=== PATIENT | female | born 2000 | race Two or more races ===

== ENCOUNTER 2023-08-14 22:58 | Emergency (ER) | payer SELFPAY ==
[2023-08-14 23:04] VITALS: BP 111/75; PULSE 93; RESP 16; O2SAT 98; BMI 27.5
--- NOTE | 2023-08-14 23:24 | ED_ITS ---
HPI - Female Genitourinary General Chief complaint: Urogenital-Female Stated complaint: UTI, 14-wks Time Seen by Provider: 08/14/23 23:08 Source: patient Mode of arrival: walk-in Limitations: no limitations History of Present Illness HPI Narrative: This 24-year-old female whose last menstrual period was in April and has had positive tests at home and is waiting to see Dr. Gomez presents f or evaluation of 3 days of urinary symptoms including frequency, urgency and dysuria. She has not noticed any leg in her urine. She has not had a fever. She denies any vaginal bleeding or discharge or passage of any tissue. She does have some low back pain. She states she has been having intermittent episodes of vomiting which she expected to have when she got . She has not had any fever or signs of pyelonephritis. Related Data Home Medications Medication Instructions Recorded Confirmed [id number] acid PO 08/14/23 Allergies Allergy/AdvReac Type Severity Reaction Status Date / Time No Known Drug Allergies Allergy Verified 08/14/23 23:13 Review of Systems ROS Status of ROS 10 or more systems reviewed and unremarkable except as noted in history and below [facility] Social History Smoking status: Former smoker Exam Narrative Exam Narrative: Nurses note and vital signs reviewed and patient is not hypoxic. General: The patient appears well and in no apparent distress. Patient is resting comfortably on cart. Skin: Warm, dry, no pallor noted. There is no rash noted. Head: Normocephalic, atraumatic Eye: Normal conjunctiva, no drainage, EOMI. PERRL Ears, Nose, Mouth, and Throat: oral mucosa is moist. Cardiovascular: Regular Rate and Rhythm S1S2, no murmurs, rubs or gallops Respiratory: Patient is in no distress, no accessory muscle use, lungs are clear to auscultation, no wheezing, rales or rhonchi Back: non-tender, no CVA tenderness bilaterally to percussion. GI: Normal bowel sounds, no tenderness to palpation, no masses appreciated. No rebound, guarding, or rigidity noted. There is no tenderness over the urinary bladder. The patient's uterus does not feel enlarged Musculoskeletal: The patient has no evidence of calf tenderness, no pitting edema, symmetrical pulses noted bilaterally Neurological: A&O x4, normal speech Psychiatric: Cooperative Constitutional Vital Signs, click to edit/add: Last Vital Signs Pulse 93 H 08/14/23 23:04 Resp 16 08/14/23 23:04 BP 111/75 08/14/23 23:04 Pulse Ox 98 08/14/23 23:04 O2 Del Method Room Air 08/14/23 23:04 Course Vital Signs Vital signs: Vital Signs Pulse Rate 93 H 08/14/23 23:04 Respiratory Rate 16 08/14/23 23:04 Blood Pressure 111/75 08/14/23 23:04 Pulse Oximetry 98 08/14/23 23:04 Oxygen Delivery Method Room Air 08/14/23 23:04 Pulse Rate 93 H 08/14/23 23:04 Respiratory Rate 16 08/14/23 23:04 Blood Pressure 111/75 08/14/23 23:04 Pulse Oximetry 98 08/14/23 23:04 Oxygen Delivery Method Room Air 08/14/23 23:04 MDM - Female Genitourinary MDM Narrative Medical decision making narrative: This 33-year-old female who states that her last menstrual period was in July presents for evaluation of urinary frequency urgency and dysuria. She has not noticed any hematuria. She denies any flank pain shaking chills or other signs of pyelonephritis. She has had a home positive test and been seen in follow-up but has not been seen by [facility] yet. She is waiting for her Medicaid to come through. She is well-appearing. Her abdomen is soft. She denies any vaginal discharge or bleeding. Her urine test was positive and urinalysis was negative. In light of her and urinary symptoms she will be medicated with Keflex empirically. She was medicated in emergency department with a 1st dose of Keflex, Tylenol and Zofran. I encouraged her to drink plenty of fluids to stay hydrated and return to emergency department as needed for worsening symptoms, fever, abdominal pain vaginal bleeding or any concerns. Lab Data Labs: Lab Results 08/14/23 Range/Units 23:14 Urine Color Lt. yellow (YELLOW) Urine Clarity Clear (CLEAR) Urine pH 6.5 (5.0-9.0) Ur Specific [place] <=1.005 A (1.005-1.025) Urine Protein Negative (NEG/TRACE) mg/dL Urine Glucose (UA) Negative (NEGATIVE) mg/dL Urine Ketones Negative (NEGATIVE) mg/dL Urine Occult Blood Negative (NEGATIVE) Urine Nitrite Negative (NEGATIVE) Urine Bilirubin Negative (NEGATIVE) Urine Urobilinogen 0.2 (0.2-1.0) EU/dL Ur Leukocyte Esterase Negative (NEGATIVE) Urine RBC 0-2 (0-2) #/HPF Urine WBC 0-2 A (NONE SEEN) #/HPF Ur Squamous Epith Cells Few A (NONE/RARE) #/LPF Urine Crystals None seen (None Seen) #/HPF Urine Bacteria None seen (NONE SEEN) #/HPF Urine Casts None seen (NONE SEEN) #/LPF Urine Mucus None seen (NONE SEEN) Urine HCG, Qual Positive A (NEGATIVE) Discharge Plan Discharge Chief Complaint: Urogenital-Female Clinical Impression: Urinary tract infection, Positive test Patient Disposition: Home, Self-Care Time of Disposition Decision: 00:31 Condition: Good Prescriptions / Home Meds: No Action [id number] [ Multi] PO Instructions: Urinary Tract Infection in (ED) Stand Alone Forms: Portal Instructions Referrals: Physician,Non-Staff, MD [Primary Care Provider] - 1 week
[2023-08-14 23:37] LABS: Bilirubin Urine NEGATIVE (NEGATIVE); Blood Urine NEGATIVE (NEGATIVE); Clarity Urine CLEAR (CLEAR); Color Urine LT. YELLOW (YELLOW); Glucose Urine UA NEGATIVE (NEGATIVE); Ketones Urine NEGATIVE (NEGATIVE); Leukocyte Esterase Urine NEGATIVE (NEGATIVE); Nitrite Urine NEGATIVE (NEGATIVE); Protein Urine NEGATIVE (NEG/TRACE); Specific Gravity Urine <=1.005 (1.005-1.025); Urobilinogen Urine 0.2 EU/dL (0.2-1.0); pH Urine 6.5 (5.0-9.0)
[2023-08-14 23:48] LABS: Bacteria Urine NONE SEEN #/HPF (NONE SEEN); Mucus Urine NONE SEEN (NONE SEEN); RBC Urine 0-2 #/HPF (0-2); WBC Urine 0-2 #/HPF (NONE SEEN)
[2023-08-14 23:49] LABS: Crystals Seen? None Seen #/HPF (None Seen); Squamous Epithelial Cell Urine FEW #/LPF (NONE/RARE)
[2023-08-14 23:52] LABS: Cast Seen? NONE SEEN #/LPF (NONE SEEN)
[2023-08-15 00:25] LABS: HCG Qualitative Urine* POSITIVE (NEGATIVE)
[2023-08-15] MEDS: ACETAMINOPHEN 325 MG TABLET 650 MG PO (00:42)
[2023-08-15] MEDS: CEPHALEXIN 500 MG CAPSULE PO (00:42)
== END 2023-08-15 00:49 | disposition home or self-care (01) ==
PROVIDERS: Emergency Provider Emergency Medicine
DX: O23.42 Unspecified infection of urinary tract in pregnancy, second trimester (principal); N39.0 Urinary tract infection, site not specified; Z3A.14 14 weeks gestation of pregnancy; Z87.891 Personal history of nicotine dependence
CPT/HCPCS: 81001; 84703; 99283

== ENCOUNTER 2023-08-28 22:57 | Emergency (ER) | payer OTHER, SELFPAY ==
[2023-08-28 23:02] VITALS: BP 130/74; PULSE 77; RESP 16; TEMP 37.1; O2SAT 100; BMI 29.3
--- NOTE | 2023-08-29 00:57 | ED.GENADUL1 ---
HPI - General Adult General Chief complaint: Headache Stated complaint: MIGRAINE, 16 WEEKS Time Seen by Provider: 08/29/23 00:54 Source: patient Mode of arrival: walk-in History of Present Illness HPI narrative: presents complaining of migraine headache. Started around 7pm tonight. Similar headaches in the past. Headache associated with nausea and vomiting. No neck pain, stiffness or fever. No weakness of her extremities Onset (ago): hour(s) Related Data Home Medications Medication Instructions Recorded Confirmed [id number] acid PO 08/14/23 Allergies Allergy/AdvReac Type Severity Reaction Status Date / Time No Known Drug Allergies Allergy Verified 08/14/23 23:13 Review of Systems ROS Status of ROS 10 or more systems reviewed and unremarkable except as noted in history and below [facility] Social History Smoking status: Former smoker Exam Constitutional Vital Signs, click to edit/add: Last Vital Signs Temp 98.8 F 08/28/23 23:02 Pulse 77 08/28/23 23:02 Resp 16 08/28/23 23:02 BP 130/74 08/28/23 23:02 Pulse Ox 100 08/28/23 23:02 O2 Del Method Room Air 08/28/23 23:02 Common normals: no apparent distress, average body habitus, oriented x3, no limitations, healthy appearing, alert and well nourished [facility] Common normals: normocephalic and head/scalp atraumatic Eye Common normals: EOMs intact bilaterally and conjunctivae normal Respiratory Common normals: normal respiratory effort, no retractions, no use of accessory muscles and clear to auscultation bilaterally Cardio Common normals: regular rate, regular rhythm, S1 normal heart sound and S2 normal heart sound GI Common normals: Normal to inspection, nondistended, normoactive bowel sounds present, soft to palpation and non-tender Extremity Common normals: normal to inspection and full ROM Neuro Common normals: oriented x3, CN's II-XII intact bilaterally, moves all extremities, no focal motor deficits and no sensory deficits noted Psych Appearance: grossly normal Course Vital Signs Vital signs: Vital Signs Temperature 98.8 F 08/28/23 23:02 Pulse Rate 77 08/28/23 23:02 Respiratory Rate 16 08/28/23 23:02 Blood Pressure 130/74 08/28/23 23:02 Pulse Oximetry 100 08/28/23 23:02 Oxygen Delivery Method Room Air 08/28/23 23:02 Temperature 98.8 F 08/28/23 23:02 Pulse Rate 77 08/28/23 23:02 Respiratory Rate 16 08/28/23 23:02 Blood Pressure 130/74 08/28/23 23:02 Pulse Oximetry 100 08/28/23 23:02 Oxygen Delivery Method Room Air 08/28/23 23:02 Medical Decision Making MDM Narrative Medical decision making narrative: patient presents with migraine headache. treated successfully in the department and patient discharged home in improved condition Lab Data Labs: Lab Results 08/29/23 Range/Units 01:15 WBC 11.4 H (4.0-11.0) 10^3/uL RBC 3.93 L (4.20-5.40) 10^6/uL Hgb 11.7 L (12.0-16.0) g/dL Hct 34.3 L (36.0-48.0) % MCV 87.3 (81.0-99.0) fL MCH 29.8 (26.7-34.0) pg MCHC 34.1 (29.9-35.2) g/dL RDW 13.5 (11.0-15.0) % Plt Count 281 (150-450) 10^3/uL MPV 10.9 (9.5-13.5) fL Neut % (Auto) 77.4 H (43.0-75.0) % Lymph % (Auto) 15.4 L (20.5-60.0) % [place] % (Auto) 5.7 (1.7-12.0) % Eos % (Auto) 0.6 L (0.9-7.0) % Baso % (Auto) 0.6 (0.2-2.0) % Neut # (Auto) 8.8 H (1.4-6.5) 10^3/uL Lymph # (Auto) 1.8 (1.2-3.8) 10^3/uL [place] # (Auto) 0.7 (0.3-0.8) 10^3/uL Eos # (Auto) 0.1 (0.0-0.7) 10^3/uL Baso # (Auto) 0.1 (0.0-0.1) 10^3/uL Abs Immat Gran (auto) 0.04 H (0.00-0.03) 10^3/uL Imm/Tot Granulo (auto) 0.3 (0.0-0.5) % Sodium 135 L (136-145) mmol/L Potassium 3.3 L (3.5-5.1) mmol/L Chloride 98 (98-107) mmol/L Carbon Dioxide 27.0 (21.0-32.0) mmol/L Anion Gap 13.3 BUN 8.0 (7.0-18.0) mg/dL Creatinine 0.56 (0.55-1.02) mg/dL Est GFR ( Amer) >60 (>=60) Est GFR (Non-Af Amer) >60 (>=60) BUN/Creatinine Ratio 14.3 Glucose 85 (74-106) mg/dL Calcium 9.4 (8.5-10.1) mg/dL Discharge Plan Discharge Chief Complaint: Headache Clinical Impression: Migraine Patient Disposition: Home, Self-Care Prescriptions / Home Meds: No Action [id number] acid [ Multi] PO Instructions: Migraine Headache (ED) Stand Alone Forms: Portal Instructions Referrals: Physician,Non-Staff, MD [Primary Care Provider] - 1 week
[2023-08-29] MEDS: 0.9 % SODIUM CHLORIDE 1,000 ML 999 ML IV (01:21)
[2023-08-29] MEDS: DIPHENHYDRAMINE HCL 50 MG/ML (1ML) VIAL IV (01:22)
[2023-08-29] MEDS: METHYLPREDNISOLONE SOD SUCC PF 125 MG/2 ML VIAL IVP (01:22)
[2023-08-29] MEDS: METOCLOPRAMIDE HCL 10 MG/2 ML VIAL IVP (01:22)
[2023-08-29 01:45] LABS: Basophils Absolute Auto 0.1 10^3/uL (0.0-0.1); Basophils Percent Auto 0.6 % (0.2-2.0); Eosinophils Absolute Auto 0.1 10^3/uL (0.0-0.7); Eosinophils Percent Auto 0.6 % (0.9-7.0); Hematocrit 34.3 % (36.0-48.0); Hemoglobin 11.7 g/dL (12.0-16.0); Immature Granulocytes Abs Auto 0.04 10^3/uL (0.00-0.03); Immature Granulocytes Pct Auto 0.3 % (0.0-0.5); Lymphocytes Absolute Auto 1.8 10^3/uL (1.2-3.8); Lymphocytes Percent Auto 15.4 % (20.5-60.0); Mean Corpuscular HGB Conc 34.1 g/dL (29.9-35.2); Mean Corpuscular Hemoglobin 29.8 pg (26.7-34.0); Mean Corpuscular Volume 87.3 fL (81.0-99.0); Mean Platelet Volume 10.9 fL (9.5-13.5); Monocytes Absolute Auto 0.7 10^3/uL (0.3-0.8); Monocytes Percent Auto 5.7 % (1.7-12.0); Neutrophils Absolute Auto 8.8 10^3/uL (1.4-6.5); Neutrophils Percent Auto 77.4 % (43.0-75.0); Platelet Count 281 10^3/uL (150-450); Red Blood Count 3.93 10^6/uL (4.20-5.40); Red Cell Distribution Width 13.5 % (11.0-15.0); White Blood Count 11.4 10^3/uL (4.0-11.0)
[2023-08-29 01:51] LABS: Anion Gap 13.3; BUN Creatinine Ratio 14.3; Calcium 9.4 mg/dL (8.5-10.1); Chloride 98 mmol/L (98-107); Estimated GFR (African America >60 (>=60); Estimated GFR (Non-African Ame >60 (>=60); Glucose 85 mg/dL (74-106); Potassium 3.3 mmol/L (3.5-5.1); Sodium 135 mmol/L (136-145)
== END 2023-08-29 02:47 | disposition home or self-care (01) ==
PROVIDERS: Emergency Provider Internal Medicine
DX: O26.892 Other specified pregnancy related conditions, second trimester (principal); G43.909 Migraine, unspecified, not intractable, without status migrainosus; Z3A.16 16 weeks gestation of pregnancy; Z87.891 Personal history of nicotine dependence
CPT/HCPCS: 36415; 80048; 85025; 96361; 96374; 96375; 99284; J2930

== ENCOUNTER 2023-09-07 14:09 | Outpatient (OUT) | payer OTHER, SELFPAY ==
--- NOTE | 2023-09-07 | US_ITS ---
The [address] [address] Patient Name: CHRISTI HASTINGS MRN: [id number] date: 2000 Sex: F Assigned Patient Location: US Current Patient Location: Accession/Order Number: [id number] Exam Date: 09/07/2023 14:11 Report Date: 09/07/2023 17:15 At the request of: MATTHEW DAUGHERTY Procedure: US OB >= 14 weeks Fetus EXAMINATION: US OB >= 14 weeks Fetus HISTORY: MISSED MENSES COMPARISON: No relevant comparison available. FINDINGS: GESTATIONAL SAC: Present. YOLK SAC: Not seen. POLE: Present. CARDIAC: Present. UTERUS: Normal size and appearance. OVARIES: Right: Not seen. Left: Not seen. CERVIX: Not measured. CUL-DE-SAC: Normal. OTHER: None. AGE BY LMP: 17 weeks 1 day JAMIE BY LMP: 02/14/2024 AGE BY US CRL: 15 weeks 3 days JAMIE BY US CRL: 02/26/2024 US/US OB >= 14 weeks Fetus IMPRESSION: 1. Single live intrauterine 15 weeks 3 days by today's ultrasound. Electronically authenticated by: GERRI MAIER Date: 09/07/2023 17:15
== END 2023-09-07 14:10 | disposition home or self-care (01) ==
LOC: US 14:09
PROVIDERS: Visit Provider Obstetrics & Gynecology
DX: Z34.92 Encounter for supervision of normal pregnancy, unspecified, second trimester (principal); Z3A.15 15 weeks gestation of pregnancy
CPT/HCPCS: 76815

== ENCOUNTER 2023-09-09 11:10 | Outpatient (OUT) | payer OTHER, SELFPAY ==
[2023-09-09 12:21] LABS: Basophils Absolute Auto 0.1 10^3/uL (0.0-0.1); Basophils Percent Auto 0.8 % (0.2-2.0); Eosinophils Absolute Auto 0.2 10^3/uL (0.0-0.7); Eosinophils Percent Auto 2.2 % (0.9-7.0); Hematocrit 33.7 % (36.0-48.0); Hemoglobin 11.3 g/dL (12.0-16.0); Immature Granulocytes Abs Auto 0.02 10^3/uL (0.00-0.03); Immature Granulocytes Pct Auto 0.2 % (0.0-0.5); Lymphocytes Absolute Auto 1.6 10^3/uL (1.2-3.8); Lymphocytes Percent Auto 19.2 % (20.5-60.0); Mean Corpuscular HGB Conc 33.5 g/dL (29.9-35.2); Mean Corpuscular Hemoglobin 29.2 pg (26.7-34.0); Mean Corpuscular Volume 87.1 fL (81.0-99.0); Mean Platelet Volume 10.8 fL (9.5-13.5); Monocytes Absolute Auto 0.6 10^3/uL (0.3-0.8); Monocytes Percent Auto 7.3 % (1.7-12.0); Neutrophils Absolute Auto 5.8 10^3/uL (1.4-6.5); Neutrophils Percent Auto 70.3 % (43.0-75.0); Platelet Count 238 10^3/uL (150-450); Red Blood Count 3.87 10^6/uL (4.20-5.40); Red Cell Distribution Width 13.7 % (11.0-15.0); White Blood Count 8.3 10^3/uL (4.0-11.0)
[2023-09-09 13:34] LABS: Estimated Average Glucose 111 mg/dL; Glycohemoglobin A1C 5.5 % (4.5-6.2)
[2023-09-09 13:41] LABS: Thyroid Stimulating Hormone 1.644 uIU/mL (0.358-3.740)
[2023-09-10 08:08] LABS: HCV Ab Non Reactive (Non Reactive); HIV Ab/p24 Ag Screen Non Reactive (Non Reactive)
[2023-09-10 09:08] LABS: Rubella Antibodies, IgG <0.90 index (Immune >0.99)
[2023-09-10 10:07] LABS: Rapid Plasma Reagin, Quant Non Reactive titer (NonRea<1:1)
[2023-09-10 11:07] LABS: HBsAg Screen Negative (Negative)
[2023-09-11 19:08] LABS: AFP Value 22.2 ng/mL (.); Gest. Age on Collection Date 15.7 weeks (.); Gestat. Age Based On As provided (.); Insulin Dep Diabetes No (.); Maternal Age At EDD 22.7 yr (.); OSBR Risk 1 IN 10000 (.); Results Report (.)
== END 2023-09-09 11:11 | disposition home or self-care (01) ==
LOC: LAB 11:10
PROVIDERS: Visit Provider Obstetrics & Gynecology
DX: Z34.92 Encounter for supervision of normal pregnancy, unspecified, second trimester (principal); N91.2 Amenorrhea, unspecified
CPT/HCPCS: 36415; 82105; 83036; 84443; 85025; 86592; 86762; 86803; 86850; 86900; 86901; 87086; 87340; 87389

== ENCOUNTER 2023-10-05 20:27 | Outpatient (REF) | payer OTHER, SELFPAY ==
[2023-10-11 12:09] LABS: Age Gdln ACOG Testing Note (.); IGP, rfx Aptima HPV ASCU Note (.)
== END 2023-10-05 20:28 | disposition home or self-care (01) ==
LOC: LAB 20:27
PROVIDERS: Visit Provider Physician Assistant
DX: Z01.419 Encounter for gynecological examination (general) (routine) without abnormal findings (principal)
CPT/HCPCS: G0145

== ENCOUNTER 2023-10-09 10:00 | Outpatient (OUT) | payer OTHER, SELFPAY ==
--- NOTE | 2023-10-09 10:14 | US_ITS ---
[address] [address] Patient Name: CHRISTI HASTINGS MRN: [id number] date: 2000 Sex: F Assigned Patient Location: US Current Patient Location: Accession/Order Number: [id number] Exam Date: 10/09/2023 10:25 Report Date: 10/09/2023 15:26 At the request of: MATTHEW DAUGHERTY Procedure: US OB anatomy EXAMINATION: US OB anatomy, US OB transvaginal HISTORY: Second Trimester Z34.92 COMPARISON: No relevant comparison available. TECHNIQUE: Transabdominal sonographic examination was performed for obstetrical and evaluation. FINDINGS: Number: 1 Heart Rate: 152.5 bpm H.B. /min Amniotic Fluid Volume: Subjectively normal Placental Location: Anterior with lower margin 3.8 cm from os. Cervix Length: 5.3 cm, closed. ANATOMY: Normal Structures -cerebellum, choroid plexus, cisterna magna, lateral cerebral ventricles, orbits, midline falx, hard palate, four-chamber heart, stomach, kidneys, bladder, umbilical cord insertion into abdomen, three-vessel cord, cervical spine, thoracic spine, lumbar spine, sacral spine, right upper extremity, left upper extremity, right lower extremity, left lower extremity. SUBOPTIMALLY SEEN: Cardiac outflow tracts ABNORMALITIES: None BIOMETRY: BPD: 4.4 cm 19 weeks 2 days ; 19% HC: 16.6 cm 19 weeks 2 days; 13% AC: 14.2 cm 19 weeks 4 days; 31% FL: 3.1 cm 19 weeks 4 days ; 28% EFW:298.7 grams; 22% FL/AC: 21.7 FL/BPD: 70.8 HC/AC: 1.2 GESTATIONAL AGE: Age by EDC: 20 weeks 0 days JAMIE by EDC: 02/26/2024 Age by current US: 19 weeks 3 days JAMIE by current US: 03/01/2024 US/US OB anatomy IMPRESSION: 1. Single live intrauterine with growth detailed above. 2. Suboptimal visualization of the cardiac outflow tracts due to position. Electronically authenticated by: GERRI MAIER Date: 10/09/2023 15:26
--- NOTE | 2023-10-09 10:14 | US_ITS ---
[address] [address] Patient Name: CHRISTI HASTINGS MRN: [id number] date: 2000 Sex: F Assigned Patient Location: US Current Patient Location: US Accession/Order Number: [id number] Exam Date: 10/09/2023 10:25 Report Date: 10/09/2023 15:26 At the request of: MATTHEW DAUGHERTY Procedure: US OB transvaginal EXAMINATION: US OB anatomy, US OB transvaginal HISTORY: Second Trimester Z34.92 COMPARISON: No relevant comparison available. TECHNIQUE: Transabdominal sonographic examination was performed for obstetrical and evaluation. FINDINGS: Number: 1 Heart Rate: 152.5 bpm H.B. /min Amniotic Fluid Volume: Subjectively normal Placental Location: Anterior with lower margin 3.8 cm from os. Cervix Length: 5.3 cm, closed. ANATOMY: Normal Structures -cerebellum, choroid plexus, cisterna magna, lateral cerebral ventricles, orbits, midline falx, hard palate, four-chamber heart, stomach, kidneys, bladder, umbilical cord insertion into abdomen, three-vessel cord, cervical spine, thoracic spine, lumbar spine, sacral spine, right upper extremity, left upper extremity, right lower extremity, left lower extremity. SUBOPTIMALLY SEEN: Cardiac outflow tracts ABNORMALITIES: None BIOMETRY: BPD: 4.4 cm 19 weeks 2 days ; 19% HC: 16.6 cm 19 weeks 2 days; 13% AC: 14.2 cm 19 weeks 4 days; 31% FL: 3.1 cm 19 weeks 4 days ; 28% EFW:298.7 grams; 22% FL/AC: 21.7 FL/BPD: 70.8 HC/AC: 1.2 GESTATIONAL AGE: Age by EDC: 20 weeks 0 days JAMIE by EDC: 02/26/2024 Age by current US: 19 weeks 3 days JAMIE by current US: 03/01/2024 US/US OB transvaginal IMPRESSION: 1. Single live intrauterine with growth detailed above. 2. Suboptimal visualization of the cardiac outflow tracts due to position. Electronically authenticated by: GERRI MAIER Date: 10/09/2023 15:26
== END 2023-10-09 10:01 | disposition home or self-care (01) ==
LOC: US 10:01
PROVIDERS: Visit Provider Obstetrics & Gynecology
DX: Z34.92 Encounter for supervision of normal pregnancy, unspecified, second trimester (principal); Z3A.19 19 weeks gestation of pregnancy
CPT/HCPCS: 76805; 76817

== ENCOUNTER 2023-11-15 08:05 | Outpatient (OUT) | payer OTHER, SELFPAY ==
--- NOTE | 2023-11-15 08:07 | US_ITS ---
[place] [address] Patient Name: CHRISTI HASTINGS MRN: [id number] date: 2000 Sex: F Assigned Patient Location: US Current Patient Location: Accession/Order Number: [id number] Exam Date: 11/15/2023 08:07 Report Date: 11/15/2023 09:02 At the request of: MATTHEW DAUGHERTY Procedure: US OB follow up EXAMINATION: US OB follow up HISTORY: SV OUTFLOW TRACTS COMPARISON: 10/09/2023 FINDINGS: lie: Transverse Heart rate: 142 beats minute Normal observed anatomy, RVOT, LVOT US/US OB follow up IMPRESSION: Normal appearance of the ventricular outflow tracts Electronically authenticated by: ENEDELIA GTZ Date: 11/15/2023 09:02
--- OUTSIDE RECORDS SUMMARY | 2023-11-15 08:08 | XMS_ITS | CCD ---
Author Name Unknown Address [address] [place] [address] Organization [facility] Care Team Providers Care State Pilot Name Role Phone Alexis Jacobs Primary Care Physician Unavail able Heydi STORY Primary Care Physician [phone] Jacinta Núñez Primary Care Physician NONE, XXXX Primary Care Physician Unavailab Yvon Obrien Attending Unavailable Tha Tiwari Attending Unavailable Nagi Kirby Attending Unavailable Allergies Allergy Classification Reported Allergen(s) Allergy Type Date of Onset Reaction(s) Facility (1 source) No Known Medication Allergies; Translations: [No Known Medication Allergies] Propensity to adverse reactions (disorder) [facility] Repository Medications Current Medications Medication Drug Class(es) Dates Sig (Normalized) Sig (Original) dicyclomine hydrochloride 10 mg oral capsule (1 source) Anticholinergic Start: 10-31-2022 End: 11-07-2022 take 1 capsule by mouth four times daily Bentyl 10 mg Cap 10 mg = 1 cap(s), Oral, QID, X 7 day(s), # 28 cap(s), Refills(s) 0, Pharmacy: [facility]/pharmacy #[id number], 157.5, cm, 10/30/22 23:48:00 EST, Height/Length Dosing, 69.2, kg, 10/30/22 23:48:00 EST, Weight Dosing Start Date: 10/31/22 Stop Date: 11/07/22 Status: Ordered metoclopramide 10 mg disintegrating oral tablet (2 sources) Dopamine-2 Receptor Antagonist Start: 10-31-2022 take 1 tablet by mouth three times daily as needed for nausea metoclopramide 10 mg oral tablet, disintegrating 10 mg = 1 tab(s), Oral, TID, PRN Nausea/Vomiting, # 28 tab(s), Refills(s) 0, Pharmacy: [facility]/pharmacy #[id number], 157.5, cm, 10/30/22 23:48:00 EST, Height/Length Dosing, 69.2, kg, 10/30/22 23:48:00 EST, Weight Dosing Start Date: 10/31/22 Status: Ordered Multivitamins (1 source) Start: 09-13-2023 take 1 tablet by mouth once daily Multivitamins 1 tab(s), Oral, Daily, Refill(s) 0 Start Date: 09/13/23 Status: Ordered Completed/Discontinued Medications Medication Drug Class(es) Dates Sig (Normalized) Sig (Original) naproxen 500 mg oral tablet (4 sources) Nonsteroidal Anti-inflammatory Drug Start: 07-25-2022 take 1 tablet by mouth twice daily naproxen 500 mg Tab 500 mg = 1 tab(s), Oral, BID, Take one tab by mouth two times a day, # 14 tab(s), Refills(s) 0, [id number] 157, cm, 07/25/22 6:40:00 EDT, Height/Length Dosing, 75, kg, 07/25/22 6:40:00 EDT, Weight Dosing Start Date: 07/25/22 Status: Ordered Problems Problem Classification Problem Date Documented Da te Episodic/Chronic Abdominal pain (1 source) Abdominal pain; Translations: [Unspecified abdominal pain] Onset: 10-31-2022 Episodic Nausea and vomiting (1 source) Nausea and vomiting; Translations: [Nausea with vomiting, unspecified] Onset: 10-31-2022 Episodic Nonspecific chest pain (2 sources) Chest pain; Translations: [Chest pain, unspecified] Onset: 07-25-2022 Episodic Open wounds of head; neck; and trunk (1 source) Laceration of head; Translations: [Laceration without foreign body of other part of head, initial encounter] Onset: 05-18-2022 Episodic Other aftercare (2 sources) Surgical follow-up; Translations: [Encounter for removal of sutures] Onset: 05-25-2022 Episodic Other injuries and conditions due to external causes (1 source) Injury of head; Translations: [Unspecified injury of head, initial encounter] Onset: 05-18-2022 Episodic Skull and face fractures (1 source) Closed fracture of nasal bones; Translations: [Fracture of nasal bones, initial encounter for closed fracture] Onset: 05-18-2022 Episodic Substance-related disorders (7 sources) Smoker; Translations: [Nicotine dependence] 05-18-2022 Chronic Comment on above: Added secondary to d ocumentation in Social History. Viral infection (1 source) Viral disease; Translations: [Viral infection, unspecified] Onset: 10-26-2022 Episodic Results Test Name Value Interpretation Reference Range Facil ity Auto Diffon 09-13-2023 Basophils/100 WBC (Bld) 0.4 % Normal 0.0-2.0 [facility] Comment on above: Order Comment: Order Added by Discern Expert. Performed By: #### 1 [id number], 85552430, 7493765, 7812128, 71329929, 0426852, 5984220, 7191866 ####[facility] [address] [place] [address] Basophils/Leukocytes Auto (B ld) [Pure # fraction] 0.1 E9/L Normal 0.0-0.2 [facility] Comment on above: Order Comment: Order Added by Discern Expert. Performed By: #### 1 [id number], 21159398, 4595716, 1305716, 05566854, 6122688, 3815587, 0825871 ####[facility] [address] [place] [address] Eosinophils/100 WBC (Bld) 1.5 % Normal 0.0-8.0 [facility] Comment on above: Order Comment: Order Added by Discern Expert. Performed By: #### 1 0165569, 39745429, 0549824, 1827694, 75633699, 5532732, 4896923, 2379456 ####[facility] [address] [place] [address] Eosinophils/Leukocytes Auto (Bld) [Pure # fraction] 0.2 E9/L Normal 0.0-0.5 [facility] Comment on above: Order Comment: Order Added by Discern Expert. Performed By: #### 1 [id number], 62033336, 9416381, 9326820, 81025637, 8785089, 6288302, 5299920 ####[facility] [address] [place] [address] Lymphocytes/100 WBC (Bld) 10.6 % Low 14.0-50.0 [facility] Comment on above: Order Comment: Order Added by Discern Expert. Performed By: #### 1 3241593, 17447854, 4574747, 3930844, 94311370, 3556642, 3307237, 2122222 ####[place] [place] [address] Lymphocytes/Leukocytes Auto (Bld) [Pure # fraction] 1.3 E9/L Normal 1.0-4.0 [facility] Comment on above: Order Comment: Order Added by Discern Expert. Performed By: #### 1 4896923, 88817319, 5947443, 0345841, 64250717, 4569076, 6872220, 0987023 ####[address] [place] [address] Monocytes/100 WBC (Bld) 7.8 % Normal 4.0-14.0 [facility] Comment on above: Order Comment: Order Added by Discern Expert. Performed By: #### 1 9202003, 45940424, 0505481, 3430931, 57930702, 1485113, 7772437, 7270948 ####[address] [place] [address] Monocytes/Leukocytes Auto (B ld) [Pure # fraction] 1.0 E9/L Normal 0.2-1.0 [facility] Comment on above: Order Comment: Order Added by Discern Expert. Performed By: #### 1 7402893, 71731306, 7076133, 8383022, 48906652, 1875992, 5189025, 4017158 ####[facility] [address] [place] [address] Neutrophils/100 WBC (Bld) 79.7 % High 36.0-75.0 [facility] Comment on above: Order Comment: Order Added by Discern Expert. Performed By: #### 1 4901945, 29405584, 9886763, 0239270, 12792698, 4602578, 8456825, 9463553 ####[facility] [address] [place] [address] Neutrophils/Leukocytes Auto (Bld) [Pure # fraction] 9.9 E9/L High 2.0-7.5 [facility] Comment on above: Order Comment: Order Added by Discern Expert. Performed By: #### 1 9723660, 17062690, 9277744, 0615660, 96622414, 9423830, 9433702, 4972543 ####[facility] [address] [place] [address] BMPon 09-13-2023 Creatinine [Mass/Vol] 0.5 mg/dL Normal 0.5-1.3 [facility] Comment on above: Performed By: #### 1 1765204, 08352162, 6448166, 9414122, 23596646, 5315755, 5250237, 5565058 ####[facility] [address] [place] [address] Urea nitrogen [Mass/Vol] 7 mg/dL Normal 5-21 [facility] Comment on above: Performed By: #### 1 7626793, 71143433, 6512099, 0465796, 09044939, 8221599, 7150762, 7416839 ####[facility] [address] [place] [address] Urea nitrogen/Creatinine [Ma ss ratio] 14 No Units Normal 10-20 [facility] Comment on above: Performed By: #### 1 8375286, 38328753, 2352007, 1830931, 22173442, 6011211, 9988454, 0283928 ####[facility] [address] [place] [address] Anion gap [Moles/Vol] 11 mmol/L Normal 6-16 [facility] Comment on above: Performed By: #### 1 4546251, 97829197, 1568430, 6653236, 50593224, 1401061, 4883827, 6186483 ####[facility] [address] [place] [address] Calcium [Mass/Vol] 8.7 mg/dL Low 8.9-11.1 [facility] Comment on above: Performed By: #### 1 9911531, 62448455, 7010762, 4375675, 71783777, 2445228, 9390278, 4291227 ####[facility] [address] [place] [address] Chloride [Moles/Vol] 105 mmol/L Normal 101-111 [facility] Comment on above: Performed By: #### 1 7395081, 39587300, 1617271, 8262446, 00545879, 2249368, 6692459, 1573203 ####[facility] [address] [place] [address] CO2 [Moles/Vol] 23 mmol/L Normal 21-31 [facility] Comment on above: Performed By: #### 1 5296307, 02300170, 5483500, 9160816, 82252299, 5375448, 1498533, 0641814 ####[facility] [address] [place] [address] Glucose [Mass/Vol] 100 mg/dL Normal 55-199 [facility] Comment on above: Result Comment: If t his glucose result represents a fasting glucose, interpretation should refer to the following reference range: 55-99 mg/dL Performed By: #### 1 7567904, 58264422, 1857822, 2793326, 78488306, 2691266, 0993164, 8602366 ####[facility] [address] [place] [address] Potassium [Moles/Vol] 3.3 mmol/L Low 3.5-5.3 [facility] Comment on above: Performed By: #### 1 7686521, 31091127, 1994560, 3949599, 68465712, 9746992, 2764719, 8276499 ####[facility] [address] [place] [address] Sodium [Moles/Vol] 136 mmol/L Normal 135-145 [facility] Comment on above: Performed By: #### 1 6955332, 56536644, 1962690, 9702145, 48325624, 5312500, 3412392, 8305170 ####[facility] [address] [place] [address] CBC w/ Auto Diffon 3 Erythrocyte distribution wid th (RBC) [Ratio] 14.7 % High 10.9-14.2 [facility] Comment on above: Performed By: #### 1 5340814, 18849098, 5369860, 1560465, 46329180, 7573536, 3671883, 7171447 ####[facility] [address] [place] [address] Hematocrit (Bld) [Volume fraction] 33.9 % Low 3 4.0-46.0 [facility] Comment on above: Performed By: #### 1 3555740, 03747411, 2645448, 9486460, 62073517, 4589919, 6767501, 2117065 ####[facility] [address] [place] [address] Hemoglobin (Bld) [Mass/Vol] 11.2 g/dL Low 12.0-16. 0 [facility] Comment on above: Performed By: #### 1 0753094, 54966665, 8975172, 9290340, 99069571, 9082774, 6803805, 5988028 ####[facility] [address] [place] [address] MCH (RBC) [Entitic mass] 28.9 pg Normal 27.0-34.0 [facility] Comment on above: Performed By: #### 1 7454893, 00232759, 7782990, 6155438, 86438187, 1377704, 7894091, 3768877 ####[facility] [address] [place] [address] MCHC (RBC) [Mass/Vol] 33.2 g/dL Normal 31.4-36.0 [facility] Comment on above: Performed By: #### 1 6191874, 51866873, 7290846, 7521759, 79707480, 3524645, 0688547, 2952249 ####[address] [place] [id number] MCV (RBC) [Entitic vol] 86.9 fL Normal 80.0-100.0 [facility] Comment on above: Performed By: #### 1 6716189, 74133580, 5684128, 6445300, 16361211, 8316598, 1704209, 8777035 ####[place] [id number] Platelet mean volume (Bld) [Entitic vol] 8.6 fL Normal 6.4-10.8 [facility] Comment on above: Performed By: #### 1 6824844, 77532254, 2846877, 3440302, 86493366, 5650623, 2086615, 4669963 ####[address] [address] Platelets (Bld) [#/Vol] 206.0 E9/L Normal 150.0-500.0 [facility] Comment on above: Performed By: #### 1 2674489, 52572398, 6886085, 1428712, 41781466, 8994335, 2758899, 1022354 ####[facility] [address] [place] [address] RBC (Bld) [#/Vol] 3.9 E12/L Low 4.3-5.9 [facility] Comment on above: Performed By: #### 1 0850656, 71112425, 1666869, 8764708, 40028944, 8796351, 7308766, 6219671 ####[place] [address] WBC corrected for nucl RBC A uto (Bld) [#/Vol] 12.5 E9/L High 4.0-11.0 [facility] Comment on above: Performed By: #### 1 9984664, 21394241, 7280006, 0186090, 34841261, 2875042, 5014974, 2393804 ####[facility] [address] [place] [address] CHEMISTRYOrdered By: SYSTEM SYSTEM on 09-13-2023 Troponin I.cardiac [Mass/Vol] 3.20 pg/mL Low 10.10 - 27.10 pg/mL [facility] Comment on above: Interpretive Data: T he 95% CI (Confidence Interval) PPV (Positive Predictive Value) for myocardial infarction in females is 38 pg/mL, in males 51 pg/mL. The results should be used in conjunction with clinical conditions of myocardial infarction. (Access High Sensitivity Troponin I Instructions For Use, Gallito Valentine, June 2018) Albumin [Mass/Vol] 3.4 g/dL Normal 3.3 - 5.0 gm/dL [facility] Albumin/Globulin [Mass ratio] 1.1 {ratio} Normal 1.1 - 2.2 [facility] ALP [Catalytic activity/Vol] 50 [iU]/d Normal 21 - 98 Int._Unit/L [facility] ALT No additional P-5'-P [Catalytic activity/Vol] 12 [iU]/d Normal 6 - 46 Int._Unit/L [facility] Anion gap [Moles/Vol] 11 mmol/L Normal 6 - 16 mEq/L [facility] AST [Catalytic activity/Vol] 16 [iU]/d Normal 5 - 43 Int._Unit/L [facility] Bilirubin [Mass/Vol] 0.3 mg/dL Normal 0.0 - 1.1 mg/dL [facility] Bilirubin.direct [Mass/Vol] mg/dL Normal 0.1 - 0.4 mg/dL [facility] Bilirubin.indirect [Mass or moles/Vol] Unable to Calculate mg/dL Invalid Interpretation Code 0.1 - 0.9 mg/dL [facility] Calcium [Mass/Vol] 8.7 mg/dL Low 8.9 - 11. 1 mg/dL [facility] Chloride [Moles/Vol] 105 mmol/L Normal 101 - 111 mmol/L [facility] CO2 [Moles/Vol] 23 mmol/L Normal 21 - 31 mmol/L [facility] Creatinine [Mass/Vol] 0.5 mg/dL Normal 0.5 - 1.3 mg/dL [facility] GFR/1.73 sq M.predicted among non-blacks MDRD (S/P/Bld) [Vol rate/Area] 136 mL/min/1.73 m2 Normal >=59mL/min/1. 73 m2 [facility] Chem S Comment on above: Interpretive Data: C hronic kidney disease could be indicated at eGFR's of less than 60 mL/min/1.73m2. Kidney failure is indicated at less than 15 mL/min/1.73m2. Globulin (S) [Mass/Vol] 3.0 g/dL Normal 1.4 - 4.0 gm /dL [facility] Glucose [Mass/Vol] 100 mg/dL Normal 55 - 199 mg/dL [facility] Comment on above: Interpretive Data: I f this glucose result represents a fasting glucose, interpretation should refer to the following reference range: 55-99 mg/dL Potassium [Moles/Vol] 3.3 mmol/L Low 3.5 - 5.3 mmol /L [facility] Protein [Mass/Vol] 6.4 g/dL Normal 6.0 - 7.8 gm/dL [facility] Remisol Sodium [Moles/Vol] 136 mmol/L Normal 135 - 145 mmol/L [facility] Troponin I.cardiac [Mass/Vol] 3.00 pg/mL Low 10.10 - 27.10 pg/mL [facility] Comment on above: Interpretive Data: T he 95% CI (Confidence Interval) PPV (Positive Predictive Value) for myocardial infarction in females is 38 pg/mL, in males 51 pg/mL. The results should be used in conjunction with clinical conditions of myocardial infarction. (Access High Sensitivity Troponin I Instructions For Use, Gallito Warrenton, June 2018) Urea nitrogen [Mass/Vol] 7 mg/dL Normal 5 - 21 mg/d L [facility] Urea nitrogen/Creatinine [Mass ratio] 14 mg/mg Normal 10 - 20 [facility] COAGULATIONOrdered By: Najma Vasquez on 09-13-2023 aPTT Coag (PPP) [Time] 29.9 s Normal 25.1 - 36.5 s econd(s) [facility] Auto Coag Comment on above: Interpretive Data: Jill talavera 15 days - 4 weeks 1 - 5 months 6 - 11 months 1 - 5 years 6 - 10 years 11 - 17 years PTT Mean: 35.4 (27.6-45.6) Mean: 33.5 (24.8-40.7) Mean: 32.4 (25.1-40.7) Mean: 31.6 (24.0-39.2) Mean: 31.6 (26.9-38.7) Mean: 31.0 (24.6-38.4) Pediatric Reference ranges were obtained from a study by Teto Paige et al. prepared from 1437 samples obtained at 7 different centers using the same coagulation reagent and instrumentation as [facility]. Currently there are no coagulation studies available worldwide for children to 14 days, and no normal ranges. Heparin therapeutic range (represented by Anti-Factor Xa activity of 0.2 - 0.4 U/mL) corresponds to PTT of 56.6 - 109.0 sec. Fibrin D-dimer FEU (PPP) [Mass/Vol] 754 ng/mL FEU Invalid Interpretation Code 215 - 500 ng/mL FEU [facility] Comment on above: Result Comment: Resu lts Called To Richard Lagos RN/ER By SHEILA And Read Back For Confirmation On 09/13/2023 06:40:47 EDT. Interpretive Data: T his assay is intended for use as an aid in the diagnosis of DVT or PE. These conditions cannot be excluded with certainty solely on the basis of a D-dimer concentration being within the reference range This D-Dimer assay may be used in conjunction with a non-high clinical pretest probability assessment to exclude deep-vein thrombosis(DVT). For exclusion of venous thrombosis or pulmonary embolism the analyte D-Dimer should not be used as an aid in patients with: Therapeutic dose anticoagulant therapy for >24 hours Fibrinolytic therapy within previous 7 days Trauma or surgery within previous 4 weeks Disseminated malignacies Aortic aneurysm Sepsis, severe infections, pneumonia, severe skin infections Liver cirrhosis INR Coag (PPP) [Relative time] 0.9 {INR} Invalid Interpre tation Code [facility] Auto Coag Comment on above: Interpretive Data: I NR results are specifically intended to assess patients stabilized on long-term Anticoagulation therapy suggested INR s Less Intensive Anticoagulation 2.0 3.0 Conventional Range 3.0 4.5 PT Coag (PPP) [Time] 10.1 s Normal 9.4 - 12.5 seco nd(s) [facility] Comment on above: Interpretive Data: 1 5 days - 4 weeks 1 - 5 months 6 -11 months 1-5 years 6-10 years 11 -17 years Mean: 11.2 (9.5-12.6) Mean: 11.0 (9.7-12.8) Mean: 11.0 (9.8-13.0) Mean: 11.3 (9.9-13.4) Mean: 11.7 (10.0-14.6) Mean: 11.8 (10.0 - 14.1) Pediatric Reference ranges were obtained from a study by vidya Lee al. prepared from 1437 samples obtained at 7 different centers using the same coagulation reagent and instrumentation as [facility]. Currently there are no coagulation studies available worldwide for children to 14 days, and no normal ranges. CTA Cheston 09-13-2023 CTA Chest Exam Date/Time: 09/13/2023 08:21 EDT Reason for Exam: Pulmonary embolism (PE) suspected, low to intermediate prob, positive D-dimer;Other (please specify) Report IMPRESSION: NO CT EVIDENCE OF PULMONARY EMBOLISM. NO CHEST ABNORMALITY IS EVIDENT. CLINICAL HISTORY: Pulmonary embolism (PE) suspected, low to intermediate prob, positive D-dimer. Chest pain. 15 weeks . COMMENT: Axial images were obtained after the rapid injection of IV contrast with narrow collimation and reconstructed at a narrow interval. Coronal and sagittal reconstructions were performed. On the PACS, images were reviewed in cine display and using MIP postprocessing. As the patient is , the lower abdomen/pelvis was shielded. The pulmonary arteries are contrast opacified and no intraluminal filling defects are noted. The thoracic aorta is normal in diameter, without evidence of aneurysm or dissection. The heart is normal size. No coronary artery calcification is noted. No pericardial effusion is noted. There is no mediastinal nor hilar lymphadenopathy. Both lungs are aerated and clear. No infiltration, no lung mass, nor pleural effusion is evident. All CT scans at this facility use dose modulation, iterative reconstruction, and/or weight based dosing when appropriate to reduce radiation dose to as low as reasonably achievable. Ordering Provider: Yvon Morales FINAL REPORT Dictated: 09/13/2023 8:50 am Bertin Christopher M.D. Signed (Electronic Signature): 09/13/2023 8:50 am Signed by: Bertin Christopher M.D. Transcribed by: GERSON Technologist: LETI Technical Comments GFR (mL/min/1/73m2) . Contrast: Isovue 370 Contrast amount in ml's: 68 Normal [facility] Consent for Procedure/Surger yon 09-13-2023 Consent for Procedure/Surgery [id number] Normal [facility] Consent for Treatmenton 08-27 Consent for Treatment [id number] Normal [facility] D-Dimeron 09-13-2023 Fibrin D-dimer FEU (PPP) [Mass/Vol] [id number] Abnormal 215-500 [facility] Comment on above: Result Comment: Resu lts Called To Richard Lagos RN/ER By SHEILA And Read Back For Confirmation On 09/13/2023 06:40:47 EDT. This assay is intended for use as an aid in the diagnosis of DVT or PE. These conditions cannot be excluded with certainty solely on the basis of a D-dimer concentration being within the reference range This D-Dimer assay may be used in conjunction with a non-high clinical pretest probability assessment to exclude deep-vein thrombosis(DVT). For exclusion of venous thrombosis or pulmonary embolism the analyte D-Dimer should not be used as an aid in patients with: Therapeutic dose anticoagulant therapy for >24 hours Fibrinolytic therapy within previous 7 days Trauma or surgery within previous 4 weeks Disseminated malignacies Aortic aneurysm Sepsis, severe infections, pneumonia, severe skin infections Liver cirrhosis Performed By: #### 1 [id number], 50027759, 4286685, 9155859, 80805158, 6000758, 0510054, 2541370 ####[facility] [address] [place] [address] Discharge Instructionson Discharge Instructions [id number] Normal [facility] ED Clinical Summaryon 2022 ED Clinical Summary (Inserted Image. Nadiya ble to display) [address] [address] ED Clinical Summary Person Information Name: [facility] Age: 23 Years : 2000 Sex: Female Language: Cypriot PCP: NONE, XXXX Marital Status: Single MRN: Visit Id: Visit Reason: Epigastric Pain; Shoulder pain-swelling; Shortness of breath; Chest pain; CHEST PAIN Speciality: Acuity: 3 Enc Type: Emergency Med Service: Emergency Arrival: 09/13/2023 04:37:01 Discharge: 09/13/2023 10:17:43 LOS: 000 05:40 Checkin: 09/13/2023 04:37:01 Checkout: 09/13/2023 10:17:43 Dispo Type: Home (Routine DC) EVENTS: Event Name Event Status Request Date/Time Start Date/Time Complete Date/Time Arrive Complete 09/13/2023 04:37:01 09/13/2023 04:37:01 09/13/2023 04:37:01 Document Home Meds Request 09/13/2023 04:37:01 Triage Complete 09/13/2023 04:37:01 09/13/2023 04:51:25 09/13/2023 04:51:25 Bed Assign Complete 09/13/2023 04:38:49 09/13/2023 04:38:49 09/13/2023 04:38:49 Dr Exam Complete 09/13/2023 04:38:49 09/13/2023 05:10:06 09/13/2023 05:10:06 RN Exam Complete 09/13/2023 04:38:49 09/13/2023 05:37:24 09/13/2023 05:37:24 EKG Complete 09/13/2023 04:39:03 09/13/2023 04:42:56 Registration Complete 09/13/2023 04:43:45 09/13/2023 04:43:45 09/13/2023 04:43:45 Reg Complete Request 09/13/2023 04:43:45 Reg Bed Request Complete 09/13/2023 04:43:45 09/13/2023 04:43:45 09/13/2023 04:43:45 Registration Request 09/13/2023 05:10:06 Pending Labs Complete 09/13/2023 05:20:51 09/13/2023 10:04:39 Lab Complete 09/13/2023 05:20:51 09/13/2023 06:40:54 Patient Care Request 09/13/2023 05:20:51 X-Ray Complete 09/13/2023 05:20:51 09/13/2023 05:36:55 09/13/2023 05:48:39 Meds Admin Complete 09/13/2023 05:20:51 09/13/2023 05:33:48 Pending Labs Complete 09/13/2023 05:47:40 09/13/2023 05:47:40 09/13/2023 06:12:12 Lab Complete 09/13/2023 05:47:40 09/13/2023 05:47:40 09/13/2023 06:12:12 Pending Labs Complete 09/13/2023 05:48:08 09/13/2023 05:48:08 09/13/2023 05:48:08 Wet Read Request 09/13/2023 05:48:39 Pending Labs Complete 09/13/2023 06:00:37 09/13/2023 06:00:37 09/13/2023 06:00:46 Lab Complete 09/13/2023 06:00:37 09/13/2023 06:00:37 09/13/2023 06:00:46 Meds Admin Complete 09/13/2023 06:04:52 09/13/2023 06:19:37 CT Complete 09/13/2023 07:04:25 09/13/2023 07:52:41 09/13/2023 08:21:52 Dr Exam Complete 09/13/2023 07:10:09 09/13/2023 07:10:09 09/13/2023 07:10:09 Discharge Complete 09/13/2023 09:30:35 09/13/2023 10:17:50 09/13/2023 10:17:50 Transfer Complete 09/13/2023 10:17:50 09/13/2023 10:17:50 09/13/2023 10:17:50 ADDRESS: [address] [place] [address] [id number] [phone] PHYS DOC NOTES: MEDICAL INFORMATION: Prescriptions Given: Medications to Continue with No Changes Other Medications metoclopramide (metoclopramide 10 mg oral tablet, disintegrating) 1 Tablets By Mouth 3 times a day as needed Nausea/Vomiting. Refills: 0. multivitamin, ( Multivitamins) 1 Tablets By Mouth every day. naproxen (naproxen 500 mg Tab) 1 Tablets By Mouth 2 times a day. Take one tab by mouth two times a day. Refills: 0. PATIENT EDUCATION INFORMATION: Instructions: Nonspecific Chest Pain, Adult Follow up: With: Address: When: Hang Jacobsen [address] [place], [place] [id number] [facility] (6) In 3 days 09/16/2023 Comments: Call the office of your primary care doctor to arrange for follow-up within the above-stated timeframe. Follow-up with your primary care doctor about this ED visit. You should review your labs, imaging, and diagnoses from this ED visit with your primary care physician. There are occasionally non-emergent findings that require additional follow-up after your ED visit. If you were prescribed medications you should discuss possible side-effects and drug interactions with your pharmacist. Call 911 or go to the nearest Emergency Department if you develop any new or worsening symptoms. Seek immediate medical attention if you develop: worsening chest pain, new chest pain, nausea, vomiting, weakness, numbness, tingling, excessive sweating, shortness of breath, difficulty breathing, loss of motion in your arms or legs, or any new or worsening symptoms. DIAGNOSIS: 1:Substernal chest pain Normal [facility] ED Note-Physicianon 09-13-20 ED Note-Physician Basic Information Time Seen: Yvon Morales MD 09/13/2023 05:10 Chief Complaint Pt arrives with c/o chest pain and back left shoulder blade pain that started around midnight. States it started after laying down for bed after eating. Pt is 15 weeks . Denies a cough, states some SOB with chest pain. History of Present Illness 23-year-old female presents with a complaint of substernal chest discomfort. Patient states the pain is substernal radiates to the left shoulder blade. Patient states it started about 5 hours prior to admission when she laid down. She states laying down does seem to aggravate the pain. Sitting up eases it to some degree. She states she was able to go to sleep briefly but then the pain awakened her again at 3. There is no associated nausea. Patient states she has not had a cough. She is not sure whether not she feels short of breath with the pain. She has never had this pain previously. Patient is currently 15 weeks with her first . There is no family history of heart disease. The patient is not a smoker. She has no chronic medical conditions. Review of Systems A 10 point review of systems is negative except as noted above. Medical and Surgical History: Reviewed and noted Social history: Lives at home Tobacco: Denies Physical Exam Vitals & Measurements T: 36.8 ?C(Oral) HR: 86(Monitored) RR: 19 BP: 119/71 SpO2: 98% HT: 157 cm WT: 79.7 kg BMI: 32.33 This is a 23-year-old female alert and oriented skin warm and dry color pink on room air. Chest wall is minimally tender. The heart is regular without murmur gallop or rub. Lungs are clear to auscultation good air entry no adventitious sounds. The abdomen is obese soft relatively nontender to deep palpation no guarding rebound or masses. Medical Decision Making was reviewed in the medical literature. There are warnings against using the medications and patient. If the patient becomes while using it should be discontinued. No further doses will be prescribed. was ordered and the GI cocktail. Attempt was made to cancel the order. Medication had already been administered. I discussed the findings with the patient and the father of the child. We explained that our approach is to rule out the worst possible diagnosis. The initial attempt at using the was a hope to rapidly remove dangerous conditions from the differential. As the had no effect and we then had to move to a narcotic. She states the narcotic has helped the pain is probably a for now. Still states that the pain goes from the sternal region to the scapular area and to the base of the neck. We discussed the possibility of pulmonary embolus as there is a slightly pleuritic component to this. We explained that the D-dimer when adjusted for is still probably normal at 750. We then discussed the possibility of aortic dissection. Again the cardiac silhouette does not show dissection at least from the standpoint of widened mediastinum. We did explain the risks involved in terms of radiation exposure during . Considering the benefits versus the risks and the fact that we should be able to rule out both dissection and PE with the same test we will proceed to the CTA. Assessment/Plan 1. Substernal chest pain (R07.2: Precordial pain) Orders: Al hydroxide/Mg hydroxide/simethicone, 30 mL, Susp-Oral, Oral, Once, Stop date 09/13/23 5:20:00 EDT, STAT, Start date 09/13/23 5:20:00 EDT atropine/hyoscyamine/PB/scopolamine, 10 mL, Elixir, Oral, Once, Stop date 09/13/23 5:20:00 EDT, STAT, Start date 09/13/23 5:20:00 EDT lidocaine topical, 200 mg, 10 mL, Soln-Oral, Oral, Once, Stop date 09/13/23 5:20:00 EDT, STAT, Start date 09/13/23 5:20:00 EDT morphine, 2 mg = 1 mL, Injection, IV Push, Once, Stop date 09/13/23 6:04:00 EDT, STAT, Start date 09/13/23 6:04:00 EDT, 09/13/23 6:04:00 EDT promethazine, 12.5 mg = 0.5 mL, Injection, IV Push, Once, Stop date 09/13/23 6:04:00 EDT, STAT, Start date 09/13/23 6:04:00 EDT, 09/13/23 6:04:00 EDT Automated Diff Basic Metabolic Panel CBC w/ Auto Diff CTA Chest D-Dimer ECG 12 Lead Adult ED Cardiac Monitoring eGFR Extra SST Tube Hepatic Function Panel Oxygen Saturation PT & PTT Saline Lock Insert Troponin 0 Hr. Troponin 3 Hr. Troponin 6 Hr. Troponin 9 Hr. XR Chest Single View Medications Administered Given Al hydroxide/Mg hydroxide/simethicone 200 mg-200 mg-20 mg/5 mL oral suspension, 30 mL, Oral Elixir, 10 mL, Oral morphine 2 mg/mL Inj, 2 mg, IV Push Phenergan 25 mg/mL Injection, 12.5 mg, IV Push Disposition Plan Patient Discharge Condition Stable Discharge Disposition Home Discharge Prescription List Prescriptions No active prescription medications Follow-up With When Contact Information Hang Jacobsen In 3 days 09/16/[address] [place], [place] [address] [address] [employer] (1) Additional Instructions: Call (more content not included)... Normal [facility] Comment on above: Result Comment: Elec tronically Signed By: Yvon Morales MD\.br\Date and Time Signed: 09/24/23 08:49 EDT\.br\Electronically Co-Signed By: Tha Tiwari DO\.br\Date and Time Co-Signed: 09/13/23 09:31 EDT ED Patient Education Noteon 09-13-2023 ED Patient Education Note Pulmonary Medicine Nonspecific Chest Pain, Adult Chest pain is an uncomfortable, tight, or painful feeling in the chest. The pain can feel like a crushing, aching, or squeezing pressure. A person can feel a burning or tingling sensation. Chest pain can also be felt in your back, neck, jaw, shoulder, or arm. This pain can be worse when you move, sneeze, or take a deep breath. Chest pain can be caused by a condition that is life-threatening. This must be treated right away. It can also be caused by something that is not life-threatening. If you have chest pain, it can be hard to know the difference, so it is important to get help right away to make sure that you do not have a serious condition. Some life-threatening causes of chest pain include: ? Heart attack. ? A tear in the body's main blood vessel (aortic dissection). ? Inflammation around your heart (pericarditis). ? A problem in the lungs, such as a blood clot (pulmonary embolism) or a collapsed lung (pneumothorax). Some non life-threatening causes of chest pain include: ? Heartburn. ? Anxiety or stress. ? Damage to the bones, muscles, and cartilage that make up your chest wall. ? Pneumonia or bronchitis. ? Shingles infection (varicella-zoster virus). Your chest pain may come and go. It may also be constant. Your health care provider will do tests and other studies to find the cause of your pain. Treatment will depend on the cause of your chest pain. Follow these instructions at home: Medicines ? Take teur-ybv-aygzujh and prescription medicines only as told by your health care provider. ? If you were prescribed an antibiotic medicine, take it as told by your health care provider. Do not stop taking the antibiotic even if you start to feel better. Activity ? Avoid any activities that cause chest pain. ? Do not lift anything that is heavier than 10 lb (4.5 kg), or the limit that you are told, until your health care provider says that it is safe. ? Rest as directed by your health care provider. ? Return to your normal activities only as told by your health care provider. Ask your health care provider what activities are safe for you. Lifestyle ? Do not use any products that contain nicotine or tobacco, such as cigarettes, e-cigarettes, and chewing tobacco. If you need help quitting, ask your health care provider. ? Do not drink alcohol. ? Make healthy lifestyle changes as recommended. These may include: ? Getting regular exercise. Ask your health care provider to suggest some exercises that are safe for you. ? Eating a heart-healthy diet. This includes plenty of fresh fruits and vegetables, whole grains, low-fat (lean) protein, and low-fat dairy products. A dietitian can help you find healthy eating options. ? Maintaining a healthy weight. ? Managing any other health conditions you may have, such as high blood pressure (hypertension) or diabetes. ? Reducing stress, such as with yoga or relaxation techniques. General instructions ? Pay attention to any changes in your symptoms. ? It is up to you to get the results of any tests that were done. Ask your health care provider, or the department that is doing the tests, when your results will be ready. ? Keep all follow-up visits as told by your health care provider. This is important. ? You may be asked to go for further testing if your chest pain does not go away. Contact a health care provider if: ? Your chest pain does not go away. ? You feel depressed. ? You have a fever. ? You notice changes in your symptoms or develop new symptoms. Get help right away if: ? Your chest pain gets worse. ? You have a cough that gets worse, or you cough up blood. ? You have severe pain in your abdomen. ? You faint. ? You have sudden, unexplained chest discomfort. ? You have sudden, unexplained discomfort in your arms, back, neck, or jaw. ? You have shortness of breath at any time. ? You suddenly start to sweat, or your skin gets clammy. ? You feel nausea or you vomit. ? You suddenly feel lightheaded or dizzy. ? You have severe weakness, or unexplained weakness or fatigue. ? Your heart begins to beat quickly, or it feels like it is skipping beats. These symptoms may represent a serious problem that is an emergency. Do not wait to see if the symptoms will go away. Get medical help right away. Call your local emergency services (911 in the [place] Do not drive yourself to the hospital. Summary ? Chest pain can be caused by a condition that is serious and requires urgent treatment. It may also be caused by something that is not life-threatening. ? Your health care provider may do lab tests and other studies to find the cause of your pain. ? Follow your health care provider's instructions on taking medicines, making lifestyle changes, and getting emergency treatment if symptoms become worse. ? Keep all follow-up visits as told by your (more content not included)... Normal [facility] ED Patient Summaryon 023 ED Patient Summary (Inserted Image. Nadiya ble to display) [address] [address] Patient Discharge Instructions Person Information Name: CHRISTI HASTINGS Age: 23 Years Arrival Date: 09/13/2023 04:37:01 Discharge Diagnosis: 1:Substernal chest pain Primary Care Physician: NONE, XXXX Provider Information Primary Provider: Yvon Morales MD Advanced Customer Service Operator:None The exam and treatment you received in the Emergency Department were for an urgent problem and are not intended as complete care. It is important that you follow up with a doctor, nurse practitioner, or physician?s butcher's assistant for ongoing care. If your symptoms become worse or you do not improve as expected and you are unable to reach your usual health care provider, you should return to the Emergency Department. We are available 24 hours a day. CHRISTI HASTINGS has been given the following list of patient education materials, prescriptions and follow-up instructions: Follow-up Instructions: With: Address: When: Hang Jacobsen [address] [place] [address], [place] [id number] [facility] () In 3 days 09/16/2023 Comments: Call the office of your primary care doctor to arrange for follow-up within the above-stated timeframe. Follow-up with your primary care doctor about this ED visit. You should review your labs, imaging, and diagnoses from this ED visit with your primary care physician. There are occasionally non-emergent findings that require additional follow-up after your ED visit. If you were prescribed medications you should discuss possible side-effects and drug interactions with your pharmacist. Call 911 or go to the nearest Emergency Department if you develop any new or worsening symptoms. Seek immediate medical attention if you develop: worsening chest pain, new chest pain, nausea, vomiting, weakness, numbness, tingling, excessive sweating, shortness of breath, difficulty breathing, loss of motion in your arms or legs, or any new or worsening symptoms. In the event that this physician does not participate in your insurance network, please consult with your insurance company to find a nearby participating provider. Patient Education Materials: Nonspecific Chest Pain, Adult A MESSAGE TO ALL PATIENTS REGARDING OPIOIDS PRESCRIPTION OPIOIDS: WHAT YOU NEED TO KNOW Prescription opioids can be used to help relieve sbajmtnt-ic-momiwm pain and are often prescribed following a surgery or injury, or for certain health conditions. These medications can be an important part of the treatment but also come with serious risks. It is important to work with your healthcare provider to make sure you are getting the safest, most effective care. WHAT ARE THE RISKS AND SIDE EFFECTS OF OPIOID USE? Prescription opioids carry serious risks of addiction and overdose, especially with prolonged use. An opioid overdose, often marked by slowed breathing, can cause sudden . The use of prescription opioids can have a number of side effects as well, even when taken as directed: ? Tolerance?meaning you might need to take more of the medication for the same pain relief ? Physical dependence?meaning you have symptoms of withdrawal when a medication is stopped ? Increased sensitivity to pain ? Constipation ? Nausea, vomiting, and dry mouth ? Sleepiness and dizziness ? Confusion ? Depression ? Low levels of testosterone that can result in lower sex drive, energy, and strength ? Itching and sweating RISKS ARE GREATER WITH: ? History of drug misuse, substance use disorder, or overdose ? Mental health conditions (such as depression or anxiety) ? Sleep apnea ? Older age (65 years and older) ? Avoid alcohol while taking prescription opioids. Also, unless specifically advised by your health care provider, medications to avoid include: ? Benzodiazepines (such as Xanax or Valium) ? Muscle relaxants (such as Soma or Flexeril) ? Hypnotics (such as Ambien or Lunesta) ? Other prescription opioids KNOW YOUR OPTIONS Talk to your health care provider about ways to manage your pain that don?t involve prescription opioids. Some of these options may actually work better and have fewer risks and side effects. Options may include: ? Pain relievers such as acetaminophen, ibuprofen, and naproxen ? Some medication that are also used for depression or seizures ? Physical therapy and exercise ? Cognitive behavioral therapy, a psychological, goal-directed approach, in which patients learn how to modify physical, behavioral, and emotional triggers of pain and stress. IF YOU ARE PRESCRIBED OPIOIDS FOR PAIN: ? Never take opioids in greater amounts or more often than prescribed. ? Follow up with your primary health care provider. o Work together to create a plan on how to manage your pain. o Talk about ways to help manage your pain that don?t involve prescription op (more content not included)... Normal [facility] HEMATOLOGYOrdered By: SYSTEM SYSTEM on 09-13-2023 Basophils/100 WBC (Bld) 0.4 % Normal 0.0 - 2.0 % [facility] Basophils/Leukocytes Auto (B ld) [Pure # fraction] 0.1 E9/L Normal 0.0 - 0.2 E9/L [facility] Eosinophils/100 WBC (Bld) 1.5 % Normal 0.0 - 8.0 % [facility] Eosinophils/Leukocytes Auto (Bld) [Pure # fraction] 0.2 E9/L Normal 0.0 - 0.5 E9/L [facility] S Lymphocytes/100 WBC (Bld) 10.6 % Low 14.0 - 50. 0 % [facility] Lymphocytes/Leukocytes Auto (Bld) [Pure # fraction] 1.3 E9/L Normal 1.0 - 4.0 E9/L [facility] S Monocytes/100 WBC (Bld) 7.8 % Normal 4.0 - 14.0 % [facility] Monocytes/Leukocytes Auto (B ld) [Pure # fraction] 1.0 E9/L Normal 0.2 - 1.0 E9/L [facility] Neutrophils/100 WBC (Bld) 79.7 % High 36.0 - 75. 0 % [facility] Neutrophils/Leukocytes Auto (Bld) [Pure # fraction] 9.9 E9/L High 2.0 - 7.5 E9/L [facility] S HEMATOLOGYOrdered By: Shira Tapia on 09-13-2023 Erythrocyte distribution wid th (RBC) [Ratio] 14.7 % High 10.9 - 14.2 % [facility] Hematocrit (Bld) [Volume fraction] 33.9 % Low 34.0 - 46.0 % [facility] Hemoglobin (Bld) [Mass/Vol] 11.2 g/dL Low 12.0 - 1 6.0 gm/dL [facility] MCH (RBC) [Entitic mass] 28.9 pg Normal 27.0 - 34.0 pg [facility] MCHC (RBC) [Mass/Vol] 33.2 g/dL Normal 31.4 - 36.0 gm /dL [facility] MCV (RBC) [Entitic vol] 86.9 fL Normal 80.0 - 100.0 fL [facility] Platelet mean volume (Bld) [Entitic vol] 8.6 fL Normal 6.4 - 10.8 fL [facility] Platelets (Bld) [#/Vol] 206.0 E9/L Normal 150.0 - 500. 0 E9/L [facility] RBC (Bld) [#/Vol] 3.9 E12/L Low 4.3 - 5.9 E12/L [facility] WBC corrected for nucl RBC A uto (Bld) [#/Vol] 12.5 E9/L High 4.0 - 11.0 E9/L [facility] Hep Func Panelon 09-13-2023 Bilirubin.indirect [Mass or moles/Vol] [facility] Abnormal 0.1-0.9 [facility] Comment on above: Result Comment: Resu lt verified by Discern Rule. Performed result UT (Unable to Calculate) was sent as an Alpha code due the inability to calculate a valid numeric value. Performed By: #### 1 [id number], [id number], [id number], [id number], [id number], 3835916, [id number] ####[facility] [address] [place] [address] Albumin [Mass/Vol] 3.4 g/dL Normal 3.3-5.0 [facility] Comment on above: Performed By: #### 1 [id number], [id number], 3544617, 9190667, [id number], 2203363, 4182367, 1603588 ####[facility] [address] [place] [address] Albumin/Globulin (S) [Mass conc ratio] 1.1 Normal 1.1-2.2 [facility] Comment on above: Performed By: #### 1 [id number], [id number], 0953705, 8934917, 85682475, 3568068, 4705102, 8134140 ####[facility] [address] [place] [address] ALP [Catalytic activity/Vol] 50 Int._Unit/L Normal 21- 98 [facility] Comment on above: Performed By: #### 1 [id number], [id number], 9932076, 3996858, 70078547, 3587629, 9456280, 6401165 ####[facility] [address] [place] [address] ALT No additional P-5'-P [Catalytic activity/Vol] 12 Int._Unit/L Normal 6-46 [facility] Comment on above: Performed By: #### 1 [id number], [id number], 6083683, 0896621, 43225752, 5346643, 4721905, 0616500 ####[facility] [address] [place] [address] AST [Catalytic activity/Vol] 16 Int._Unit/L Normal 5-4 3 [facility] Comment on above: Performed By: #### 1 [id number], 41702946, 8326197, 7571141, 64258136, 6605814, 1513062, 3605228 ####[facility] [address] [place] [address] Bilirubin [Mass/Vol] 0.3 mg/dL Normal 0.0-1.1 [facility] Comment on above: Performed By: #### 1 [id number], 23759952, 0289533, 5812551, 69454709, 5740130, 8206650, 9182593 ####[address] [address] Globulin (S) [Mass/Vol] 3.0 g/dL Normal 1.4-4.0 [facility] Comment on above: Performed By: #### 1 [id number], [id number], 4154529, 9957374, 94868066, 7445449, 8707262, 9026219 ####[place] [address] [place] [address] Protein [Mass/Vol] 6.4 g/dL Normal 6.0-7.8 [facility] Comment on above: Performed By: #### 1 [id number], 48247127, 2162487, 7887496, 76959606, 3694913, 5934454, 1721351 ####[place] [address] [address] [place] [address] Bilirubin.direct [Mass/Vol] mg/dL Normal 0.1-0.4 [facility] Comment on above: Performed By: #### 1 [id number], 91028857, 1519195, 0681124, 22995297, 1220586, 7165720, 9470264 ####[facility] [address] [place] [address] Monitor Recordon 09-13-2023 Monitor Record [id number] Normal [facility] PT & PTTon 09-13-2023 aPTT Coag (PPP) [Time] 29.9 second(s) Normal 25.1-36.5 [facility] Comment on above: Result Comment: Para meter 15 days - 4 weeks 1 - 5 months 6 - 11 months 1 - 5 years 6 - 10 years 11 - 17 years PTT Mean: 35.4 (27.6-45.6) Mean: 33.5 (24.8-40.7) Mean: 32.4 (25.1-40.7) Mean: 31.6 (24.0-39.2) Mean: 31.6 (26.9-38.7) Mean: 31.0 (24.6-38.4) Pediatric Reference ranges were obtained from a study by Teto Paige et al. prepared from 1437 samples obtained at 7 different centers using the same coagulation reagent and instrumentation as [facility]. Currently there are no coagulation studies available worldwide for children to 14 days, and no normal ranges. Heparin therapeutic range (represented by Anti-Factor Xa activity of 0.2 - 0.4 U/mL) corresponds to PTT of 56.6 - 109.0 sec. Performed By: #### 1 [id number], 40295607, 5174824, 1447071, [id number], [id number], 9322777, [id number] ####[facility] [address] [place] [address] INR Coag (PPP) [Relative time] 0.9 {INR} Invalid Interpretation Code Fish [facility] Comment on above: Result Comment: INR results are specifically intended to assess patients stabilized on long-term Anticoagulation therapy suggested INR?s ?Less Intensive Anticoagulation? 2.0 ? 3.0 Conventional Range 3.0 ? 4.5 Performed By: #### 1 [id number], [id number], 9419361, 7513828, 90729044, 4388149, 9874996, 4720059 ####[facility] [address] [place] [address] PT Coag (PPP) [Time] 10.1 second(s) Normal 9.4-12.5 [facility] Comment on above: Result Comment: 15 d ays - 4 weeks 1 - 5 months 6 -11 months 1- 5 years 6-10 years 11 -17 years Mean: 11.2 (9.5-12.6) Mean: 11.0 (9.7-12.8) Mean: 11.0 (9.8-13.0) Mean: 11.3 (9.9-13.4) Mean: 11.7 (10.0-14.6) Mean: 11.8 (10.0 - 14.1) Pediatric Reference ranges were obtained from a study by Teto Paige et al. prepared from 1437 samples obtained at 7 different centers using the same coagulation reagent and instrumentation as [facility]. Currently there are no coagulation studies available worldwide for children to 14 days, and no normal ranges. Performed By: #### 1 [id number], 57433599, 0205966, 2293899, 77705964, 0434801, 8503819, 8360936 ####[facility] [address] [place] [address] Troponin 0 Hr.on 09-13-2023 Troponin I.cardiac [Mass/Vol] 3.00 pg/mL Low 10.10- 27.10 [facility] Comment on above: Result Comment: The 95% CI (Confidence Interval) PPV (Positive Predictive Value) for myocardial infarction in females is 38 pg/mL, in males 51 pg/mL. The results should be used in conjunction with clinical conditions of myocardial infarction. (Access High Sensitivity Troponin I Instructions For Use, [employer], June 2018) Performed By: #### 1 [id number], 23907973, 4810849, 1932746, 20816004, 7631448, 3541268, 9129510 ####[facility] [address] [place] [address] Troponin 3 Hr.on 09-13-2023 Troponin I.cardiac [Mass/Vol] 3.20 pg/mL Low 10.10- 27.10 [facility] Comment on above: Order Comment: Pt wr istband would not scan. Confirmed Pt identification verbally and looking at the wristband, [id number] 09/13/2023 08:06:30 EDT Result Comment: The 95% CI (Confidence Interval) PPV (Positive Predictive Value) for myocardial infarction in females is 38 pg/mL, in males 51 pg/mL. The results should be used in conjunction with clinical conditions of myocardial infarction. (Access High Sensitivity Troponin I Instructions For Use, [employer], June 2018) Performed By: #### 1 [id number] ####[facility] [address] [place] [address] XR Chest Single Viewon 09-13 XR Chest Single View Exam Date/Time: 09/13/2023 05:48 EDT Reason for Exam: Chest pain Report IMPRESSION: There are no acute cardiopulmonary changes. CLINICAL HISTORY: Chest pain EXAMINATION: XR Chest Single View COMPARISON: Chest x-ray from 07/25/2022 FINDINGS: The cardiomediastinal silhouette is unremarkable. The lungs are free of infiltrates effusions or consolidations. There are no acute osseous changes. Ordering Provider: Yvon Morales FINAL REPORT Dictated: 09/13/2023 7:30 am Be Reese MD, V. Signed (Electronic Signature): 09/13/2023 7:30 am Signed by: Be Reese MD, V. Transcribed by: GERSON Technologist: SARAHY Technical Comments Radiation Dose: Ka,r in mGy = n/a DAP = n/a Normal [facility] eGFRon 09-13-2023 GFR/1.73 sq M.predicted penny g non-blacks MDRD (S/P/Bld) [Vol rate/Area] 136 mL/min/1.73 m2 Normal >=59 [facility] Comment on above: Order Comment: Order added by Discern Expert. Result Comment: Manager Emergency mohan kidney disease could be indicated at eGFR's of less than 60 mL/min/1.73m2. Kidney failure is indicated at less than 15 mL/min/1.73m2. Performed By: #### 1 [id number], 27654769, 4743961, 6463924, 80315682, 9749977, 9639325, 9531271 ####[facility] [address] [address] Coding Summary.on 11-02-2022 Coding Summary. [id number] [file] IGNv (more content not included)... Normal [facility] Auto Diffon 10-31-2022 Basophils/100 WBC (Bld) 0.9 % Normal 0.0-2.0 [facility] Comment on above: Order Comment: Order Added by Discern Expert. Performed By: #### 2 822339, 4947689, 2270200, 7940195, 46533290, 3498337 ####[address] [place] [address] Basophils/Leukocytes Auto (B ld) [Pure # fraction] 0.1 E9/L Normal 0.0-0.2 [facility] Comment on above: Order Comment: Order Added by Discern Expert. Performed By: #### 2 197616, 6985553, 3533442, 7553440, 65763126, 7963755 ####[address] [place] [address] Eosinophils/100 WBC (Bld) 0.2 % Normal 0.0-8.0 [facility] Comment on above: Order Comment: Order Added by Discern Expert. Performed By: #### 2 893512, 6065139, 3753129, 9470618, 88974009, 6038270 ####[address] [place] [address] Eosinophils/Leukocytes Auto (Bld) [Pure # fraction] 0.0 E9/L Normal 0.0-0.5 [facility] Comment on above: Order Comment: Order Added by Discern Expert. Performed By: #### 2 787473, 6496156, 2860196, 4196355, 36542642, 8287618 ####[facility] [address] [place] [address] Lymphocytes/100 WBC (Bld) 16.8 % Normal 14.0-50.0 [facility] Comment on above: Order Comment: Order Added by Discern Expert. Performed By: #### 2 609638, 5053509, 2832731, 0139817, 00918218, 4608659 ####[address] [place] [address] Lymphocytes/Leukocytes Auto (Bld) [Pure # fraction] 1.4 E9/L Normal 1.0-4.0 [facility] Comment on above: Order Comment: Order Added by Discern Expert. Performed By: #### 2 329866, 4563030, 3577061, 8854120, 07491863, 4874090 ####[address] [address] Monocytes/100 WBC (Bld) 5.0 % Normal 4.0-14.0 [facility] Comment on above: Order Comment: Order Added by Discern Expert. Performed By: #### 2 176700, 9440570, 4797047, 3818703, 16914818, 8375395 ####[address] [place] [address] Monocytes/Leukocytes Auto (B ld) [Pure # fraction] 0.4 E9/L Normal 0.2-1.0 [facility] Comment on above: Order Comment: Order Added by Discern Expert. Performed By: #### 2 915906, 5163891, 0173970, 2401308, 02920750, 9053213 ####[facility] [address] [place] [address] Neutrophils/100 WBC (Bld) 77.1 % High 36.0-75.0 [facility] Comment on above: Order Comment: Order Added by Discern Expert. Performed By: #### 2 354428, 3180424, 5115937, 8606291, 08172272, 7940863 ####[facility] [address] [place] [address] Neutrophils/Leukocytes Auto (Bld) [Pure # fraction] 6.4 E9/L Normal 2.0-7.5 [facility] Comment on above: Order Comment: Order Added by Discern Expert. Performed By: #### 2 364022, 2486956, 3878066, 0706054, 30266941, 2713293 ####[facility] [address] [place] [address] BMPon 10-31-2022 Creatinine [Mass/Vol] 0.6 mg/dL Normal 0.5-1.3 [facility] Comment on above: Performed By: #### 2 362500, 8465905, 7449552, 4622568, 57886086, 0343466 ####[facility] [address] [place] [address] Urea nitrogen [Mass/Vol] 6 mg/dL Normal 5-21 [facility] Comment on above: Performed By: #### 2 350774, 4749980, 2961322, 6204071, 31049772, 3900097 ####[facility] [address] [place] [address] Urea nitrogen/Creatinine [Ma ss ratio] 10 No Units Normal 10-20 [facility] Comment on above: Performed By: #### 2 747417, 0153042, 9215502, 6911216, 75783476, 7187591 ####[facility] [address] [place] [address] Anion gap [Moles/Vol] 17 mmol/L High 6-16 [facility] Comment on above: Performed By: #### 2 494811, 6163650, 1625740, 1876729, 80875292, 7972298 ####[facility] [address] [place] [address] Calcium [Mass/Vol] 9.5 mg/dL Normal 8.9-11.1 [facility] Comment on above: Performed By: #### 2 218242, 1824273, 0859333, 1453909, 04553160, 0389400 ####[facility] [address] [place] [address] Chloride [Moles/Vol] 99 mmol/L Low 101-111 [facility] Comment on above: Performed By: #### 2 564215, 1438938, 3957132, 9962469, 91570903, 4205901 ####[facility] [address] [place] [address] CO2 [Moles/Vol] 27 mmol/L Normal 21-31 [facility] Comment on above: Performed By: #### 2 268381, 4149469, 4106219, 1275607, 12591125, 7530818 ####[facility] [address] [place] [address] Glucose [Mass/Vol] 130 mg/dL Normal 55-199 [facility] Comment on above: Result Comment: If t his glucose result represents a fasting glucose, interpretation should refer to the following reference range: 55-99 mg/dL Performed By: #### 2 971985, 3230727, 6973892, 7136917, 85182156, 3470587 ####[facility] [address] [place] [address] Potassium [Moles/Vol] 3.7 mmol/L Normal 3.5-5.3 [facility] Comment on above: Performed By: #### 2 260356, 2725023, 0476290, 7199374, 35641211, 2046644 ####[facility] [address] [place] [address] Sodium [Moles/Vol] 139 mmol/L Normal 135-145 [facility] Comment on above: Performed By: #### 2 412397, 3002377, 0405850, 9410899, 39073819, 3620511 ####[facility] [address] [place] [address] CBC w/ Auto Diffon 2 Erythrocyte distribution wid th (RBC) [Ratio] 14.7 % High 10.9-14.2 [facility] Comment on above: Performed By: #### 2 193182, 3172124, 4485915, 8833859, 06440955, 7553747 ####[facility] [address] [place] [address] Hematocrit (Bld) [Volume fraction] 36.8 % Normal 34.0-46.0 [facility] Comment on above: Performed By: #### 2 392917, 2652121, 2254443, 7434892, 30419783, 8293515 ####[address] [place] [address] Hemoglobin (Bld) [Mass/Vol] 12.2 g/dL Normal 12.0-16. 0 [facility] Comment on above: Performed By: #### 2 193673, 1743568, 9433205, 7565794, 15133084, 9240742 ####[address] [address] MCH (RBC) [Entitic mass] 28.5 pg Normal 27.0-34.0 [facility] Comment on above: Performed By: #### 2 802980, 6387041, 6794636, 9736062, 47471414, 6400024 ####[address] [address] MCHC (RBC) [Mass/Vol] 33.3 g/dL Normal 31.4-36.0 [facility] Comment on above: Performed By: #### 2 680325, 3104867, 2943407, 5975848, 28321312, 5098367 ####[address] [place] [address] MCV (RBC) [Entitic vol] 85.6 fL Normal 80.0-100.0 [facility] Comment on above: Performed By: #### 2 850622, 0187519, 2480945, 7667398, 53164035, 0100671 ####[facility] [address] [place] [address] Platelet mean volume (Bld) [Entitic vol] 9.0 fL Normal 6.4-10.8 [facility] Comment on above: Performed By: #### 2 159440, 5659060, 3630095, 3105932, 82975522, 5812018 ####[address] [place] [address] Platelets (Bld) [#/Vol] 267.0 E9/L Normal 150.0-500.0 [facility] Comment on above: Performed By: #### 2 191691, 4202113, 1160767, 3564404, 36962124, 3115691 ####[facility] [address] [place] [address] RBC (Bld) [#/Vol] 4.3 E12/L Normal 4.3-5.9 [facility] Comment on above: Performed By: #### 2 238644, 1381770, 2133361, 0990684, 06347841, 9209872 ####[facility] [address] [place] [address] WBC corrected for nucl RBC A uto (Bld) [#/Vol] 8.3 E9/L Normal 4.0-11.0 [facility] Comment on above: Performed By: #### 2 702078, 6925132, 4575004, 0462864, 57690057, 2381654 ####[facility] [address] [place] [address] CHEMISTRYOrdered By: SYSTEM SYSTEM on 10-31-2022 Albumin [Mass/Vol] 4.7 g/dL Normal 3.3 - 5.0 gm/dL [facility] Albumin/Globulin [Mass ratio] 1.7 {ratio} Normal 1.1 - 2.2 [facility] ALP [Catalytic activity/Vol] 59 [iU]/d Normal 21 - 98 Int._Unit/L [facility] ALT No additional P-5'-P [Catalytic activity/Vol] 11 [iU]/d Normal 6 - 46 Int._Unit/L [facility] Anion gap [Moles/Vol] 17 mmol/L High 6 - 16 mEq/L [facility] AST [Catalytic activity/Vol] 14 [iU]/d Normal 5 - 43 Int._Unit/L [facility] Bilirubin [Mass/Vol] 0.5 mg/dL Normal 0.0 - 1.1 mg/dL [facility] Bilirubin.direct [Mass/Vol] 0.1 mg/dL Normal 0.1 - 0. 4 mg/dL [facility] Bilirubin.indirect [Mass or moles/Vol] 0.4 mg/dL Normal 0.1 - 0.9 mg/dL [facility] Calcium [Mass/Vol] 9.5 mg/dL Normal 8.9 - 11.1 mg/dL [facility] Chloride [Moles/Vol] 99 mmol/L Low 101 - 111 mmol/ L [facility] CO2 [Moles/Vol] 27 mmol/L Normal 21 - 31 mmol/L [facility] Creatinine [Mass/Vol] 0.6 mg/dL Normal 0.5 - 1.3 mg/d L [facility] GFR/1.73 sq M.predicted penny g blacks MDRD (S/P/Bld) [Vol rate/Area] mL/min/1.73 m2 Normal >=59mL/min/1.73 m2 [facility] Chem S GFR/1.73 sq M.predicted penny g non-blacks MDRD (S/P/Bld) [Vol rate/Area] mL/min/1.73 m2 Normal >=59mL/min/1.73 m2 [facility] Chem S Globulin (S) [Mass/Vol] 2.7 g/dL Normal 1.4 - 4.0 gm /dL [facility] Glucose [Mass/Vol] 130 mg/dL Normal 55 - 199 mg/dL [facility] Lipase [Catalytic activity/Vol] 34 U/L Normal 13 - 58 unit/L [facility] Potassium [Moles/Vol] 3.7 mmol/L Normal 3.5 - 5.3 mmol /L [facility] Protein [Mass/Vol] 7.4 g/dL Normal 6.0 - 7.8 gm/dL [facility] Sodium [Moles/Vol] 139 mmol/L Normal 135 - 145 mmol/L [facility] Urea nitrogen [Mass/Vol] 6 mg/dL Normal 5 - 21 mg/d L [facility] Urea nitrogen/Creatinine [Ma ss ratio] 10 mg/mg Normal 10 - 20 [facility] Coding Summary.on 10-31-2022 Coding Summary. [id number] [file] IGNv (more content not included)... Normal [facility] Consent for Treatmenton Consent for Treatment [id number]:127 Normal [facility] Discharge Instructionson Discharge Instructions [id number]:127 Normal [facility] ED Clinical Summaryon 2021 ED Clinical Summary (Inserted Image. Nadiya ble to display) [place] [address] ED Clinical Summary Person Information Name: CHRISTI HASTINGS/[facility] Age: 22 Years : 2000 Sex: Female Language: Cypriot PCP: NONE, XXXX Marital Status: Single MRN: Visit Id: Visit Reason: Abdominal pain; Nausea; ABDOMINAL PAIN Speciality: Acuity: 3 Enc Type: Emergency Med Service: Emergency Arrival: 10/30/2022 23:37:29 Discharge: 10/31/2022 02:29:35 LOS: 000 02:52 Checkin: 10/30/2022 23:37:29 Checkout: 10/31/2022 02:29:35 Dispo Type: Home (Routine DC) EVENTS: Event Name Event Status Request Date/Time Start Date/Time Complete Date/Time Arrive Complete 10/30/2022 23:37:29 10/30/2022 23:37:29 10/30/2022 23:37:29 Document Home Meds Request 10/30/2022 23:37:29 Triage Complete 10/30/2022 23:37:29 10/30/2022 23:48:14 10/30/2022 23:48:14 Dr Exam Complete 10/30/2022 23:42:27 10/30/2022 23:42:27 10/30/2022 23:42:27 Registration Complete 10/30/2022 23:42:27 10/30/2022 23:44:07 10/31/2022 00:02:33 Bed Assign Complete 10/30/2022 23:44:07 10/30/2022 23:44:07 10/30/2022 23:44:07 RN Exam Complete 10/30/2022 23:44:07 10/31/2022 00:02:18 10/31/2022 00:02:18 Meds Admin Complete 10/31/2022 00:01:38 10/31/2022 00:08:59 Pending Labs Complete 10/31/2022 00:01:38 10/31/2022 01:13:18 Lab Complete 10/31/2022 00:01:38 10/31/2022 01:13:18 Urine Collect Complete 10/31/2022 00:01:38 10/31/2022 01:13:18 Reg Complete Request 10/31/2022 00:02:33 Reg Bed Request Complete 10/31/2022 00:02:33 10/31/2022 00:02:33 10/31/2022 00:02:33 Pending Labs Complete 10/31/2022 00:15:38 10/31/2022 00:15:38 10/31/2022 00:36:38 Lab Complete 10/31/2022 00:15:38 10/31/2022 00:15:38 10/31/2022 00:36:38 Pending Labs Complete 10/31/2022 00:20:49 10/31/2022 00:20:49 10/31/2022 00:20:56 Lab Complete 10/31/2022 00:20:49 10/31/2022 00:20:49 10/31/2022 00:20:56 Pending Labs Complete 10/31/2022 00:51:28 10/31/2022 00:51:28 10/31/2022 00:51:28 Pending Labs Complete 10/31/2022 00:51:39 10/31/2022 00:51:39 10/31/2022 00:51:39 Meds Admin Complete 10/31/2022 01:08:01 10/31/2022 01:16:00 Discharge Complete 10/31/2022 02:09:31 10/31/2022 02:29:41 10/31/2022 02:29:41 Transfer Complete 10/31/2022 02:29:41 10/31/2022 02:29:41 10/31/2022 02:29:41 ADDRESS: [address] [place] [phone] PHYS DOC NOTES: MEDICAL INFORMATION: Prescriptions Given: New Medications [id number], [address] [place], [place] [id number], [phone] dicyclomine (Bentyl 10 mg Cap) 1 Capsules By Mouth 4 times a day for 7 Days. Refills: 0. metoclopramide (metoclopramide 10 mg oral tablet, disintegrating) 1 Tablets By Mouth 3 times a day as needed Nausea/Vomiting. Refills: 0. Medications to Continue with No Changes Other Medications naproxen (naproxen 500 mg Tab) 1 Tablets By Mouth 2 times a day. Take one tab by mouth two times a day. Refills: 0. PATIENT EDUCATION INFORMATION: Instructions: Abdominal Pain, Adult Follow up: With: Address: When: Jose WHITE [address] [phone] Business (1) In 3 days 11/03/2022 DIAGNOSIS: AP (abdominal pain); N&V (nausea and vomiting) Normal [facility] ED Note-Nursingon 10-31-2022 ED Note-Nursing Pt hooked into cardi ac monitor, monito in sync but room number not showing from clinical access Monitor shows sinus rhythm, heartbeat is fluctuating like 78 then up to 80bpm Pt denies chest pain Normal [facility] ED Note-Physicianon 10-31-20 ED Note-Physician Basic Information Time Seen: Nagi Kirby DO 10/30/2022 23:42 Chief Complaint Pt. presents to the ed with c/o Nausea and upper Abdominal pain that started on monday, pt. was seen at that time. Pt. still complaining of nausea. pt. denies any drug use. History of Present Illness HPI: Patient is a previously healthy 22-year-old female who presents the ED for nausea, vomiting, and abdominal discomfort. Patient states that this for started 4 days ago and has been persistent. She states that when it first started she had nausea and vomiting as well as diarrhea however her stools have now become more normal. She denies any fever or chills. She states that she has discomfort in her epigastric region as well as some intermittent cramping in her lower abdomen. She denies any dysuria, hematuria, or frequency. She was seen on the day that her symptoms started and discharged with Zofran for presumed viral illness. She states that initially the Zofran did help and she has been able to tolerate some foods and liquids but states that now she is continue to try to take it but she is having persistent nausea and vomiting. ROS: A 10 point review of systems is negative except as noted above. Physical exam: General: nontoxic appearing and in no distress HEENT: Mucous membranes moist Neuro: awake and alert Neck: supple, trachea midline Card: Heart regular rate and rhythm no murmur Resp: Lungs clear to auscultation no wheeze or rhonchi Abd: Soft and nondistended. Epigastric tenderness without rebound or guarding. Ext: No gross deformity or edema Physical Exam Vitals & Measurements T: 36.9 ?C(Oral) HR: 93(Peripheral) RR: 18 BP: 124/76 SpO2: 98% HT: 157.48 cm WT: 69.2 kg BMI: 27.9 Medical Decision Making Patient is nontoxic-appearing in no distress. She has some mild epigastric tenderness but is non- peritoneal. I Do not suspect acute surgical issue at this time. Will obtain some blood work and give the patient oral antiemetics and Bentyl. Work-up is overall very reassuring. She still had some nausea after receiving the Phenergan so we will try a dose of Reglan and Benadryl. Following the Reglan she was able to tolerate p.o. liquids here in the ED and had no further nausea or vomiting. We discussed that I still think this is likely a viral gastroenteritis. At this time I feel she is appropriate for discharge with oral Reglan as needed for nausea and continued oral hydration and follow-up with her primary care physician. Patient states understanding agreement with plan was discharged stable condition. Assessment/Plan AP (abdominal pain) (R10.9: Unspecified abdominal pain) N&V (nausea and vomiting) (R11.2: Nausea with vomiting, unspecified) Orders: dicyclomine, 10 mg = 1 cap(s), Oral, QID, X 7 day(s), # 28 cap(s), Refills(s) 0, Pharmacy: [id number], 157.5, cm, 10/30/22 23:48:00 EST, Height/Length Dosing, 69.2, kg, 10/30/22 23:48:00 EST, Weight Dosing dicyclomine, 10 mg = 1 cap(s), Cap, Oral, Once, Stop date 10/31/22 0:01:00 EST, STAT, Start date 10/31/22 0:01:00 EST, 10/31/22 0:01:00 EST diphenhydrAMINE, 25 mg = 1 cap(s), Cap, Oral, Once, Stop date 10/31/22 1:07:00 EST, STAT, Start date 10/31/22 1:07:00 EST, 10/31/22 1:07:00 EST metoclopramide, 10 mg = 2 tab(s), Tab, Oral, Once, Stop date 10/31/22 1:07:00 EST, STAT, Start date 10/31/22 1:07:00 EST, 10/31/22 1:07:00 EST metoclopramide, 10 mg = 1 tab(s), Oral, TID, PRN Nausea/Vomiting, # 28 tab(s), Refills(s) 0, Pharmacy: [facility]/pharmacy #[id number], 157.5, cm, 10/30/22 23:48:00 EST, Height/Length Dosing, 69.2, kg, 10/30/22 23:48:00 EST, Weight Dosing promethazine, 12.5 mg = 0.5 tab(s), Tab, Oral, Once, Stop date 10/31/22 0:00:00 EST, STAT, Start date 10/31/22 0:00:00 EST, 10/31/22 0:00:00 EST Automated Diff Basic Metabolic Panel CBC w/ Auto Diff eGFR Extra Blue Tube Extra SST Tube Hepatic Function Panel Lipase Level U Beta Hcg Qual UA With Cult Reflex Medications Administered Given Bentyl 10 mg Cap, 10 mg, Oral diphenhydrAMINE 25 mg Cap, 25 mg, Oral metoclopramide 5 mg Tab, 10 mg, Oral promethazine 25 mg Tab, 12.5 mg, Oral Disposition Plan Discharge Prescription List Prescriptions Bentyl 10 mg Cap, 10 mg= 1 cap(s), Oral, QID metoclopramide 10 mg oral tablet, disintegrating, 10 mg= 1 tab(s), Oral, TID, PRN Follow-up With When Contact Information Jose CHRISTOPHER In 3 days 11/03/2022 [facility] 4 [facility] [address] [place] [phone] Business (1) Additional Instructions: Patient Education Abdominal Pain, Adult Problem List/Past Medical History Ongoing Smoker Historical No qualifying data Medications Inpatient Bentyl 10 mg Cap, 10 mg= 1 cap(s), Oral, Once promethazine 25 mg Tab, 12.5 mg= 0.5 tab(s), Oral, Once Home naproxen 500 mg Tab, 500 mg= 1 tab(s), Oral, BID Allergies No Known Medication Allergies Social History Alcohol Substance Abuse Marijuana, 10/26/2022 Marijuana, 05/25/2022 Current, Marijuana, 05/18/2022 (more content not included)... Normal [facility] [employer] [facility] [facility] Comment on above: Result Comment: Elec tronically Signed By: Nagi Kirby DO\.br\Date and Time Signed: 10/31/22 02:11 EST ED Patient Education Noteon 10-31-2022 ED Patient Education Note Gastroenterology Abdominal Pain, Adult Pain in the abdomen (abdominal pain) can be caused by many things. Often, abdominal pain is not serious and it gets better with no treatment or by being treated at home. However, sometimes abdominal pain is serious. Your health care provider will ask questions about your medical history and do a physical exam to try to determine the cause of your abdominal pain. Follow these instructions at home: Medicines ? Take aqvg-cjg-cvsdjjz and prescription medicines only as told by your health care provider. ? Do not take a laxative unless told by your health care provider. General instructions ? Watch your condition for any changes. ? Drink enough fluid to keep your urine pale yellow. ? Keep all follow-up visits as told by your health care provider. This is important. Contact a health care provider if: ? Your abdominal pain changes or gets worse. ? You are not hungry or you lose weight without trying. ? You are constipated or have diarrhea for more than 2?3 days. ? You have pain when you urinate or have a bowel movement. ? Your abdominal pain wakes you up at night. ? Your pain gets worse with meals, after eating, or with certain foods. ? You are vomiting and cannot keep anything down. ? You have a fever. ? You have blood in your urine. Get help right away if: ? Your pain does not go away as soon as your health care provider told you to expect. ? You cannot stop vomiting. ? Your pain is only in areas of the abdomen, such as the right side or the left lower portion of the abdomen. Pain on the right side could be caused by appendicitis. ? You have bloody or black stools, or stools that look like tar. ? You have severe pain, cramping, or bloating in your abdomen. ? You have signs of dehydration, such as: ? Dark urine, very little urine, or no urine. ? Cracked lips. ? Dry mouth. ? Sunken eyes. ? Sleepiness. ? Weakness. ? You have trouble breathing or chest pain. Summary ? Often, abdominal pain is not serious and it gets better with no treatment or by being treated at home. However, sometimes abdominal pain is serious. ? Watch your condition for any changes. ? Take tkdj-ado-lwgjukt and prescription medicines only as told by your health care provider. ? Contact a health care provider if your abdominal pain changes or gets worse. ? Get help right away if you have severe pain, cramping, or bloating in your abdomen. This information is not intended to replace advice given to you by your health care provider. Make sure you discuss any questions you have with your health care provider. Document Released: 08/23/2006 Document Revised: 03/23/2020 Document Reviewed: 03/23/2020 Elsevier Patient Education ? 2019 [employer] Normal [facility] ED Patient Summaryon 022 ED Patient Summary [address] [address] Patient Discharge Instructions Person Information Name: CHRISTI HASTINGS Age: 22 Years Arrival Date: 10/30/2022 23:37:29 Discharge Diagnosis: AP (abdominal pain); N&V (nausea and vomiting) Primary Care Physician: NONE, XXXX Provider Information Primary Provider: Nagi Kirby DO Advanced Customer Service Operator:Emy The exam and treatment you received in the Emergency Department were for an urgent problem and are not intended as complete care. It is important that you follow up with a doctor, nurse practitioner, or physician?s butcher's assistant for ongoing care. If your symptoms become worse or you do not improve as expected and you are unable to reach your usual health care provider, you should return to the Emergency Department. We are available 24 hours a day. CHRISTI HASTINGS has been given the following list of patient education materials, prescriptions and follow-up instructions: Follow-up Instructions: With: Address: When: Jose WHITE [address] [place] [address] [place], [place] [address] Business (1) In 3 days 11/03/2022 In the event that this physician does not participate in your insurance network, please consult with your insurance company to find a nearby participating provider. Patient Education Materials: Abdominal Pain, Adult A MESSAGE TO ALL PATIENTS REGARDING OPIOIDS PRESCRIPTION OPIOIDS: WHAT YOU NEED TO KNOW Prescription opioids can be used to help relieve yydcrlwy-mm-hxinhs pain and are often prescribed following a surgery or injury, or for certain health conditions. These medications can be an important part of the treatment but also come with serious risks. It is important to work with your healthcare provider to make sure you are getting the safest, most effective care. WHAT ARE THE RISKS AND SIDE EFFECTS OF OPIOID USE? Prescription opioids carry serious risks of addiction and overdose, especially with prolonged use. An opioid overdose, often marked by slowed breathing, can cause sudden . The use of prescription opioids can have a number of side effects as well, even when taken as directed: ? Tolerance?meaning you might need to take more of the medication for the same pain relief ? Physical dependence?meaning you have symptoms of withdrawal when a medication is stopped ? Increased sensitivity to pain ? Constipation ? Nausea, vomiting, and dry mouth ? Sleepiness and dizziness ? Confusion ? Depression ? Low levels of testosterone that can result in lower sex drive, energy, and strength ? Itching and sweating RISKS ARE GREATER WITH: ? History of drug misuse, substance use disorder, or overdose ? Mental health conditions (such as depression or anxiety) ? Sleep apnea ? Older age (65 years and older) ? Avoid alcohol while taking prescription opioids. Also, unless specifically advised by your health care provider, medications to avoid include: ? Benzodiazepines (such as Xanax or Valium) ? Muscle relaxants (such as Soma or Flexeril) ? Hypnotics (such as Ambien or Lunesta) ? Other prescription opioids KNOW YOUR OPTIONS Talk to your health care provider about ways to manage your pain that don?t involve prescription opioids. Some of these options may actually work better and have fewer risks and side effects. Options may include: ? Pain relievers such as acetaminophen, ibuprofen, and naproxen ? Some medication that are also used for depression or seizures ? Physical therapy and exercise ? Cognitive behavioral therapy, a psychological, goal-directed approach, in which patients learn how to modify physical, behavioral, and emotional triggers of pain and stress. IF YOU ARE PRESCRIBED OPIOIDS FOR PAIN: ? Never take opioids in greater amounts or more often than prescribed. ? Follow up with your primary health care provider. o Work together to create a plan on how to manage your pain. o Talk about ways to help manage your pain that don?t involve prescription opioids. o Talk about any and all concerns and side effects. ? Help prevent misuse and abuse o Never sell or share prescription opioids. o Never use another person?s prescription opioids. ? Store prescription opioids in a secure place and out of reach of others (this may include visitors, children, friends, and family). ? Safely dispose of unused prescription opioids: Find your community drug take-back program or your pharmacy mail-back program, or flush them down the toilet, following guidance from the Food and Drug Administration (www.fda.gov/Drugs/ResourcesForYou). ? Visit www.cdc.gov/drugoverdose to learn about the risks of opioids abuse and overdose. ? If you believe you may be struggling with addiction, tell your health life care planner and ask for guidance or call [facility]?S National Helpline at 0-865-260-TOXV. r Source: [place] Depa (more content not included)... Normal [facility] HEMATOLOGYOrdered By: SYSTEM SYSTEM on 10-31-2022 Basophils/100 WBC (Bld) 0.9 % Normal 0.0 - 2.0 % [facility] HemeAutoSS Basophils/Leukocytes Auto (B ld) [Pure # fraction] 0.1 E9/L Normal 0.0 - 0.2 E9/L [facility] HemeAutoSS Eosinophils/100 WBC (Bld) 0.2 % Normal 0.0 - 8.0 % [facility] HemeAutoSS Eosinophils/Leukocytes Auto (Bld) [Pure # fraction] 0.0 E9/L Normal 0.0 - 0.5 E9/L [facility] HemeAutoS S Lymphocytes/100 WBC (Bld) 16.8 % Normal 14.0 - 50. 0 % [facility] HemeAutoSS Lymphocytes/Leukocytes Auto (Bld) [Pure # fraction] 1.4 E9/L Normal 1.0 - 4.0 E9/L [facility] HemeAutoS S Monocytes/100 WBC (Bld) 5.0 % Normal 4.0 - 14.0 % [facility] HemeAutoSS Monocytes/Leukocytes Auto (B ld) [Pure # fraction] 0.4 E9/L Normal 0.2 - 1.0 E9/L [facility] HemeAutoSS Neutrophils/100 WBC (Bld) 77.1 % High 36.0 - 75. 0 % [facility] HemeAutoSS Neutrophils/Leukocytes Auto (Bld) [Pure # fraction] 6.4 E9/L Normal 2.0 - 7.5 E9/L [facility] HemeAutoS S HEMATOLOGYOrdered By: Tracy Jacobs on 10-31-2022 Erythrocyte distribution wid th (RBC) [Ratio] 14.7 % High 10.9 - 14.2 % [facility] HemeAutoSS Hematocrit (Bld) [Volume fraction] 36.8 % Normal 34.0 - 46.0 % [facility] HemeAutoSS Hemoglobin (Bld) [Mass/Vol] 12.2 g/dL Normal 12.0 - 1 6.0 gm/dL [facility]eAutoSS MCH (RBC) [Entitic mass] 28.5 pg Normal 27.0 - 34.0 pg [facility] HemeAutoSS MCHC (RBC) [Mass/Vol] 33.3 g/dL Normal 31.4 - 36.0 gm /dL [facility] HemeAutoSS MCV (RBC) [Entitic vol] 85.6 fL Normal 80.0 - 100.0 fL [facility] HemeAutoSS Platelet mean volume (Bld) [Entitic vol] 9.0 fL Normal 6.4 - 10.8 fL [facility] HemeAutoSS Platelets (Bld) [#/Vol] 267.0 E9/L Normal 150.0 - 500. 0 E9/L [facility] HemeAutoSS RBC (Bld) [#/Vol] 4.3 E12/L Normal 4.3 - 5.9 E12/L [facility] HemeAutoSS WBC corrected for nucl RBC A uto (Bld) [#/Vol] 8.3 E9/L Normal 4.0 - 11.0 E9/L [facility] HemeAutoSS Hep Func Panelon 10-31-2022 Albumin [Mass/Vol] 4.7 g/dL Normal 3.3-5.0 [facility] Comment on above: Performed By: #### 2 287203, 9369222, 9937589, 1842781, 17602307, 2156364 ####[facility] [address] [place] [address] Albumin/Globulin (S) [Mass conc ratio] 1.7 Normal 1.1-2.2 [facility] Comment on above: Performed By: #### 2 475087, 0717021, 8514810, 8188943, 37361018, 0676846 ####[facility] [address] [place] [address] ALP [Catalytic activity/Vol] 59 Int._Unit/L Normal 21- 98 [facility] Comment on above: Performed By: #### 2 964596, 0631201, 7825678, 1278874, 22558438, 7318666 ####[facility] [address] [place] [address] ALT No additional P-5'-P [Catalytic activity/Vol] 11 Int._Unit/L Normal 6-46 [facility] Comment on above: Performed By: #### 2 781333, 3393453, 4741204, 5024620, 17726342, 6256663 ####[facility] [address] [place] [address] AST [Catalytic activity/Vol] 14 Int._Unit/L Normal 5-4 3 [facility] Comment on above: Performed By: #### 2 353263, 0193245, 9104515, 5572079, 52779897, 0829964 ####[facility] [address] [place] [address] Bilirubin [Mass/Vol] 0.5 mg/dL Normal 0.0-1.1 [facility] Comment on above: Performed By: #### 2 402864, 2132343, 0132293, 6675389, 34269926, 9733485 ####[address] [address] Bilirubin.direct [Mass/Vol] 0.1 mg/dL Normal 0.1-0.4 [facility] Comment on above: Performed By: #### 2 825098, 8049343, 2233991, 6521815, 68828691, 2675306 ####[facility] [address] [place] [address] Bilirubin.indirect [Mass or moles/Vol] 0.4 mg/dL Normal 0.1-0.9 [facility] Comment on above: Performed By: #### 2 635900, 7542090, 5744315, 8509023, 76125787, 5375821 ####[facility] [address] [place] [address] Globulin (S) [Mass/Vol] 2.7 g/dL Normal 1.4-4.0 [facility] Comment on above: Performed By: #### 2 339765, 3049526, 6128272, 0142606, 44772890, 2475200 ####[facility] [address] [place] [address] Protein [Mass/Vol] 7.4 g/dL Normal 6.0-7.8 [facility] Comment on above: Performed By: #### 2 731812, 4830315, 0253130, 8290992, 94065729, 3165651 ####[facility] [address] [place] [address] Lipase Levelon 10-31-2022 Lipase [Catalytic activity/Vol] 34 U/L Normal 13-5 8 [facility] Comment on above: Performed By: #### 2 146597, 1235474, 4614179, 2616336, 76798243, 9810374 ####[facility] [address] [place] [address] Prescriptions/Work Noteson 1 01-01-2022 Prescriptions/Work Notes [id number]:127 Normal [facility] SEROLOGYOrdered By: Aracelis Jacobs on 10-31-2022 HCG.beta subunit (U) [Moles/Vol] Negative Normal [facility] Man Sero U BetaHcg Qualon 10-31-2022 HCG.beta subunit (U) [Moles/Vol] Negative Normal [facility] Comment on above: Performed By: #### 1 7110507, 16455907 ####[facility] [address] [place] [address] UA With Cult Reflexon 2021 Bacteria LM Ql (Urine sed) TRACE Normal Trace [facility] Comment on above: Performed By: #### 1 2925496, 48466612 ####[facility] [address] [place] [address] Bilirubin Ql (U) Negative Normal Negative [facility] Comment on above: Performed By: #### 1 6834516, 98488895 ####[facility] [address] [place] [address] Clarity (U) CLEAR Normal Clear [facility] Comment on above: Performed By: #### 1 4630969, 55884579 ####[address] [address] Color (U) STRAW Abnormal Yellow [facility] Comment on above: Performed By: #### 1 1260986, 68912213 ####[address] [address] Epithelial cells.squamous LM .HPF (Urine sed) [#/Area] 0-2 Normal 0-2 [facility] Comment on above: Performed By: #### 1 3032535, 16795509 ####[place] [address] Glucose Test strip (U) [Mass/Vol] Negative Normal Negative [facility] Comment on above: Performed By: #### 1 2417833, 58727016 ####[place] [address] Hemoglobin Ql (U) Negative Normal Negative [facility] Comment on above: Performed By: #### 1 5599354, 11533412 ####[place] [address] Ketones (U) [Mass/Vol] TRACE Abnormal Negative [facility] Comment on above: Performed By: #### 1 8999225, 43991479 ####[place] [address] Literberry.plasma/Literberry.RBC (Bld) [Mass ratio] 0-3 N ormal 0-3 [facility] Comment on above: Performed By: #### 1 1091562, 32537391 ####[address] [address] Nitrite Ql (U) Negative Normal Negative [facility] Comment on above: Performed By: #### 1 6492314, 35865855 ####[address] [address] pH (U) 6.5 [pH] Invalid Interpretation Code 5.0-9.0 [facility] Comment on above: Performed By: #### 1 4992952, 15966791 ####[address] [address] Protein (U) [Mass/Vol] Negative Normal Negative [facility] Comment on above: Performed By: #### 1 6633262, 95398916 ####[place] [address] Specific gravity (U) [Rel density] <=1.005 Invalid Interpretation Code 1.005-1.030 [facility] Comment on above: Performed By: #### 1 9235877, 78471235 ####[place] [address] Type of Urine collection method Clean Catch Normal [facility] Comment on above: Performed By: #### 1 1058843, 14779850 ####[place] [address] Urobilinogen Qn (U) 0.2 {Christel'U}/dL Normal 0.0-1.0 [facility] Comment on above: Performed By: #### 1 1574407, 27250240 ####[place] [address] WBC Auto Ql (U) Negative Normal Negative [facility] Comment on above: Performed By: #### 1 0036185, 03181205 ####[facility] [address] [place], [place] [address] WBC LM.HPF (Urine sed) [#/Area] 0-5 Normal 0-5 [facility] Comment on above: Performed By: #### 1 5098332, 00069922 ####[facility] [address] [place], [place] [address] URINALYSISOrdered By: Tracy Jacobs on 10-31-2022 Bacteria LM Ql (Urine sed) Trace /HPF Normal Trace/HPF [facility] UA Auto SS Bilirubin Ql (U) Negative (10/31/22 12:31 AM) Normal Negative [facility] UA Auto SS Clarity (U) Clear (10/31/22 12:31 AM) Normal Clear [facility] UA Auto SS Color (U) Straw *ABN* (10/31/22 12:31 AM) Invalid Interpretation Code Yellow [facility] UA Auto SS Epithelial cells.squamous LM.HPF (Urine sed) [#/Area] 0-2 /HPF Normal 0-2/HPF [facility] UA Auto SS Glucose Test strip (U) [Mass/Vol] Negative (10/31/22 12:31 AM) Normal Negative [facility] UA Auto SS Hemoglobin Ql (U) Negative (10/31/22 12:31 AM) Normal Negative [facility] UA Auto SS Ketones (U) [Mass/Vol] Trace *ABN* (10/31/22 12:31 AM) Invalid Interpretation Code Negative [facility] UA Auto SS Literberry.plasma/Lithi um.RBC (Bld) [Mass ratio] 0-3 /HPF Normal 0-3/HPF [facility] UA Auto SS Nitrite Ql (U) Negative (10/31/22 12:31 AM) Normal Negative [facility] UA Auto SS pH (U) 6.5 *NA* (10/31/22 12:31 AM) Invalid Interpretation Code 5.0 - 9.0 [facility] UA Auto SS Protein (U) [Mass/Vol] Negative (10/31/22 12:31 AM) Normal Negative [facility] UA Auto SS Specific gravity (U) [Rel density] <=1.005 *NA* (10/31/22 12:31 AM) Invalid Interpretation Code 1.005 - 1.030 [facility] UA Auto SS UA Spec Desc Clean Catch (10/31/22 12:31 AM) Normal [facility] UA Auto SS Urobilinogen Qn (U) 0.4527135 {Christel'U}/dL Normal 0.0 - 1.0 EU/dL [facility] UA Auto SS WBC Auto Ql (U) Negative (10/31/22 12:31 AM) Normal Negative [facility] UA Auto SS WBC LM.HPF (Urine sed) [#/Area] 0-5 /HPF Normal 0-5/HPF [facility] UA Auto SS eGFRon 10-31-2022 GFR/1.73 sq M.predicted penny g blacks MDRD (S/P/Bld) [Vol rate/Area] mL/min/{1.73_m2} Normal >=59 [facility] Comment on above: Order Comment: Order added by Discern Expert. Result Comment: eGFR is race adjusted. AA=. Performed By: #### 2 656954, 0287804, 4360143, 0402121, 89384204, 9775396 ####[facility] [address] [place] [address] GFR/1.73 sq M.predicted penny g non-blacks MDRD (S/P/Bld) [Vol rate/Area] mL/min/{1.73_m2} Normal >=59 [facility] Comment on above: Order Comment: Order added by Discern Expert. Result Comment: Manager Emergency mohan kidney disease could be indicated at eGFR's of less than 60 mL/min/1.73m2. Kidney failure is indicated at less than 15 mL/min/1.73m2. Performed By: #### 2 837522, 7704270, 9722287, 7730374, 74307803, 5570666 ####[facility] [address] [place] [address] Consent for Treatmenton 09-29 Consent for Treatment [id number]:127 Normal [facility] Discharge Instructionson Discharge Instructions [id number]:127 Normal [facility] ED Clinical Summaryon 2021 ED Clinical Summary (Inserted Image. Nadiya ble to display) [address] [address] ED Clinical Summary Person Information Name: CHRISTI HASTINGS/[facility] Age: 22 Years : 2000 Sex: Female Language: Cypriot PCP: NONE, XXXX Marital Status: Single MRN: Visit Id: Visit Reason: Headache; Diarrhea; Nausea; Abdominal pain; STOMACH PAIN Speciality: Acuity: 4 Enc Type: Emergency Med Service: Emergency Arrival: 10/26/2022 13:29:51 Discharge: 10/26/2022 16:18:51 LOS: 000 02:49 Checkin: 10/26/2022 13:29:51 Checkout: 10/26/2022 16:18:51 Dispo Type: Home (Routine DC) EVENTS: Event Name Event Status Request Date/Time Start Date/Time Complete Date/Time Arrive Complete 10/26/2022 13:29:51 10/26/2022 13:29:51 10/26/2022 13:29:51 Document Home Meds Request 10/26/2022 13:29:51 Triage Complete 10/26/2022 13:29:51 10/26/2022 13:51:24 10/26/2022 13:51:24 Bed Assign Complete 10/26/2022 14:43:35 10/26/2022 14:43:35 10/26/2022 14:43:35 Dr Exam Complete 10/26/2022 14:43:35 10/26/2022 14:47:49 10/26/2022 14:47:49 RN Exam Complete 10/26/2022 14:43:35 10/26/2022 14:53:20 10/26/2022 14:53:20 Registration Complete 10/26/2022 14:47:49 10/26/2022 14:56:43 10/26/2022 14:56:43 Dr Exam Complete 10/26/2022 14:52:47 10/26/2022 14:52:47 10/26/2022 14:52:47 Reg Complete Request 10/26/2022 14:56:43 Reg Bed Request Complete 10/26/2022 14:56:43 10/26/2022 14:56:43 10/26/2022 14:56:43 Pending Labs Complete 10/26/2022 14:57:16 10/26/2022 15:38:13 10/26/2022 15:52:28 Lab Complete 10/26/2022 14:57:16 10/26/2022 15:38:13 10/26/2022 15:52:28 Swab Complete 10/26/2022 14:57:16 10/26/2022 15:43:01 Urine Collect Complete 10/26/2022 14:57:16 10/26/2022 15:52:28 Meds Admin Complete 10/26/2022 14:57:16 10/26/2022 15:10:07 Discharge Complete 10/26/2022 16:03:04 10/26/2022 16:18:56 10/26/2022 16:18:56 Transfer Complete 10/26/2022 16:18:56 10/26/2022 16:18:56 10/26/2022 16:18:56 ADDRESS: [address] [place] [address] [address] [facility] [id number] PHYS DOC NOTES: MEDICAL INFORMATION: Prescriptions Given: Medications to Continue with No Changes Other Medications naproxen (naproxen 500 mg Tab) 1 Tablets By Mouth 2 times a day. Take one tab by mouth two times a day. Refills: 0. PATIENT EDUCATION INFORMATION: Instructions: Viral Gastroenteritis, Adult, Fmyk-lq-Uyxo; Viral Illness, Adult Follow up: With: Address: When: Hang Jacobsen [address] [place] [address], [place] [address] [facility] () In 3 days 10/29/2022 Comments: Follow-up with your primary care provider. He did not have any follow-up with Dr. Jacobsen. Follow-up with your primary care provider in 3 to 5 days. If symptoms worsen, do not improve, or new symptoms arise please report back to emergency department for further evaluation. With: Address: When: XXXX NONE , [place] In 3 days 10/29/2022 DIAGNOSIS: Viral illness Normal [facility] ED Note-Physicianon 10-26-20 ED Note-Physician Basic Information Time Seen: Johnny Ghotra PA-C 10/26/2022 14:47 Chief Complaint Pt presents to ED with complaints of HARTLEY, abd pain, nausea and diarrhea onset last. tolerating PO intake. History of Present Illness 22-year-old female reports emerged department chief complaint of a headache, nausea, diarrhea, and some abdominal cramping. Reports that this all started last night. Reports that she has not had any episodes of vomiting, but does feel nauseous. She states that she feels like she may have a virus, as people she works with have had similar type things, which have been a virus that she has been told. She reports that he is she is able to tolerate oral fluids. Denies taking any medications. She states that she has not had any fevers, shortness of breath, cough, or chest pain. She reports that she also wants to see if her urine is possibly have an infection that has little bit of a discomfort when she urinates. Denies any back pain. States that her abdomen just feels cramping, no 1 specific spot of abdominal pain. Review of Systems A 10 point review of systems is negative except as noted above. Medical and Surgical History: Reviewed and noted Social history: Lives at home Family History: Reviewed. Tobacco: User Physical Exam Vitals & Measurements T: 36.9 ?C(Oral) HR: 106(Peripheral) RR: 18 BP: 132/77 SpO2: 99% HT: 157 cm WT: 71.3 kg BMI: 28.93 General: The patient appears well and in no apparent distress. Patient is resting comfortably in chair. Afebrile Skin: Warm, dry, no pallor noted. Head: Normocephalic, atraumatic Neck: No JVD Eye: PERRLA, EOMI ENT: Moist mucus membranes. Pharynx pink moist no erythema or exudates. Bilateral TMs intact with no erythema or bulging. Cardiovascular: Regular rate normal peripheral perfusion. Radial pulse +2 bilaterally Respiratory: No respiratory distress no accessory muscle use no obvious audible wheezing. Lung sounds clear to auscultation Chest Wall: no deformity Musculoskeletal: normal ROM, no deformity, no swelling GI: No obvious distention soft nontender nondistended no guarding rebounding or rigidity. No CVA tenderness Neurological: A&O moves all extremities equal strength and symmetry Psychiatric: Cooperative and appropriate Medical Decision Making Whoqczb84-lgyc-gcd female reports to the emergency department with chief complaint of headache, body aches, nausea, diarrhea, and some abdominal cramping. Also has. States that she believes that she is some type of virus or UTI due to the dysuria and recent coworkers having similar type symptoms. On physical examination, patient is afebrile nontoxic-appearing. Physical exam is benign with no acute findings. I did perform a urinalysis as well as rapid COVID and influenza swabs. All of these were negative. No findings for any UTI. I did discuss this with the patient. Discussed that is likely a virus will run its course. Patient was happy with this. She reports that she is following up with her primary care doctor as well. Discussed she can take jrij-zkg-ijjtbgh medications for symptoms. Follow-up with your primary care provider in 3 to 5 days. If symptoms worsen, do not improve, or new symptoms arise please report back to emergency department for further evaluation. The patient was understanding and agreeable to plan moving forward. Assessment/Plan Viral illness (B34.9: Viral infection, unspecified) Orders: ondansetron, 4 mg = 1 tab(s), Tab-Dis, Oral, Once, Stop date 10/26/22 14:56:00 EST, STAT, Start date 10/26/22 14:56:00 EST, 10/26/22 14:56:00 EST Influenza A&B Ag Rapid COVID Antigen ([facility]) U Beta Hcg Qual UA With Cult Reflex Medications Administered Given Zofran ODT 4 mg Tab-Dis, 4 mg, Oral Disposition Plan Patient Discharge Condition Stable improved Discharge Disposition To home Discharge Prescription List Prescriptions No active prescription medications Follow-up With When Contact Information Hang Jacobsen In 3 days 10/29/[address] [address] [facility] (1) Additional Instructions: Follow-up with your primary care provider. He did not have any follow-up with Dr. Jacobsen. Follow-up with your primary care provider in 3 to 5 days. If symptoms worsen, do not improve, or new symptoms arise please report back to emergency department for further evaluation. XXXX NONE In 3 days 10/29/2022 [facility] Additional Instructions: Patient Education Viral Gastroenteritis, Adult, Uogj-cu-Ghed Viral Illness, Adult Attestation Patient seen and evaluated by the physician butcher's assistant. Attending physician was present in the emergency department and supervised care. This visit was performed by both the physician and an APC. I performed all aspects of the MDM as documented. This report was transcribed using voice recognition software. Every effort was made to ensure accuracy, however, inadvertently computerized cook helper preserves mistakes may be present. Appropriate (more content not included)... Normal [facility] Comment on above: Result Comment: Elec tronically Signed By: Johnny Ghotra PA-C\.br\Date and Time Signed: 10/26/22 18:27 EST\.br\Electronically Co-Signed By: Tha Tiwari DO.br\Date and Time Co-Signed: 10/26/22 19:26 EST ED Patient Education Noteon 10-26-2022 ED Patient Education Note Gastroenterology Viral Gastroenteritis, Adult Viral gastroenteritis is also known as the stomach flu. This condition may affect your stomach, your small intestine, and your large intestine. It can cause sudden watery poop (diarrhea), fever, and throwing up (vomiting). This condition is caused by certain germs (viruses). These germs can be passed from person to person very easily (are contagious). Having watery poop and throwing up can make you feel weak and cause you to not have enough water in your body (get dehydrated). This can make you tired and thirsty, make you have a dry mouth, and make it so you pee (urinate) less often. It is important to replace the fluids that you lose from having watery poop and throwing up. What are the causes? ? You can get sick by catching viruses from other people. ? You can also get sick by: ? Eating food, drinking water, or touching a surface that has the viruses on it (is contaminated). ? Sharing utensils or other personal items with a person who is sick. What increases the risk? ? Having a weak body defense system (immune system). ? Living with one or more children who are younger than 2 years old. ? Living in a shelter. ? Going on cruise ships. What are the signs or symptoms? Symptoms of this condition start suddenly. Symptoms may last for a few days or for as long as a week. ? Common symptoms include: ? Watery poop. ? Throwing up. ? Other symptoms include: ? Fever. ? Headache. ? Feeling tired (fatigue). ? Pain in the belly (abdomen). ? Chills. ? Feeling weak. ? Feeling sick to your stomach (nauseous). ? Muscle aches. ? Not feeling hungry. How is this treated? ? This condition typically goes away on its own. ? The focus of treatment is to replace the fluids that you lose. This condition may be treated with: ? An ORS (oral rehydration solution). This is a drink that is sold at pharmacies and stores. ? Medicines to help with your symptoms. ? Probiotic supplements to reduce symptoms of diarrhea. ? Fluids given through an IV tube, if needed. ? Older adults and people with other diseases or a weak body defense system are at higher risk for not having enough water in the body. Follow these instructions at home: Eating and drinking ? Take an ORS as told by your doctor. ? Drink clear fluids in small amounts as you are able. Clear fluids include: ? Water. ? Ice chips. ? Fruit juice with water added to it (diluted). ? Low-calorie sports drinks. ? Drink enough fluid to keep your pee (urine) pale yellow. ? Eat small amounts of healthy foods every 3?4 hours as you are able. This may include whole grains, fruits, vegetables, lean meats, and yogurt. ? Avoid fluids that have a lot of sugar or caffeine in them, such as energy drinks, sports drinks, and soda. ? Avoid spicy or fatty foods. ? Avoid alcohol. General instructions ? Wash your hands often. This is very important after you have watery poop or you throw up. If you cannot use soap and water, use hand client associate. ? Make sure that all people in your home wash their hands well and often. ? Take rvwj-opz-ztcyehx and prescription medicines only as told by your doctor. ? Rest at home while you get better. ? Watch your condition for any changes. ? Take a warm bath to help with any burning or pain from having watery poop. ? Keep all follow-up visits as told by your doctor. This is important. Contact a doctor if: ? You cannot keep fluids down. ? Your symptoms get worse. ? You have new symptoms. ? You feel light-headed. ? You feel dizzy. ? You have muscle cramps. Get help right away if: ? You have chest pain. ? You feel very weak. ? You pass out (faint). ? You see blood in your throw-up. ? Your throw-up looks like coffee grounds. ? You have bloody or black poop (stools) or poop that looks like tar. ? You have a very bad headache, or a stiff neck, or both. ? You have a rash. ? You have very bad pain, cramping, or bloating in your belly. ? You have trouble breathing. ? You are breathing very quickly. ? You have a fast heartbeat. ? Your skin feels cold and clammy. ? You feel mixed up (confused). ? You have pain when you pee. ? You have signs of not having enough water in the body, such as: ? Dark pee, hardly any pee, or no pee. ? Cracked lips. ? Dry mouth. ? Sunken eyes. ? Feeling very sleepy. ? Feeling weak. Summary ? Viral gastroenteritis is also known as the stomach flu. ? This condition can cause sudden watery poop (diarrhea), fever, and throwing up (vomiting). ? These germs can be passed from person to person very easily. ? Take an ORS as told by your doctor. This is a drink that is sold at pharmacies and stores. ? Drink fluids in small amounts many times each day as you are able. This information is not intended to replace advice given (more content not included)... Normal [facility] ED Patient Summaryon 022 ED Patient Summary (Inserted Image. Nadiya ble to display) [address] [address] Patient Discharge Instructions Person Information Name: CHRISTI HASTINGS Age: 22 Years Arrival Date: 10/26/2022 13:29:51 Discharge Diagnosis: Viral illness Primary Care Physician: NONE, XXXX Provider Information Primary Provider: Tha Tiwari DO Advanced Customer Service Operator:None The exam and treatment you received in the Emergency Department were for an urgent problem and are not intended as complete care. It is important that you follow up with a doctor, nurse practitioner, or physician?s butcher's assistant for ongoing care. If your symptoms become worse or you do not improve as expected and you are unable to reach your usual health care provider, you should return to the Emergency Department. We are available 24 hours a day. CHRISTI HASTINGS has been given the following list of patient education materials, prescriptions and follow-up instructions: Follow-up Instructions: With: Address: When: Hang Jacobsen [address] [place] [address], [place] [address] Business (1) In 3 days 10/29/2022 Comments: Follow-up with your primary care provider. He did not have any follow-up with Dr. Jacobsen. Follow-up with your primary care provider in 3 to 5 days. If symptoms worsen, do not improve, or new symptoms arise please report back to emergency department for further evaluation. With: Address: When: XXXX NONE , [place] In 3 days 10/29/2022 In the event that this physician does not participate in your insurance network, please consult with your insurance company to find a nearby participating provider. Patient Education Materials: Viral Gastroenteritis, Adult, Ubub-oh-Xpuk; Viral Illness, Adult A MESSAGE TO ALL PATIENTS REGARDING OPIOIDS PRESCRIPTION OPIOIDS: WHAT YOU NEED TO KNOW Prescription opioids can be used to help relieve qjgnrerz-as-lxnbwy pain and are often prescribed following a surgery or injury, or for certain health conditions. These medications can be an important part of the treatment but also come with serious risks. It is important to work with your healthcare provider to make sure you are getting the safest, most effective care. WHAT ARE THE RISKS AND SIDE EFFECTS OF OPIOID USE? Prescription opioids carry serious risks of addiction and overdose, especially with prolonged use. An opioid overdose, often marked by slowed breathing, can cause sudden . The use of prescription opioids can have a number of side effects as well, even when taken as directed: ? Tolerance?meaning you might need to take more of the medication for the same pain relief ? Physical dependence?meaning you have symptoms of withdrawal when a medication is stopped ? Increased sensitivity to pain ? Constipation ? Nausea, vomiting, and dry mouth ? Sleepiness and dizziness ? Confusion ? Depression ? Low levels of testosterone that can result in lower sex drive, energy, and strength ? Itching and sweating RISKS ARE GREATER WITH: ? History of drug misuse, substance use disorder, or overdose ? Mental health conditions (such as depression or anxiety) ? Sleep apnea ? Older age (65 years and older) ? Avoid alcohol while taking prescription opioids. Also, unless specifically advised by your health care provider, medications to avoid include: ? Benzodiazepines (such as Xanax or Valium) ? Muscle relaxants (such as Soma or Flexeril) ? Hypnotics (such as Ambien or Lunesta) ? Other prescription opioids KNOW YOUR OPTIONS Talk to your health care provider about ways to manage your pain that don?t involve prescription opioids. Some of these options may actually work better and have fewer risks and side effects. Options may include: ? Pain relievers such as acetaminophen, ibuprofen, and naproxen ? Some medication that are also used for depression or seizures ? Physical therapy and exercise ? Cognitive behavioral therapy, a psychological, goal-directed approach, in which patients learn how to modify physical, behavioral, and emotional triggers of pain and stress. IF YOU ARE PRESCRIBED OPIOIDS FOR PAIN: ? Never take opioids in greater amounts or more often than prescribed. ? Follow up with your primary health care provider. o Work together to create a plan on how to manage your pain. o Talk about ways to help manage your pain that don?t involve prescription opioids. o Talk about any and all concerns and side effects. ? Help prevent misuse and abuse o Never sell or share prescription opioids. o Never use another person?s prescription opioids. ? Store prescription opioids in a secure place and out of reach of others (this may include visitors, children, friends, and family). ? Safely dispose of unused prescription opioids: Find your community drug take-back program or your pharmacy mail-back program, or flush them down the toilet, followin (more content not included)... Normal [facility] Influenza A&B Agon Influenzae A Ag Negative Normal Negative [facility] Comment on above: Performed By: #### 2 [id number], [id number] ####[facility] [address] [place] [address] Influenzae B Ag Negative Normal Negative [facility] Comment on above: Result Comment: Test sensitivity and specificity vary for age group, specimen type, antigen types, and prevalence of disease. Test results must be evaluated in conjunction with other clinical data available to the physician. Individuals who received nasally administered Influenza A vaccine may have positive test results up to 3 days after vaccination. Performed By: #### 2 [id number], [id number] ####[facility] [address] [place] [address] MICRO OTHER TESTSOrdered By: Tata Vasquez on 10-26-2022 Influenzae A Ag Negative (10/26/22 3:10 PM) Normal Negative [facility] Man Sero Influenzae B Ag Negative (10/26/22 3:10 PM) Normal Negative [facility] Man Sero Rapid COV Int NEG Ctl Pass (10/26/22 3:10 PM) Normal [facility] Man Sero Rapid COV Int POS Ctl Pass (10/26/22 3:10 PM) Normal [facility] Man Sero SARS-CoV+SARS-CoV-2 (COVID-1 9) Ag IA.rapid Ql (Resp) Not Detected (10/26/22 3:10 PM) Normal Not Detected [facility] Man Sero Rapid COVID Antigen ([facility])on 10-26-2022 Rapid COV Int NEG Ctl Pass Normal [facility] Comment on above: Performed By: #### 2 [id number], [id number] ####[facility] [address] [place] [address] Rapid COV Int POS Ctl Pass Normal [facility] Comment on above: Performed By: #### 2 [id number], [id number] ####[facility] [address] [place] [address] SARS-CoV+SARS-CoV-2 (COVID-1 9) Ag IA.rapid Ql (Resp) Not detected Normal Not Detected [facility] Comment on above: Result Comment: The MobileOCT System for Rapid Detection of SARS-CoV-2 is a chromatographic digital immunoassay intended for the direct and qualitative detection of SARS-CoV-2 nucleocapsid antigens in nasal swabs from individuals who are suspected of COVID-19 by their healthcare provider within the first five days of the onset of symptoms. Negative results should be treated as presumptive, do not rule out SARS-CoV-2 infection and should not be used as the sole basis for treatment or patient management decisions, including infection control decisions. Negative results should be considered in the context of a patient?s recent exposures, history and the presence of clinical signs and symptoms consistent with COVID-19, and confirmed with a molecular assay, if necessary, for patient management. For in vitro diagnostic use. In the [place], only for use under an Emergency Use Authorization. In the [place], this test has not been FDA cleared or approved; this test has been authorized by FDA under an EUA for use by authorized laboratories; use by laboratories certified under the CLIA, 42 U.S.C. ?263a, that meet requirements to perform moderate, high, or waived complexity tests and at the Point of Care (POC), i.e., in patient care settings operating under a CLIA Certificate of Waiver, Certificate of Compliance, or Certificate of Accreditation. This test has been authorized only for the detection of proteins from SARS-CoV-2, not for any other viruses or pathogens; and, in the [place], this test is only authorized for the duration of the declaration that circumstances exist justifying the authorization of emergency use of in vitro diagnostics for detection and/or diagnosis of the virus that causes COVID-19 under Section 564(b)(1) of the Act, 21 U.S.C. ? 360bbb-3(b)(1), unless the authorization is terminated or revoked sooner. Performed By: #### 2 [id number], [id number] ####[address] [place] [address] ADMITTED TO INTENSIVE CARE U NIT FOR CONDITION OF INTEREST:FIND:PT: NO Normal [facility] Comment on above: Performed By: #### 2 [id number], [id number] ####[place] [address] EMPLOYED IN A HEALTHCARE SETTING:FIND:PT: NO Candie l [facility] Comment on above: Performed By: #### 2 [id number], [id number] ####[place] [address] FIRST TEST FOR CONDITION OF INTEREST:FIND:PT: Unknown Normal [facility] Comment on above: Performed By: #### 2 [id number], [id number] ####[place] [address] HAS SYMPTOMS RELATED TO COND ITION OF INTEREST:FIND:PT: YES Normal [facility] Comment on above: Performed By: #### 2 [id number], [id number] ####[address] [address] HOSPITALIZED FOR CONDITION O F INTEREST:FIND:PT: NO Normal [facility] Comment on above: Performed By: #### 2 [id number], [id number] ####[address] [address] STATUS:FIND:PT: Unknown Normal [facility] Comment on above: Performed By: #### 2 [id number], [id number] ####[facility] [address] [place] [address] RESIDES IN A CONGREGATE CARE SETTING:FIND:PT: NO N ormal [facility] Comment on above: Performed By: #### 2 [id number], [id number] ####[facility] [address] [place] [address] SEROLOGYOrdered By: Tata Vasquez on 10-26-2022 HCG.beta subunit (U) [Moles/Vol] Negative Normal [facility] Man Sero U BetaHcg Qualon 10-26-2022 HCG.beta subunit (U) [Moles/Vol] Negative Normal [facility] Comment on above: Performed By: #### 2 [id number], [id number] ####[facility] [address] [place] [address] UA With Cult Reflexon 2021 Bacteria LM Ql (Urine sed) TRACE Normal Trace [facility] Comment on above: Performed By: #### 2 [id number], [id number] ####[facility] [address] [place] [address] Bilirubin Ql (U) Negative Normal Negative [facility] Comment on above: Performed By: #### 2 [id number], [id number] ####[facility] [address] [place] [address] Clarity (U) CLEAR Normal Clear [facility] Comment on above: Performed By: #### 2 [id number], [id number] ####[facility] [address] [place] [address] Color (U) YELLOW Normal Yellow [facility] Comment on above: Performed By: #### 2 [id number], [id number] ####[facility] [address] [place] [address] Epithelial cells.squamous LM .HPF (Urine sed) [#/Area] 3-4 Normal 0-2 [facility] Comment on above: Performed By: #### 2 [id number], [id number] ####[facility] [address] [place] [address] Glucose Test strip (U) [Mass/Vol] Negative Normal Negative [facility] Comment on above: Performed By: #### 2 [id number], [id number] ####[facility] [address] [place] [address] Hemoglobin Ql (U) 3+ Abnormal Negative [facility] Comment on above: Performed By: #### 2 [id number], [id number] ####[facility] [address] [place] [address] Ketones (U) [Mass/Vol] Negative Normal Negative [facility] Comment on above: Performed By: #### 2 [id number], [id number] ####[facility] [address] [place] [address] Literberry.plasma/Literberry.RBC ( Bld) [Mass ratio] 4-20 Normal 0-3 [facility] Comment on above: Performed By: #### 2 [id number], [id number] ####[facility] [address] [place] [address] Nitrite Ql (U) Negative Normal Negative [facility] Comment on above: Performed By: #### 2 [id number], [id number] ####[facility] [address] [place] [address] pH (U) 6.5 [pH] Invalid Interpretation Code 5.0-9.0 [facility] Comment on above: Performed By: #### 2 [id number], [id number] ####[facility] [address] [place] [address] Protein (U) [Mass/Vol] Negative Normal Negative [facility] Comment on above: Performed By: #### 2 [id number], [id number] ####[facility] [address] [place] [address] Specific gravity (U) [Rel density] 1.010 Invalid Interpretation Code 1.005-1.030 Fish [facility] Comment on above: Performed By: #### 2 [id number], [id number] ####[facility] [address] [place] [address] Type of Urine collection method Clean Catch Normal [facility] Comment on above: Performed By: #### 2 [id number], [id number] ####[facility] [address] [place] [address] Urobilinogen Qn (U) 0.2 {Christel'U}/dL Normal 0.0-1.0 [facility] Comment on above: Performed By: #### 2 [id number], [id number] ####[facility] [address] [place] [address] WBC Auto Ql (U) Negative Normal Negative [facility] Comment on above: Performed By: #### 2 [id number] ####[place] [address] WBC LM.HPF (Urine sed) [#/Area] 0-5 Normal 0-5 [facility] [place] Comment on above: Performed By: #### [id number] ####[facility] [place] [id number] [place] [address] URINALYSISOrdered By: Shital Vasquez on 10-26-2022 Bacteria LM Ql (Urine sed) Trace /HPF Normal Trace/HPF [facility] UA Auto SS Bilirubin Ql (U) Negative (10/26/22 3:30 PM) Normal Negative [facility] UA Auto SS Clarity (U) Clear (10/26/22 3:30 PM) Normal Clear [facility] UA Auto SS Color (U) Yellow (10/26/22 3:30 PM) Normal Yellow FT UA Auto SS Epithelial cells.squamous LM.HPF (Urine sed) [#/Area] 3-4 /HPF Normal 0-2/HPF [facility] UA Auto SS Glucose Test strip (U) [Mass/Vol] Negative (10/26/22 3:30 PM) Normal Negative [facility] UA Auto SS Hemoglobin Ql (U) 3+ *ABN* (10/26/22 3:30 PM) Invalid Interpretation Code Negative [facility] UA Auto SS Ketones (U) [Mass/Vol] Negative (10/26/22 3:30 PM) Normal Negative FT UA Auto SS Literberry.plasma/Lithi um.RBC (Bld) [Mass ratio] 4-20 /HPF Normal 0-3/HPF [facility] UA Auto SS Nitrite Ql (U) Negative (10/26/22 3:30 PM) Normal Negative [facility] UA Auto SS pH (U) 6.5 *NA* (10/26/22 3:30 PM) Invalid Interpretation Code 5.0 - 9.0 [facility] UA Auto SS Protein (U) [Mass/Vol] Negative (10/26/22 3:30 PM) Normal Negative [facility] UA Auto SS Specific gravity (U) [Rel density] 1.010 *NA* (10/26/22 3:30 PM) Invalid Interpretation Code 1.005 - 1.030 [facility] UA Auto SS UA Spec Desc Clean Catch (10/26/22 3:30 PM) Normal FT UA Auto SS Urobilinogen Qn (U) [id number] {Christel'U}/dL Normal 0.0 - 1.0 EU/dL [facility] UA Auto SS WBC Auto Ql (U) Negative (10/26/22 3:30 PM) Normal Negative [facility] UA Auto SS WBC LM.HPF (Urine sed) [#/Area] 0-5 /HPF Normal 0-5/HPF [facility] UA Auto SS CHEMISTRYOrdered By: SYSTEM SYSTEM on 07-25-2022 Anion gap [Moles/Vol] 12 mmol/L Normal 6 - 16 mEq/L F C Remisol Calcium [Mass/Vol] 9.5 mg/dL Normal 8.9 - 11.1 mg/dL [facility] Remisol Chloride [Moles/Vol] 105 mmol/L Normal 101 - 111 mmol/ L [facility] Remisol CO2 [Moles/Vol] 27 mmol/L Normal 21 - 31 mmol/L [facility] Remisol Creatinine [Mass/Vol] 0.6 mg/dL Normal 0.5 - 1.3 mg/d L [facility] Remisol GFR/1.73 sq M.predicted penny g blacks MDRD (S/P/Bld) [Vol rate/Area] mL/min/1.73 m2 Normal >=59mL/min/1.73 m2 FT Chem S GFR/1.73 sq M.predicted penny g non-blacks MDRD (S/P/Bld) [Vol rate/Area] mL/min/1.73 m2 Normal >=59mL/min/1.73 m2 [facility] Chem S Glucose [Mass/Vol] 114 mg/dL Normal 55 - 199 mg/dL FT Remisol Potassium [Moles/Vol] 4.0 mmol/L Normal 3.5 - 5.3 mmol /L FT Remisol Sodium [Moles/Vol] 140 mmol/L Normal 135 - 145 mmol/L FT Remisol Troponin I.cardiac [Mass/Vol] pg/mL Low 10.10 - 27.10 pg/mL FT Remisol Urea nitrogen [Mass/Vol] 8 mg/dL Normal 5 - 21 mg/d L FT Remisol Urea nitrogen/Creatinine [Ma ss ratio] 13 mg/mg Normal 10 - 20 FT Remisol COAGULATIONOrdered By: Najma Vasquez on 07-25-2022 aPTT Coag (PPP) [Time] 34.7 s Normal 25.1 - 36.5 second(s) [facility] Auto Coag INR Coag (PPP) [Relative time] 1.1 {INR} Invalid Interpretation Code [facility] Auto Coag PT Coag (PPP) [Time] 12.0 s Normal 9.4 - 12.5 second(s) FT Auto Coag HEMATOLOGYOrdered By: SYSTEM SYSTEM on 07-25-2022 Basophils/100 WBC (Bld) 1.8 % Normal 0.0 - 2.0 % FT HemeAutoSS Basophils/Leukocytes Auto (B ld) [Pure # fraction] 0.1 E9/L Normal 0.0 - 0.2 E9/L [facility] HemeAutoSS Eosinophils/100 WBC (Bld) 1.2 % Normal 0.0 - 8.0 % [facility] HemeAutoSS Eosinophils/Leukocytes Auto (Bld) [Pure # fraction] 0.1 E9/L Normal 0.0 - 0.5 E9/L [facility] HemeAutoS S Lymphocytes/100 WBC (Bld) 24.7 % Normal 14.0 - 50. 0 % [facility] HemeAutoSS Lymphocytes/Leukocytes Auto (Bld) [Pure # fraction] 1.4 E9/L Normal 1.0 - 4.0 E9/L FT HemeAutoS S Monocytes/100 WBC (Bld) 9.0 % Normal 4.0 - 14.0 % [facility] HemeAutoSS Monocytes/Leukocytes Auto (B ld) [Pure # fraction] 0.5 E9/L Normal 0.2 - 1.0 E9/L [facility] HemeAutoSS Neutrophils/100 WBC (Bld) 63.3 % Normal 36.0 - 75. 0 % [facility] HemeAutoSS Neutrophils/Leukocytes Auto (Bld) [Pure # fraction] 3.5 E9/L Normal 2.0 - 7.5 E9/L [facility] HemeAutoS S HEMATOLOGYOrdered By: Mireya Handy on 07-25-2022 Erythrocyte distribution wid th (RBC) [Ratio] 14.9 % High 10.9 - 14.2 % [facility] HemeAutoSS Hematocrit (Bld) [Volume fraction] 35.8 % Normal 34.0 - 46.0 % [facility] HemeAutoSS Hemoglobin (Bld) [Mass/Vol] 12.3 g/dL Normal 12.0 - 1 6.0 gm/dL [facility] HemeAutoSS MCH (RBC) [Entitic mass] 29.4 pg Normal 27.0 - 34.0 pg [facility] HemeAutoSS MCHC (RBC) [Mass/Vol] 34.2 g/dL Normal 31.4 - 36.0 gm /dL [facility] HemeAutoSS MCV (RBC) [Entitic vol] 85.9 fL Normal 80.0 - 100.0 fL [facility] HemeAutoSS Platelet mean volume (Bld) [Entitic vol] 9.3 fL Normal 6.4 - 10.8 fL [facility] HemeAutoSS Platelets (Bld) [#/Vol] 247.0 E9/L Normal 150.0 - 500. 0 E9/L [facility] HemeAutoSS RBC (Bld) [#/Vol] 4.2 E12/L Low 4.3 - 5.9 E12/L [facility] HemeAutoSS WBC corrected for nucl RBC A uto (Bld) [#/Vol] 5.5 E9/L Normal 4.0 - 11.0 E9/L [facility] HemeAutoSS Vital Signs Date Time Vital Sign Value Performing Clinician Roosevelt guy 09-13-2023 10:13-0400 Diastolic blood pressure 73 mm[Hg] Yvon Morales [facility] 09-13-2023 10:13-0400 Heart rate 66 /min Yvon Andrew [facility] 09-13-2023 10:13-0400 Mean blood pressure 87 mm[Hg] Yvon Andrew [facility] 09-13-2023 10:13-0400 Respiratory rate 18 /min Yvon Andrew [facility] 09-13-2023 10:13-0400 SaO2% (BldA) [Mass fraction] 99 % Yvon Andrew [facility] 09-13-2023 10:13-0400 Systolic blood pressure 114 mm[Hg] Yvon Andrew [facility] 09-13-2023 09:30-0400 Diastolic blood pressure 67 mm[Hg] Yvon Andrew [facility] 09-13-2023 09:30-0400 Heart rate 98 /min Yvon Andrew [facility] 09-13-2023 09:30-0400 Mean blood pressure 82 mm[Hg] Yvon Andrew [facility] 09-13-2023 09:30-0400 Respiratory rate 17 /min Yvon Andrew [facility] 09-13-2023 09:30-0400 SaO2% (BldA) [Mass fraction] 98 % Yvon Andrew [facility] 09-13-2023 09:30-0400 Systolic blood pressure 111 mm[Hg] Yvon Andrew [facility] 09-13-2023 08:20-0400 Diastolic blood pressure 61 mm[Hg] Yvon Andrew [facility] 09-13-2023 08:20-0400 Heart rate 105 /min Yvon Andrew [facility] 09-13-2023 08:20-0400 Mean blood pressure 78 mm[Hg] Yvon Morales [facility] 09-13-2023 08:20-0400 Respiratory rate 16 /min Yvon Morales [facility] 09-13-2023 08:20-0400 SaO2% (BldA) [Mass fraction] 97 % Yvon Morales [facility] 09-13-2023 08:20-0400 Systolic blood pressure 111 mm[Hg] Yvon Morales [facility] 09-13-2023 04:47-0400 Body temperature 98.24 [degF] Yvon Morales [facility] 09-13-2023 04:47-0400 Heart rate 95 /min Yvon Morales [facility] 09-13-2023 04:47-0400 Respiratory rate 18 /min Yvon Morales [facility] 10-31-2022 02:26-0500 Diastolic blood pressure 85 mm[Hg] Nagi Mirta [facility] 10-31-2022 02:26-0500 Mean blood pressure 96 mm[Hg] Nagi Mirta [facility] 10-31-2022 02:26-0500 Respiratory rate 20 /min Nagi Mirta [facility] 10-31-2022 02:26-0500 SaO2% (BldA) [Mass fraction] 99 % Nagi Mirta [facility] 10-31-2022 02:26-0500 Systolic blood pressure 117 mm[Hg] Nagi Mirta [facility] 10-31-2022 01:35-0500 Diastolic blood pressure 75 mm[Hg] Nagi Mirta [facility] 10-31-2022 01:35-0500 Mean blood pressure 88 mm[Hg] Nagi Mirta [facility] 10-31-2022 01:35-0500 Respiratory rate 23 /min Nagi Mirta [facility] 10-31-2022 01:35-0500 SaO2% (BldA) [Mass fraction] 97 % Nagi Mirta [facility] 10-31-2022 01:35-0500 Systolic blood pressure 115 mm[Hg] Nagi Mirta [facility] 10-31-2022 00:36-0500 Diastolic blood pressure 74 mm[Hg] Nagi Mirta [facility] 10-31-2022 00:36-0500 Heart rate 85 /min Nagi Mirta [facility] 10-31-2022 00:36-0500 Mean blood pressure 89 mm[Hg] Nagi Mirta [facility] 10-31-2022 00:36-0500 Respiratory rate 16 /min Nagi Mirta [facility] 10-31-2022 00:36-0500 SaO2% (BldA) [Mass fraction] 98 % Nagi Mirta [facility] 10-31-2022 00:36-0500 Systolic blood pressure 119 mm[Hg] Nagi Mirta [facility] 10-30-2022 23:38-0500 Body temperature 98.42 [degF] Nagi Mirta [facility] 10-30-2022 23:38-0500 Heart rate 93 /min Nagi Mirta [facility] 10-30-2022 23:38-0500 Respiratory rate 18 /min Nagi Kirby [facility] 10-26-2022 13:48-0500 Body temperature 98.42 [degF] Tha Tiwari [facility] 10-26-2022 13:48-0500 Diastolic blood pressure 77 mm[Hg] Tha Tiwari [facility] 10-26-2022 13:48-0500 Heart rate 106 /min Tha Tiwari [facility] 10-26-2022 13:48-0500 Respiratory rate 18 /min Tha Tiwari [facility] 10-26-2022 13:48-0500 SaO2% (BldA) [Mass fraction] 99 % Tha Tiwari [facility] 10-26-2022 13:48-0500 Systolic blood pressure 132 mm[Hg] Tha Tiwari [facility] 07-25-2022 07:44-0400 Diastolic blood pressure 70 mm[Hg] Dmitriy Vargas [facility] 07-25-2022 07:44-0400 Heart rate 66 /min Dmitriy Hubbarde [facility] 07-25-2022 07:44-0400 Respiratory rate 15 /min Dmitriy Vargas [facility] 07-25-2022 07:44-0400 SaO2% (BldA) [Mass fraction] 99 % Dmitriy Hubbarde [facility] 07-25-2022 07:44-0400 Systolic blood pressure 115 mm[Hg] Dmitriy Alicia [facility] 07-25-2022 06:33-0400 Body temperature 98.6 [degF] Dmitriy Vargas [facility] 07-25-2022 06:33-0400 Diastolic blood pressure 72 mm[Hg] Dmitriy Vargas [facility] 07-25-2022 06:33-0400 Heart rate 64 /min Dmitriy Vargas [facility] 07-25-2022 06:33-0400 Respiratory rate 12 /min Dmitriy Vargas [facility] 07-25-2022 06:33-0400 SaO2% (BldA) [Mass fraction] 100 % Dmitriy Vargas [facility] 07-25-2022 06:33-0400 Systolic blood pressure 118 mm[Hg] Dmitriy Vargas [facility] 05-25-2022 18:50-0400 Body temperature 98.24 [degF] Tha Tiwari [facility] 05-25-2022 18:50-0400 Diastolic blood pressure 82 mm[Hg] Tha Tiwari [facility] 05-25-2022 18:50-0400 Heart rate 58 /min Tha Te [facility] 05-25-2022 18:50-0400 Respiratory rate 16 /min Tha Te [facility] 05-25-2022 18:50-0400 SaO2% (BldA) [Mass fraction] 100 % Tha Te [facility] 05-25-2022 18:50-0400 Systolic blood pressure 133 mm[Hg] Tha Te [facility] 05-18-2022 19:30-0400 Body temperature 98.24 [degF] Dmitriy Vargas [facility] 05-18-2022 19:30-0400 Diastolic blood pressure 67 mm[Hg] Dmitryi Hubbarde [facility] 05-18-2022 19:30-0400 Heart rate 58 /min Dmitriy Hubbarde [facility] 05-18-2022 19:30-0400 Mean blood pressure 88 mm[Hg] Dmitriy Hubbarde [facility] 05-18-2022 19:30-0400 Respiratory rate 17 /min Dmitriy Hubbarde [facility] 05-18-2022 19:30-0400 SaO2% (BldA) [Mass fraction] 99 % Dmitriy Hubbarde [facility] 05-18-2022 19:30-0400 Systolic blood pressure 129 mm[Hg] Dmitriy Hubbarde [facility] 05-18-2022 19:00-0400 Body temperature 98.6 [degF] Dmitriy Alicia [facility] 05-18-2022 19:00-0400 Diastolic blood pressure 76 mm[Hg] Dmitriy Hubbarde [facility] 05-18-2022 19:00-0400 Mean blood pressure 93 mm[Hg] Dmitriy Hubbarde [facility] 05-18-2022 19:00-0400 Systolic blood pressure 128 mm[Hg] Dmitriy Alicia [facility] 05-18-2022 16:33-0400 Body temperature 97.7 [degF] Dmitriy Alicia [facility] 05-18-2022 16:33-0400 Diastolic blood pressure 85 mm[Hg] Dmitriy Alicia [facility] 05-18-2022 16:33-0400 Heart rate 69 /min Dmitriy Vargas [facility] 05-18-2022 16:33-0400 Respiratory rate 16 /min Dmitriy Vargas [facility] 05-18-2022 16:33-0400 SaO2% (BldA) [Mass fraction] 99 % Dmitriy Vargas [facility] 05-18-2022 16:33-0400 Systolic blood pressure 130 mm[Hg] Dmitriy Vargas [facility] Encounters Encounter Date Encounter Type Care Provider Facility Start: 09-13-2023 End: 09-13-2023 Emergency department patient visit Yvon Morales Facility:[facility] Start: 09-13-2023 End: 09-13-2023 Emergency department patient visit Yvon Morales [facility] Start: 10-31-2022 End: 10-31-2022 Emergency department patient visit Nagipatricia Zelaya Mirta Facility:[facility] Start: 10-30-2022 End: 10-31-2022 Emergency department patient visit Nagi Zaratener [facility] Start: 10-26-2022 End: 10-26-2022 Emergency department patient visit Tha Tiwari Facility:[facility] Start: 10-26-2022 End: 10-26-2022 Emergency department patient visit Tha Tiwari [facility] Start: 07-25-2022 End: 07-25-2022 Emergency department patient visit Dmitriy Alicia [facility] Start: 05-25-2022 End: 05-25-2022 Emergency department patient visit Tha Tiwari [facility] Start: 05-18-2022 End: 05-18-2022 Emergency department patient visit Dmitriy Vargas [facility] Immunizations Immunization Date Immunization Notes Care Provider Hang desir 05-18-2022 tetanus toxoid, redu wenceslao diphtheria toxoid, and acellular pertussis vaccine, adsorbed Dmitriy Vargas [facility] Payers Date Payer Category Payer Medicaid [id number] 2022 Self-pay 2001 Unknown [id number] 2001 Unknown [id number] 2001 Unknown [id number] Social History Date Type Detail Facility Start: 05-18-2022 End: 10-26-2022 Tobacco smoking status Light tobacco smoker (finding) [facility] Sex Assigned At Female [facility] Functional Status Date Assessment Result Facility 09-13-2023 Functional Status N/A [facility] 10-30-2022 Functional Status N/A [facility] 10-26-2022 Functional Status N/A [facility] 07-25-2022 Functional Status N/A [facility] 05-25-2022 Functional Status N/A [facility] 05-18-2022 Functional Status N/A [facility] Clinical Notes 05-18-2022 to 09-13-2023 Note Date & Type Note Facility 09-13-2023 Evaluation + Plan note Extrac andreina from: Title:ED Note Author:Yvon Morales MD Date:09/13 1. Substernal chest pain (R0 7.2: Precordial pain) Orders: Al hydroxide/Mg hydroxide/simethicone, 30 mL, Susp-Oral, Oral, Once, Stop date 09/13/23 5:20:00 EDT, STAT, Start date 09/13/23 5:20:00 EDT atropine/hyoscyamine/PB/scopolamine, 10 mL, Elixir, Oral, Once, Stop date 09/13/23 5:20:00 EDT, STAT, Start date 09/13/23 5:20:00 EDT lidocaine topical, 200 mg, 10 mL, Soln-Oral, Oral, Once, Stop date 09/13/23 5:20:00 EDT, STAT, Start date 09/13/23 5:20:00 EDT morphine, 2 mg = 1 mL, Injection, IV Push, Once, Stop date 09/13/23 6:04:00 EDT, STAT, Start date 09/13/23 6:04:00 EDT, 09/13/23 6:04:00 EDT promethazine, 12.5 mg = 0.5 mL, Injection, IV Push, Once, Stop date 09/13/23 6:04:00 EDT, STAT, Start date 09/13/23 6:04:00 EDT, 09/13/23 6:04:00 EDT Automated Diff Basic Metabolic Panel CBC w/ Auto Diff CTA Chest D-Dimer ECG 12 Lead Adult ED Cardiac Monitoring eGFR Extra SST Tube Hepatic Function Panel Oxygen Saturation PT & PTT Saline Lock Insert Troponin 0 Hr. Troponin 3 Hr. Troponin 6 Hr. Troponin 9 Hr. XR Chest Single View [facility]10-18-2023 Hospital Discharge instructions Patient Education 09/13/2023 09:30:42 Nonspecific Chest Pain, Adult Nonspecific Chest Pain, Adult Chest pain is an uncomfortable, tight, or painful feeling in the chest. The pain can feel like a crushing, aching, or squeezing pressure. A person can feel a burning or tingling sensation. Chest paincan also be felt in your back, neck, jaw, shoulder, or arm. This pain can be worse when you move, sneeze, or take a deep breath. Chest pain can be caused by a condition that is life-threatening. This must be treated right away. It can also be caused by something that is not life- threatening. If you have chest pain, it can be hard to know the difference, so it is important to get help right away to make sure that you do not have a serious condition. Some life-threatening causes of chest pain include: Heart attack. A tear in the body's main blood vessel (aortic dissection). Inflammation around your heart (pericarditis). A problem in the lungs, such as a blood clot (pulmonary embolism) or a collapsed lung (pneumothorax). Some non life-threatening causes of chest pain include: Heartburn. Anxiety or stress. Damage to the bones, muscles, and cartilage that make up your chest wall. Pneumonia or bronchitis. Shingles infection (varicella-zoster virus). Your chest pain may come and go. It may also be constant. Your health care provider will do tests and other studies to find the cause of your pain. Treatment will depend on the cause of your chest pain. Follow these instructions at home: Medicines Take qpsz-maq-fvnfdzt and prescription medicines only as told by your health care provider. If you were prescribed an antibiotic medicine, take it as told by your health care provider. Do notstop taking the antibiotic even if you start to feel better. Activity Avoid any activities that cause chest pain. Do not lift anything that is heavier than 10 lb (4.5 kg), or the limit that you are told, until your health care provider says that it is safe. Rest as directed by your health care provider. Return to your normal activities only as told by your health care provider. Ask your health care provider what activities are safe for you. Lifestyle Do not use any products that contain nicotine or tobacco, such as cigarettes, e- cigarettes, and chewing tobacco. If you need help quitting, ask your health care provider. Do not drink alcohol. Make healthy lifestyle changes as recommended. These may include: ?Getting regular exercise. Ask your health care provider to suggest some exercises that are safe for you. ?Eating a heart-healthy diet. This includes plenty of fresh fruits and vegetables, whole grains, low-fat (lean) protein, and low-fat dairy products. A dietitian can help you find healthy eating options. ?Maintaining a healthy weight. ?Managing any other health conditions you may have, such as high blood pressure (hypertension) or diabetes. ?Reducing stress, such as with yoga or relaxation techniques. General instructions Pay attention to any changes in your symptoms. It is up to you to get the results of any tests that were done. Ask your health care provider, or the department that is doing the tests, when your results will be ready. Keep all follow-up visits as told by your health care provider. This is important. You may be asked to go for further testing if your chest pain does not go away. Contact a health care provider if: Your chest pain does not go away. You feel depressed. You have a fever. You notice changes in your symptoms or develop new symptoms. Get help right away if: Your chest pain gets worse. You have a cough that gets worse, or you cough up blood. You have severe pain in your abdomen. You faint. You have sudden, unexplained chest discomfort. You have sudden, unexplained discomfort in your arms, back, neck, or jaw. You have shortness of breath at any time. You suddenly start to sweat, or your skin gets clammy. You feel nausea or you vomit. You suddenly feel lightheaded or dizzy. You have severe weakness, or unexplained weakness or fatigue. Your heart begins to beat quickly, or it feels like it is skipping beats. These symptoms may represent a serious problem that is an emergency. Do not wait to see if the symptoms will go away. Get medical help right away. Call your local emergency services (911 in the [place] Do not drive yourself to the hospital. Summary Chest pain can be caused by a condition that is serious and requires urgent treatment. It may also be caused by something that is not life-threatening. Your health care provider may do lab tests and other studies to find the cause of your pain. Follow your health care provider's instructions on taking medicines, making lifestyle changes, and getting emergency treatment if symptoms become worse. Keep all follow-up visits as told by your health care provider. This includes visits for any further testing if your chest pain does not go away. This information is not intended to replace advice given to you by your health care provider. Make sure you discuss any questions you have with your health care provider. Document Revised: 01/27/2022 Document Reviewed: 01/27/2022 [employer] Patient Education 2022 [employer] Follow Up Care 09/13/2023 04:38:19 With:Hang Jacobsen Address: [address] [place] [address] [place] [phone]- Business (1) When:09/16/2023 09:30:26 Comments:Call the office of your primary care doctor to arrange for follow-up within the above-stated timeframe. Follow-up with your primary care doctor about this ED visit. You should review your labs, imaging, and diagnoses from this ED visit with your primary care physician. There are occasionally non-emergent findings that require additional follow-up after your ED visit. If you were prescribed medications you should discuss possible side-effects and drug interactions with your pharmacist. Call 911 or go to the nearest Emergency Department if you develop any new or worsening symptoms. Seek immediate medical attention if you develop: worsening chest pain, new chest pain, nausea, vomiting, weakness, numbness, tingling, excessive sweating, shortness of breath, difficulty breathing, loss of motionin your arms or legs, or any new or worsening symptoms. [facility]12-05-2022 Evaluation + Plan noteExtracted from: Title:ED Note Author:Nagi Kirby DO Date :10/31/22 AP (abdominal pain) (R10.9: Unspecified abdominal pain) N&V (nausea and vomiting) (R11.2: Nausea with vomiting, unspecified) Orders: dicyclomine, 10 mg = 1 cap(s), Oral, QID, X 7 day(s), # 28 cap(s), Refills(s) 0, Pharmacy: [facility]/pharmacy #[id number], 157.5, cm, 10/30/22 23:48:00 EST, Height/Length Dosing, 69.2, kg, 10/30/22 23:48:00 EST, Weight Dosing dicyclomine, 10 mg = 1 cap(s), Cap, Oral, Once, Stop date 10/31/22 0:01:00 EST, STAT, Start date 10/31/22 0:01:00 EST, 10/31/22 0:01:00 EST diphenhydrAMINE, 25 mg = 1 cap(s), Cap, Oral, Once, Stop date 10/31/22 1:07:00 EST, STAT, Start date 10/31/22 1:07:00 EST, 10/31/22 1:07:00 EST metoclopramide, 10 mg = 2 tab(s), Tab, Oral, Once, Stop date 10/31/22 1:07:00 EST, STAT, Start date 10/31/22 1:07:00 EST, 10/31/22 1:07:00 EST metoclopramide, 10 mg = 1 tab(s), Oral, TID, PRN Nausea/Vomiting, # 28 tab(s), Refills(s) 0, Pharmacy: [facility]/pharmacy #[id number], 157.5, cm, 10/30/22 23:48:00 EST, Height/Length Dosing, 69.2, kg, 10/30/22 23:48:00 EST, Weight Dosing promethazine, 12.5 mg = 0.5 tab(s), Tab, Oral, Once, Stop date 10/31/22 0:00:00 EST, STAT, Start date 10/31/22 0:00:00 EST, 10/31/22 0:00:00 EST Automated Diff Basic Metabolic Panel CBC w/ Auto Diff eGFR Extra Blue Tube Extra SST Tube Hepatic Function Panel Lipase Level U Beta Hcg Qual UA With Cult Reflex [facility]12-05-2022 Hospital Discharge instructions Patient Education 10/31/2022 02:29:41 Abdominal Pain, Adult Abdominal Pain, Adult Pain in the abdomen (abdominal pain) can be caused by many things. Often, abdominal pain is not serious and it gets better with no treatment or by being treated at home. However, sometimes abdominal pain is serious. Your health care provider will ask questions about your medical history and do a physical exam to try to determine the cause of your abdominal pain. Follow these instructions at home: Medicines Take plxh-qon-phcenvw and prescription medicines only as told by your health care provider. Do not take a laxative unless told by your health care provider. General instructions Watch your condition for any changes. Drink enough fluid to keep your urine pale yellow. Keep all follow-up visits as told by your health care provider. This is important. Contact a health care provider if: Your abdominal pain changes or gets worse. You are not hungry or you lose weight without trying. You are constipated or have diarrhea for more than 2 3 days. You have pain when you urinate or have a bowel movement. Your abdominal pain wakes you up at night. Your pain gets worse with meals, after eating, or with certain foods. You are vomiting and cannot keep anything down. You have a fever. You have blood in your urine. Get help right away if: Your pain does not go away as soon as your health care provider told you to expect. You cannot stop vomiting. Your pain is only in areas of the abdomen, such as the right side or the left lower portion of the abdomen. Pain on the right side could be caused by appendicitis. You have bloody or black stools, or stools that look like tar. You have severe pain, cramping, or bloating in your abdomen. You have signs of dehydration, such as: ?Dark urine, very little urine, or no urine. ?Cracked lips. ?Dry mouth. ?Sunken eyes. ?Sleepiness. ?Weakness. You have trouble breathing or chest pain. Summary Often, abdominal pain is not serious and it gets better with no treatment or by being treated at home. However, sometimes abdominal pain is serious. Watch your condition for any changes. Take klsi-uku-fucjvpg and prescription medicines only as told by your health care provider. Contact a health care provider if your abdominal pain changes or gets worse. Get help right away if you have severe pain, cramping, or bloating in your abdomen. This information is not intended to replace advice given to you by your health care provider. Make sure you discuss any questions you have with your health care provider. Document Released: 08/23/2006 Document Revised: 03/23/2020 Document Reviewed: 03/23/2020 EpiEP Patient Education 2019 [employer]. Follow Up Care 10/30/2022 23:38:50 With:Jose WHITE Address: [address] [place], [place] [id number] Business (1) When:11/03/2022 [facility]2022 Hospital Discharge instructions Patient Education 10/26/2022 16:18:56 Viral Gastroenteritis, Adult, Wsii-oq-Hczz Viral Gastroenteritis, Adult Viral gastroenteritis is also known as the stomach flu. This condition may affect your stomach, your small intestine, and your large intestine. It can cause sudden watery poop (diarrhea), fever, and throwing up (vomiting). This condition is caused by certain germs (viruses). These germs can be passed from person to person very easily (are contagious). Having watery poop and throwing up can make you feel weak and cause you to not have enough water inyour body (get dehydrated). This can make you tired and thirsty, make you have a dry mouth, and make it so you pee (urinate) less often. It is important to replace the fluids that you lose from having watery poop and throwing up. What are the causes? You can get sick by catching viruses from other people. You can also get sick by: ?Eating food, drinking water, or touching a surface that has the viruses on it (is contaminated). ?Sharing utensils or other personal items with a person who is sick. What increases the risk? Having a weak body defense system (immune system). Living with one or more children who are younger than 2 years old. Living in a shelter. Going on cruise ships. What are the signs or symptoms? Symptoms of this condition start suddenly. Symptoms may last for a few days or for as long as a week. Common symptoms include: ?Watery poop. ?Throwing up. Other symptoms include: ?Fever. ?Headache. ?Feeling tired (fatigue). ?Pain in the belly (abdomen). ?Chills. ?Feeling weak. ?Feeling sick to your stomach (nauseous). ?Muscle aches. ?Not feeling hungry. How is this treated? This condition typically goes away on its own. The focus of treatment is to replace the fluids that you lose. This condition may be treated with: ?An ORS (oral rehydration solution). This is a drink that is sold at pharmacies and stores. ?Medicines to help with your symptoms. ?Probiotic supplements to reduce symptoms of diarrhea. ?Fluids given through an IV tube, if needed. Older adults and people with other diseases or a weak body defense system are at higher risk for not having enough water in the body. Follow these instructions at home: Eating and drinking Take an ORS as told by your doctor. Drink clear fluids in small amounts as you are able. Clear fluids include: ?Water. ?Ice chips. ?Fruit juice with water added to it (diluted). ?Low-calorie sports drinks. Drink enough fluid to keep your pee (urine) pale yellow. Eat small amounts of healthy foods every 3 4 hours as you are able. This may include whole grains, fruits, vegetables, lean meats, and yogurt. Avoid fluids that have a lot of sugar or caffeine in them, such as energy drinks, sports drinks, and soda. Avoid spicy or fatty foods. Avoid alcohol. General instructions Wash your hands often. This is very important after you have watery poop or you throw up. If you cannot use soap and water, use hand client associate. Make sure that all people in your home wash their hands well and often. Take cyxc-fmh-hvtetzz and prescription medicines only as told by your doctor. Rest at home while you get better. Watch your condition for any changes. Take a warm bath to help with any burning or pain from having watery poop. Keep all follow-up visits as told by your doctor. This is important. Contact a doctor if: You cannot keep fluids down. Your symptoms get worse. You have new symptoms. You feel light-headed. You feel dizzy. You have muscle cramps. Get help right away if: You have chest pain. You feel very weak. You pass out (faint). You see blood in your throw-up. Your throw-up looks like coffee grounds. You have bloody or black poop (stools) or poop that looks like tar. You have a very bad headache, or a stiff neck, or both. You have a rash. You have very bad pain, cramping, or bloating in your belly. You have trouble breathing. You are breathing very quickly. You have a fast heartbeat. Your skin feels cold and clammy. You feel mixed up (confused). You have pain when you pee. You have signs of not having enough water in the body, such as: ?Dark pee, hardly any pee, or no pee. ?Cracked lips. ?Dry mouth. ?Sunken eyes. ?Feeling very sleepy. ?Feeling weak. Summary Viral gastroenteritis is also known as the stomach flu. This condition can cause sudden watery poop (diarrhea), fever, and throwing up (vomiting). These germs can be passed from person to person very easily. Take an ORS as told by your doctor. This is a drink that is sold at pharmacies and stores. Drink fluids in small amounts many times each day as you are able. This information is not intended to replace advice given to you by your health care provider. Make sure you discuss any questions you have with your health care provider. Document Released: 05/01/2009 Document Revised: 09/18/2019 Document Reviewed: 09/18/2019 EpiEP Patient Education 2019 [employer]. 10/26/2022 16:18:56 Viral Illness, Adult Viral Illness, Adult Viruses are tiny germs that can get into a person's body and cause illness. There are many different types of viruses, and they cause many types of illness. Viral illnesses can range from mild to severe. They can affect various parts of the body. Common illnesses that are caused by a virus include colds and the flu. Viral illnesses also includeserious conditions such as HIV/AIDS (human immunodeficiency virus/acquired immunodeficiency syndrome). A few viruses have been linked to certain cancers. What are the causes? Many types of viruses can cause illness. Viruses invade cells in your body, multiply, and cause theinfected cells to malfunction or . When the cell dies, it releases more of the virus. When this happens, you develop symptoms of the illness, and the virus continues to spread to other cells. If the virus takes over the function of the cell, it can cause the cell to divide and grow out of control, as is the case when a virus causes cancer. Different viruses get into the body in different ways. You can get a virus by: Swallowing food or water that is contaminated with the virus. Breathing in droplets that have been coughed or sneezed into the air by an infected person. Touching a surface that has been contaminated with the virus and then touching your eyes, nose, or mouth. Being bitten by an insect or animal that carries the virus. Having sexual contact with a person who is infected with the virus. Being exposed to blood or fluids that contain the virus, either through an open cut or during a transfusion. If a virus enters your body, your body's defense system (immune system) will try to fight the virus. You may be at higher risk for a viral illness if your immune system is weak. What are the signs or symptoms? Symptoms vary depending on the type of virus and the location of the cells that it invades. Common symptoms of the main types of viral illnesses include: Cold and flu viruses Fever. Headache. Sore throat. Muscle aches. Nasal congestion. Cough. Digestive system (gastrointestinal) viruses Fever. Abdominal pain. Nausea. Diarrhea. Liver viruses (hepatitis) Loss of appetite. Tiredness. Yellowing of the skin (jaundice). Brain and spinal cord viruses Fever. Headache. Stiff neck. Nausea and vomiting. Confusion or sleepiness. Skin viruses Warts. Itching. Rash. Sexually transmitted viruses Discharge. Swelling. Redness. Rash. How is this treated? Viruses can be difficult to treat because they live within cells. Antibiotic medicines do not treatviruses because these drugs do not get inside cells. Treatment for a viral illness may include: Resting and drinking plenty of fluids. Medicines to relieve symptoms. These can include bcng-yez-kpkdkrd medicine for pain and fever, medicines for cough or congestion, and medicines to relieve diarrhea. Antiviral medicines. These drugs are available only for certain types of viruses. They may help reduce flu symptoms if taken early. There are also many antiviral medicines for hepatitis and HIV/AIDS. Some viral illnesses can be prevented with vaccinations. A common example is the flu shot. Follow these instructions at home: Medicines Take uxne-fjn-qzpmwvx and prescription medicines only as told by your health care provider. If you were prescribed an antiviral medicine, take it as told by your health care provider. Do not stop taking the medicine even if you start to feel better. Be aware of when antibiotics are needed and when they are not needed. Antibiotics do not treat viruses. If your health care provider thinks that you may have a bacterial infection as well as a viral infection, you may get an antibiotic. ?Do not ask for an antibiotic prescription if you have been diagnosed with a viral illness. That will not make your illness go away faster. ?Frequently taking antibiotics when they are not needed can lead to antibiotic resistance. When this develops, the medicine no longer works against the bacteria that it normally fights. General instructions Drink enough fluids to keep your urine clear or pale yellow. Rest as much as possible. Return to your normal activities as told by your health care provider. Ask your health care provider what activities are safe for you. Keep all follow-up visits as told by your health care provider. This is important. How is this prevented? Take these actions to reduce your risk of viral infection: Eat a healthy diet and get enough rest. Wash your hands often with soap and water. This is especially important when you are in public places. If soap and water are not available, use hand client associate. Avoid close contact with friends and family who have a viral illness. If you travel to areas where viral gastrointestinal infection is common, avoid drinking water or eating raw food. Keep your immunizations up to date. Get a flu shot every year as told by your health care provider. Do not share toothbrushes, nail clippers, razors, or needles with other people. Always practice safe sex. Contact a health care provider if: You have symptoms of a viral illness that do not go away. Your symptoms come back after going away. Your symptoms get worse. Get help right away if: You have trouble breathing. You have a severe headache or a stiff neck. You have severe vomiting or abdominal pain. This information is not intended to replace advice given to you by your health care provider. Make sure you discuss any questions you have with your health care provider. Document Released: 03/24/2017 Document Revised: 10/26/2018 Document Reviewed: 03/24/2017 EpiEP Patient Education [employer]. Follow Up Care 10/26/2022 13:31:03 With:Hang Jacobsen Address: [address] [place], [place] [address] [place] [address] [facility] [place] [facility] () When:10/29/2022 16:02:45 Comments:Follow-up with your primary care provider. He did not have any follow- up with Dr. Jacobsen. Follow-upwith your primary care provider in 3 to 5 days. If symptoms worsen, do not improve, or new symptomsarise please report back to emergency department for further evaluation. With:XXXX NONE Address: [place] When:10/29/2022 16:02:35 [facility]11-30-2022 Evaluation + Plan noteExtracted from: Title:ED Note Author:Johnny Ghotra PA-C te:10/26/22 Viral illness (B34.9: Viral infection, unspecified) Orders: ondansetron, 4 mg = 1 tab(s), Tab-Dis, Oral, Once, Stop date 10/26/22 14:56:00 EST, STAT, Start date 10/26/22 14:56:00 EST, 10/26/22 14:56:00 EST Influenza A&B Ag Rapid COVID Antigen ([facility] [place]) U Beta Hcg Qual UA With Cult Reflex [facility]08-29-2022 Evaluation + Plan noteExtracted from: Title:ED Note Author:Nagi Kirby DO Date :07/25/22 Chest pain (R07.9: Chest yas n, unspecified) Orders: Basic Metabolic Panel CBC w/ Auto Diff ECG 12 Lead Adult ED Cardiac Monitoring Oxygen Saturation PT & PTT Troponin 0 Hr. U Beta Hcg Qual XR Chest Single View Addendum by Dmitriy Vargas DO on July 25, 2022 07:39:32 EDT Patient was signed out to me by the prior physician I have reviewed full work-up. Emergency department. Patient has very low heart score and PERC is 0. She is not on any control. Etiology of the chest discomfort not clear at this time. We had a lengthy discussion regarding possible different etiologies and that she should follow-up in the outpatient setting she is provided with a note for work will be started on Naprosyn to see if this helps and return to ER symptoms change or worsen or become more concerning. [facility]08-29-2022 Hospital Discharge instructions Patient Education 07/25/2022 07:45:47 Pain Without a Known Cause Pain Without a Known Cause Pain can occur in any part of the body and can range from mild to severe. Sometimes no cause can befound for why you are having pain. Some types of pain that can occur without a known cause include: Headache. Back pain. Abdominal pain. Neck pain. Your health care provider will do tests to try to find the cause of your pain. If no cause is found, your health care provider may diagnose you with pain without a known cause. In some cases, your health care provider may repeat tests and look further for a possible cause. Follow these instructions at home: Managing pain, stiffness, and swelling Take dnzy-arj-vfnyjmc and prescription medicines only as told by your health care provider. Do not drive or use heavy machinery while taking prescription pain medicine. Stop any activities that cause pain. Rest during periods of severe pain. If directed, put ice on the painful area: ?Put ice in a plastic bag. ?Place a towel between your skin and the bag. ? Leave the ice on for 20 minutes, 2 3 times a day. If directed, apply heat to the affected area. Use the heat source that your health care provider recommends, such as a moist heat pack or a heating pad. ?Place a towel between your skin and the heat source. ?Leave the heat on for 20 30 minutes. ?Remove the heat if your skin turns bright red. This is especially important if you are unable to feel pain, heat, or cold. You may have a greater risk of getting burned. General instructions Reduce your stress with activities such as yoga or meditation. Talk with your health care provider about other ways to reduce stress. Exercise regularly. Ask your health care provider what activities are safe for you. Eat a balanced diet that includes fruits and vegetables, whole grains, lean meat, and low-fat dairy. Talk with your health care provider if you have any questions about your diet. If you are taking prescription pain medicine, take actions to prevent or treat constipation. Your health care provider may recommend that you: ? Drink enough fluid to keep your urine pale yellow. ?Eat foods that are high in fiber, such as fresh fruits and vegetables, whole grains, and beans. ?Limit foods that are high in fat and processed sugars, such as fried and sweet foods. ?Take an vxye-sdm-xqjngdx or prescription medicine for constipation. Contact a health care provider if you: Have pain, and no reason can be found for it. Do not get better, even after treatment. Get help right away if: Your pain is making you want to harm yourself. If you ever feel like you may hurt yourself or others, or have thoughts about taking your own life,get help right away. You can go to your nearest emergency department or call: Your local emergency services (911 in the [place] A suicide crisis helpline, such as the National Suicide Prevention Lifeline at . Thisis open 24 hours a day. Summary Pain can occur in any part of the body and can range from mild to severe. Your health care provider will do tests to try to find the cause of your pain. If no cause is found, your health care provider may diagnose you with pain without a known cause. To help your pain, take medicines as told by your health care provider, apply ice or heat, exercise, reduce stress, and eat a healthy diet. This information is not intended to replace advice given to you by your health care provider. Make sure you discuss any questions you have with your health care provider. Document Released: 08/08/2002 Document Revised: 01/09/2020 Document Reviewed: 12/03/2018 EpiEP Patient Education 2020 [employer] 07/25/2022 07:45:47 Nonspecific Chest Pain, Adult Nonspecific Chest Pain, Adult Chest pain can be caused by many different conditions. It can be caused by a condition that is life-threatening and requires treatment right away. It can also be caused by something that is not life-threatening. If you have chest pain, it can be hard to know the difference, so it is important to get help right away to make sure that you do not have a serious condition. Some life-threatening causes of chest pain include: Heart attack. A tear in the body's main blood vessel (aortic dissection). Inflammation around your heart (pericarditis). A problem in the lungs, such as a blood clot (pulmonary embolism) or a collapsed lung (pneumothorax). Some non life-threatening causes of chest pain include: Heartburn. Anxiety or stress. Damage to the bones, muscles, and cartilage that make up your chest wall. Pneumonia or bronchitis. Shingles infection (varicella-zoster virus). Chest pain can feel like: Pain or discomfort on the surface of your chest or deep in your chest. Crushing, pressure, aching, or squeezing pain. Burning or tingling. Dull or sharp pain that is worse when you move, cough, or take a deep breath. Pain or discomfort that is also felt in your back, neck, jaw, shoulder, or arm, or pain that spreads to any of these areas. Your chest pain may come and go. It may also be constant. Your health care provider will do lab tests and other studies to find the cause of your pain. Treatment will depend on the cause of your chest pain. Follow these instructions at home: Medicines Take eplo-xlz-kcfojdv and prescription medicines only as told by your health care provider. If you were prescribed an antibiotic, take it as told by your health care provider. Do not stop taking the antibiotic even if you start to feel better. Lifestyle Rest as directed by your health care provider. Do not use any products that contain nicotine or tobacco, such as cigarettes and e-cigarettes. If you need help quitting, ask your health care provider. Do not drink alcohol. Make healthy lifestyle choices as recommended. These may include: ?Getting regular exercise. Ask your health care provider to suggest some activities that are safe for you. ?Eating a heart-healthy diet. This includes plenty of fresh fruits and vegetables, whole grains, low-fat (lean) protein, and low-fat dairy products. A dietitian can help you find healthy eating options. ?Maintaining a healthy weight. ?Managing any other health conditions you have, such as high blood pressure (hypertension) or diabetes. ?Reducing stress, such as with yoga or relaxation techniques. General instructions Pay attention to any changes in your symptoms. Tell your health care provider about them or any newsymptoms. Avoid any activities that cause chest pain. Keep all follow-up visits as told by your health care provider. This is important. This includes visits for any further testing if your chest pain does not go away. Contact a health care provider if: Your chest pain does not go away. You feel depressed. You have a fever. Get help right away if: Your chest pain gets worse. You have a cough that gets worse, or you cough up blood. You have severe pain in your abdomen. You faint. You have sudden, unexplained chest discomfort. You have sudden, unexplained discomfort in your arms, back, neck, or jaw. You have shortness of breath at any time. You suddenly start to sweat, or your skin gets clammy. You feel nausea or you vomit. You suddenly feel lightheaded or dizzy. You have severe weakness, or unexplained weakness or fatigue. Your heart begins to beat quickly, or it feels like it is skipping beats. These symptoms may represent a serious problem that is an emergency. Do not wait to see if the symptoms will go away. Get medical help right away. Call your local emergency services (911 in the [place] Do not drive yourself to the hospital. Summary Chest pain can be caused by a condition that is serious and requires urgent treatment. It may also be caused by something that is not life-threatening. If you have chest pain, it is very important to see your health care provider. Your health care provider may do lab tests and other studies to find the cause of your pain. Follow your health care provider's instructions on taking medicines, making lifestyle changes, and getting emergency treatment if symptoms become worse. Keep all follow-up visits as told by your health care provider. This includes visits for any further testing if your chest pain does not go away. This information is not intended to replace advice given to you by your health care provider. Make sure you discuss any questions you have with your health care provider. Document Released: 08/23/2006 Document Revised: 05/16/2019 Document Reviewed: 05/16/2019 Maria Eugenia Patient Education 2020 [employer]. Follow Up Care 07/25/2022 06:22:17 With:Jacinta Núñez Address: [address] [place] [address]- Business (1) When:Within 3 Day(s) [facility]29[facility]2022 Hospital Discharge instructions Patient Education 05/25/2022 19:22:16 Wound Closure Removal, Care After Wound Closure Removal, Care After This sheet gives you information about how to care for yourself after your stitches (sutures), ellen, or skin adhesives have been removed. Your health care provider may also give you more specific instructions. If you have problems or questions, contact your health care provider. What can I expect after the procedure? After your sutures or ellen have been removed or your skin adhesives have fallen off, it is common to have: Some discomfort and swelling in the area. Slight redness in the area. Follow these instructions at home: If you have a bandage: Wash your hands with soap and water before you change your bandage (dressing). If soap and water are not available, use hand client associate. Change your dressing as told by your health care provider. If your dressing becomes wet or dirty, or develops a bad smell, change it as soon as possible. If your dressing sticks to your skin, pour warm, clean water over it until it loosens and can be removed without pulling apart the wound edges. Pat the area dry with a soft, clean towel. Do not rub the wound because that may cause bleeding. Wound care Keep the wound area dry and clean. Check your wound every day for signs of infection. Check for: ?Redness, swelling, or pain. ?Fluid or blood. ?Warmth. ?Pus or a bad smell. Wash your hands with soap and water before and after touching your wound. Apply cream or ointment only as told by your health care provider. If you are using cream or ointment, wash the area with soap and water 2 times a day to remove all the cream or ointment. Rinse off the soap and pat the area dry with a clean towel. If skin glue or adhesive strips were applied after sutures or ellen were removed, leave these closures in place until they peel off on their own. If adhesive strip edges start to loosen and curl up, you may trim the loose edges. Do not remove adhesive strips completely unless your health care provider tells you to do that. Continue to protect the wound from injury. Do not pick at your wound. Picking can cause an infection. Bathing Do not take baths, swim, or use a hot tub until your health care provider approves. Ask your health care provider when it is okay to shower. Follow these steps for showering: ?If you have a dressing, remove it before getting into the shower. ?In the shower, allow soapy water to get on the wound. Avoid scrubbing the wound. ?When you get out of the shower, dry the wound by patting it with a clean towel. ?Reapply a dressing over the wound if needed. Scar care When your wound has completely healed, take actions to help decrease the size of your scar: ?Wear sunscreen over the scar or cover it with clothing when you are outside. New scars get sunburned easily, which can make scarring worse. ?Gently massage the scarred area. This can decrease scar thickness. General instructions Take rbuc-wlf-atnsezb and prescription medicines only as told by your health care provider. Keep all follow-up visits as told by your health care provider. This is important. Contact a health care provider if: You have redness, swelling, or pain around your wound. You have fluid or blood coming from your wound. Your wound feels warm to the touch. You have pus or a bad smell coming from your wound. Your wound opens up. You have chills. Get help right away if: You have a fever. You have redness that is spreading from your wound. Summary Change your dressing as told by your health care provider. If your dressing becomes wet or dirty, or develops a bad smell, change it as soon as possible. Check your wound every day for signs of infection. Wash your hands with soap and water before and after touching your wound. This information is not intended to replace advice given to you by your health care provider. Make sure you discuss any questions you have with your health care provider. Document Released: 10/26/2009 Document Revised: 10/26/2018 Document Reviewed: 09/03/2018 [employer] Patient Education 2020 [employer] 05/25/2022 19:22:16 Suture Removal, Care After Suture Removal, Care After This sheet gives you information about how to care for yourself after your procedure. Your health care provider may also give you more specific instructions. If you have problems or questions, contact your health care provider. What can I expect after the procedure? After your stitches (sutures) are removed, it is common to have: Some discomfort and swelling in the area. Slight redness in the area. Follow these instructions at home: If you have a bandage: Wash your hands with soap and water before you change your bandage (dressing). If soap and water are not available, use hand client associate. Change your dressing as told by your health care provider. If your dressing becomes wet or dirty, or develops a bad smell, change it as soon as possible. If your dressing sticks to your skin, soak it in warm water to loosen it. Wound care Check your wound every day for signs of infection. Check for: ?More redness, swelling, or pain. ?Fluid or blood. ?Warmth. ? Pus or a bad smell. Wash your hands with soap and water before and after touching your wound. Apply cream or ointment only as directed by your health care provider. If you are using cream or ointment, wash the area with soap and water 2 times a day to remove all the cream or ointment. Rinse off the soap and pat the area dry with a clean towel. If you have skin glue or adhesive strips on your wound, leave these closures in place. They may need to stay in place for 2 weeks or longer. If adhesive strip edges start to loosen and curl up, you may trim the loose edges. Do not remove adhesive strips completely unless your health care provider tells you to do that. Keep the wound area dry and clean. Do not take baths, swim, or use a hot tub until your health careprovider approves. Continue to protect the wound from injury. Do not pick at your wound. Picking can cause an infection. When your wound has completely healed, wear sunscreen over it or cover it with clothing when you are outside. New scars get sunburned easily, which can make scarring worse. General instructions Take egih-sqa-fdaohtw and prescription medicines only as told by your health care provider. Keep all follow-up visits as told by your health care provider. This is important. Contact a health care provider if: You have redness, swelling, or pain around your wound. You have fluid or blood coming from your wound. Your wound feels warm to the touch. You have pus or a bad smell coming from your wound. Your wound opens up. Get help right away if: You have a fever. You have redness that is spreading from your wound. Summary After your sutures are removed, it is common to have some discomfort and swelling in the area. Wash your hands with soap and water before you change your bandage (dressing). Keep the wound area dry and clean. Do not take baths, swim, or use a hot tub until your health careprovider approves. This information is not intended to replace advice given to you by your health care provider. Make sure you discuss any questions you have with your health care provider. Document Released: 08/08/2002 Document Revised: 10/26/2018 Document Reviewed: 12/19/2017 [employer] Patient Education 2020 [employer]. 05/25/2022 19:22:16 Incision Care, Adult, Hhvu-qy-Abum Incision Care, Adult An incision is a cut that a doctor makes in your skin for surgery (for a procedure). Most times, these cuts are closed after surgery. Your cut from surgery may be closed with stitches (sutures), ellen, skin glue, or skin tape (adhesive strips). You may need to return to your doctor to have stitches or ellen taken out. This may happen many days or many weeks after your surgery. The cut needs to be well cared for so it does not get infected. How to care for your cut Cut care Follow instructions from your doctor about how to take care of your cut. Make sure you: ?Wash your hands with soap and water before you change your bandage (dressing). If you cannot use soap and water, use hand client associate. ?Change your bandage as told by your doctor. ?Leave stitches, skin glue, or skin tape in place. They may need to stay in place for 2 weeks or longer. If tape strips get loose and curl up, you may trim the loose edges. Do not remove tape strips completely unless your doctor says it is okay. Check your cut area every day for signs of infection. Check for: ?More redness, swelling, or pain. ?More fluid or blood. ?Warmth. ?Pus or a bad smell. Ask your doctor how to clean the cut. This may include: ?Using mild soap and water. ?Using a clean towel to pat the cut dry after you clean it. ?Putting a cream or ointment on the cut. Do this only as told by your doctor. ?Covering the cut with a clean bandage. Ask your doctor when you can leave the cut uncovered. Do not take baths, swim, or use a hot tub until your doctor says it is okay. Ask your doctor if youcan take showers. You may only be allowed to take sponge baths for bathing. Medicines If you were prescribed an antibiotic medicine, cream, or ointment, take the antibiotic or put it onthe cut as told by your doctor. Do not stop taking or putting on the antibiotic even if your condition gets better. Take roel-wek-cclbzqg and prescription medicines only as told by your doctor. General instructions Limit movement around your cut. This helps healing. ?Avoid straining, lifting, or exercise for the first month, or for as long as told by your doctor. ?Follow instructions from your doctor about going back to your normal activities. ?Ask your doctor what activities are safe. Protect your cut from the sun when you are outside for the first 6 months, or for as long as told by your doctor. Put on sunscreen around the scar or cover up the scar. Keep all follow-up visits as told by your doctor. This is important. Contact a doctor if: Your have more redness, swelling, or pain around the cut. You have more fluid or blood coming from the cut. Your cut feels warm to the touch. You have pus or a bad smell coming from the cut. You have a fever or shaking chills. You feel sick to your stomach (nauseous) or you throw up (vomit). You are dizzy. Your stitches or ellen come undone. Get help right away if: You have a red streak coming from your cut. Your cut bleeds through the bandage and the bleeding does not stop with gentle pressure. The edges of your cut open up and separate. You have very bad (severe) pain. You have a rash. You are confused. You pass out (faint). You have trouble breathing and you have a fast heartbeat. This information is not intended to replace advice given to you by your health care provider. Make sure you discuss any questions you have with your health care provider. Document Released: 02/04/2013 Document Revised: 04/02/2018 Document Reviewed: 07/21/2017 [employer]piEP Patient Education 2020 [employer] Follow Up Care 05/25/2022 18:46:48 With:Heydi STORY Address: [address] [place] [address] [address] [place] [address]- Business (1) When:05/28/2022 19:20:04 Comments:Follow-up with your primary care provider in 3 to 5 days. If symptoms worsen, do not improve, or new symptoms arise please report back to emergency department for further evaluation. [facility]06-22-2022 Hospital Discharge instructions Patient Education 05/18/2022 19:48:17 Facial Laceration Facial Laceration A facial laceration is a cut (laceration) on the face. You can get a facial laceration from any accident or injury that cuts or tears the skin or tissues on your face. Facial lacerations can bleed and be painful. You may need medical attention to stop the bleeding, help the wound heal, lower your risk for infection, and prevent scarring. Lacerations usually heal quickly after treatment. What are the causes? Facial lacerations are often caused by: A motor vehicle accident. A sports injury. A violent attack. A fall. What are the signs or symptoms? Common symptoms of this condition include: An obvious cut on the face. Bleeding. Pain. Swelling. Bruising. A change in the appearance of the face (deformity). How is this diagnosed? Your health care provider can diagnose a facial laceration by doing a physical exam and asking how the injury happened. Your provider will also check for areas of bleeding, tissue damage, nerve injury, and a foreign body in your wound. How is this treated? Treatment for a facial laceration depends on how severe and deep the wound is. It also depends on the risk for infection. First, your health care provider will clean the wound to prevent infection. Then, your health care provider will decide whether to close the wound. This depends on how deep the laceration is and how long ago your injury happened. If there is an increased risk of infection, thewound will not be closed. If your wound needs to be closed: ?Your health care provider will use stitches (sutures), skin glue (skin adhesive), or skin adhesivestrips to repair the laceration. ?Your health care provider may first numb the area around your wound by injecting a numbing medicine (local anesthetic) in and around your laceration before doing the sutures. ?Torn skin edges or skin may be removed. ?If sutures are used, the laceration may be closed in layers. Absorbable sutures will be used for deep tissues and muscle. Removable sutures will be used to close the skin. You may be given: ?Pain medicine. ?A tetanus shot. ?Oral antibiotic medicines. ?Antibiotic ointment. Follow these instructions at home: Wound care Follow your health care provider s instructions for wound care. These instructions will vary depending on how the wound was closed. For sutures: Keep the wound clean and dry. If you were given a bandage (dressing), change it at least once a day, or as told by your health care provider. Also change the dressing if it gets wet or dirty. Wash the wound with soap and water two times a day, or as told by your health care provider. Rinse off the soap with water. Pat the wound dry with a clean towel. After cleaning, apply a thin layer of antibiotic ointment as told by your health care provider. This helps prevent infection and keeps the dressing from sticking to the wound. You may shower as usual after the first 24 hours. Do not soak the wound until the sutures are removed. Return to have you sutures removed as told by your health care provider. Do not wear makeup until your health care provider has approved. For skin adhesive: You may briefly wet your wound in the shower or bath. Do not soak or scrub the wound. Do not swim. Do not sweat heavily until the skin adhesive has fallen off on its own. After showering or bathing, gently pat the wound dry with a clean towel. Do not apply liquid medicine, cream medicine, ointment, or makeup to your wound while the skin adhesive is in place. This may loosen the film before your wound is healed. If you have a dressing over your wound, be careful not to apply tape directly over the skin adhesive. This may pull off the adhesive before the wound is healed. Do not spend a long time in the sun or use a tanning lamp while the skin adhesive is in place. The skin adhesive will usually remain in place for 5 10 days and then naturally fall off the skin. Do not pick at the adhesive film. For skin adhesive strips: Keep the wound clean and dry. Do not let the skin adhesive strips get wet. Bathe carefully to keep the wound and adhesive strips dry. If the wound gets wet, pat it dry with aclean towel right away. Skin adhesive strips fall off on their own over time. You may trim the strips as the wound heals. Do not remove skin adhesive strips that are still stuck to the wound. General instructions Check your wound area every day for signs of infection. Check for: ?Redness, swelling, or pain. ?Fluid or blood. ?Warmth. ?Pus or a bad smell. Take knjn-ejf-nxidfvx and prescription medicines only as told by your health care provider. If you were prescribed an antibiotic, take or apply it as told by your health care provider. Do notstop using the antibiotic even if your condition improves. After the laceration has healed: ?Know that it can take a year or two for redness or scarring to fade. ?Apply sunscreen to the skin of your healed wound to minimize scarring. Ultraviolet (UV) rays can darken scar tissue. Contact a health care provider if: You have a fever. You have redness, swelling, or pain around your wound. You have fluid or blood coming from your wound. Your wound feels warm to the touch. You have pus or a bad smell coming from your wound. Get help right away if: You have a red streak going away from your wound. Summary You may need treatment for a facial laceration to prevent infection, stop bleeding, help healing, and prevent scarring. A deep laceration may be closed with stitches (sutures). Follow your health care provider's wound care instructions carefully. This information is not intended to replace advice given to you by your health care provider. Make sure you discuss any questions you have with your health care provider. Document Released: 12/21/2005 Document Revised: 03/05/2020 Document Reviewed: 12/14/2017 EpiEP Patient Education 2020 [employer] 05/18/2022 19:48:17 Head Injury, Adult Head Injury, Adult There are many types of head injuries. Head injuries can be as minor as a bump, or they can be a serious medical issue. More severe head injuries include: A jarring injury to the brain (concussion). A bruise (contusion) of the brain. This means there is bleeding in the brain that can cause swelling. A cracked skull (skull fracture). Bleeding in the brain that collects, clots, and forms a bump (hematoma). After a head injury, most problems occur within the first 24 hours, but side effects may occur up to 7 10 days after the injury. It is important to watch your condition for any changes. You may need to be observed in the emergency department or urgent care, or you may be admitted to the hospital. What are the causes? There are many possible causes of a head injury. A serious head injury may be caused by a car accident, bicycle or motorcycle accidents, sports injuries, and falls. What are the symptoms? Symptoms of a head injury include a contusion, bump, or bleeding at the site of the injury. Other physical symptoms may include: Headache. Nausea or vomiting. Dizziness. Feeling tired. Being uncomfortable around bright lights or loud noises. Seizures. Trouble being awakened. Fainting. Mental or emotional symptoms may include: Irritability. Confusion and memory problems. Poor attention and concentration. Changes in eating or sleeping habits. Anxiety or depression. How is this diagnosed? This condition can usually be diagnosed based on your symptoms, a description of the injury, and a physical exam. You may also have imaging tests done, such as a CT scan or MRI. How is this treated? Treatment for this condition depends on the severity and type of injury you have. The main goal of treatment is to prevent complications and to allow the brain time to heal. Mild head injury If you have a mild head injury, you may be sent home and treatment may include: Observation. A responsible adult should stay with you for 24 hours after your injury and check on you often. Physical rest. Brain rest. Pain medicines. Severe head injury If you have a severe head injury, treatment may include: Close observation. This includes hospitalization with frequent physical exams. Medicines to relieve pain, prevent seizures, and decrease brain swelling. Breathing support. This may include using a ventilator. Treatments to manage the swelling inside the brain. Brain surgery. This may be needed to: ?Remove a blood clot. ?Stop the bleeding. ?Remove a part of the skull to allow room for the brain to swell. Follow these instructions at home: Activity Rest and avoid activities that are physically hard or tiring. Make sure you get enough sleep. Limit activities that require a lot of thought or attention, such as: ?Watching TV. ?Playing memory games and puzzles. ?Job-related work or homework. ?Working on the computer, using social media, and texting. Avoid activities that could cause another head injury, such as playing sports, until your health care provider approves. Having another head injury, especially before the first one has healed, can bedangerous. Ask your health care provider when it is safe for you to return to your regular activities, including work or school. Ask your health care provider for a rzti-xo-glsi plan for gradually returning to activities. Ask your health care provider when you can drive, ride a bicycle, or use heavy machinery. Your ability to react may be slower after a brain injury. Do not do these activities if you are dizzy. Lifestyle Do not drink alcohol until your health care provider approves. Do not use drugs. Alcohol and certain drugs may slow your recovery and can put you at risk of further injury. If it is harder than usual to remember things, write them down. If you are easily distracted, try to do one thing at a time. Talk with family members or close friends when making important decisions. Tell your friends, family, a trusted colleague, and rehabilitation worker about your injury, symptoms, and restrictions. Have them watch for any new or worsening problems. General instructions Take pqrp-umi-ekmjxqd and prescription medicines only as told by your health care provider. Have someone stay with you for 24 hours after your head injury. This person should watch you for any changes in your symptoms and be ready to seek medical help. Keep all follow-up visits as told by your health care provider. This is important. How is this prevented? Work on improving your balance and strength to avoid falls. Wear a seatbelt when you are in a moving vehicle. Wear a helmet when riding a bicycle, skiing, or doing any other sport or activity that has a risk of injury. If you drink alcohol: ?Limit how much you use to: ?0 1 drink a day for women. ?0 2 drinks a day for men. ?Be aware of how much alcohol is in your drink. In the [place] one drink equals one 12 oz bottle of beer (355 mL), one 5 oz glass of wine (148 mL), or one 1 oz glass of hard liquor (44 mL). Take safety measures in your home, such as: ?Removing clutter and tripping hazards from floors and stairways. ?Using grab bars in bathrooms and handrails by stairs. ?Placing non-slip mats on floors and in bathtubs. ?Improving lighting in dim areas. Get help right away if: You have: ?A severe headache that is not helped by medicine. ?Trouble walking or weakness in your arms and legs. ?Clear or bloody fluid coming from your nose or ears. ?Changes in your vision. ?A seizure. You lose your balance. You vomit. Your pupils change size. Your speech is slurred. Your dizziness gets worse. You faint. You are sleepier than normal and have trouble staying awake. Your symptoms get worse. These symptoms may represent a serious problem that is an emergency. Do not wait to see if the symptoms will go away. Get medical help right away. Call your local emergency services (911 in the [place] Do not drive yourself to the hospital. Summary Head injuries can be minor or they can be a serious medical issue requiring immediate attention. Treatment for this condition depends on the severity and type of injury you have. Ask your health care provider when it is safe for you to return to your regular activities, including work or school. Head injury prevention includes wearing a seat belt in a motor vehicle, using a helmet on a bicycle, limiting alcohol use, and taking safety measures in your home. This information is not intended to replace advice given to you by your health care provider. Make sure you discuss any questions you have with your health care provider. Document Released: 11/13/2006 Document Revised: 12/11/2019 Document Reviewed: 12/06/2019 [employer] Patient Education 2020 [employer] Follow Up Care 05/18/2022 16:31:36 With:Alexis Jacobs Address: [address] [place] [address]- When:Within 3 Day(s) [facility]06-22-2022 Evaluation + Plan noteExtracted from: Title:ED Note Author:Johnny Ghotra PA-C te:05/18/22 CHI (closed head injury) (S0 9.90XA: Unspecified injury of head, initial encounter) Closed nondisplaced fracture of nasal bone (S02.2XXA: Fracture of nasal bones, initial encounter for closed fracture) Facial laceration (S01.81XA: Laceration without foreign body of other part of head, initial encounter) [facility] No data available for this section [facility] No data available for this section [facility] Summary Purpose Family History No Family History Records Found Advance Directives No Advanced Directives Records Found Additional Source Comments Care Team (unrecognized sect ion and content) Personnel Name: Alexis Jacobs DO Address: [address] [place] [address] Personnel Name: Heydi STORY MD Address: [address] [place] [address] [address] Personnel Name: Jacinta Núñez MD Address: [address] [place] [address] Personnel Name: NONE, XXXX Address: Address: [facility] Personnel Name: NONE, XXXX Address: Address: [facility] Personnel Name: NONE, XXXX Address: Address: [facility] INFORMATION SOURCE (unrecogn ized section and content) DATE CREATED AUTHOR 09/25/2023 [facility] FOR RECORDS PERTAINING TO PATIENTS WHO ARE OR HAVE BEEN ENROLLED IN A CHEMICAL DEPENDENCY/SUBSTANCEABUSE PROGRAM, SOME INFORMATION MAY BE OMITTED. This clinical summary was aggregated from multiple sources. Caution should be exercised in using it in the provision of clinical care. This summary normalizes information from multiple sources, and as a consequence, information in this document may materially change the coding, format and clinical context of patient data. In addition, data may be omitted in some cases. CLINICAL DECISIONS SHOULD BE BASED ON THE PRIMARY CLINICAL RECORDS. [employer] [facility]. provides no warranty or guarantee of the accuracy or completeness of information in this document.
== END 2023-11-15 08:06 | disposition home or self-care (01) ==
LOC: US 08:05
PROVIDERS: Visit Provider Obstetrics & Gynecology
DX: Z36.2 Encounter for other antenatal screening follow-up (principal)
CPT/HCPCS: 76816

== ENCOUNTER 2023-12-04 08:56 | Outpatient (OUT) | payer OTHER, SELFPAY ==
--- OUTSIDE RECORDS SUMMARY | 2023-12-04 09:01 | XMS_ITS | CCD ---
Author Name Unknown Address [address] [place] [address] Organization [facility] Care Team Providers Care Burner Shaft Name Role Phone Alexis Jacobs Primary Care Physician Unavail able Heydi STORY Primary Care Physician [phone] Jacinta Núñez Primary Care Physician [phone] NONE, XXXX Primary Care Physician Unavailab Yvon Obrien Attending Unavailable Tha Tiwari Attending Unavailable Nagi Kirby Attending Unavailable Allergies Allergy Classification Reported Allergen(s) Allergy Type Date of Onset Reaction(s) Facility (1 source) No Known Medication Allergies; Translations: [No Known Medication Allergies] Propensity to adverse reactions (disorder) [facility] Repository Medications Current Medications Medication Drug Class(es) Dates Sig (Normalized) Sig (Original) dicyclomine hydrochloride 10 mg oral capsule (1 source) Anticholinergic Start: 10-31-2022 End: 11-07-2022 take 1 capsule by mouth four times daily Bentyl 10 mg Cap 10 mg = 1 cap(s), Oral, QID, X 7 day(s), # 28 cap(s), Refills(s) 0, Pharmacy: [facility]/pharmacy #[id number], 157.5, cm, 10/30/22 23:48:00 EST, Height/Length [...] Nausea/Vomiting, # 28 tab(s), Refills(s) 0, Pharmacy: [facility]/pharmacy #[id number], 157.5, cm, 10/30/22 23:48:00 EST, Height/Length [...] day, # 14 tab(s), Refills(s) 0, [id number], cm, 07/25/22 6:40:00 EDT, Height/Length Dosing, 75, kg, 07/25/22 6:40:00 EDT, Weight Dosing Start Date: 07/25/22 Status: Ordered Problems Problem Classification Problem Date Documented Date Episodic/Chronic Abdominal pain (1 source) Abdominal pain; [...] Results Test Name Value Interpretation Reference Range Facility Auto Diffon 09-13-2023 Basophils/100 WBC (Bld) 0.4 % Normal 0.0-2.[address] [facility] Comment on above: Order Comment: Order Added by Discern Expert. Performed By: #### 1 [id number], 35072464, 4543812, 3391900, 42221742, 1108883, 0194868, 3237254 ####[facility] [address] [place] [address] Basophils/Leukocytes Auto (Bld) [Pure # fraction] 0.1 E9/L Normal 0.0-0.[address] [facility] Comment on above: Order Comment: Order Added by Discern Expert. Performed By: #### 1 2661097, 08157015, 8628270, 1562510, 93507605, 1607449, 4968233, 5102487 ####[facility] [address] [place] [address] Eosinophils/100 WBC (Bld) 1.5 % Normal 0.0-8.[address] [facility] Comment on above: Order Comment: Order Added by Discern Expert. Performed By: #### 1 4155379, 92183293, 9516205, 5127331, 76735070, 7525440, 0005196, 5772579 ####[facility] [address] [place] [address] Eosinophils/Leukocytes Auto (Bld) [Pure # fraction] 0.2 E9/L Normal 0.0-0.[address] [facility] Comment on above: Order Comment: Order Added by Discern Expert. Performed By: #### 1 1941735, 63167209, 9484131, 7442291, 73997297, 5241928, 2370206, 7714438 ####[address] [place] [address] Lymphocytes/100 WBC (Bld) 10.6 % Low 14.0-50.[address] [facility] Comment on above: Order Comment: Order Added by Discern Expert. Performed By: #### 1 1599797, 06187236, 5352517, 3528631, 19394831, 5200520, 2735857, 4789471 ####[address] [place] [address] Lymphocytes/Leukocytes Auto (Bld) [Pure # fraction] 1.3 E9/L Normal 1.0-4.[address] [facility] Comment on above: Order Comment: Order Added by Discern Expert. Performed By: #### 1 8042271, 43666399, 0959576, 9989940, 66154241, 2269004, 9478480, 9691094 ####[address] [address] Monocytes/100 WBC (Bld) 7.8 % Normal 4.0-14.[address] [facility] Comment on above: Order Comment: Order Added by Vimal Expert. Performed By: #### 1 2032446, 38982011, 8132607, 2889175, 72116715, 4000979, 5150132, 4578179 ####[address] [address] Monocytes/Leukocytes Auto (Bld) [Pure # fraction] 1.0 E9/L Normal 0.2-1.[address] [facility] Comment on above: Order Comment: Order Added by Discern Expert. Performed By: #### 1 0893576, 60399882, 2774510, 4769288, 48660307, 2010772, 6326418, 5107026 ####[address] [address] Neutrophils/100 WBC (Bld) 79.7 % High 36.0-75.[address] [facility] Comment on above: Order Comment: Order Added by Discern Expert. Performed By: #### 1 5534469, 27577199, 9229694, 2303555, 60822683, 6540106, 8297723, 8241048 ####[facility] [address] [place] [address] Neutrophils/Leukocytes Auto (Bld) [Pure # fraction] 9.9 E9/L High 2.0-7.[address] [facility] Comment on above: Order Comment: Order Added by Discern Expert. Performed By: #### 1 0092402, 31809851, 2119994, 0565473, 29931393, 4258241, 9442615, 6087169 ####[facility] [address] [place] [address] BMPon 09-13-2023 Creatinine [Mass/Vol] 0.5 mg/dL Normal 0.5-1.3 [facility] Comment on above: Performed By: #### 1 5387749, 01838037, 1884056, 5619701, 23920024, 9721217, 1478059, 1886072 ####[facility] [address] [place] [address] Urea nitrogen [Mass/Vol] 7 mg/dL Normal 5-[address] [facility] Comment on above: Performed By: #### 1 5105426, 16322340, 1980152, 6471658, 76201783, 3324422, 5954570, 1158115 ####[facility] [address] [place] [address] Urea nitrogen/Creatinine [Mass ratio] 14 No Units Normal 10-[address] [facility] Comment on above: Performed By: #### 1 4224923, 05832323, 6535310, 4581267, 23247895, 6898536, 4523638, 0429425 ####[facility] [address] [place] [address] Anion gap [Moles/Vol] 11 mmol/L Normal 6-16 [facility] Comment on above: Performed By: #### 1 1887224, 18542050, 3321704, 7154164, 18726538, 9837331, 1636784, 7807695 ####[facility] [address] [place] [address] Calcium [Mass/Vol] 8.7 mg/dL Low 8.9-11.[address] [facility] Comment on above: Performed By: #### 1 4004455, 42517653, 4696082, 1749193, 14379112, 4463089, 4931566, 5138744 ####[facility] [address] [place] [address] Chloride [Moles/Vol] 105 mmol/L Normal 101-111 [facility] Comment on above: Performed By: #### 1 1120733, 45156700, 1330939, 1645029, 84850529, 7038068, 4439246, 9108797 ####[facility] [address] [place] [address] CO2 [Moles/Vol] 23 mmol/L Normal 21-31 [facility] Comment on above: Performed By: #### 1 5258778, 77450656, 3760129, 7697721, 26169701, 5753044, 6839551, 7135280 ####[facility] [address] [place] [address] Glucose [Mass/Vol] 100 mg/dL Normal 55-[address] [facility] Comment on above: Result Comment: If t his glucose result represents a fasting glucose, interpretation should refer to the following reference range: 55-99 mg/dL Performed By: #### 1 3034363, 85738515, 6334172, 6473548, 89227496, 6443111, 5698827, 4224464 ####[facility] [address] [place] [address] Potassium [Moles/Vol] 3.3 mmol/L Low 3.5-5.3 [facility] Comment on above: Performed By: #### 1 9812283, 32448295, 8674161, 5434087, 27824888, 4385803, 3547474, 1823519 ####[facility] [address] [place] [address] Sodium [Moles/Vol] 136 mmol/L Normal 135-[address] [facility] Comment on above: Performed By: #### 1 9058955, 93712714, 5370308, 8164179, 53176350, 3679248, 7271497, 1744585 ####[facility] [address] [place] [address] CBC w/ Auto Diffon Erythrocyte distribution width (RBC) [Ratio] 14.7 % High 10.9-14.[address] [facility] Comment on above: Performed By: #### 1 8696170, 88405536, 5042243, 1682765, 20206139, 7240039, 9739241, 2348570 ####[facility] [address] [place] [address] Hematocrit (Bld) [Volume fraction] 33.9 % Low 34.0-46.[address] [facility] Comment on above: Performed By: #### 1 4612689, 32810921, 3530544, 2526648, 96528641, 1004619, 2269292, 8921971 ####[facility] [address] [place] [address] Hemoglobin (Bld) [Mass/Vol] 11.2 g/dL Low 12.0-16.[address] [facility] Comment on above: Performed By: #### 1 8367174, 64765599, 7680425, 6423058, 13913787, 2756060, 9734107, 3456793 ####[facility] [address] [place] [address] MCH (RBC) [Entitic mass] 28.9 pg Normal 27.0-34.[address] [facility] Comment on above: Performed By: #### 1 4605434, 60218443, 2199802, 5848677, 88744854, 5147599, 0727369, 7933680 ####[facility] [address] [place] [address] MCHC (RBC) [Mass/Vol] 33.2 g/dL Normal 31.4-36.0 [facility] Comment on above: Performed By: #### 1 1853077, 63125857, 7798556, 3767746, 25679427, 4548738, 2772146, 3496725 ####[facility] [address] [place] [address] MCV (RBC) [Entitic vol] 86.9 fL Normal 80.0-100.[address] [facility] Comment on above: Performed By: #### 1 4662642, 12482596, 7555282, 2963141, 23929408, 5852259, 9492887, 7917015 ####[facility] [address] [place] [address] Platelet mean volume (Bld) [Entitic vol] 8.6 fL Normal 6.4-10.[address] [facility] Comment on above: Performed By: #### 1 0600680, 58616576, 5538795, 4777002, 23105294, 3289343, 7071745, 0095053 ####[facility] [address] [place] [address] Platelets (Bld) [#/Vol] 206.0 E9/L Normal 150.0-500.[address] [facility] Comment on above: Performed By: #### 1 6072903, 46924016, 6542320, 1666272, 54295742, 4051514, 1620661, 9037462 ####[facility] [address] [place] [address] RBC (Bld) [#/Vol] 3.9 E12/L Low 4.3-5.[address] [facility] Comment on above: Performed By: #### 1 3413019, 37828717, 7189804, 6650570, 78684020, 3671004, 7916095, 0136228 ####[facility] [address] [place] [address] WBC corrected for nucl RBC Auto (Bld) [#/Vol] 12.5 E9/L High 4.0-11.0 [facility] Comment on above: Performed By: #### 1 5358990, 90021199, 9264950, 4301240, 52288788, 0394505, 4231151, 5915536 ####[facility] [address] [place] [address] CHEMISTRYOrdered By: SYSTEM SYSTEM on 09-13-2023 Troponin [...] Sensitivity Troponin I Instructions For Use, Gallito [employer], June 2018) Albumin [Mass/Vol] 3.4 g/dL Normal 3.3 - 5.0 gm/dL [facility] Albumin/Globulin [Mass ratio] 1.1 {ratio} Normal 1.1 - 2.2 [facility] ALP [Catalytic activity/Vol] 50 [iU]/d Normal 21 - 98 Int._Unit/L [facility] ALT No additional P-5'-P [Catalytic activity/Vol] 12 [iU]/d Normal 6 - 46 Int._Unit/L [facility] Anion gap [Moles/Vol] 11 mmol/L Normal 6 - 16 mEq/L F [facility] AST [Catalytic activity/Vol] 16 [iU]/d Normal 5 - 43 Int._Unit/L [facility] Bilirubin [Mass/Vol] 0.3 mg/dL Normal 0.0 - 1 .1 mg/dL [facility] Bilirubin.direct [Mass/Vol] mg/dL Normal 0.1 - 0.4 mg/dL [facility] Bilirubin.indirect [Mass or moles/Vol] Unable to Calculate mg/dL Invalid Interpretation Code 0.1 - 0.9 mg/dL [facility] Calcium [Mass/Vol] 8.7 mg/dL Low 8.9 - 11. 1 mg/dL [facility] Chloride [Moles/Vol] 105 mmol/L Normal 101 - 1 11 mmol/L [facility] CO2 [Moles/Vol] 23 mmol/L Normal 21 - 31 mmol/L [facility] Creatinine [Mass/Vol] 0.5 mg/dL Normal 0.5 - 1.3 mg/dL [facility] GFR/1.73 sq M.predicted among non-blacks MDRD (S/P/Bld) [Vol rate/Area] 136 mL/min/1.73 m2 Normal >=59mL/min/1 .73 m2 [facility] [place] [facility] Comment on above: Interpretive Data: C hronic kidney disease could be indicated at eGFR's of less than 60 mL/min/1.73m2. Kidney failure is indicated at less than 15 mL/min/1.73m2. Globulin (S) [Mass/Vol] 3.0 g/dL Normal 1.4 - 4.0 gm/dL [facility] Glucose [Mass/Vol] 100 mg/dL Normal 55 - 199 mg/dL [facility] Comment on above: Interpretive Data: I f this glucose result represents a fasting glucose, interpretation should refer to the following reference range: 55-99 mg/dL Potassium [Moles/Vol] 3.3 mmol/L Low 3.5 - 5.3 mmol/L [facility] Protein [Mass/Vol] 6.4 g/dL Normal 6.0 - 7.8 gm/dL [facility] Sodium [Moles/Vol] 136 mmol/L Normal 135 - 145 mmol/L [facility] Troponin I.cardiac [Mass/Vol] 3.00 pg/mL Low 10.10 - 27.10 pg/mL [facility] Comment on above: Interpretive Data: T he 95% CI (Confidence Interval) PPV (Positive Predictive Value) for myocardial infarction in females is 38 pg/mL, in males 51 pg/mL. The results should be used in conjunction with clinical conditions of myocardial infarction. (Access High Sensitivity Troponin I Instructions For Use, Gallito Amberson, June 2018) Urea nitrogen [Mass/Vol] 7 mg/dL Normal 5 - 21 mg/dL [facility] Urea nitrogen/Creatinine [Mass ratio] 14 mg/mg Normal 10 - 20 [facility] COAGULATIONOrdered By: Najma Vasquez on 09-13-2023 aPTT Coag (PPP) [Time] 29.9 s Normal 25.1 - 36.5 second(s) [facility] [place] [facility] Comment on above: Interpretive Data: P ilan 15 days - 4 weeks 1 - [...] the same coagulation reagent and instrumentation as [facility]. Currently there are no coagulation studies available worldwide for children to 14 days, and no normal ranges. Heparin therapeutic range (represented by Anti-Factor Xa activity of 0.2 - 0.4 U/mL) corresponds to PTT of 56.6 - 109.0 sec. Fibrin D-dimer FEU (PPP) [Mass/Vol] 754 ng/mL FEU Invalid Interpretation Code 215 - 500 ng/mL FEU [facility] [place] [facility] Comment on above: Result Comment: Resu s Called To Richard Lagos RN/ER By SHEILA [...] [Relative time] 0.9 {INR} Invalid Interpretation Code [facility] [place] [facility] Comment on above: Interpretive Data: I NR results are specifically intended to assess patients stabilized on long-term Anticoagulation therapy suggested INR s Less Intensive Anticoagulation 2.0 3.0 Conventional Range 3.0 4.5 PT Coag (PPP) [Time] 10.1 s Normal 9.4 - 1 2.5 second(s) [facility] [place] [place] [facility] Comment on above: Interpretive Data: [...] the same coagulation reagent and instrumentation as [facility] [place] [place]. Currently there are no coagulation studies available [...] Morales FINAL REPORT Dictated: 09/13/2023 8:50 am Bertni Christopher M.D. Signed (Electronic Signature): 09/13/2023 8:50 am Signed by: Bertin Christopher M.D. Transcribed by: GERSON Technologist: LETI Technical Comments GFR (mL/min/1/73m2) . Contrast: Isovue 370 Contrast amount in ml's: [address] [facility] Consent for Procedure/Surger yon 09-13-2023 Consent for Procedure/Surgery [id number]#1 .00TIFF Normal [facility] Consent for Treatmenton 08-27 Consent for Treatment [id number]#1 .00TIFF Normal [facility] D-Dimeron 09-13-2023 Fibrin D-dimer FEU (PPP) [Mass/Vol] 754 [id number] Abnormal 215-[address] [facility] Comment on above: Result Comment: Resu [...] infections Liver cirrhosis Performed By: #### 1 8490236, 35420029, 6178021, 3188170, 87882636, 6729013, 0949202, 1147657 ####[facility] [address] [place] [address] Discharge Instructionson Discharge Instructions [id number]# 1.00TIFF Normal [facility] ED Clinical Summaryon 2022 ED Clinical Summary [address] [address] ED Clinical Summary Person Information Name: CHRISTI HASTINGS[place] Age: 23 Years : 2000 Sex: Female Language: Yemeni PCP: NONE, XXXX Marital Status: Single MRN: [id number] Visit Id: Visit Reason: Epigastric Pain; Shoulder [...] 09/13/2023 10:17:50 09/13/2023 10:17:50 09/13/2023 10:17:50 ADDRESS: [address] [place] [address] [phone] PHYS DOC NOTES: MEDICAL INFORMATION: Prescriptions Given: [...] Follow up: With: Address: When: Hang Jacobsen [address] [place], [place] [address] [facility] () In 3 days 09/16/2023 Comments: Call [...] worsening symptoms. DIAGNOSIS: 1:Substernal chest pain Normal [facility] ED Note-Physicianon 09-13-20 23 ED Note-Physician Basic Information Time Seen: Yvon [...] pain (R07.2: Precordial pain) Orders: Al hydroxide/Mg hydroxide/simethicone , 30 mL, Susp-Oral, Oral, Once, Stop date 09/13/23 5:20:00 EDT, STAT, Start date 09/13/23 5:20:00 EDT atropine/hyoscyamine/ PB/scopolamine, 10 mL, Elixir, Oral, Once, Stop date [...] Hang Jacobsen In 3 days 09/16/2023 EDT 257 [facility] [place] [address] Business (1) Additional Instructions: Call (more content not included)... Normal [facility] Comment on above: Result Comment: Elec tronically [...] these instructions at home: Medicines ? Take kgzm-whc-woshjjn and prescription medicines only as told by [...] by your (more content not included)... Normal [facility] ED Patient Summaryon 023 ED Patient Summary [place] [id number] Patient Discharge Instructions Person Information Name: CHRISTI HASTINGS Age: 23 Years Arrival Date: 09/13/2023 04:37:01 Discharge Diagnosis: 1:Substernal chest pain Primary Care Physician: NONE, XXXX Provider Information Primary Provider: Yvon Morales MD Advanced Icing Machine Operator:None The exam and treatment you received in the Emergency Department were for an urgent problem and are not intended as complete care. It is important that you follow up with a doctor, nurse practitioner, or physician?s regulatory assistant for ongoing care. If your symptoms [...] Follow-up Instructions: With: Address: When: Hang Jacobsen [address] [place] [address], [place], [place] [id number] Business (1) In 3 days 09/16/2023 Comments: Call the [...] opioids can be used to help relieve vmkholzx-ux-dwsrrx pain and are often prescribed following a [...] prescription op (more content not included)... Normal [facility] HEMATOLOGYOrdered By: SYSTEM SYSTEM on 09-13-2023 Basophils/100 WBC (Bld) 0.4 % Normal 0.0 - 2.0 % [facility] Basophils/Leukocytes Auto (Bld) [Pure # fraction] 0.1 E9/L Normal 0.0 - 0.2 E9/L [facility] Eosinophils/100 WBC (Bld) 1.5 % Normal 0.0 - 8.0 % [facility] Eosinophils/Leukocytes Auto (Bld) [Pure # fraction] 0.2 E9/L Normal 0.0 - 0.5 E9/L [facility] Lymphocytes/100 WBC (Bld) 10.6 % Low 14.0 - 50.0 % [facility] Lymphocytes/Leukocytes Auto (Bld) [Pure # fraction] 1.3 E9/L Normal 1.0 - 4.0 E9/L [facility] Monocytes/100 WBC (Bld) 7.8 % Normal 4.0 - 14.0 % [facility] Monocytes/Leukocytes Auto (Bld) [Pure # fraction] 1.0 E9/L Normal 0.2 - 1.0 E9/L [facility] Neutrophils/100 WBC (Bld) 79.7 % High 36.0 - 75.0 % [facility] Neutrophils/Leukocytes Auto (Bld) [Pure # fraction] 9.9 E9/L High 2.0 - 7.5 E9/L [facility] HEMATOLOGYOrdered By: Shira Tapia on 09-13-2023 Erythrocyte distribution width (RBC) [Ratio] 14.7 % High 10.9 - 14.2 % [facility] Hematocrit (Bld) [Volume fraction] 33.9 % Low 34.0 - 46.0 % [facility] Hemoglobin (Bld) [Mass/Vol] 11.2 g/dL Low 12.0 - 16.0 gm/dL [facility] MCH (RBC) [Entitic mass] 28.9 pg Normal 27.0 - 34.0 pg [facility] MCHC (RBC) [Mass/Vol] 33.2 g/dL Normal 31.4 - 36.0 gm/dL [facility] MCV (RBC) [Entitic vol] 86.9 fL Normal 80.0 - 100.0 fL [facility] Platelet mean volume (Bld) [Entitic vol] 8.6 fL Normal 6.4 - 10.8 fL [facility] Platelets (Bld) [#/Vol] 206.0 E9/L Normal 150.0 - 500.0 E9/L [facility] RBC (Bld) [#/Vol] 3.9 E12/L Low 4.3 - 5.9 E12/L [facility] WBC corrected for nucl RBC Auto (Bld) [#/Vol] 12.5 E9/L High 4.0 - 11.0 E9/L [facility] Hep Func Panelon 10-18-2023 Bilirubin.indirect [Mass or moles/Vol] UT Abnormal 0.1-0.[address] [facility] Comment on above: Result Comment: Resu lt verified by Discern Rule. Performed result [facility] (Unable to Calculate) was sent as an Alpha code due the inability to calculate a valid numeric value. Performed By: #### 1 0857473, 14497349, 0473178, 1791540, 24656852, 4996331, 6783207, 4744103 ####[facility] [address] [place] [address] Albumin [Mass/Vol] 3.4 g/dL Normal 3.3-5.[address] [facility] Comment on above: Performed By: #### 1 9582463, 33558951, 2074462, 3130083, 15369944, 3912251, 2637533, 3746191 ####[facility] [address] [place] [address] Albumin/Globulin (S) [Mass conc ratio] 1.1 Normal 1.1-2.[address] [facility] Comment on above: Performed By: #### 1 9558515, 04971960, 4015631, 2861569, 66949134, 0124257, 7483174, 3834808 ####[facility] [address] [place] [address] ALP [Catalytic activity/Vol] 50 Int._Unit/L Normal 21-[address] [facility] Comment on above: Performed By: #### 1 3633494, 59044644, 4729708, 8115144, 32361665, 2955209, 1937918, 4054001 ####[facility] [address] [place] [address] ALT No additional P-5'-P [Catalytic activity/Vol] 12 Int._Unit/L Normal 6-[address] [facility] Comment on above: Performed By: #### 1 2569636, 47643272, 0484192, 8589525, 47881722, 6964408, 4509797, 3835361 ####[facility] [address] [place] [address] AST [Catalytic activity/Vol] 16 Int._Unit/L Normal 5-[address] [facility] Comment on above: Performed By: #### 1 7921496, 74152829, 4722858, 2493526, 77947969, 9332652, 1268240, 9358236 ####[facility] [address] [place] [address] Bilirubin [Mass/Vol] 0.3 mg/dL Normal 0.0-1.1 [facility] Comment on above: Performed By: #### 1 6850699, 28807464, 1808527, 7197164, 66470759, 2633715, 7779749, 7349502 ####[facility] [address] [place] [address] Globulin (S) [Mass/Vol] 3.0 g/dL Normal 1.4-4.[address] [facility] Comment on above: Performed By: #### 1 2373066, 00973314, 5421445, 2313707, 93896564, 0930644, 0161452, 3918013 ####[facility] [address] [place] [address] Protein [Mass/Vol] 6.4 g/dL Normal 6.0-7.[address] [facility] Comment on above: Performed By: #### 1 8399878, 64229072, 4599492, 3848025, 18188057, 1641100, 4513559, 5316973 ####[facility] [address] [place] [address] Bilirubin.direct [Mass/Vol] mg/dL Normal 0.1-0.[address] [facility] Comment on above: Performed By: #### 1 1858948, 15353106, 5407642, 1948922, 31930873, 6021610, 0143374, 9267846 ####[address] [address] Monitor Recordon 09-13-2023 Monitor Record [id number]# 1.00TIFF Normal [facility] PT & PTTon 09-13-2023 aPTT Coag (PPP) [Time] 29.9 second(s) Normal 25.1-36.[address] [facility] Comment on above: Result Comment: Para meter [...] the same coagulation reagent and instrumentation [place] [facility] [place] Currently there are no coagulation studies available worldwide for children to 14 days, and no normal ranges. Heparin therapeutic range (represented by Anti-Factor Xa activity of 0.2 - 0.4 U/mL) corresponds to PTT of 56.6 - 109.0 sec. Performed By: #### 1 [id number], [id number], 5955790, 7503874, 95449461, 6768910, 0680714, 6194616 ####[facility] [address] [place] [address] INR Coag (PPP) [Relative time] 0.9 {INR} Invalid Interpretation Code [facility] Comment on above: Result Comment: INR results are specifically intended to assess patients stabilized on long-term Anticoagulation therapy suggested INR?s ?Less Intensive Anticoagulation? 2.0 ? 3.0 Conventional Range 3.0 ? 4.5 Performed By: #### 1 [id number], [id number], 7908237, 4937890, 19221941, 5107678, 0660481, 9768310 ####[facility] [address] [place] [address] PT Coag (PPP) [Time] 10.1 second(s) Normal 9.4-12.[address] [facility] Comment on above: Result Comment: 15 d [...] the same coagulation reagent and instrumentation as [facility] [place] Currently there are no coagulation studies available worldwide for children to 14 days, and no normal ranges. Performed By: #### 1 [id number], 90381032, 5920479, 4443112, 05100331, 9281701, 2432161, 0357007 ####[facility] [address] [place] [address] Troponin 0 Hr.on 09-13-2023 Troponin I.cardiac [Mass/Vol] 3.00 pg/mL Low 10.10-27.[address] [facility] Comment on above: Result Comment: The 95% CI (Confidence Interval) PPV (Positive Predictive Value) for myocardial infarction in females is 38 pg/mL, in males 51 pg/mL. The results should be used in conjunction with clinical conditions of myocardial infarction. (Access High Sensitivity Troponin I Instructions For Use, Gallito Amberson, June 2018) Performed By: #### 1 7612717, 55897539, 0708903, 3756072, 21037585, 6743721, 7540958, 2325997 ####[facility] [address] [place] [address] Troponin 3 Hr.on 09-13-2023 Troponin I.cardiac [Mass/Vol] 3.20 pg/mL Low 10.10-27.[address] [facility] Comment on above: Order Comment: Pt wr istband would not scan. Confirmed Pt identification verbally and looking at the wristband, [id number] 09/13/2023 08:06:30 EDT Result Comment: The 95% CI (Confidence Interval) PPV (Positive Predictive Value) for myocardial infarction in females is 38 pg/mL, in males 51 pg/mL. The results should be used in conjunction with clinical conditions of myocardial infarction. (Access High Sensitivity Troponin I Instructions For Use, Gallito Amberson, June 2018) Performed By: #### 1 [id number] ####[facility] [address] [place] [address] XR Chest Single Viewon 09-13 XR Chest [...] mGy = n/a DAP = n/a Normal [facility] eGFRon 09-13-2023 GFR/1.73 sq M.predicted among non-blacks MDRD (S/P/Bld) [Vol rate/Area] 136 mL/min/1.73 m2 Normal >=[address] [facility] Comment on above: Order Comment: Order added by Discern Expert. Result Comment: Running Rigger mohan kidney disease could be indicated at eGFR's of less than 60 mL/min/1.73m2. Kidney failure is indicated at less than 15 mL/min/1.73m2. Performed By: #### 1 5655037, 91975265, 2708068, 5551215, 62197177, 7044027, 9881360, 7213911 ####[facility] [address] [place] [address] Coding Summary.on 11-02-2022 Coding Summary. CD:[id number] G h0bWw+PGhlYWQ+LM0QPMV fM22htJGdhQ3YR0tSXC5R RJDFNRAECI0AYX8wcYA0I WziR6AqrcTy LqalqYKtUR90KMb2KLE4r AfuEAzymK7lpNHmC9n0Yo CmSK83tO39KNfhQEIoWsO 3LjZpbjsgbWFy X4gtRwLsfGDdBma+PHRhY mxlIHdpZHRoPScxMDAlJy FlfRzmFT6vPj3cXWVnOEM vbGxhcHNlOiBj b5ioITAvDAquTP0bqHblW 3UjuMZ3OHMth4y6Fb28mR I+JWGsEXX7uLxoUMpov77 7ZiDqs0lrPWR1 jIHiALjhWMP6A26mj2R0S KJpKHOjKIF0qHD1zS2icS yvfjehN1MepLFnUxC4NAJ 7sABqyX6ksLcm jlmmyW5yAaj+H83AOT6BO WYMAP8AYkc2X5VmRwscdR I+JJ01RBNzGN33gTBbwXT pp5hhtVf0IuHl WURsDTB3yKcmFQdtm5MoO CSoH63yqVRtd2N6SFKfpP fggJYdSwJjbWS3sN6oCJv kzuytj9qtgwps Dxjqq8alsr16vT91P90aC SzbKPImPQL6MNCeHHVwaB xcqy4azZ9fLk7+YIodg6p pf8bzoIh5EnRw IKGrumEnyEodYBW6m1VmF y92R1DbwVeam5LeKay0mi 08jUQyt9K7nUH6DOjvGEN svZ0sLAcwEeX3 DCNkMyAwcA24gMBzMSblC u8ruKpjmTudMK0tBCRhxq mvFKQkrC0xHLUmmBWkvAm nGP1wFGXsjaha k378JqCmBIS1LTEwoGWnU 0WgoV4aUoFjSOZzKSPlE0 OjeRGfCXhmW389WJjvMdI 0BEBjaxHxC1Mw EJEghFmrWyD0h9R3Dr1Nt 9XzyixlNVO1RMuzLPXzLv R0OyQlQzO6M1GrCbx1TPD jfTtrHZ5hT5Sh WZOpfshauheudTU2MOZoD SJveX47xIYoRVbyIu3gq6 H8i799KXPmCXLqeL53Du6 udDogMTBwdCBU iC6qlcivg1ydvrqhXrVdS XWtFSr0KFe0LSXysOrlAi YqEUX3AxW7CDA8kNFhsE2 vmSaahesprI4a Oyc+Z29mxD0pJNS2AXA0q nwiGGCbjhLwYF59CI63H7 RyPjwvdGFibGU+PGRpdiB pfOsgTS4wLuRi q1qge1JhHBvxT8QvWNVzK LdoPvb8LKPzULL1cVA9aV 8gICFuGKhfy9K3aLI4B6W vrjLgnd5mh3yp JTBcENxxU22pzSGri6O3U YDpfKM8VLLpqVfzAdCopA 93Oyc+DFBbqKapr2AjWjw pm9nkg0qouMl9 HjOqAWJajlMzsXztNYL8h 8TcVn16U27eWLblMCWtVH SwCHDlXEUgkQcnsd6vqQ9 wIi8+PGNvbCB3 xOL3rA5rNHHwGvW5INmqX 232SvCubEMzHzujz5gnq1 emcBo1DlFqLAPhwdQyrQu gBTI0w6GpWj43 A39tLDooICRmRQZjJGQcY GEwbLjhgc8rrJ9mAu2+PC 5oi1rnqh23wT53kLB+PHR pRXV4jXjzNNtn UUPgfE8hWKfrQzX0LSSzC wTwdG87nRTqMUvmBl9jvN mxdUwbCA0eWYQpnzkdr84 9KvVpv4tjJTHl iMBfVHzbQNI9Y96yd4L2S FJaUCVdSYJ5aSE9zP5ojF lnbjogbGVmdDsgdmVydGl dSKxxMLreM063 IHRvcDsnPlBhdGllbnQgT sNxZNe6V0DbNfc0PVObqD ybFY1jvAWgKBzcDa6maMk dsFytEE8tLBKi tkpmx497ZmRyr4dxLDKze YEkKYmjLGT1W11ks4M1EU TqCAXzIYB4lTF9vB3bxTu nbjogbGVmdDsg ltGneJwpXXidSHviT599O HRvcDsnPkJpcnRoIERhdG S0XD22SE69wCFzq9Y5uGW 6K6ThFUGvpspr bfkhiZS7UFXvYEAkvA75R q0soCosAd9wZJZiXQT0XR JryJLcS3BrpM9fHgQpBJP bJHXoS9QpyKPi SPzzH541WGsnClX5XAVty vBsT2RtIGYpaRdoMcO0s7 O6Fy9MN9Q9RO84PC50gGK eg3C3uBI6S9Sh AMYlmcmlboognMW4RFWbP GKfjC74Ep5gjTcfLa0rPX ZvJGW7BEEyvHUkS3VlkN9 yOiAjMDAwMDAw L8GjeBIjIKnxL063APivF bK2SSMvatOnF2IeESPurH ypVvD4q5A2Hg3IKGc8DI6 7KZ02hSPjs4C7 cCE0J7PrNDNdbyzqscwas OB0ZNXeZCPhkU22Qy1ifO tpRs3nMVZzBXC9UATbvKE rI3OcpV8xCfNf EBGhJZYoP1OjjGVkLCisR 944YWijRfK0JBObrkPdU3 AtXBNfzGbnVlQ2r7B8Dk7 GTDAuLD30NYE2 aTZ4TU40DM64T3NbUszbc GFibGU+PHRhYmxlIHdpZH RoPScxMDAlJyBzdHlsZT0 gDz6fNDNqVRZw cVjrwYPaRiIaj3elAVFrJ KioCK4fgOepX4FprYW8KF Dgz9b9Pr37A19fZ9PewNG +HCPanLA2rJJ0 cL6yAjLqGuU3EZnaR487Q vMvlPPjYmjwm3eqc0nmvH j1MkA3VHHygnVizMjbRWP 3v9PhIp69Y29z IHdpZHRoPSIxNSUiIHZhb Kxhcj3icO4cOw4+PGNvbC N1rFE9zM9iBgLkFiE4JMq oO160RvYcuPWa Tolhx6bkc6ubrHr7VcYxU IZzjlJrnUtiURD2r4RkMa 57X0OmhLyhr2OwBsu6fy9 9hSAcb1U8dYT2 V5FxDOIpqsahhDTzvYnrC N3rVKLmclygRXWgyK9vOW KxX9x6TcDcJmH3LRpaG0F pnfW9JMEuuTHn NQtcTRB9W09sl5Y7NMJkP PGdNCZ0nWN4oT8kcFxzxy ogbGVmdDsgdmVydGljYWw pRZjhY654TFQt bBpfAJItlS8tCZXkuLDxz PtrRC2wGIWphdxoRrdTRw EsIEpVTElTQTwvdGQ+PHR yFUQ2gXbjYVxr TZQhaQ5sTHErL3a3AlKtF pR9LYcsP2AqPWSzboeqKz 04eK3pZrLtTjJ8QRjoF3X ljvH6FPRpkIXd PTrqRVY9W79yf7U7BCGkX NUxVTM5rXI3eH5kyRxmbx ogbGVmdDsgdmVydGljYWw eJAngB224UMMv tFimRvM9BiJ7YkYeNOF5C 4UnTxg3VVVzcJujMA4zbG VdZJmqFn1thLbjqUquCY3 wNTBpbjtwYWRk dV6kHOKqlKXjpXxnHU8bF RMghsufm881NoWmYKG2AO UsdIKfX6NinK5nCdLxMBJ wWQCeL1VeuJYz NVfiH060VHwyXmV1GRAro hPsM6FgYZAsrIzmCrP8g0 O4Zr0mEXVNROFtxzlsgKK +JIWlXGD6eIlt TCcjJCUodJ5eTUWuA1c0R jJsXdX7HBzxO0IkWRAsay phWg64cK6aBbBgZaO6SXm lW3FxjgH2OEPk sDRnSYjrRCG1X08td9I9A EFpNFOqGRI5yFP9nR1iyH lnbjogbGVmdDsgdmVydGl yUDswTNbaP140 IHRvcDsnPkZlbWFsZTwvd GQ+PLImVFB4rIedWMkxEY CqnS3rGETmJ2v6JgNuLbS 3FWulZ9WbVPPc xkkqHp09aN8pXwZkCnF6R FlkF6AddhI7MZWiuAWsFI jzIKS9B71ud8C4RTUwRWT tXYP0rFM3aY5d bGlnbjogbGVmdDsgdmVyd RspVCxyCTeeW375RTPrrC liQtFhQHHsSI7oqNwhtWR +UY28em34Y4Cg SrxhSni3JBVhTKD6gQO2z I0rQDXtFWvfd7Y9jDE1M8 FeiqAvxu6zy9wmXHNyLBw bQ51vrQHma8S0 SXDipLF5NXCfmApcOpFev G93Oyc+AUKenPwux7XoZm foz0uqy4ecjDd9QuApDKC gdmFsaWduPSJ0 t6ZaLr28N00aUDqmPPInL MVzKOKtLWWmaOwvts2oyE 9wIi8+WSWidIR0lGT0xS5 hDhHoEsY5XVnf F695GnIudBMlSemvt2rbf 7jqwAb5QvFwTWWjzbQrwU xcPKW2r9IaZz76I1EzuEv zf7EmGyo8ou05 mBVli4V5vSH2Z4OaPBKff lmnhIRyiYnyPF5pMATchj ifESRhpX2gETQeA5q2MwR fCtG9HNrrU3Sk yfF3AXWkaYBbVXHonQNJc M3xmchcu4sdzxvvZvOkRZ QsBUi2JVi8CQDjzIbaSpA eURC4XaA5OSW7 gCDsrX8nfAyxjgonwH2wI yc+TSr3e1rwcHJnFT2okF V3PL40NY13lSGvr9E1vAS 0F1HwUTQufdcp ojofqBR9UYWtBDLixR55T f4hkWekNv8qXUSbOJV1CL PkuLYuR4YnfT6sErWnWAW pWKFkF4VvzUDm NOfjV892OTkqVaQ6GXQdt hOkI1YdCAEklOcqCbQ0k5 A7Si9QHB03NL02MV60eQT vt2W5eDZ3X3Qt ZISlbrvsbvtarAO5NSDuT WZhgZ28Nw6hsIxeTa9dTS EiFRQ4VMObeRZfT2WarT6 yOiAjMDAwMDAw L5OugNMhLZdqI487JVlgB qM7XWMycdBdY7OfWOObrL qeNfQ4r5W1Xp4XFy61HS2 6XL36vMFbj3P2 jRD1R4PzGGWyqpddsbskl SI6GPTaYAEtnJ12Dm3shQ ktNo8xKEUwSGX4MGUcyKG yF0OzpR1qVhXk POWdCROvN2YpcMHpTQcxA 590PXnyJyS4UVLojdZrE5 AzMIGiuWiuGxA3j1O6Qw4 SXJanplg9R8Ej PjwvdHI+MH35PCAhGW29k XLlcUGll1zxoJm8FaKoNZ EkYKV8nBpqFVzga3QgMZZ xH37wwIQzu5P9 IGNv (more content not included)... Normal [facility] Auto Diffon 10-31-2022 Basophils/100 WBC (Bld) 0.9 % Normal 0.0-2.[address] [facility] Comment on above: Order Comment: Order Added by Discern Expert. Performed By: #### 2 291196, 4682835, 6310043, 8726719, 73221588, 4677126 ####[address] [place] [address] Basophils/Leukocytes Auto (Bld) [Pure # fraction] 0.1 E9/L Normal 0.0-0.[address] [facility] Comment on above: Order Comment: Order Added by Discern Expert. Performed By: #### 2 217693, 5886925, 5100907, 9666704, 35346526, 6051099 ####[address] [place] [address] Eosinophils/100 WBC (Bld) 0.2 % Normal 0.0-8.[address] [facility] Comment on above: Order Comment: Order Added by Discern Expert. Performed By: #### 2 741812, 7804490, 9195287, 6523861, 85153837, 8199478 ####[address] [place] [address] Eosinophils/Leukocytes Auto (Bld) [Pure # fraction] 0.0 E9/L Normal 0.0-0.[address] [facility] Comment on above: Order Comment: Order Added by Discern Expert. Performed By: #### 2 749576, 1516485, 5010699, 0382815, 10876133, 9876684 ####[address] [address] Lymphocytes/100 WBC (Bld) 16.8 % Normal 14.0-50.[address] [facility] Comment on above: Order Comment: Order Added by Discern Expert. Performed By: #### 2 712815, 2753281, 0899855, 6354087, 42705163, 8921749 ####[facility] [address] [place] [address] Lymphocytes/Leukocytes Auto (Bld) [Pure # fraction] 1.4 E9/L Normal 1.0-4.[address] [facility] Comment on above: Order Comment: Order Added by Discern Expert. Performed By: #### 2 303347, 6883229, 1088489, 5044568, 61766814, 2850781 ####[address] [place] [address] Monocytes/100 WBC (Bld) 5.0 % Normal 4.0-14.[address] [facility] Comment on above: Order Comment: Order Added by Vimal Expert. Performed By: #### 2 441686, 5513872, 3606752, 1383417, 54966999, 8937375 ####[facility] [address] [place] [address] Monocytes/Leukocytes Auto (Bld) [Pure # fraction] 0.4 E9/L Normal 0.2-1.[address] [facility] Comment on above: Order Comment: Order Added by Vimal Expert. Performed By: #### 2 292172, 8066523, 8212215, 1362991, 84580518, 5566296 ####[address] [place] [address] Neutrophils/100 WBC (Bld) 77.1 % High 36.0-75.[address] [facility] Comment on above: Order Comment: Order Added by Vimal Expert. Performed By: #### 2 218109, 4395288, 8417355, 4124076, 46666509, 9327307 ####[facility] [address] [place] [address] Neutrophils/Leukocytes Auto (Bld) [Pure # fraction] 6.4 E9/L Normal 2.0-7.[address] [facility] Comment on above: Order Comment: Order Added by Discern Expert. Performed By: #### 2 369408, 1625283, 6099076, 9235787, 30382399, 3140831 ####[facility] [address] [place] [address] BMPon 10-31-2022 Creatinine [Mass/Vol] 0.6 mg/dL Normal 0.5-1.3 [facility] Comment on above: Performed By: #### 2 761538, 6164462, 5079949, 4135227, 57713511, 9573358 ####[facility] [address] [place] [address] Urea nitrogen [Mass/Vol] 6 mg/dL Normal 5-[address] [facility] Comment on above: Performed By: #### 2 689949, 9177530, 5343496, 2073565, 28163165, 7897705 ####[facility] [address] [place] [address] Urea nitrogen/Creatinine [Mass ratio] 10 No Units Normal 10-[address] [facility] Comment on above: Performed By: #### 2 282784, 0744456, 9501815, 1304302, 76075363, 3058937 ####[facility] [address] [place] [address] Anion gap [Moles/Vol] 17 mmol/L High 6-16 [facility] Comment on above: Performed By: #### 2 154933, 0116233, 4344481, 6702898, 33811794, 3047153 ####[facility] [address] [place] [address] Calcium [Mass/Vol] 9.5 mg/dL Normal 8.9-11.[address] [facility] Comment on above: Performed By: #### 2 420605, 0065983, 9195070, 4423053, 91044581, 7985442 ####[facility] [address] [place] [address] Chloride [Moles/Vol] 99 mmol/L Low 101-[address] [facility] Comment on above: Performed By: #### 2 282150, 6091001, 6400105, 4312582, 62556299, 8390673 ####[facility] [address] [place] [address] CO2 [Moles/Vol] 27 mmol/L Normal 21-31 [facility] Comment on above: Performed By: #### 2 930798, 0502432, 0746898, 6316878, 67785157, 3363219 ####[facility] [address] [place] [address] Glucose [Mass/Vol] 130 mg/dL Normal 55-[address] [facility] Comment on above: Result Comment: If t his glucose result represents a fasting glucose, interpretation should refer to the following reference range: 55-99 mg/dL Performed By: #### 2 556432, 0918993, 4176962, 3395795, 80703501, 7039425 ####[facility] [address] [place] [address] Potassium [Moles/Vol] 3.7 mmol/L Normal 3.5-5.3 [facility] Comment on above: Performed By: #### 2 366256, 1987851, 8101452, 5717954, 39980329, 7434194 ####[facility] [address] [place] [address] Sodium [Moles/Vol] 139 mmol/L Normal 135-[address] [facility] Comment on above: Performed By: #### 2 970185, 4976767, 8109238, 4891598, 40367197, 4293848 ####[facility] [address] [place] [address] CBC w/ Auto Diffon 2 Erythrocyte distribution width (RBC) [Ratio] 14.7 % High 10.9-14.[address] [facility] Comment on above: Performed By: #### 2 573156, 0300136, 8509518, 0495712, 30749470, 3391945 ####[facility] [address] [place] [address] Hematocrit (Bld) [Volume fraction] 36.8 % Normal 34.0-46.[address] [facility] Comment on above: Performed By: #### 2 146219, 6832194, 5496797, 3839587, 32210396, 1643559 ####[facility] [address] [place] [address] Hemoglobin (Bld) [Mass/Vol] 12.2 g/dL Normal 12.0-16.[address] [facility] Comment on above: Performed By: #### 2 931673, 4193949, 4426135, 2435275, 17489494, 7916659 ####[facility] [address] [place] [address] MCH (RBC) [Entitic mass] 28.5 pg Normal 27.0-34.[address] [facility] Comment on above: Performed By: #### 2 888830, 9004313, 1564271, 0914185, 74101945, 3060720 ####[facility] [address] [place], [place] [address] MCHC (RBC) [Mass/Vol] 33.3 g/dL Normal 31.4-36.0 [facility] Comment on above: Performed By: #### 2 499326, 2801073, 8848404, 0912459, 65392807, 6181164 ####[address] [place] [address] MCV (RBC) [Entitic vol] 85.6 fL Normal 80.0-100.[address] [facility] Comment on above: Performed By: #### 2 592957, 4374804, 7506452, 4213112, 93080199, 7781296 ####[facility] [address] [place] [address] Platelet mean volume (Bld) [Entitic vol] 9.0 fL Normal 6.4-10.[address] [facility] Comment on above: Performed By: #### 2 390485, 8658315, 2945361, 9408758, 99917808, 4829638 ####[facility] [address] [place] [address] Platelets (Bld) [#/Vol] 267.0 E9/L Normal 150.0-500.[address] [facility] Comment on above: Performed By: #### 2 985985, 3547024, 6396355, 4761606, 73104958, 8373954 ####[facility] [address] [place] [address] RBC (Bld) [#/Vol] 4.3 E12/L Normal 4.3-5.[address] [facility] Comment on above: Performed By: #### 2 604767, 0435133, 4121343, 3334156, 20822868, 1036650 ####[facility] [address] [place] [address] WBC corrected for nucl RBC Auto (Bld) [#/Vol] 8.3 E9/L Normal 4.0-11.0 [facility] Comment on above: Performed By: #### 2 517882, 1318589, 9774598, 5355079, 93728462, 4366705 ####[facility] [address] [place] [address] CHEMISTRYOrdered By: SYSTEM SYSTEM on 10-31-2022 Albumin [Mass/Vol] 4.7 g/dL Normal 3.3 - 5.0 gm/dL [facility] Albumin/Globulin [Mass ratio] 1.7 {ratio} Normal [...] Bilirubin [Mass/Vol] 0.5 mg/dL Normal 0.0 - 1 .1 mg/dL [facility] Bilirubin.direct [Mass/Vol] 0.1 mg/dL Normal 0.1 - 0.4 mg/dL [facility] Bilirubin.indirect [Mass or moles/Vol] 0.4 mg/dL Normal 0.1 - 0.9 mg/dL [facility] Calcium [Mass/Vol] 9.5 mg/dL Normal 8.9 - 11. 1 mg/dL [facility] Chloride [Moles/Vol] 99 mmol/L Low 101 - 1 11 mmol/L [facility] CO2 [Moles/Vol] 27 mmol/L Normal 21 - 31 mmol/L [facility] Creatinine [Mass/Vol] 0.6 mg/dL Normal 0.5 - 1.3 mg/dL [facility] GFR/1.73 sq M.predicted among blacks MDRD (S/P/Bld) [Vol rate/Area] mL/min/1.73 m2 Normal >=59mL/min/1 .73 m2 [facility] [place] S GFR/1.73 sq M.predicted among non-blacks MDRD (S/P/Bld) [Vol rate/Area] mL/min/1.73 m2 Normal >=59mL/min/1 .73 m2 [facility] [place] S Globulin (S) [Mass/Vol] 2.7 g/dL Normal 1.4 - 4.0 gm/dL [facility] Glucose [Mass/Vol] 130 mg/dL Normal 55 - 199 mg/dL [facility] Lipase [Catalytic activity/Vol] 34 U/L Normal 13 - 58 unit/L [facility] Potassium [Moles/Vol] 3.7 mmol/L Normal 3.5 - 5.3 mmol/L [facility] Protein [Mass/Vol] 7.4 g/dL Normal 6.0 - 7.8 gm/dL [facility] Sodium [Moles/Vol] 139 mmol/L Normal 135 - 145 mmol/L [facility] Urea nitrogen [Mass/Vol] 6 mg/dL Normal 5 - 21 mg/dL [facility] Urea nitrogen/Creatinine [Mass ratio] 10 mg/mg Normal 10 - 20 [facility] Coding Summary.on 10-31-2022 Coding Summary. [id number] G h0bWw+PGhlYWQ+TL4IGXL mP49rdVAleK0VY1oZSP0U FXGBIHJYST6RHI6zmNW2Q NcqC9BlmfLw YcinyVEzMT22XGs0TRD7j BhvQBkudB3rbRAzH5g2Bh XlHL44cP37MLotRTSsEiD 3LjZpbjsgbWFy L7hhHaXbrTZtNkx+PHRhY mxlIHdpZHRoPScxMDAlJy IfcCfdMY0kCk8iSTBlFIF vbGxhcHNlOiBj j0stQKCsEUcoXJ7khUkhF 4YzyCM0BNEvh6t5Jm66hH I+OKQgSVH0bFaiKWxxq73 4CaOdq8quWTZ9 wBTaCDlfNVM7B96oy0T3Q SAgLLGiSEA8uID6qD9kbK cykcnbD6KcdPQuNbI2HIS 7uFBceA7niDww bavynP6gDeb+Q70OLF2OD ARKGK7LLxf1I6ObMfftjR I+HP79CNXgDU97aIWitFN vd0okuQf4FeZc ZXUrFUQ9jVscSRsvd7ApL DBdZ28zxGIsf9J6JVIsuU wxcLCqDfPadSX8xQ2mSFj atzjgn5iyegkb Mruxf7wlxl46qV69N62aZ SucUDWaPCZ0JMUcUAAyuE iqhp3iuX8xZg5+TWdeb2q iu3aofBl4QcZn YWYpmbVqpGexKCI1c9LnT n90J3XegHehc5JqHew3ku 63iIPwq3B1rAD0MFtpGFK ywL6hQZkwMaW7 SLFtMfFfcI95sLUaTCunM m7rkBlwpYhaPI6qISPnvj ywTHRgnR0tQYGrxWSlbCt jNX4eHKVaprmi d163GrBqRUQ3BAWdzGYcO 5MvnS8zHiZxOIKvIYFbK3 XvbUMnSWplD623DCugYoU 1LAZjdtOnV2Uu YILjgHqhJgP2q6J0Vy7Ip 5UdxtyvUHF0LUtcZBTcKt Q3ShHrPwT9B3CmCne1RBZ hbSebSE3cN2Uv KTUcwzifnqwgwSQ3IZJkX ZEwaH49oRKvMTchSe8cf7 V0d437YWUuTGVvyW14Vn2 udDogMTBwdCBU bE5jepqeb6nisalhYbJaB HKcNWo4LBa5TLUgyIyxWt WxCFK3HpM8OGP7uKAfjW3 hyHrwhtilvX8b Oyc+G38azY9fPVU3ONR0z zlxXHAekgDmMJ67PS95Y3 RyPjwvdGFibGU+PGRpdiB ywCowQF6mGvCz o5xbq9EmNAafI7ZyCNFbF UatRhs8NILqOVM0qXV9iR 8hMBHoAIauc4Z0xYT1K5N zhpEeyi4be6im DSKyIAkhY59mhUHej4U6U HTvjIX6TQClmMnvImUuqU 93Oyc+MNKocMycb3JkNjq nr3zfj3zxwLk2 RoFmKKOflbGfxCzdKQM8x 6GnWa21V57bCLkfWFHlOI RrXQOdRKKceJsyco7zkJ2 wIi8+PGNvbCB3 pGS8xB9yYJDyHaB8DYzqP 264DlJigXNxFadhu2jno2 ohbNs0DeGhXYZepsThhMp hVJG8x0PaEv75 G73yFAzhOQHqZMWrPPEsF OSguExrjf2seQ6cUc9+PC 1gm0qare55qN56gRC+PHR dGMS0dDdyIAte LKRlnY4aEOlfJgN3EDAiP yHevI20nQIdVXsoGx5kdD dmtRxhVB1jCHQhajzto25 9KoZkz5keHBRt eTZzRLjcLRQ0X71xl8G3J TEdOQSrXGG3aPI6aA5bxC lnbjogbGVmdDsgdmVydGl qZUacIQdwT522 IHRvcDsnPlBhdGllbnQgT fGvBIf2X4NzKaf3LWYsfI xoIH1nmGBzHJydFg8amQo uxWksLV2sYPAt rfaim062IsKnl1xlWQOvp QMvORkkWXW8K45wg2K1GK VaQPIoVOG0vDU0rU5khAi nbjogbGVmdDsg vwHpgKqhCDjbCKqtC551D HRvcDsnPkJpcnRoIERhdG Y1SE53HK34dWAyo2Z7rVI 6L4QqTENnjzvd owrxdFP2BEWjDSDjoP27C t5rlYvaUk6kGSReICF5OF YybYEbL4LszG4pNjAyEEF oSOUuK0CvrIHf KIscQ207IRfvEgK2GFVty oXnG4TyNHHwjRbnCqF4l6 B4Iq4JZ9Z8PW74NE13jHI ce9F8xDE7F4Cx QTVetfkatiikyZI5OYQeM BMnkD16Hk9xnSmnYi8uOG YvSSW7KDYqyJQbR6SbgZ3 yOiAjMDAwMDAw C9AclWUoCRdmQ836ECyxP bH0QXWgejSmB1LwPLHjtI wlEnL6s3S5Hm1DKWd2HO2 9XO10jUReb8H1 eEU4V9XlQOOktcdkodyio IJ2LCFvJVOssF93Fq4spL veSs8jZCUnARU8UWIqbNJ yG7KvbG5jJlRc VOTzWQMbP5DjpBPwONzzL 875DPpsQmZ4KWAsaoRwL5 PjHOGauHiqTmT3e3X1Ys9 GURHpXE62FMU4 tMN8TB11TE26O7BuWetds GFibGU+PHRhYmxlIHdpZH RoPScxMDAlJyBzdHlsZT0 wSq8gSLYyMLXt vIzdbNYqBnMhx2eaSEVdQ AjlNW5nbVlwW5CvaPD4UU Foz1n9Cm31Q30rU0FmhVO +QYWhmFD2jDF0 nN1dDhZtErK8JIhvS752E xMdjVGgLtvfs4drz5eflU c2OkQ5BQBwqqQgyTzvMGT 7w5HbTe24Y31r IHdpZHRoPSIxNSUiIHZhb Qomyu8qaC8dCp5+PGNvbC R4hVZ2uZ4lTwCfQqQ0PGc nU187WoGrpFAo Mnrvw8wok1ugpDe3LuFgK AYbyzRryFrlTHZ3y1WmLt 65L6WprDpri6IcUhc0ub8 2sOVik6Z4yEA5 G1MyEOWmdweiyUArqClrD K1nXASnrlmtNQRuwZ1iXJ RwP6i9RmZpAqY3WToyK0A ngsZ2ARMieXUd VKxkNCA6L63wu4D3WVKtD LOgIRL5gIL6xA8wmRzrla ogbGVmdDsgdmVydGljYWw kXSshY757WXOl jNagOMRwdR2cXLKyjVFst AjvSM2oHAEkvdsjKzpYZh EsIEpVTElTQTwvdGQ+PHR zRMH6nLraHQym ISZsfQ6mNOYtF9c7LlIjB tC3KYsxI8MjURWbxiltYw 63pM6vFyXwUzA6FFdcS8N sdmG3ACEciWUe CWctERI4A22gy6P8KNCqU ZGdBDV8yHQ3hJ3zoKaxfx ogbGVmdDsgdmVydGljYWw iDBhlC030LMOx hXcyYdY1UoB9KwWlGCR0P 3EtIlb1KKGqpMujDD8paG ZxHKseDs2vfVrnqDxaNH7 wNTBpbjtwYWRk sZ5qKVDaiMVyiQkmJX5kA BXqvsdvm410FcRsEYF0YM CwlDGxT0GwnK6lTzUbDRD fLETsJ3JzdZMe KHinT090TMrmPdS7AXYnl yQoU3CbUCBpvYkmJdG5z0 U4Of5jBIJBCOVlxbsvxNM +MQKyQXB2dGge MNpvAMGmtS4vCLFnK5r1Z iUrBjU8PZagH4FpKCGhgx jsIo80tL3hRyYkSaV1LVf oU5PszqW5TIMc qTJqFMacPJO1F50ux0Z1G PGgLHRaKBX4fLP3zQ8obJ lnbjogbGVmdDsgdmVydGl mYFuoGVkqQ435 IHRvcDsnPkZlbWFsZTwvd GQ+TOLxZMO5vIrbENwdZL XidR1oALQuW5p3LkNdQjZ 2KTepP2BfDRCa ocqkUr37wI7lFiYzHbA0M KhlB9OaqlR8HBOlpZTgJB avMSS6U34xn7I0PHWbCIQ kGRI6aCA1nX8m bGlnbjogbGVmdDsgdmVyd PwfFGniRCxmR057FDTahA beGxBsJNEgQH5cyGxziZD +IQ03zt80V7Ij QlvkSzm7DHDfTZI6qQL7t M5rSEQjFUajm1T0lCE0O4 WhedLxzh1fv0sdEFPkIWi dU48wrUUhz2J6 SUMtuPU6XKHmjVsyKoSdq G93Oyc+JVXecNcob1TyWy dwf0sfw3rteAz4ElDxZGK gdmFsaWduPSJ0 z8ZuBz28Y26cRKibXCApK UWzTGUiWTHhnIfcye9upM 9wIi8+DSGriXA0cNQ1pJ6 eNtMqPjW1KEma Y994CuNxdPYjPvfsd0naa 2oftHr8OxOfSOOfisZsbN csXJZ9f9KbFv47M6DrcIb yj1AvSqx2yt96 jLTup7Z4iBU1N4VzIOJqe rvpxYQmcBylEB6tZKGjvi qrHJBdkN2mLNIjE0r0GiI fQnZ8HJpqJ0Gy mbM1VUBmlYSrEHJnlBZOi N1tnpagf3algzmeHuQwCV XnWFq3PRl1REQdtGmsOkT iNYC5KxH9BVQ4 yUZofD9eaUipjmyesQ1wC yc+BIa3x6pteVIwIE6unK Q7JH49EV96jKIvg8Y3mNI 6A7HgJYDmjqwu hdkkhKH5WNGjAIXghX86H o6stKgrKl3jVRIyWXN7KI EycTEiA8OyjG3pMaQgVAI lOBCeN5HsbURc BPllT879UXugUjX2CCTkk eZzO6HoLNPkdEdjRqT3u4 U7Lw7SXU83NX46FP53tNG kx2J1aSM7T7Ei COIbzpapxojqqKX7RVVlH KUprU31Yo2ihBlgLi2jZR CcQGW7NRIzgCJkB2EvsD2 yOiAjMDAwMDAw D0FalKHmSZnyS339VJxgD oK0ZLMzvtWtK1QzWXKyhA ptUrG3f8P9To2YTt55ED6 8GS75sIWwi6W1 jJZ3F7RvHCDntoowryjuz BN8BQYgWGUjdV77Yn5grL wiOn3tKPPrSFJ3QBBusDI kC4YgfH7jGwVq PCRnYPUnU4StpWHqJFrnX 677IHgeKfQ0GHAzvpXyD6 UdFTYilAgbRzN8v4P7Ra1 MONfhcay9G1Ku PjwvdHI+HE13QDJzTP24u PNcvLDkh4gkaAt0MoDfXX PmCNI0vAjdVYqbf4GjDXG vM01fiYUko0Z7 IGNv (more content not included)... Normal [facility] [facility] Consent for Treatmenton Consent for Treatment [id number] .00CD:[address] [facility] Discharge Instructionson Discharge Instructions [id number] .[id number]:[address] [facility] ED Clinical Summaryon 2021 ED Clinical Summary [place] [id number] ED Clinical Summary Person Information Name: CHRISTI HASTINGS/[facility] Age: 22 Years : 2000 Sex: Female Language: Yemeni PCP: NONE, XXXX Marital Status: Single MRN: [...] 10/31/2022 02:29:41 10/31/2022 02:29:41 10/31/2022 02:29:41 ADDRESS: [address] [facility] [id number] PHYS DOC NOTES: MEDICAL INFORMATION: Prescriptions Given: New Medications [id number], [address] [place], [place] [id number], [phone] dicyclomine (Bentyl 10 mg Cap) 1 Capsules [...] up: With: Address: When: Jose WHITE [address] [phone] Business (1) In 3 days 11/03/2022 DIAGNOSIS: AP (abdominal pain); N&V (nausea and vomiting) Normal 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 ED Note-Physicianon 10-31-20 ED Note-Physician Basic Information [...] day(s), # 28 cap(s), Refills(s) 0, Pharmacy: [id number], 157.5, cm, 10/30/22 23:48:00 EST, Height/Length [...] Nausea/Vomiting, # 28 tab(s), Refills(s) 0, [id number] 157.5, cm, 10/30/22 23:48:00 EST, Height/Length [...] PRN Follow-up With When Contact Information Jose WHITE In 3 days 11/03/2022 [place] [address] [place] [address] Business (1) Additional Instructions: Patient Education Abdominal [...] Marijuana, 05/18/2022 (more content not included)... Normal [facility] Comment on above: Result Comment: Elec tronically [...] these instructions at home: Medicines ? Take izql-fjb-gozbyzo and prescription medicines only as told by [...] your condition for any changes. ? Take rzjo-dbm-bveecpj and prescription medicines only as told by [...] Reviewed: 03/23/2020 Elsevier Patient Education ? 2019 Elsevier Inc. Normal [facility] ED Patient Summaryon 022 ED Patient Summary [address] [address] Patient Discharge Instructions Person Information Name: CHRISTI HASTINGS Age: 22 Years Arrival Date: 10/30/2022 23:37:29 Discharge Diagnosis: AP (abdominal pain); N&V (nausea and vomiting) Primary Care Physician: NONE, XXXX Provider Information Primary Provider: Nagi Kirby DO Advanced Icing Machine Operator:None The exam and treatment you received in the Emergency Department were for an urgent problem and are not intended as complete care. It is important that you follow up with a doctor, nurse practitioner, or physician?s regulatory assistant for ongoing care. If your symptoms [...] Follow-up Instructions: With: Address: When: Jose WHITE [address] [place] [address] [address] [place] [phone] Business (1) In 3 days 11/03/2022 In the event that this physician does not participate in your insurance network, please consult with your insurance company to find a nearby participating provider. Patient Education Materials: Abdominal Pain, Adult A MESSAGE TO ALL PATIENTS REGARDING OPIOIDS PRESCRIPTION OPIOIDS: WHAT YOU NEED TO KNOW Prescription opioids can be used to help relieve qjsaijch-ty-hjosrz pain and are often prescribed following a [...] guidance from the Food and Drug Administration (www.fda.gov/Drugs/Re sourcesForYou). ? Visit www.cdc.gov/drugoverd ose to learn about the risks of opioids abuse and overdose. ? If you believe you may be struggling with addiction, tell your health wild animal caretaker and ask for guidance or call [facility] National Helpline at 9-438-574-TSPV. v Source: [place] Depa (more content not included)... Normal [facility] HEMATOLOGYOrdered By: SYSTEM SYSTEM on 10-31-2022 Basophils/100 WBC (Bld) 0.9 % Normal 0.0 - 2.0 % [facility] HemeAutoSS Basophils/Leukocytes Auto (Bld) [Pure # fraction] 0.1 E9/L Normal 0.0 - 0.2 E9/L [facility] HemeAutoSS Eosinophils/100 WBC (Bld) 0.2 % Normal 0.0 - 8.0 % [facility] HemeAutoSS Eosinophils/Leukocytes Auto (Bld) [Pure # fraction] 0.0 E9/L Normal 0.0 - 0.5 E9/L [facility] HemeAutoSS Lymphocytes/100 WBC (Bld) 16.8 % Normal 14.0 - 50.0 % [facility] HemeAutoSS Lymphocytes/Leukocytes Auto (Bld) [Pure # fraction] 1.4 E9/L Normal 1.0 - 4.0 E9/L [facility] HemeAutoSS Monocytes/100 WBC (Bld) 5.0 % Normal 4.0 - 14.0 % [facility] HemeAutoSS Monocytes/Leukocytes Auto (Bld) [Pure # fraction] 0.4 E9/L Normal 0.2 - 1.0 E9/L [facility] HemeAutoSS Neutrophils/100 WBC (Bld) 77.1 % High 36.0 - 75.0 % [facility] HemeAutoSS Neutrophils/Leukocytes Auto (Bld) [Pure # fraction] 6.4 E9/L Normal 2.0 - 7.5 E9/L [facility] HemeAutoSS HEMATOLOGYOrdered By: Tracy Jacobs on 10-31-2022 Erythrocyte distribution width (RBC) [Ratio] 14.7 % High 10.9 - 14.2 % [facility] HemeAutoSS Hematocrit (Bld) [Volume fraction] 36.8 % Normal 34.0 - 46.0 % [facility] HemeAutoSS Hemoglobin (Bld) [Mass/Vol] 12.2 g/dL Normal 12.0 - 16.0 gm/dL [facility] HemeAutoSS MCH (RBC) [Entitic mass] 28.5 pg Normal 27.0 - 34.0 pg [facility] HemeAutoSS MCHC (RBC) [Mass/Vol] 33.3 g/dL Normal 31.4 - 36.0 gm/dL [facility] HemeAutoSS MCV (RBC) [Entitic vol] 85.6 fL Normal 80.0 - 100.0 fL [facility] HemeAutoSS Platelet mean volume (Bld) [Entitic vol] 9.0 fL Normal 6.4 - 10.8 fL [facility] HemeAutoSS Platelets (Bld) [#/Vol] 267.0 E9/L Normal 150.0 - 500.0 E9/L [facility] HemeAutoSS RBC (Bld) [#/Vol] 4.3 E12/L Normal 4.3 - 5.9 E12/L [facility] HemeAutoSS WBC corrected for nucl RBC Auto (Bld) [#/Vol] 8.3 E9/L Normal 4.0 - 11.0 E9/L [facility] HemeAutoSS Hep Func Panelon 10-31-2022 Albumin [Mass/Vol] 4.7 g/dL Normal 3.3-5.[address] [facility] Comment on above: Performed By: #### 2 287097, 5687888, 6080941, 1286730, 32557812, 3558246 ####[facility] [address] [place] [address] Albumin/Globulin (S) [Mass conc ratio] 1.7 Normal 1.1-2.[address] [facility] Comment on above: Performed By: #### 2 677819, 6100237, 7442378, 0438907, 98978841, 2864069 ####[facility] [address] [place] [address] ALP [Catalytic activity/Vol] 59 Int._Unit/L Normal 21-[address] [facility] Comment on above: Performed By: #### 2 395621, 8092914, 2569462, 3791950, 38752873, 5164580 ####[facility] [address] [place] [address] ALT No additional P-5'-P [Catalytic activity/Vol] 11 Int._Unit/L Normal 6-[address] [facility] Comment on above: Performed By: #### 2 354372, 7281335, 5956291, 0993225, 86924985, 9361139 ####[facility] [address] [place] [address] AST [Catalytic activity/Vol] 14 Int._Unit/L Normal 5-[address] [facility] Comment on above: Performed By: #### 2 711563, 5917257, 5225818, 6946965, 84851088, 3144429 ####[facility] [address] [place] [address] Bilirubin [Mass/Vol] 0.5 mg/dL Normal 0.0-1.1 [facility] Comment on above: Performed By: #### 2 717175, 4361272, 2596662, 9296508, 86494230, 3756272 ####[place] [address] [place] [address] Bilirubin.direct [Mass/Vol] 0.1 mg/dL Normal 0.1-0.[address] [facility] Comment on above: Performed By: #### 2 562590, 7706905, 8790160, 5826394, 34296894, 8199782 ####[address] [address] Bilirubin.indirect [Mass or moles/Vol] 0.4 mg/dL Normal 0.1-0.[address] [facility] Comment on above: Performed By: #### 2 100780, 0538776, 0998949, 1742657, 89907711, 2150747 ####[facility] [address] [place] [address] Globulin (S) [Mass/Vol] 2.7 g/dL Normal 1.4-4.[address] [facility] Comment on above: Performed By: #### 2 082782, 3190347, 0999109, 2804321, 45766154, 9976159 ####[place] [address] [place] [address] Protein [Mass/Vol] 7.4 g/dL Normal 6.0-7.[address] [facility] Comment on above: Performed By: #### 2 489060, 3929147, 2488149, 6099711, 06501506, 9760147 ####[facility] [address] [place] [address] Lipase Levelon 10-31-2022 Lipase [Catalytic activity/Vol] 34 U/L Normal 13-[address] [facility] Comment on above: Performed By: #### 2 124388, 9936664, 7127886, 0933038, 92635113, 2916705 ####[address] [address] Prescriptions/Work Noteson 1 01-01-2022 Prescriptions/Work Notes [id number] .[id number]:[address] [facility] SEROLOGYOrdered By: Aracelis Jacobs on 10-31-2022 HCG.beta subunit (U) [Moles/Vol] Negative Normal [facility] Man Sero U BetaHcg Qualon 10-31-2022 HCG.beta subunit (U) [Moles/Vol] Negative Normal [facility] Comment on above: Performed By: #### 1 8773078, 95989784 ####[address] [address] UA With Cult Reflexon 2021 Bacteria LM Ql (Urine sed) TRACE Normal Trace [facility] Comment on above: Performed By: #### 1 7543192, 23778201 ####[address] [address] Bilirubin Ql (U) Negative Normal Negative [facility] Comment on above: Performed By: #### 1 1232058, 00707629 ####[address] [address] Clarity (U) CLEAR Normal Clear [facility] Comment on above: Performed By: #### 1 7014781, 63238534 ####[address] [address] Color (U) STRAW Abnormal Yellow [facility] Comment on above: Performed By: #### 1 2166498, 70329323 ####[address] [address] Epithelial cells.squamous LM.HPF (Urine sed) [#/Area] 0-2 Normal 0-2 [facility] Comment on above: Performed By: #### 1 8032714, 78146176 ####[place] [address] [address] Glucose Test strip (U) [Mass/Vol] Negative Normal Negative [facility] Comment on above: Performed By: #### 1 4229597, 69778864 ####[address] [address] Hemoglobin Ql (U) Negative Normal Negative [facility] Comment on above: Performed By: #### 1 8027072, 21799926 ####[address] [address] Ketones (U) [Mass/Vol] TRACE Abnormal Negative [facility] Comment on above: Performed By: #### 1 6797109, 26565025 ####[address] [address] [place].plasma/[place] .RBC (Bld) [Mass ratio] 0-3 Normal 0-[address] [facility] Comment on above: Performed By: #### 1 2895342, 15830365 ####[address] [address] Nitrite Ql (U) Negative Normal Negative [facility] Comment on above: Performed By: #### 1 1205410, 18778212 ####[address] [address] pH (U) 6.5 [pH] Invalid Interpretation Code 5.0-9.[address] [facility] Comment on above: Performed By: #### 1 6916467, 24433266 ####[address] [address] Protein (U) [Mass/Vol] Negative Normal Negative [facility] Comment on above: Performed By: #### 1 6985812, 41848813 ####[address] [address] Specific gravity (U) [Rel density] <=1.005 Invalid Interpretation Code 1.005-1.[address] [facility] Comment on above: Performed By: #### 1 8246691, 44433381 ####[facility] [address] [place] [address] Type of Urine collection method Clean Catch Normal [facility] Comment on above: Performed By: #### 1 5570263, 04510735 ####[facility] [address] [place] [address] Urobilinogen Qn (U) 0.2 {Christel'U}/dL Normal 0.0-1.[address] [facility] Comment on above: Performed By: #### 1 5345824, 31586744 ####[facility] [address] [place] [address] WBC Auto Ql (U) Negative Normal Negative [facility] Comment on above: Performed By: #### 1 4009052, 72734508 ####[address] [address] WBC LM.HPF (Urine sed) [#/Area] 0-5 Normal 0-[address] [facility] Comment on above: Performed By: #### 1 5766296, 79648232 ####[facility] [address] [place], [place] [address] URINALYSISOrdered By: Tracy Jacobs on 10-31-2022 Bacteria LM Ql (Urine sed) Trace /HPF Normal Trace/HPF [facility] UA Auto SS Bilirubin Ql (U) Negative (10/31/22 12:31 AM) Normal Negative [facility] UA Auto SS Clarity (U) Clear (10/31/22 12:31 AM) Normal Clear [facility] UA Auto SS Color (U) Straw *ABN* (10/31/22 12:31 AM) Invalid Interpretation Code Yellow [facility] UA Auto SS Epithelial cells.squamous LM.HPF (Urine sed) [#/Area] 0-2 /HPF Normal 0-2/HPF [facility] UA Aut o SS Glucose Test strip (U) [Mass/Vol] Negative (10/31/22 12:31 AM) Normal Negative [facility] UA Auto SS Hemoglobin Ql (U) Negative (10/31/22 12:31 AM) Normal Negative [facility] UA Auto SS Ketones (U) [Mass/Vol] Trace *ABN* (10/31/22 12:31 AM) Invalid Interpretation Code Negative [facility] UA Auto SS [place].plasma/[place] .RBC (Bld) [Mass ratio] 0-3 /HPF Normal 0-3/HPF [...] AM) Invalid Interpretation Code 1.005 - 1.030 [facility] UA Auto SS UA Spec Desc Clean Catch (10/31/22 12:31 AM) Normal [facility] UA Auto SS Urobilinogen Qn (U) 0.8299503 {Christel'U}/dL Normal 0.0 - 1.0 EU/dL [facility] UA Auto SS WBC Auto Ql (U) Negative (10/31/22 12:31 AM) Normal Negative [facility] UA Auto SS WBC LM.HPF (Urine sed) [#/Area] 0-5 /HPF Normal 0-5/HPF [facility] UA Auto SS eGFRon 10-31-2022 GFR/1.73 sq M.predicted among blacks MDRD (S/P/Bld) [Vol rate/Area] mL/min/{1.73_m2} Normal >=[address] [facility] Comment on above: Order Comment: Order added by Discern Expert. Result Comment: eGFR is race adjusted. AA=. Performed By: #### 2 136616, 4302594, 1808328, 9548888, 43932572, 8144575 ####[facility] [address] [place] [address] GFR/1.73 sq M.predicted among non-blacks MDRD (S/P/Bld) [Vol rate/Area] mL/min/{1.73_m2} Normal >=[address] [facility] Comment on above: Order Comment: Order added by Discern Expert. Result Comment: Running Rigger mohan kidney disease could be indicated at eGFR's of less than 60 mL/min/1.73m2. Kidney failure is indicated at less than 15 mL/min/1.73m2. Performed By: #### 2 734550, 5839526, 6005565, 9387744, 95120803, 6436927 ####[facility] [address] [place] [address] Consent for Treatmenton 09-29 Consent for Treatment [id number] .00CD:[address] [facility] Discharge Instructionson Discharge Instructions [id number]# 1.00CD:[address] [facility] ED Clinical Summaryon 2021 ED Clinical Summary [place] [id number] ED Clinical Summary Person Information Name: CHRISTI HASTINGS/[facility] Age: 22 Years : 2000 Sex: Female Language: Yemeni PCP: NONE, XXXX Marital Status: Single MRN: [...] 10/26/2022 16:18:56 10/26/2022 16:18:56 10/26/2022 16:18:56 ADDRESS: [address] [place] [address] [place] [id number] PHYS DOC NOTES: MEDICAL INFORMATION: Prescriptions Given: Medications to Continue with No Changes Other Medications naproxen (naproxen 500 mg Tab) 1 Tablets By Mouth 2 times a day. Take one tab by mouth two times a day. Refills: 0. PATIENT EDUCATION INFORMATION: Instructions: Viral Gastroenteritis, Adult, Ooig-fv-Xaye; Viral Illness, Adult Follow up: With: Address: When: Hang Jacobsen [address] [place] [address], [facility] [place], [employer] [address] [employer] (1) In 3 days 10/29/2022 Comments: Follow-up [...] 3 days 10/29/2022 DIAGNOSIS: Viral illness Normal [facility] ED Note-Physicianon 10-26-20 ED Note-Physician Basic Information [...] Psychiatric: Cooperative and appropriate Medical Decision Making Zegqpqq17-kbnu-yea female reports to the emergency department with [...] doctor as well. Discussed she can take xqpa-cpx-sznlpgf medications for symptoms. Follow-up with your primary [...] EST Influenza A&B Ag Rapid COVID Antigen ([facility] U Beta Hcg Qual UA With Cult Reflex Medications Administered Given Zofran ODT 4 mg Tab-Dis, 4 mg, Oral Disposition Plan Patient Discharge Condition Stable improved Discharge Disposition To home Discharge Prescription List Prescriptions No active prescription medications Follow-up With When Contact Information Hang Jacobsen In 3 days 10/29/[address] [place] [address] [address] [place] Sán[place] [address] [facility] (1) Additional Instructions: Follow-up with your primary care provider. He did not have any follow-up with Dr. Jacobsen. Follow-up with your primary care provider in 3 to 5 days. If symptoms worsen, do not improve, or new symptoms arise please report back to emergency department for further evaluation. XXXX NONE In 3 days 10/29/2022 EST MD Additional Instructions: Patient Education Viral Gastroenteritis, Adult, Jrph-mo-Apag Viral Illness, Adult Attestation Patient seen and evaluated by the physician regulatory assistant. Attending physician was present in the emergency department and supervised care. This visit was performed by both the physician and an APC. I performed all aspects of the MDM as documented. This report was transcribed using voice recognition software. Every effort was made to ensure accuracy, however, inadvertently computerized manager digital mistakes may be present. Appropriate (more content not included)... Normal [facility] Comment on above: Result Comment: Elec tronically Signed By: Johnny Ghotra PA-C\.br\Date and Time Signed: 10/26/22 18:27 EST\.br\Electronically Co-Signed By: Tha Tiwari DO\.br\Date and Time Co-Signed: 10/26/22 19:26 EST ED [...] 3 years old. ? Living in a half-way. ? Going on cruise ships. 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 ? Make sure that all people in your home wash their hands well and often. ? Take xjuj-fmz-hxkaswf and prescription medicines only as told by [...] advice given (more content not included)... Normal [facility] ED Patient Summaryon 022 ED Patient Summary [address] [address] Patient Discharge Instructions Person Information Name: CHRISTI HASTINGS Age: 22 Years Arrival Date: 10/26/2022 13:29:51 Discharge Diagnosis: Viral illness Primary Care Physician: NONE, XXXX Provider Information Primary Provider: Tha Tiwari DO Advanced Icing Machine Operator:Emy The exam and treatment you received in the Emergency Department were for an urgent problem and are not intended as complete care. It is important that you follow up with a doctor, nurse practitioner, or physician?s regulatory assistant for ongoing care. If your symptoms [...] Follow-up Instructions: With: Address: When: Hang Jacobsen [address] [place] [address] Business (1) In 3 days 10/29/2022 Comments: Follow-up with your primary care provider. He did not have any follow-up with Dr. Jacobsen. Follow-up with your primary care provider in 3 to 5 days. If symptoms worsen, do not improve, or new symptoms arise please report back to emergency department for further evaluation. With: Address: When: XXXX EMY , MD In 3 days 10/29/2022 In the event that this physician does not participate in your insurance network, please consult with your insurance company to find a nearby participating provider. Patient Education Materials: Viral Gastroenteritis, Adult, Duxw-bt-Oytw; Viral Illness, Adult A MESSAGE TO ALL PATIENTS REGARDING OPIOIDS PRESCRIPTION OPIOIDS: WHAT YOU NEED TO KNOW Prescription opioids can be used to help relieve zqjczzxe-kl-gqybmr pain and are often prescribed following a [...] toilet, followin (more content not included)... Normal [facility] Influenza A&B Agon Influenzae A Ag Negative Normal Negative [facility] Comment on above: Performed By: #### 2 [id number], [id number] ####[facility] [address] [place] [address] Influenzae B Ag Negative Normal Negative [facility] Comment on above: Result Comment: Test sensitivity and specificity vary for age group, specimen type, antigen types, and prevalence of disease. Test results must be evaluated in conjunction with other clinical data available to the physician. Individuals who received nasally administered Influenza A vaccine may have positive test results up to 3 days after vaccination. Performed By: #### 2 [id number], [id number] ####[facility] [address] [place] [address] MICRO OTHER TESTSOrdered By: Tata Vasquez on 10-26-2022 Influenzae A Ag Negative (10/26/22 3:10 PM) Normal Negative [facility] [place] Sero Influenzae B Ag Negative (10/26/22 3:10 PM) Normal Negative [facility] Man Sero Rapid COV Int NEG Ctl Pass (10/26/22 3:10 PM) Normal [facility] Man Sero Rapid COV Int POS Ctl Pass (10/26/22 3:10 PM) Normal [facility] Man Sero SARS-CoV+SARS-CoV-2 (COVID-19) Ag IA.rapid Ql (Resp) Not Detected (10/26/22 3:10 PM) Normal Not Detected [facility] [place] Sero Rapid COVID Antigen ([facility])on 10-26-2022 Rapid COV Int NEG Ctl Pass Normal [facility] Comment on above: Performed By: #### 2 [id number], [id number] ####[facility] [address] [place] [address] Rapid COV Int POS Ctl Pass Normal Fis her [facility] Comment on above: Performed By: #### 2 [id number], [id number] ####[place] [facility] [address] [place] [address] SARS-CoV+SARS-CoV-2 (COVID-19) Ag IA.rapid Ql (Resp) Not detected Normal Not Detected [facility] Comment on above: Result Comment: The [employer]? System for Rapid Detection of SARS-CoV-2 is [...] or revoked sooner. Performed By: #### 2 [id number], [id number] ####[facility] [address] [place] [address] ADMITTED TO INTENSIVE CARE UNIT FOR CONDITION OF INTEREST:FIND:PT: NO Normal [facility] Comment on above: Performed By: #### 2 [id number], [id number] ####[place] [address] EMPLOYED IN A HEALTHCARE SETTING:FIND:PT: NO Normal [facility] Comment on above: Performed By: #### 2 [id number], [id number] ####[place] [address] FIRST TEST FOR CONDITION OF INTEREST:FIND:PT: Unknown Normal [facility] Comment on above: Performed By: #### 2 [id number], [id number] ####[place] [address] HAS SYMPTOMS RELATED TO CONDITION OF INTEREST:FIND:PT: YES Normal [facility] Comment on above: Performed By: #### 2 [id number], [id number] ####[place] [address] HOSPITALIZED FOR CONDITION OF INTEREST:FIND:PT: NO Normal [facility] Comment on above: Performed By: #### 2 [id number], [id number] ####[place] [id number] STATUS:FIND:PT: Unknown Normal [facility] [facility] Comment on above: Performed By: #### 2 [id number], [id number] ####[place] [id number] RESIDES IN A CONGREGATE CARE SETTING:FIND:PT: NO Normal [facility] Comment on above: Performed By: #### 2 [id number], [id number] ####[address] [address] SEROLOGYOrdered By: Tata Vasquez on 10-26-2022 HCG.beta subunit (U) [Moles/Vol] Negative Normal [facility] [place] Sero U BetaHcg Qualon 10-26-2022 HCG.beta subunit (U) [Moles/Vol] Negative Normal [facility] Comment on above: Performed By: #### 2 [id number], [id number] ####[facility] [address] [place] [address] UA With Cult Reflexon 2021 Bacteria LM Ql (Urine sed) TRACE Normal Trace [facility] Comment on above: Performed By: #### 2 [id number], [id number] ####[address] [address] Bilirubin Ql (U) Negative Normal Negative [facility] Comment on above: Performed By: #### 2 [id number], [id number] ####[address] [address] Clarity (U) CLEAR Normal Clear [facility] Comment on above: Performed By: #### 2 [id number], [id number] ####[address] [address] Color (U) YELLOW Normal Yellow [facility] Comment on above: Performed By: #### 2 [id number], [id number] ####[address] [address] Epithelial cells.squamous LM.HPF (Urine sed) [#/Area] 3-4 Normal 0-2 [facility] Comment on above: Performed By: #### 2 [id number], [id number] ####[facility] [address] [place] [address] Glucose Test strip (U) [Mass/Vol] Negative Normal Negative [facility] Comment on above: Performed By: #### 2 [id number], [id number] ####[address] [address] Hemoglobin Ql (U) 3+ Abnormal Negative [facility] Comment on above: Performed By: #### 2 [id number], [id number] ####[address] [address] Ketones (U) [Mass/Vol] Negative Normal Negative [facility] Comment on above: Performed By: #### 2 [id number], [id number] ####[address] [address] [place].plasma/[place] .RBC (Bld) [Mass ratio] 4-20 Normal 0-[address] [facility] Comment on above: Performed By: #### 2 [id number], [id number] ####[place] [id number] Nitrite Ql (U) Negative Normal Negative [facility] Comment on above: Performed By: #### 2 [id number], [id number] ####[place] [id number] pH (U) 6.5 [pH] Invalid Interpretation Code 5.0-9.[address] [facility] Comment on above: Performed By: #### 2 [id number], [id number] ####[place] [id number] Protein (U) [Mass/Vol] Negative Normal Negative [facility] Comment on above: Performed By: #### 2 [id number], [id number] ####[place] [id number] Specific gravity (U) [Rel density] 1.010 Invalid Interpretation Code 1.005-1.[address] [facility] Comment on above: Performed By: #### 2 [id number], [id number] ####[address] [address] Type of Urine collection method Clean Catch Normal [facility] Comment on above: Performed By: #### 2 [id number], [id number] ####[address] [address] Urobilinogen Qn (U) 0.2 {Christel'U}/dL Normal 0.0-1.[address] [facility] Comment on above: Performed By: #### 2 [id number], [id number] ####[address] [place] [address] WBC Auto Ql (U) Negative Normal Negative [facility] Comment on above: Performed By: #### 2 [id number], [id number] ####[facility] [address] [place] [address] WBC LM.HPF (Urine sed) [#/Area] 0-5 Normal 0-[address] [facility] Comment on above: Performed By: #### 2 [id number], [id number] ####[facility] [address] [place] [address] URINALYSISOrdered By: Shital Vasquez on 10-26-2022 Bacteria LM Ql (Urine sed) Trace /HPF Normal Trace/HPF [facility] UA Auto SS Bilirubin Ql (U) Negative (10/26/22 3:30 PM) Normal Negative [facility] UA Auto SS Clarity (U) Clear (10/26/22 3:30 PM) Normal Clear [facility] UA Auto SS Color (U) Yellow (10/26/22 3:30 PM) Normal Yellow [facility] UA Auto SS Epithelial cells.squamous LM.HPF (Urine sed) [#/Area] 3-4 /HPF Normal 0-2/HPF [facility] UA Aut o SS Glucose Test strip (U) [Mass/Vol] Negative (10/26/22 3:30 PM) Normal Negative [facility] UA Auto SS Hemoglobin Ql (U) 3+ *ABN* (10/26/22 3:30 PM) Invalid Interpretation Code Negative [facility] UA Auto SS Ketones (U) [Mass/Vol] Negative (10/26/22 3:30 PM) Normal Negative [facility] UA Auto SS [place].plasma/[place] .RBC (Bld) [Mass ratio] 4-20 /HPF Normal 0-3/HPF [...] PM) Invalid Interpretation Code 1.005 - 1.030 [facility] [place] UA Auto SS UA Spec Desc Clean Catch (10/26/22 3:30 PM) Normal [facility] [place] UA Auto SS Urobilinogen Qn (U) 0.5137192 {Christel'U}/dL Normal 0.0 - 1.0 EU/dL [facility] [place] UA Auto SS WBC Auto Ql (U) Negative (10/26/22 3:30 PM) Normal Negative [facility] [place] UA Auto SS WBC LM.HPF (Urine sed) [#/Area] 0-5 /HPF Normal 0-5/HPF [facility] [place] UA Auto SS CHEMISTRYOrdered By: SYSTEM SYSTEM on 07-25-2022 Anion gap [Moles/Vol] 12 mmol/L Normal 6 - 16 mEq/L [facility] Remisol Calcium [Mass/Vol] 9.5 mg/dL Normal 8.9 - 11. 1 mg/dL [facility] Chloride [Moles/Vol] 105 mmol/L Normal 101 - 1 11 mmol/L [facility] CO2 [Moles/Vol] 27 mmol/L Normal 21 - 31 mmol/L [facility] Creatinine [Mass/Vol] 0.6 mg/dL Normal 0.5 - 1.3 mg/dL [facility] GFR/1.73 sq M.predicted among blacks MDRD (S/P/Bld) [Vol rate/Area] mL/min/1.73 m2 Normal >=59mL/min/1 .73 m2 [facility] [place] Chem S GFR/1.73 sq M.predicted among non-blacks MDRD (S/P/Bld) [Vol rate/Area] mL/min/1.73 m2 Normal >=59mL/min/1 .73 m2 [facility] [place] Chem S Glucose [Mass/Vol] 114 mg/dL Normal 55 - 199 mg/dL [facility] Potassium [Moles/Vol] 4.0 mmol/L Normal 3.5 - 5.3 mmol/L [facility] Sodium [Moles/Vol] 140 mmol/L Normal 135 - 145 mmol/L [facility] Troponin I.cardiac [Mass/Vol] pg/mL Low 10.10 - 27.10 pg/mL [facility] Urea nitrogen [Mass/Vol] 8 mg/dL Normal 5 - 21 mg/dL [facility] Remisol Urea nitrogen/Creatinine [Mass ratio] 13 mg/mg Normal 10 - 20 [facility] Remisol COAGULATIONOrdered By: Najma Vasquez on 07-25-2022 aPTT Coag (PPP) [Time] 34.7 s Normal 25.1 - 36.5 second(s) [facility] Auto Coag INR Coag (PPP) [Relative time] 1.1 {INR} Invalid Interpretation Code [facility] Auto Coag PT Coag (PPP) [Time] 12.0 s Normal 9.4 - 1 2.5 second(s) [facility] Auto Coag HEMATOLOGYOrdered By: SYSTEM SYSTEM on 07-25-2022 Basophils/100 WBC (Bld) 1.8 % Normal 0.0 - 2.0 % [facility] HemeAutoSS Basophils/Leukocytes Auto (Bld) [Pure # fraction] 0.1 E9/L Normal 0.0 - 0.2 E9/L [facility] HemeAutoSS Eosinophils/100 WBC (Bld) 1.2 % Normal 0.0 - 8.0 % [facility] HemeAutoSS Eosinophils/Leukocytes Auto (Bld) [Pure # fraction] 0.1 E9/L Normal 0.0 - 0.5 E9/L [facility] HemeAutoSS Lymphocytes/100 WBC (Bld) 24.7 % Normal 14.0 - 50.0 % [facility] HemeAutoSS Lymphocytes/Leukocytes Auto (Bld) [Pure # fraction] 1.4 E9/L Normal 1.0 - 4.0 E9/L [facility] HemeAutoSS Monocytes/100 WBC (Bld) 9.0 % Normal 4.0 - 14.0 % [facility] HemeAutoSS Monocytes/Leukocytes Auto (Bld) [Pure # fraction] 0.5 E9/L Normal 0.2 - 1.0 E9/L [facility] HemeAutoSS Neutrophils/100 WBC (Bld) 63.3 % Normal 36.0 - 75.0 % [facility] HemeAutoSS Neutrophils/Leukocytes Auto (Bld) [Pure # fraction] 3.5 E9/L Normal 2.0 - 7.5 E9/L [facility] HemeAutoSS HEMATOLOGYOrdered By: Mireya Handy on 07-25-2022 Erythrocyte distribution width (RBC) [Ratio] 14.9 % High 10.9 - 14.2 % [facility] HemeAutoSS Hematocrit (Bld) [Volume fraction] 35.8 % Normal 34.0 - 46.0 % [facility] HemeAutoSS Hemoglobin (Bld) [Mass/Vol] 12.3 g/dL Normal 12.0 - 16.0 gm/dL [facility] HemeAutoSS MCH (RBC) [Entitic mass] 29.4 pg Normal 27.0 - 34.0 pg [facility] HemeAutoSS MCHC (RBC) [Mass/Vol] 34.2 g/dL Normal 31.4 - 36.0 gm/dL [facility] HemeAutoSS MCV (RBC) [Entitic vol] 85.9 fL Normal 80.0 - 100.0 fL [facility] HemeAutoSS Platelet mean volume (Bld) [Entitic vol] 9.3 fL Normal 6.4 - 10.8 fL [facility] HemeAutoSS Platelets (Bld) [#/Vol] 247.0 E9/L Normal 150.0 - 500.0 E9/L [facility] HemeAutoSS RBC (Bld) [#/Vol] 4.2 E12/L Low 4.3 - 5.9 E12/L [facility] HemeAutoSS WBC corrected for nucl RBC Auto (Bld) [#/Vol] 5.5 E9/L Normal 4.0 - 11.0 E9/L [facility] HemeAutoSS Vital Signs Date Time Vital Sign Value Performing Clinician Roosevelt guy 09-13-2023 10:13-0400 Diastolic blood pressure 73 mm[Hg] Yvon Morales [facility] 09-13-2023 10:13-0400 Heart rate 66 /min Yvon Morales [facility] 09-13-2023 10:13-0400 Mean blood pressure 87 mm[Hg] Yvon Morales [facility] 09-13-2023 10:13-0400 Respiratory rate 18 /min Yvon Morales [facility] 09-13-2023 10:13-0400 SaO2% (BldA) [Mass fraction] 99 % Yvon Morales [facility] 09-13-2023 10:13-0400 Systolic blood pressure 114 mm[Hg] Yvon Andrew [facility] 09-13-2023 09:30-0400 Diastolic blood pressure 67 mm[Hg] Yvon Andrew [facility] 09-13-2023 09:30-0400 Heart rate 98 /min Yvon Andrew [facility] 09-13-2023 09:30-0400 Mean blood pressure 82 mm[Hg] Yvon Andrew [facility] 09-13-2023 09:30-0400 Respiratory rate 17 /min Yvon Andrew [facility] 09-13-2023 09:30-0400 SaO2% (BldA) [Mass fraction] 98 % Yvon Andrew [facility] 09-13-2023 09:30-0400 Systolic blood pressure 111 mm[Hg] Yvon Andrew [facility] 09-13-2023 08:20-0400 Diastolic blood pressure 61 mm[Hg] Yvon Andrew [facility] 09-13-2023 08:20-0400 Heart rate 105 /min Yvon Andrew [facility] 09-13-2023 08:20-0400 Mean blood pressure 78 mm[Hg] Yvon Andrew [facility] 09-13-2023 08:20-0400 Respiratory rate 16 /min Yvon Andrew [facility] 09-13-2023 08:20-0400 SaO2% (BldA) [Mass fraction] 97 % Yvon Andrew [facility] 09-13-2023 08:20-0400 Systolic blood pressure 111 mm[Hg] Yvon Andrew [facility] 09-13-2023 04:47-0400 Body temperature 98.24 [degF] Yvon Moraels [facility] 09-13-2023 04:47-0400 Heart rate 95 /min Yvon Morales [facility] 09-13-2023 04:47-0400 Respiratory rate 18 /min Yvon Morales [facility] 10-31-2022 02:26-0500 Diastolic blood pressure 85 mm[Hg] Nagi Mirta [facility] 10-31-2022 02:26-0500 Mean blood pressure 96 mm[Hg] Nagi Mirta [facility] 10-31-2022 02:26-0500 Respiratory rate 20 /min Nagi Mirta [facility] 10-31-2022 02:26-0500 SaO2% (BldA) [Mass fraction] 99 % Nagi Mirta [facility] 10-31-2022 02:26-0500 Systolic blood pressure 117 mm[Hg] Nagi Mirta [facility] 10-31-2022 01:35-0500 Diastolic blood pressure 75 mm[Hg] Nagi Mirta [facility] 10-31-2022 01:35-0500 Mean blood pressure 88 mm[Hg] Nagi Mirta [facility] 10-31-2022 01:35-0500 Respiratory rate 23 /min Nagi Mirta [facility] 10-31-2022 01:35-0500 SaO2% (BldA) [Mass fraction] 97 % Nagi Mirta [facility] 10-31-2022 01:35-0500 Systolic blood pressure 115 mm[Hg] Nagi Mirta [facility] 10-31-2022 00:36-0500 Diastolic blood pressure 74 mm[Hg] Nagi Mirta [facility] 10-31-2022 00:36-0500 Heart rate 85 /min Nagi Mirta [facility] 10-31-2022 00:36-0500 Mean blood pressure 89 mm[Hg] Nagi Mirta [facility] 10-31-2022 00:36-0500 Respiratory rate 16 /min Nagi Mirta [facility] 10-31-2022 00:36-0500 SaO2% (BldA) [Mass fraction] 98 % Nagi Mirta [facility] 10-31-2022 00:36-0500 Systolic blood pressure 119 mm[Hg] Nagi Mirta [facility] 10-30-2022 23:38-0500 Body temperature 98.42 [degF] Nagi Mirta [facility] 10-30-2022 23:38-0500 Heart rate 93 /min Nagi Mirta [facility] 10-30-2022 23:38-0500 Respiratory rate 18 /min Nagi Mirta [facility] 10-26-2022 13:48-0500 Body temperature 98.42 [degF] Tha Tiwari [facility] 10-26-2022 13:48-0500 Diastolic blood pressure 77 mm[Hg] Tha Te [facility] 10-26-2022 13:48-0500 Heart rate 106 /min Tha Tiwari [facility] 10-26-2022 13:48-0500 Respiratory rate 18 /min Tha Tiwari [facility] 10-26-2022 13:48-0500 SaO2% (BldA) [Mass fraction] 99 % Tha Tiwari [facility] 10-26-2022 13:48-0500 Systolic blood pressure 132 mm[Hg] Tha Tiwari [facility] 07-25-2022 07:44-0400 Diastolic blood pressure 70 mm[Hg] Dmitriy Vargas [facility] 07-25-2022 07:44-0400 Heart rate 66 /min Dmitriy Vargas [facility] 07-25-2022 07:44-0400 Respiratory rate 15 /min Dmitriy Vargas [facility] 07-25-2022 07:44-0400 SaO2% (BldA) [Mass fraction] 99 % Dmitriy Vargas [facility] 07-25-2022 07:44-0400 Systolic blood pressure 115 mm[Hg] Dmitriy Alicia [facility] 07-25-2022 06:33-0400 Body temperature 98.6 [degF] Dmitriy Alicia [facility] 07-25-2022 06:33-0400 Diastolic blood pressure 72 mm[Hg] Dmitriy Alicia [facility] 07-25-2022 06:33-0400 Heart rate 64 /min Dmitriy Hubbarde [facility] 07-25-2022 06:33-0400 Respiratory rate 12 /min Dmitriy Hubbarde [facility] 07-25-2022 06:33-0400 SaO2% (BldA) [Mass fraction] 100 % Dmitriy Vargas [facility] 07-25-2022 06:33-0400 Systolic blood pressure 118 mm[Hg] Dmitriy Vargas [facility] 05-25-2022 18:50-0400 Body temperature 98.24 [degF] Tha Tiwari [facility] 05-25-2022 18:50-0400 Diastolic blood pressure 82 mm[Hg] Tha Tiwari [facility] 05-25-2022 18:50-0400 Heart rate 58 /min Tha Tiwari [facility] 05-25-2022 18:50-0400 Respiratory rate 16 /min Tha Tiwari [facility] 05-25-2022 18:50-0400 SaO2% (BldA) [Mass fraction] 100 % Tha Tiwari [facility] 05-25-2022 18:50-0400 Systolic blood pressure 133 mm[Hg] Tha Tiwari [facility] 05-18-2022 19:30-0400 Body temperature 98.24 [degF] Dmitriy Vargas [facility] 05-18-2022 19:30-0400 Diastolic blood pressure 67 mm[Hg] Dmitriy Vargas [facility] 05-18-2022 19:30-0400 Heart rate 58 /min Dmitriy Vargas [facility] 05-18-2022 19:30-0400 Mean blood pressure 88 mm[Hg] Dmitriy Vargas [facility] 05-18-2022 19:30-0400 Respiratory rate 17 /min Dmitriy Vargas [facility] 05-18-2022 19:30-0400 SaO2% (BldA) [Mass fraction] 99 % Dmitriy Hubbarde [facility] 05-18-2022 19:30-0400 Systolic blood pressure 129 mm[Hg] Dmitriy Hubbarde [facility] 05-18-2022 19:00-0400 Body temperature 98.6 [degF] Dmitriy Hubbarde [facility] 05-18-2022 19:00-0400 Diastolic blood pressure 76 mm[Hg] Dmitriy Hubbarde [facility] 05-18-2022 19:00-0400 Mean blood pressure 93 mm[Hg] Dmitriy Hubbarde [facility] 05-18-2022 19:00-0400 Systolic blood pressure 128 mm[Hg] Dmitriy Hubbarde [facility] 05-18-2022 16:33-0400 Body temperature 97.7 [degF] Dmitriy Hubbarde [facility] 05-18-2022 16:33-0400 Diastolic blood pressure 85 mm[Hg] Dmitriy Hubbarde [facility] 05-18-2022 16:33-0400 Heart rate 69 /min Dmitriy Hubbarde [facility] 05-18-2022 16:33-0400 Respiratory rate 16 /min Dmitriy Hubbarde [facility] 05-18-2022 16:33-0400 SaO2% (BldA) [Mass fraction] 99 % Dmitriy Hubbarde [facility] 05-18-2022 16:33-0400 Systolic blood pressure 130 mm[Hg] Dmitriy Alicia [facility] Encounters Encounter Date Encounter Type Care Provider Facility Start: 09-13-2023 End: 09-13-2023 Emergency department patient visit Yvon Morales [place] [place] Start: 09-13-2023 End: 09-13-2023 Emergency department patient visit Yvon Morales [facility] Start: 10-31-2022 End: 10-31-2022 Emergency department patient visit Nagi Kirby [place] [place] Start: 10-30-2022 End: 10-31-2022 Emergency department patient visit Nagi Kirby [facility] Start: 10-26-2022 End: 10-26-2022 Emergency department patient visit Tha Tiwari Facility[place] [place] Start: 10-26-2022 End: 10-26-2022 Emergency department patient visit Tha Tiwari [facility] Start: 07-25-2022 End: 07-25-2022 Emergency department patient visit Dmitriy Vargas [facility] Start: 05-25-2022 End: 05-25-2022 Emergency department patient visit Tha Tiwari [facility] Start: 05-18-2022 End: 05-18-2022 Emergency department patient visit Dmitriy Vargas [facility] Immunizations Immunization Date Immunization Notes Care Provider Fa cility 05-18-2022 tetanus toxoid, redu wenceslao diphtheria toxoid, and acellular pertussis vaccine, adsorbed Dmitriy Alicia [facility] Payers Date Payer Category Payer Medicaid [id number] 2022 Self-pay 2001 Unknown [id number] 2001 Unknown [id number] 2001 Unknown [id number] Social History Date Type Detail Facility Start: 05-18-2022 End: 10-26-2022 Tobacco smoking status Light tobacco smoker (finding) [facility] Sex Assigned At Female [facility] Functional Status Date Assessment Result Facility 09-13-2023 Functional Status N/A [facility] 10-30-2022 Functional Status N/A [facility] 10-26-2022 Functional Status N/A [facility] 07-25-2022 Functional Status N/A [facility] 05-25-2022 Functional Status N/A [facility] 05-18-2022 Functional Status N/A [facility] Clinical Notes 05-18-2022 to 09-13-2023 Note Date & Type Note Facility 09-13-2023 Evaluation + Plan note Extrac andreina from: Title:ED Note Author:Andrew STRE[address], Yvon Date:09/13 1. Substernal chest pain (R0 7.2: [...] Troponin 9 Hr. XR Chest Single View [facility]10-18-2023 Hospital Discharge instructions Patient Education 09/13/2023 09:30:42 [...] Follow these instructions at home: Medicines Take mogj-dee-vfeqyhb and prescription medicines only as told by [...] provider. Document Revised: 01/27/2022 Document Reviewed: 01/27/2022 [employer] Patient Education 2022 [employer]. Follow Up Care 09/13/2023 04:38:19 With:Hang Jacobsen Address: [address] [place] [address] [facility] (1) When:09/16/2023 09:30:26 Comments:Call the office of [...] legs, or any new or worsening symptoms. [facility]12-05-2022 Evaluation + Plan noteExtracted from: Title:ED Note Author:Mirta Stephah Garcia Date :10/31/22 AP (abdominal pain) (R10.9: Unspecified abdominal pain) N&V (nausea and vomiting) (R11.2: Nausea with vomiting, unspecified) Orders: dicyclomine, 10 mg = 1 cap(s), Oral, QID, X 7 day(s), # 28 cap(s), Refills(s) 0, Pharmacy: [facility]/pharmacy #[id number], 157.5, cm, 10/30/22 23:48:00 EST, Height/Length [...] Nausea/Vomiting, # 28 tab(s), Refills(s) 0, Pharmacy: [facility]/pharmacy #[id number], 157.5, cm, 10/30/22 23:48:00 EST, Height/Length [...] Beta Hcg Qual UA With Cult Reflex [facility]12-05-2022 Hospital Discharge instructions Patient Education 10/31/2022 02:29:41 [...] Follow these instructions at home: Medicines Take owco-hvj-fbphubz and prescription medicines only as told by [...] Watch your condition for any changes. Take gclh-jfe-qkpaxld and prescription medicines only as told by [...] 08/23/2006 Document Revised: 03/23/2020 Document Reviewed: 03/23/2020 [employer] Patient Education 2019 [employer] Follow Up Care 10/30/2022 23:38:50 With:Jose WHITE Address: [address] [place] [id number] (1) When:11/03/2022 [facility]11-30-2022 Hospital Discharge instructions Patient Education 10/26/2022 16:18:56 Viral Gastroenteritis, Adult, Gvpp-vr-Bjob Viral Gastroenteritis, Adult Viral gastroenteritis is also [...] than 2 years old. Living in a half-way. Going on cruise ships. What are the [...] cannot use soap and water, use hand buildings and grounds supervisor. Make sure that all people in your home wash their hands well and often. Take ctvv-idt-kyyipdy and prescription medicines only as told by [...] 05/01/2009 Document Revised: 09/18/2019 Document Reviewed: 09/18/2019 [employer] Patient Education 2020 [employer]. 10/26/2022 16:18:56 Viral Illness, Adult Viral Illness, [...] Medicines to relieve symptoms. These can include faou-wwl-ywyuwrq medicine for pain and fever, medicines for [...] Follow these instructions at home: Medicines Take ceit-rkj-iqncewe and prescription medicines only as told by [...] and water are not available, use hand buildings and grounds supervisor. Avoid close contact with friends and family [...] 03/24/2017 Document Revised: 10/26/2018 Document Reviewed: 03/24/2017 [employer] Patient Education 2020 [employer] Follow Up Care 10/26/2022 13:31:03 With:Hang Jacobsen Address: [address] [place] [address] [address] [place] [address] [facility] (1) When:10/29/2022 16:02:45 Comments:Follow-up with your primary care provider. He did not have any follow- up with Dr. Jacobsen. Follow-upwith your primary care provider in 3 to 5 days. If symptoms worsen, do not improve, or new symptomsarise please report back to emergency department for further evaluation. With:XXXX NONE Address: MD When:10/29/2022 16:02:35 [facility]11-30-2022 Evaluation + Plan noteExtracted from: Title:ED Note Author:Johnny Ghotra PA-C te:10/26/22 Viral illness (B34.9: Viral infection, unspecified) Orders: ondansetron, 4 mg = 1 tab(s), Tab-Dis, Oral, Once, Stop date 10/26/22 14:56:00 EST, STAT, Start date 10/26/22 14:56:00 EST, 10/26/22 14:56:00 EST Influenza A&B Ag Rapid COVID Antigen [place] [place] U Beta Hcg Qual UA With Cult Reflex [facility]08-29-2022 Evaluation + Plan noteExtracted from: Title:ED Note [...] change or worsen or become more concerning. [facility]08-29-2022 Hospital Discharge instructions Patient Education 07/25/2022 07:45:47 [...] home: Managing pain, stiffness, and swelling Take qgvk-sou-jomsfnt and prescription medicines only as told by [...] as fried and sweet foods. ?Take an russ-wyj-uadquxd or prescription medicine for constipation. Contact a [...] 08/08/2002 Document Revised: 01/09/2020 Document Reviewed: 12/03/2018 [employer] Patient Education 2020 [employer]. 07/25/2022 07:45:47 Nonspecific Chest Pain, Adult Nonspecific [...] Follow these instructions at home: Medicines Take lchv-tdx-hbjdrbj and prescription medicines only as told by [...] 08/23/2006 Document Revised: 05/16/2019 Document Reviewed: 05/16/2019 [employer] Patient Education 2020 [employer]. Follow Up Care 07/25/2022 06:22:17 With:Jacinta Núñez Address: [address] [place] [address]- Business (1) When:Within 3 Day(s) [facility]06[facility]-2022 Hospital Discharge instructions Patient Education 05/25/2022 19:22:16 [...] and water are not available, use hand buildings and grounds supervisor. Change your dressing as told by your [...] can decrease scar thickness. General instructions Take mmxu-fbp-vfnwnby and prescription medicines only as told by [...] 10/26/2009 Document Revised: 10/26/2018 Document Reviewed: 09/03/2018 [employer] Patient Education 2020 [employer]. 05/25/2022 19:22:16 Suture Removal, Care After Suture [...] and water are not available, use hand buildings and grounds supervisor. Change your dressing as told by your [...] can make scarring worse. General instructions Take gbia-nvm-wyjkuca and prescription medicines only as told by [...] 08/08/2002 Document Revised: 10/26/2018 Document Reviewed: 12/19/2017 [employer] Patient Education 2020 [employer]. 05/25/2022 19:22:16 Incision Care, Adult, Hapg-ij-Gprq Incision Care, Adult An incision is a [...] cannot use soap and water, use hand buildings and grounds supervisor. ?Change your bandage as told by your [...] even if your condition gets better. Take zcsl-isg-iyofprf and prescription medicines only as told by [...] 02/04/2013 Document Revised: 04/02/2018 Document Reviewed: 07/21/2017 [employer] Patient Education 2020 [employer] Follow Up Care 05/25/2022 18:46:48 With:Heydi STORY Address: [address] [place], [place] [address] [place] [address]- Business (1) When:05/28/2022 19:20:04 Comments:Follow-up with your primary care provider in 3 to 5 days. If symptoms worsen, do not improve, or new symptoms arise please report back to emergency department for further evaluation. [facility]06[facility]-2022 Hospital Discharge instructions Patient Education 05/18/2022 19:48:17 [...] ?Warmth. ?Pus or a bad smell. Take hubr-kri-jycmshj and prescription medicines only as told by [...] 12/21/2005 Document Revised: 03/05/2020 Document Reviewed: 12/14/2017 [employer] Patient Education 2020 [employer]. 05/18/2022 19:48:17 Head Injury, Adult Head Injury, [...] Ask your health care provider for a gwuz-or-curr plan for gradually returning to activities. Ask [...] your friends, family, a trusted colleague, and tree and shrub worker about your injury, symptoms, and restrictions. Have them watch for any new or worsening problems. General instructions Take iegd-uwr-ksjtcod and prescription medicines only as told by [...] 11/13/2006 Document Revised: 12/11/2019 Document Reviewed: 12/06/2019 [employer] Patient Education 2020 [employer]. Follow Up Care 05/18/2022 16:31:36 With:Alexis Jacobs Address: [address] [place] [id number]- When:Within 3 Day(s) [facility]06-22-2022 Evaluation + Plan noteExtracted from: Title:ED Note Author:Johnny Ghotra PA-C te:05/18/22 CHI (closed head injury) (S0 9.90XA: Unspecified injury of head, initial encounter) Closed nondisplaced fracture of nasal bone (S02.2XXA: Fracture of nasal bones, initial encounter for closed fracture) Facial laceration (S01.81XA: Laceration without foreign body of other part of head, initial encounter) [facility]arr[facility] No data available for this section [facility] No data available for this section [facility] Summary Purpose Family History No Family History Records Found Advance Directives No Advanced Directives Records Found Additional Source Comments Care Team (unrecognized sect ion and content) Personnel Name: Alexis Jacobs DO Address: [address] [place], [place] [address] Personnel Name: Heydi STORY MD Address: [address] [place], [place] [address] Personnel Name: Jacinta Núñez MD Address: [address] Personnel Name: NONE, XXXX Address: Address: [facility] Personnel Name: NONE, XXXX Address: Address: [facility] Personnel Name: NONE, XXXX Address: Address: [facility] INFORMATION SOURCE (unrecogn ized section and content) DATE CREATED AUTHOR 09/25/2023 [facility] FOR RECORDS PERTAINING TO PATIENTS WHO [...] BE BASED ON THE PRIMARY CLINICAL RECORDS. [facility] [employer] provides no warranty or guarantee of the accuracy or completeness of information in this document.
[2023-12-04 14:42] LABS: Glucose 1 Hour 144 mg/dL
== END 2023-12-04 08:57 | disposition home or self-care (01) ==
LOC: LAB 08:58
PROVIDERS: Visit Provider Obstetrics & Gynecology
DX: R42 Dizziness and giddiness (principal); R73.09 Other abnormal glucose
CPT/HCPCS: 36415; 82950

== ENCOUNTER 2024-12-10 02:07 | Emergency (ER) | payer OTHER, SELFPAY ==
[2024-12-10 02:09] VITALS: BP 151/85; PULSE 115; TEMP 36.8; O2SAT 97; BMI 37.7
--- OUTSIDE RECORDS SUMMARY | 2024-12-10 02:12 | XMS_ITS | CCD ---
Author Organization [facility] Care Team Providers Care Hand Driller Name Role Phone Alexis Jacobs Primary Care Physician Unavail able Heydi STORY Primary Care Physician Jacinta Núñez Primary Care Physician NONE, XXXX Primary Care Physician Unavailab MATTHEW Mathew Attending Unavailable JAYDA BUCK Attending Unavailable Kin, Arlet Ferraro Attending Unavailable Doni, Emigdio Foy Attending Unavailable Doni, Emigdio Foy Admitting Unavailable [place], Gabriella Nair Attending Unavailable Yvon Morales Attending Unavailable Doni, Emigdio Foy Attending Unavailable Doni, Emigdio Foy Admitting Unavailable Doni, Emigdio Foy Attending Unavailable Doni, Emigdio Foy Admitting Unavailable Doni, Emigdio Foy Attending Unavailable Doni, Emigdio Foy Admitting Unavailable Doni, Emigdio Foy Admitting Unavailable Doni, Emigdio Foy Attending Unavailable Kin, Arlet Ferraro Attending Unavailable Doni, Emigdio Foy Admitting Unavailable Doni, Emigdio Foy Attending Unavailable Doni, Emigdio Foy Admitting Unavailable Doni, Emigdio Foy Attending Unavailable [place], Karolina Martinez Attending Unavailable Hashayari, Astrit H Attending Unavailable Dokken, DO Gabriella Nair Attending Unavailable Dokken, DO Gabriella Nair Attending Unavailable Doni, Emigdio Foy Admitting Unavailable Doni, Emigdio Foy Attending Unavailable Tha Tiwari Attending Unavailable Doni, Emigdio Foy Admitting Unavailable Doni, Emigdio Foy Attending Unavailable Dmitriy Vargas Attending Unavailable Doni, Emigdio Foy Attending Unavailable Doni, Emigdio Foy Admitting Unavailable Allergies Allergy Classification Reported Allergen(s) Allergy Type Date of Onset Reaction(s) Facility (7 sources) No Known Medication Allergies; Translations: [No Known Medication Allergies] Propensity to adverse reactions (disorder) [facility] [place] Repository Medications Current Medications Medication Drug Class(es) Dates Sig (Normalized) Sig (Original) amoxicillin 875 mg / clavulanate 125 mg oral tablet (2 sources) Penicillin-class Antibacterial Start: 11-27-2024 End: 12-07-2024 take 1 tablet by mouth every twelve hours Augmentin 875 mg oral tablet = 1 tab(s), Oral, q12hr, X 10 day(s), # 20 tab(s), Refills(s) 0, [id number] 160, cm, 11/27/24 10:50:00 EST, Height/Length Dosing, 93.7, kg, 11/27/24 10:50:00 EST, Weight Dosing Start Date: 11/27/24 Stop Date: 12/07/24 Status: Ordered cephalexin 500 mg oral capsule (1 source) Cephalosporin Antibacterial Start: 10-11-2024 End: 10-18-2024 take 1 capsule by mouth four times daily Keflex 500 mg Cap 500 mg = 1 cap(s), Oral, QID, X 7 day(s), # 28 cap(s), Refills(s) 0, [id number] 160, cm, 10/11/24 0:28:00 EST, Height/Length Dosing, 93.7, kg, 10/11/24 0:28:00 EST, Weight Dosing Start Date: 10/11/24 Stop Date: 10/18/24 Status: Ordered dicyclomine hydrochloride 10 mg oral capsule (1 source) Anticholinergic Start: 10-31-2022 End: 11-07-2022 take 1 capsule by mouth four times daily Bentyl 10 mg Cap 10 mg = 1 cap(s), Oral, QID, X 7 day(s), # 28 cap(s), Refills(s) 0, [id number], 157.5, cm, 10/30/22 23:48:00 EST, Height/Length Dosing, 69.2, kg, 10/30/22 23:48:00 EST, Weight Dosing Start Date: 10/31/22 Stop Date: 11/07/22 Status: Ordered docusate sodium 100 mg oral capsule (1 source) Start: 02-29-2024 take 1 capsule by mouth twice daily as needed for constipation Colace 100 mg Cap 100 mg = 1 cap(s), Oral, BID, PRN for constipation, # 20 cap(s), Refills(s) 0, Pharmacy: [facility]/pharmacy #[id number], 157.5, cm, 02/26/24 14:52:00 EDT, Height/Length Dosing, 99, kg, 02/26/24 14:52:00 EDT, Weight Dosing Start Date: 02/29/24 Status: Ordered hydrocortisone 5 mg/ml topical cream (4 sources) Corticosteroid Start: 01-14-2024 hydrocortisone Top 0.5% Crm 1 yvan, Topical, BID, 30 gram, Refill(s) 0, [facility]/pharmacy #[id number], 157, cm, 01/14/24 19:22:00 EST, Height/Length Dosing, 96.2, kg, 01/14/24 19:22:00 EST, Weight Dosing Start Date: 01/14/24 Status: Ordered ibuprofen 600 mg oral tablet (6 sources) Nonsteroidal Anti-inflammatory Drug Start: 04-04-2024 take 1 tablet by mouth every six hours ibuprofen 600 mg Tab 600 mg = 1 tab(s), Oral, q6hr, # 15 tab(s), Refills(s) 0, [id number] 157.5, cm, 04/04/24 11:23:00 EDT, Height/Length Dosing, 90.6, kg, 04/04/24 11:23:00 EDT, Weight Dosing Start Date: 04/04/24 Status: Ordered Start: 02-29-2024 take 1 tablet by chandra th every six hours ibuprofen 600 mg Tab 600 mg = 1 tab(s), Oral, q6hr, # 15 tab(s), Refills(s) 0, [id number], 157.5, cm, 02/26/24 14:52:00 EDT, Height/Length Dosing, 99, kg, 02/26/24 14:52:00 EDT, Weight Dosing Start Date: 02/29/24 Status: Ordered loratadine 10 mg oral tablet (4 sources) Start: 01-14-2024 take 1 tablet by mouth once daily loratadine 10 mg Tab 10 mg = 1 tab(s), Oral, Daily, # 30 tab(s), Refills(s) 0, Pharmacy: [facility]/pharmacy #[id number], 157, cm, 01/14/24 19:22:00 EST, Height/Length Dosing, 96.2, kg, 01/14/24 19:22:00 EST, Weight Dosing Start Date: 01/14/24 Status: Ordered MAGNESIUM GLUCONATE (1 source) Start: 02-26-2024 magnesium gluconate Oral, Daily, Refills(s) 0 Start Date: 02/26/24 Status: Ordered metoclopramide 10 mg disintegrating oral tablet (7 sources) Dopamine-2 Receptor Antagonist Start: 10-31-2022 take 1 tablet by mouth three times daily as needed for nausea metoclopramide 10 mg oral tablet, disintegrating 10 mg = 1 tab(s), Oral, TID, PRN Nausea/Vomiting, # 28 tab(s), Refills(s) 0, Pharmacy: [facility]/pharmacy #[id number], 157.5, cm, 10/30/22 23:48:00 EST, Height/Length Dosing, 69.2, kg, 10/30/22 23:48:00 EST, Weight Dosing Start Date: 10/31/22 Status: Ordered Multivitamins (6 sources) Start: 09-13-2023 take 1 tablet by mouth once daily Multivitamins 1 tab(s), Oral, Daily, Refill(s) 0 Start Date: 09/13/23 Status: Ordered Plus Iron oral tablet (9 sources) Start: 04-04-2024 Plus Iron oral tablet 1 tab(s), Oral, Daily, 90 tab(s), Refill(s) 1, [facility]/pharm[facility] #[id number], 157.5, cm, 04/04/24 11:23:00 EDT, Height/Length Dosing, 90.6, kg, 04/04/24 11:23:00 EDT, Weight Dosing Start Date: 04/04/24 Status: Ordered triamcinolone acetonide 1 mg/ml topical cream (5 sources) Corticosteroid Start: 04-04-2024 triamcinolone Top 0.1% Crm 15 gram 1 vyan, Topical, TID, 60 gram, Refill(s) 2, [facility]/pharmacy #[id number], 157.5, cm, 04/04/24 11:23:00 EDT, Height/Length Dosing, 90.6, kg, 04/04/24 11:23:00 EDT, Weight Dosing Start Date: 04/04/24 Status: Ordered Completed/Discontinued Medications Medication Drug Class(es) Dates Sig (Normalized) Sig (Original) naproxen 500 mg oral tablet (9 sources) Nonsteroidal Anti-inflammatory Drug Start: 07-25-2022 take 1 tablet by mouth twice daily naproxen 500 mg Tab 500 mg = 1 tab(s), Oral, BID, Take one tab by mouth two times a day, # 14 tab(s), Refills(s) 0, Pharmacy: [facility]/pharmacy #[id number], 157, cm, 07/25/22 6:40:00 EDT, Height/Length Dosing, 75, kg, 07/25/22 6:40:00 EDT, Weight Dosing Start Date: 07/25/22 Status: Ordered SUMAtriptan 25 mg oral tablet (5 sources) Serotonin-1b and Serotonin-1d Receptor Agonist Start: 04-04-2024 take 2 tablets by mouth every two hours as needed Imitrex 25 mg Tab 50 mg = 2 tab(s), Oral, As Directed, PRN Migraine headache, take 1- or 2 - first sign of headache. may repeat dose in 2 hours if needed, # 18 tab(s), Refills(s) 0, Pharmacy: [facility]/pharmacy #[id number], 157.5, cm, 04/04/24 11:23:00 EDT, Height/Length Dosing, 90.6, kg, 04/04/24 11:23:00 EDT, Weight Dosing Start Date: 04/04/24 Status: Ordered Problems Active Problems Problem Classification Problem Date Documented Date Episodic/Chronic Abdominal pain (2 sources) Abdominal pain; Translations: [Unspecified abdominal pain] Onset: 10-31-2022 Episodic Administrative/social admission (1 source) Patient encounter status; Translations: [Persons encountering health services in other specified circumstances] Onset: 04-04-2024 Episodic Allergic reactions (11 sources) Atopic dermatitis; Translations: [Atopic dermatitis, unspecified] Onset: 04-04-2024 Chronic Deficiency and other anemia (11 sources) Anemia; Translations: [Anemia, unspecified] Onset: 02-29-2024 Episodic Deficiency and other anemia (10 sources) Iron deficiency anemia; Translations: [Iron deficiency anemia, unspecified] Onset: 05-03-2024 04-04-2024 Episodic Headache; including migraine (8 sources) Migraine; Translations: [Migraine, unspecified, not intractable, without status migrainosus] Onset: 05-03-2024 Chronic Malaise and fatigue (10 sources) Fatigue; Translations: [Other fatigue] Onset: 04-04-2024 Episodic Nausea and vomiting (1 source) Nausea [...] removal of sutures] Onset: 05-25-2022 Episodic Other complications of (1 source) Prurigo of ; 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)] Onset: 01-14-2024 Episodic Other complications of (1 source) Finding related to ; Translations: [Other specified related conditions, unspecified trimester] Onset: 09-13-2024 Episodic Other connective tissue disease (11 sources) Trigger thumb of left hand; Translations: [Trigger thumb, left thumb] Onset: 04-04-2024 Episodic Other injuries and conditions due to external causes (1 source) Injury of head; Translations: [Unspecified injury of head, initial encounter] Onset: 05-18-2022 Episodic Other nutritional; endocrine; and metabolic disorders (1 source) Obese class II; Translations: [Body mass index (BMI) 36.0-36.9, adult] Onset: 04-04-2024 Chronic Other nutritional; endocrine; and metabolic disorders (1 source) Obesity; Translations: [Other obesity] Onset: 04-04-2024 Chronic Other and delivery including normal (1 source) Delivery normal; Translations: [Encounter for full-term uncomplicated delivery] Onset: 02-29-2024 Episodic Other skin disorders (1 source) Sebaceous cyst of skin; Translations: [Sebaceous cyst] Onset: 10-11-2024 Episodic Otitis media and related conditions (1 source) Otitis media; Translations: [Otitis media, unspecified, unspecified ear] Onset: 11-27-2024 Episodic Polyhydramnios and other problems of amniotic cavity (13 sources) Polyhydramnios; Translations: [Polyhydramnios, unspecified trimester, not applicable or unspecified] Onset: 02-26-2024 02-01-2024 Episodic Skull and face fractures (1 source) Closed fracture of nasal bones; Translations: [Fracture of nasal bones, initial encounter for closed fracture] Onset: 05-18-2022 Episodic Substance-related disorders (13 sources) Smoker; Translations: [Nicotine dependence] Onset: 02-29-2024 05-18-2022 Chronic Comment on above: Added secondary to d ocumentation in Social History. Unclassified (18 sources) Patient encounter status 04-04-2024 Viral infection (1 source) Viral disease; Translations: [Viral infection, unspecified] Onset: 10-26-2022 Episodic Past or Other Problems Problem Classification Problem Date Documented Da te Episodic/Chronic Unclassified (11 sources) Onset: 08-27-2023 Resolved: 02-27-2024 02-01-2024 Viral infection (1 source) Disease caused by 2019-nCoV; Translations: [COVID-19] Onset: 08-20-2024 Results Test Name Value Interpretation Reference Range Facility RPR with Conf Rfxon 12-04-19 25 Reagin Ab RPR Ql (S) Non-Reactive Invalid Interpretation Code Non Reactive [facility] [place] Comment on above: Result Comment: Perf ormed at: [facility] [address] [id number] PhD Dilcia Nagy Performed By: #### 1 [id number] #### [facility] [place] [facility] [address] [place] [address] CHEMISTRYOrdered By: SYSTEM SYSTEM on 12-03-2024 Glucose [Mass/Vol] 138 mg/dL Normal 55 - 140 mg/dL Remisol Chem Gest Scr Glu 1 Hron 12-03-19 25 Glucose [Mass/Vol] 138 mg/dL Normal 55-140 [facility] [place] Comment on above: Performed By: #### 3 [id number] #### [facility] [place] [facility] [address] [place] [address] HEMATOLOGYOrdered By: SYSTEM SYSTEM on 12-03-2024 Hematocrit (Bld) [Volume fraction] 31.8 % Low 34.0 - 46.0 % Remisol Heme Hemoglobin (Bld) [Mass/Vol] 10.4 g/dL Low 12.0 - 16.0 gm/dL Remisol Heme Hct & Hgbon 12-03-2024 Hematocrit (Bld) [Volume fraction] 31.8 % Low 34.0-46.0 [facility] [place] Comment on above: Performed By: #### 1 [id number] #### [facility] [place] [facility] [address] [place] [address] Hemoglobin (Bld) [Mass/Vol] 10.4 g/dL Low 12.0-16.0 [facility] [place] Comment on above: Performed By: #### 1 [id number] #### [facility] [place] [facility] [address] [place] [address] ED Note-Physicianon 11-29-19 ED Note-Physician ED Note-Physician Basic Information Time Seen: Salvador Dias PA-C 11/27/2024 10:50 Chief Complaint cough since after Cecilia, R ear pain x 2 days[address] Hyde. . History of Present Illness 24-year-old female comes to the ED for evaluation of sinus congestion. Over the last several days she has sinus congestion, rhinorrhea and ear pain. Primary complaint of pain to the right ear. Some pain to the left and a sore throat. Subjective fevers. No documented temperatures. No chest pain or shortness of breath. She is currently 27 weeks , no associated complaints. Review of Systems A 10 point review of systems is negative except as noted above. Medical and Surgical History: Reviewed and noted Social history: Lives at home Tobacco: Denies Physical Exam Vitals & Measurements T: 36.7 ???C(Oral) HR: 66(Peripheral) RR: 16 BP: 113/74 SpO2: 97% HT: 160 cm WT: 93.7 kg BMI: 36.6 Nurses notes and vital signs reviewed and patient is not hypoxic. General: Well-appearing, does not appear ill Skin: Warm, dry. Head: Atraumatic. Neck: No JVD. Eye: Normal conjunctiva. Ears, Nose, Mouth, and Throat: Sinus congestion, no difficulty with speaking or swallowing. Mild pharyngeal erythema without tonsil hypertrophy or exudates. Uvula midline. No stridor trismus or drooling. Moderate right-sided TM effusion with erythema. Slight left-sided effusion. External canals are clear Cardiovascular: Not tachycardic Chest wall: Respiratory: Respirations are nonlabored. Back: Normal range of motion. Musculoskeletal: Normal ROM with no gross deformity. Gastrointestinal: Urological: Neurological: Awake and alert. No focal deficits. Follows commands. Psychiatric: Cooperative. Medical Decision Making Patient has a tender right TM effusion with erythema. She started on Augmentin for sinus coverage. She is discharged home PCP follow-up. Patient was encouraged to return to the ED if symptoms worsen or change. Assessment/Plan Otitis media (H66.90: Otitis media, unspecified, unspecified ear) Orders: amoxicillin-clavulana te, = 1 tab(s), Oral, q12hr, X 10 day(s), # 20 tab(s), Refills(s) 0, Pharmacy: [facility] #[id number], 160, cm, 11/27/24 10:50:00 EST, Height/Length Dosing, 93.7, kg, 11/27/24 10:50:00 EST, Weight Dosing Disposition Plan Patient Discharge Condition Disposition: Discharged home Condition: Improved and stable Counseled: Patient and/or family were counseled to workup, results, treatment plan and follow-up recommendations Discharge Prescription List Prescriptions Augmentin 875 mg oral tablet, 1 tab(s), Oral, q12hr Follow-up With When Contact Information Chester Link In 3 days 11/30/2024 EST [address] [id number] [facility] (1) Additional Instructions: Patient Education Otitis Media With Effusion, Adult Attestation I performed a substantive part of the MDM during the patient???s E/M visit. I personally made or approved the documented management plan and acknowledge its risk of complications. (Independent Interpretation) My (EKG/X-Ray/US/CT) interpretation as above. (Discussion) Management/test interpretation discussed with APC. This report was transcribed using voice recognition software. Every effort was made to ensure accuracy, however, inadvertently computerized third hand mistakes may be present. Appropriate healthcare PPE was used in evaluating this patient. Problem List/Past Medical History Ongoing Atopic dermatitis Establishing care with new doctor, encounter for Fatigue Iron deficiency anemia Migraines Polyhydramnios Trigger thumb of left hand Wellness examination Historical Procedure/Surgical History None. Medications Inpatient No active inpatient medications Home Augmentin 875 mg oral tablet, 1 tab(s), Oral, q12hr Plus Iron oral tablet, 1 tab(s), Oral, Daily, 1 refills Allergies No Known Medication Allergies Social History Alcohol - Denies Alcohol Use, 09/13/2023 Substance Abuse - Denies Substance Abuse, 09/13/2023 Past, Marijuana, IV drug use: No. Drug use interferes with work/home: No. Ready to change: No. Household substance abuse concerns: No., 04/04/2024 Marijuana, 10/26/2022 Marijuana, 05/25/2022 Tobacco - Denies Tobacco Use, 09/13/2023 Never (less than 100 in lifetime) Tobacco Use:. Never Smokeless Tobacco Use:. Ready to change: No. Household tobacco concerns: No., 04/04/2024 5-9 cigarettes (between 1/4 to 1/2 pack)/day in last 30 days Tobacco Use:., 10/26/2022 5-9 cigarettes (between 1/4 to 1/2 pack)/day in last 30 days Tobacco Use:., 05/25/2022 Family History Cancer: Grandparent. Hypertension: Mother. Thyroid: Sister. Lab Results No qualifying data available. Diagnostic Results No qualifying data available. Normal [facility] [place] Comment on above: Result Comment: Elec tronically Signed By: Salvador Dias PA-C\.br\Date and Time Signed: 11/27/24 11:04 EST\.br\Electronically Co-Signed By: Dmitriy Vargas DO\.br\Date and Time Co-Signed: 11/29/24 07:16 EST ED Clinical Summaryon 2024 ED Clinical Summary ED Clinical Summary [place] [id number] ED Clinical Summary Person Information Name: CHRISTI HASTINGS/[facility] Age: 24 Years : 2000 Sex: Female Language: Malawian PCP: NONE, XXXX Marital Status: Single Phone: [phone] Visit Id: Visit Reason: Ear pain; Cough; COUGH, EAR PAIN - 27 WKS Speciality: Acuity: 4 Enc Type: Emergency Med Service: Emergency Arrival: 11/27/2024 10:43:21 Discharge: 11/27/2024 11:02:57 LOS: 000 00:19 Checkin: 11/27/2024 10:43:21 Checkout: 11/27/2024 11:02:57 Dispo Type: Home (Routine DC) EVENTS: Event Name Event Status Request Date/Time Start Date/Time Complete Date/Time Arrive Complete 11/27/2024 10:43:21 11/27/2024 10:43:21 11/27/2024 10:43:21 Document Home Meds Request 11/27/2024 10:43:21 Triage Complete 11/27/2024 10:43:21 11/27/2024 10:50:19 11/27/2024 10:50:19 Bed Assign Complete 11/27/2024 10:45:39 11/27/2024 10:45:39 11/27/2024 10:45:39 Dr Exam Complete 11/27/2024 10:45:39 11/27/2024 10:50:07 11/27/2024 10:50:07 RN Exam Complete 11/27/2024 10:45:39 11/27/2024 10:52:29 11/27/2024 10:52:29 Registration Complete 11/27/2024 10:46:45 11/27/2024 10:46:45 11/27/2024 10:46:45 Reg Complete Request 11/27/2024 10:46:45 Reg Bed Request Complete 11/27/2024 10:46:45 11/27/2024 10:46:45 11/27/2024 10:46:45 Registration Request 11/27/2024 10:50:07 Dr Exam Complete 11/27/2024 10:50:21 11/27/2024 10:50:21 11/27/2024 10:50:21 Discharge Complete 11/27/2024 10:59:04 11/27/2024 11:03:01 11/27/2024 11:03:01 Transfer Complete 11/27/2024 11:03:01 11/27/2024 11:03:01 11/27/2024 11:03:01 ADDRESS: [facility] [facility] [phone] PHYS DOC NOTES: MEDICAL INFORMATION: Prescriptions Given: New Medications [id number], [address] [place], [place] [id number], [phone] amoxicillin-clavulana te (Augmentin 875 mg oral tablet) 1 Tablets By Mouth every 12 hours for 10 Days. Refills: 0. Medications to Continue with No Changes Other Medications multivitamin, ( Plus Iron oral tablet) 1 Tablets By Mouth every day. Refills: 1. PATIENT EDUCATION INFORMATION: Instructions: Otitis Media With Effusion, Adult Follow up: With: Address: When: Chester Kumar [address] [place] [id number] [employer] (1) In 3 days 11/30/2024 DIAGNOSIS: Otitis media Normal [facility] [place] ED Patient Summaryon 025 ED Patient Summary ED Patient Summary [address] [address] Patient Discharge Instructions Person Information Name: CHRISTI HASTINGS Age: 24 Years Arrival Date: 11/27/2024 10:43:21 Discharge Diagnosis: Otitis media Primary Care Physician: NONE, XXXX Provider Information Primary Provider: Dmitriy Vargas DO [facility]er:Salvador Dias PA-C The exam and treatment you received in the Emergency Department were for an urgent problem and are not intended as complete care. It is important that you follow up with a doctor, nurse practitioner, or physician???s assistant teacher for ongoing care. If your symptoms become worse or you do not improve as expected and you are unable to reach your usual health care provider, you should return to the Emergency Department. We are available 24 hours a day. CHRISTI HASTINGS has been given the following list of patient education materials, prescriptions and follow-up instructions: Follow-up Instructions: With: Address: When: Chester Kumar [address] [place], [place] [id number] [employer]) In 3 11/30/2024 In the event that this physician does not participate in your insurance network, please consult with your insurance company to find a nearby participating provider. Patient Education Materials: Otitis Media With Effusion, Adult A MESSAGE TO ALL PATIENTS REGARDING OPIOIDS PRESCRIPTION OPIOIDS: WHAT YOU NEED TO KNOW Prescription opioids can be used to help relieve hmitzlwd-ua-vzlewo pain and are often prescribed following a [...] as well, even when taken as directed: ??? Tolerance???meaning you might need to take more of the medication for the same pain relief ??? Physical dependence???meaning you have symptoms of withdrawal when a medication is stopped ??? Increased sensitivity to pain ??? Constipation ??? Nausea, vomiting, and dry mouth ??? Sleepiness and dizziness ??? Confusion ??? Depression ??? Low levels of testosterone that can result in lower sex drive, energy, and strength ??? Itching and sweating RISKS ARE GREATER WITH: ??? History of drug misuse, substance use disorder, or overdose ??? Mental health conditions (such as depression or anxiety) ??? Sleep apnea ??? Older age (65 years and older) ??? Avoid alcohol while taking prescription opioids. Also, unless specifically advised by your health care provider, medications to avoid include: ??? Benzodiazepines (such as Xanax or Valium) ??? Muscle relaxants (such as Soma or Flexeril) ??? Hypnotics (such as Ambien or Lunesta) ??? Other prescription opioids KNOW YOUR OPTIONS Talk to your health care provider about ways to manage your pain that don???t involve prescription opioids. Some of these options may actually work better and have fewer risks and side effects. Options may include: ??? Pain relievers such as acetaminophen, ibuprofen, and naproxen ??? Some medication that are also used for depression or seizures ??? Physical therapy and exercise ??? Cognitive behavioral therapy, a psychological, goal-directed approach, in which patients learn how to modify physical, behavioral, and emotional triggers of pain and stress. IF YOU ARE PRESCRIBED OPIOIDS FOR PAIN: ??? Never take opioids in greater amounts or more often than prescribed. ??? Follow up with your primary health care provider. o Work together to create a plan on how to manage your pain. o Talk about ways to help manage your pain that don???t involve prescription opioids. o Talk about any and all concerns and side effects. ??? Help prevent misuse and abuse o Never sell or share prescription opioids. o Never use another person???s prescription opioids. ??? Store prescription opioids in a secure place and out of reach of others (this may include visitors, children, friends, and family). ??? Safely dispose of unused prescription opioids: Find your community drug take-back program or your pharmacy mail-back program, or flush them down the toilet, following guidance from the Food and Drug Administration (www.fda.gov/Drugs/Re sourcesForYou). ??? Visit www.cdc.gov/drugoverd ose to learn about the risks of opioids abuse and overdose. ??? If you believe you may be struggling with addiction, tell your health healthcare business analyst and ask for guidance or call (more content not included)... Normal [facility] [place] HSV Cult & Typingon 11-18-20 24 HSV identified Org specific cx Nom (Unsp spec) Comment Invalid Interpretation Code [facility] [place] Comment on above: Result Comment: Nega tive No Herpes simplex virus isolated. Performed at: [facility] [address] [id number] PhD Dilcia Nagy Performed By: #### 1 [id number] #### [facility] [place] [facility] [address] [place] [address] ED Clinical Summaryon 2023 ED Clinical Summary ED Clinical Summary [facility] [address] [place], [place] [address] ED Clinical Summary Person Information Name: CHRISTI HASTINGS/[place] Age: 24 Years : 2000 Sex: Female Language: Malawian PCP: NONE, XXXX Marital Status: Single Phone: [phone] Visit Id: Visit Reason: Ear pain; bump behind left earn Speciality: Acuity: 4 Enc Type: Emergency Med Service: Emergency Arrival: 10/11/2024 00:19:53 Discharge: 10/11/2024 00:58:47 LOS: 000 00:39 Checkin: 10/11/2024 00:19:53 Checkout: 10/11/2024 00:58:47 Dispo Type: Home (Routine DC) EVENTS: Event Name Event Status Request Date/Time Start Date/Time Complete Date/Time Arrive Complete 10/11/2024 00:19:53 10/11/2024 00:19:53 10/11/2024 00:19:53 Document Home Meds Request 10/11/2024 00:19:53 Triage Complete 10/11/2024 00:19:53 10/11/2024 00:28:24 10/11/2024 00:28:24 Bed Assign Complete 10/11/2024 00:26:08 10/11/2024 00:26:08 10/11/2024 00:26:08 Dr Exam Complete 10/11/2024 00:26:08 10/11/2024 00:26:24 10/11/2024 00:26:24 RN Exam Complete 10/11/2024 00:26:08 10/11/2024 00:31:49 10/11/2024 00:31:49 Registration Complete 10/11/2024 00:26:24 10/11/2024 00:57:57 10/11/2024 00:57:57 Discharge Complete 10/11/2024 00:42:28 10/11/2024 00:58:54 10/11/2024 00:58:54 Meds Admin Complete 10/11/2024 00:44:05 10/11/2024 00:57:38 Reg Complete Request 10/11/2024 00:57:57 Reg Bed Request Complete 10/11/2024 00:57:57 10/11/2024 00:57:57 10/11/2024 00:57:57 Transfer Complete 10/11/2024 00:58:54 10/11/2024 00:58:54 10/11/2024 00:58:54 ADDRESS: [address] [place] [address] [address] [facility] [id number] PHYS DOC NOTES: MEDICAL INFORMATION: Prescriptions Given: New Medications [id number], [address] [place], [place] [id number], [phone] cephalexin (Keflex 500 mg Cap) 1 Capsules By Mouth 4 times a day for 7 Days. Refills: 0. Medications to Continue with No Changes Other Medications multivitamin, ( Plus Iron oral tablet) 1 Tablets By Mouth every day. Refills: 1. PATIENT EDUCATION INFORMATION: Instructions: Epidermoid Cyst Follow up: With: Address: When: Emigdio [address], [facility] [address], [place] [address] Business (1) In 3 days 10/14/2024 Comments: Call the office of your primary [...] you develop any new or worsening symptoms. DIAGNOSIS: Sebaceous cyst of ear Normal [facility] [place] ED Note-Physicianon 10-11-20 ED Note-Physician ED Note-Physician Basic Information Time Seen: Tha Tiwari DO 10/11/2024 00:26 Chief Complaint lump behind left ear. denies fever. tylenol at 1800. 20wks History of Present Illness 24-year-old female to the emergency department chief complaint of a painful lump behind her left ear. She denies any fever, sweats, chills. She is taking Tylenol for the discomfort. She is currently 20 weeks . She noticed it today. She has had a small bump there before. Review of Systems A 10 point review of systems is negative except as noted above. Medical and Surgical History: Reviewed and noted Social history: Lives at home Tobacco: Denies Physical Exam Vitals & Measurements T: 37.1 ???C(Oral) HR: 95(Peripheral) RR: 16 BP: 113/74 SpO2: 97% HT: 160 cm WT: 93.7 kg BMI: 36.6 VITALS: I have reviewed the triage vital signs. GENERAL: Well developed, well appearing adult in no acute distress. NEURO: Alert and oriented. Moves all extremities. Face is symmetric and expressive. EYES: PERRL. No scleral icterus or conjunctival injection. No discharge. HENT: Normocephalic, atraumatic. Hearing is grossly intact. Nares grossly patent and without discharge. Mucous membranes moist. There is a pea-sized tender inflamed appearing sebaceous cyst in the fold of the posterior ear. Normal TM on the left. Normal external canal on the left. No lymphadenopathy. NECK: No JVD. Patient moves neck without restriction. EXTREMITIES: Symmetric muscle bulk. No joint swelling. No clubbing, cyanosis, or deformity. SKIN: Warm and dry. Normal turgor. No rash or lesions appreciated. PSYCH: Mood, affect, and interaction is appropriate to the setting. Medical Decision Making Well-appearing 24-year-old female to the emergency department with what appears to be an inflamed sebaceous cyst. Nothing to I&D at this time. Will treat with Keflex. Discussed that she may consider excision of the cyst with surgeon when she is not and it is not infected. Return precautions were discussed. All questions were answered. The patient was discharged home. Assessment/Plan Sebaceous cyst of ear (L72.3: Sebaceous cyst) Orders: cephalexin, 500 mg = 1 cap(s), Cap, Oral, Once, Stop date 10/11/24 0:43:00 EST, STAT, Start date 10/11/24 0:43:00 EST, 10/11/24 0:43:00 EST cephalexin, 500 mg = 1 cap(s), Oral, QID, X 7 day(s), # 28 cap(s), Refills(s) 0, Pharmacy: [id number], 160, cm, 10/11/24 0:28:00 EST, Height/Length Dosing, 93.7, kg, 10/11/24 0:28:00 EST, Weight Dosing Medications Administered Given Keflex 500 mg Cap, 500 mg, Oral Disposition Plan Patient Discharge Condition Stable Discharge Disposition Home Discharge Prescription List Prescriptions Keflex 500 mg Cap, 500 mg= 1 cap(s), Oral, QID Follow-up With When Contact Information Emigdio Hyde In 3 days 10/14/2024 EST [address], [address] [place] [address]- [facility] (1) Additional Instructions: Call the office of your primary care [...] you develop any new or worsening symptoms. Patient Education Epidermoid Cyst Problem List/Past Medical History Ongoing Atopic dermatitis Establishing care with new doctor, encounter for Fatigue Iron deficiency anemia Migraines Polyhydramnios Trigger thumb of left hand Wellness examination Historical Procedure/Surgical History None. Medications Inpatient No active inpatient medications Home Keflex 500 mg Cap, 500 mg= 1 cap(s), Oral, QID Plus Iron oral tablet, 1 tab(s), Oral, Daily, 1 refills Allergies No Known Medication Allergies Social History Alcohol - Denies Alcohol Use, 09/13/2023 Substance Abuse - Denies Substance Abuse, 09/13/2023 Past, Marijuana, IV drug use: No. Drug use interferes with work/home: No. Ready to change: No. Household substance abuse concerns: No., 04/04/2024 Marijuana, 10/26/2022 Marijuana, 05/25/2022 Tobacco - Denies Tobacco Use, 09/13/2023 Never (less than 100 in lifetime) Tobacco Use:. Never Smokeless Tobacco Use:. Ready to change: No. Household tobacco concerns: No., 04/04/2024 5-9 cigarettes (between 1/4 to 1/2 pack)/day in last 30 days Tobacco Use:., 10/26/2022 5-9 cigarettes (between 1/4 to 1/2 pack)/day in last 30 days Tobacco Use:., 05/25/2022 Family History Cancer: Grandparent. Hypertension: Mother. Thyroid: Sister. Lab Results No qualifying data available. Diagnostic Results No qualifying data available. Normal [facility] [place] Comment on above: Result Comment: Elec tronically Signed By: Tha Tiwari DO\.br\Date and Time Signed: 10/11/24 01:00 EST ED Patient Summaryon 024 ED Patient Summary ED Patient Summary [address] [address] Patient Discharge Instructions Person Information Name: CHRISTI HASTINGS Age: 24 Years Arrival Date: 10/11/2024 00:19:53 Discharge Diagnosis: Sebaceous cyst of ear Primary Care Physician: NONE, XXXX Provider Information Primary Provider: Tha Tiwari DO Advanced Heel Sewer:Emy The exam and treatment you received in the Emergency Department were for an urgent problem and are not intended as complete care. It is important that you follow up with a doctor, nurse practitioner, or physician???s assistant teacher for ongoing care. If your symptoms become worse or you do not improve as expected and you are unable to reach your usual health care provider, you should return to the Emergency Department. We are available 24 hours a day. CHRISTI HASTINGS has been given the following list of patient education materials, prescriptions and follow-up instructions: Follow-up Instructions: With: Address: When: Emigdio Doni [address] [place], [place] [id number] Business (1) In 3 days 10/14/2024 Comments: Call the office of your primary [...] you develop any new or worsening symptoms. In the event that this physician does not participate in your insurance network, please consult with your insurance company to find a nearby participating provider. Patient Education Materials: Epidermoid Cyst A MESSAGE TO ALL PATIENTS REGARDING OPIOIDS PRESCRIPTION OPIOIDS: WHAT YOU NEED TO KNOW Prescription opioids can be used to help relieve wsozpboi-wm-mgutun pain and are often prescribed following a [...] as well, even when taken as directed: ??? Tolerance???meaning you might need to take more of the medication for the same pain relief ??? Physical dependence???meaning you have symptoms of withdrawal when a medication is stopped ??? Increased sensitivity to pain ??? Constipation ??? Nausea, vomiting, and dry mouth ??? Sleepiness and dizziness ??? Confusion ??? Depression ??? Low levels of testosterone that can result in lower sex drive, energy, and strength ??? Itching and sweating RISKS ARE GREATER WITH: ??? History of drug misuse, substance use disorder, or overdose ??? Mental health conditions (such as depression or anxiety) ??? Sleep apnea ??? Older age (65 years and older) ??? Avoid alcohol while taking prescription opioids. Also, unless specifically advised by your health care provider, medications to avoid include: ??? Benzodiazepines (such as Xanax or Valium) ??? Muscle relaxants (such as Soma or Flexeril) ??? Hypnotics (such as Ambien or Lunesta) ??? Other prescription opioids KNOW YOUR OPTIONS Talk to your health care provider about ways to manage your pain that don???t involve prescription opioids. Some of these options may actually work better and have fewer risks and side effects. Options may include: ??? Pain relievers such as acetaminophen, ibuprofen, and naproxen ??? Some medication that are also used for depression or seizures ??? Physical therapy and exercise ??? Cognitive behavioral therapy, a psychological, goal-directed approach, in which patients learn how to modify physical, behavioral, and emotional triggers of pain and stress. IF YOU ARE PRESCRIBED OPIOIDS FOR PAIN: ??? Never take opioids in greater amounts or more often than prescribed. ??? Follow up with your primary health care provider. o Work together to create a plan on how to manage your pain. o Talk about ways to help manage your pain that don???t involve prescription opioids. o Talk about any and all concerns and side effects. ??? Help prevent misuse and abuse o Never sell or share prescription opioids. o Never use another person???s prescription opioids. ??? (more content not included)... [facility] [place] ED Clinical Summaryon 2023 ED Clinical Summary ED Clinical Summary [address] [address] ED Clinical Summary Person Information Name: CHRISTI HASTINGS/[place] Age: 24 Years : 2000 Sex: Female Language: Malawian PCP: NONE, XXXX Marital Status: Single Phone: [phone] MRN: Visit Id: Visit Reason: Vaginal pain; Pelvic pain - <20 wks ; PELVIC PAIN VAGINAL DISCOMFORT Speciality: Acuity: 3 Enc Type: Emergency Med Service: Emergency Arrival: 09/13/2024 01:16:25 Discharge: 09/13/2024 02:16:18 LOS: 000 01:00 Checkin: 09/13/2024 01:16:25 Checkout: 09/13/2024 02:16:18 Dispo Type: Home (Routine DC) EVENTS: Event Name Event Status Request Date/Time Start Date/Time Complete Date/Time Arrive Complete 09/13/2024 01:16:25 09/13/2024 01:16:25 09/13/2024 01:16:25 Document Home Meds Request 09/13/2024 01:16:25 Triage Complete 09/13/2024 01:16:25 09/13/2024 01:24:34 09/13/2024 01:24:34 Dr Exam Complete 09/13/2024 01:19:23 09/13/2024 01:19:23 09/13/2024 01:19:23 Registration Complete 09/13/2024 01:19:23 09/13/2024 01:19:39 09/13/2024 01:19:39 Reg Complete Request 09/13/2024 01:19:39 Reg Bed Request Complete 09/13/2024 01:19:39 09/13/2024 01:19:39 09/13/2024 01:19:39 Bed Assign Complete 09/13/2024 01:24:58 09/13/2024 01:24:58 09/13/2024 01:24:58 RN Exam Complete 09/13/2024 01:24:58 09/13/2024 02:07:26 09/13/2024 02:07:26 Pending Labs Complete 09/13/2024 01:28:42 09/13/2024 02:01:27 Pending Labs Inlab 09/13/2024 01:51:27 Lab Inlab 09/13/2024 01:51:27 Discharge Complete 09/13/2024 02:08:50 09/13/2024 02:16:24 09/13/2024 02:16:24 Transfer Complete 09/13/2024 02:16:24 09/13/2024 02:16:24 09/13/2024 02:16:24 ADDRESS: [address] [place] [address] [address] [facility] [id number] PHYS DOC NOTES: MEDICAL INFORMATION: Prescriptions Given: Medications to Continue with No Changes Other Medications ibuprofen (ibuprofen 600 mg Tab) 1 Tablets By Mouth every 6 hours. Refills: 0. multivitamin, ( Plus Iron oral tablet) 1 Tablets By Mouth every day. Refills: 1. sumatriptan (Imitrex 25 mg Tab) 2 Tablets By Mouth As Directed as needed Migraine headache. take 1- or 2 - first sign of headache. may repeat dose in 2 hours if needed. Refills: 0. triamcinolone topical (triamcinolone Top 0.1% Crm 15 gram) 1 Application Topical 3 times a day. Refills: 2. PATIENT EDUCATION INFORMATION: Instructions: Round Ligament Pain; Pelvic Pain, Female, Uwgd-qo-Zzbf Follow up: With: Address: When: Emigdio Hyde [address] [facility], [facility] [address], [place] [address] Business (1) In 3 days 09/16/2024 Comments: Please follow-up with Dr. Hyde for further evaluation and management. Return to the ED for any new or worsening symptoms or if you have any concerns. With: Address: When: XXXX NONE , [place] In 3 days DIAGNOSIS: Pelvic and perineal pain; Pelvic pain in Normal [facility] [place] ED Note-Physicianon 09-13-20 ED Note-Physician ED Note-Physician Basic Information Time Seen: Gabriella Velarde DO 09/13/2024 01:19 Chief Complaint Pelvic and vaginal pain since last night. Denies discharge. 16 weeks History of Present Illness Patient is a 24-year-old female G2, P1 currently 16 weeks gestation presenting to the ED for evaluation of pelvic and vaginal pain since last night. Patient states the pain started progressively worse and also notes a bulge in the posterior aspect of her vagina with wiping. Patient has had a normal course follows with Dr. Hyde states her last appointment was approximately 1 month ago and is looking well. Patient denies any vaginal bleeding, vaginal discharge denies any fevers or chills. Review of Systems A 10 point review of systems is negative except as noted above. Medical and Surgical History: Reviewed and noted Social history: Lives at home Tobacco: Denies Physical Exam Vitals & Measurements T: 36.7 ?C(Oral) HR: 102(Peripheral) RR: 20 BP: 121/79 SpO2: 98% HT: 160 cm WT: 90.3 kg BMI: 35.27 General: Well developed, non toxic appearing, no acute distress HEENT: Head atraumatic, Mucosa moist, hearing grossly normal Neck: No JVD, tracheal deviation Cardiac: Regular rate, rhythm, no murmurs, or gallops, 2+ radial pulses Respiratory: Lungs clear to auscultation B/L, normal respiratory effort Abdomen: Soft non tender, no rebound or guarding, no peritoneal signs : Performed with nurse Danay in the room, normal external genitalia, there is some mild swelling of the posterior labia on the left, thin white discharge noted on examination, cervix is closed, no motion tenderness Extremities: No edema noted in the LE B/L, no tenderness to palpation Neurologic: Alert and oriented, speech clear Skin: No rashes or lesions Psych: Appropriate mood and behavior Medical Decision Making MEDICAL DECISION MAKING Number and Complexity of Problems Differential Diagnosis: [] [facility] Data External documents reviewed: [] My EKG interpretation: [] My CT interpretation: [] My X-ray interpretation: [] My Ultrasound interpretation: [] Decision rules/scores evaluated: [] Discussed with: [] Treatment and Disposition ED Course: Patient is a 24-year-old female presenting to the ED for evaluation of vaginal wall pain and pelvic pain. Patient is nontoxic and on arrival, no acute distress. Urinalysis is ordered. Urinalysis not signs of infection, pelvic exam showed mild swelling of the labia and some thin white vaginal discharge on examination. Cervical culture is obtained., Urinalysis without signs of infection. Bedside ultrasound is performed shows normal heart rate of 158. Discussed findings with patient explained that we will call if the cervical culture is positive and send in a prescription she is to reach out to her P[employer] Dr. Hyde tomorrow. She is to return to the ED for any new or worsening symptoms. Shared decision making: [] Code status: [] Assessment/Plan Pelvic and perineal pain (R10.2: Pelvic and perineal pain) Pelvic pain in (O26.899: Other specified related conditions, unspecified trimester) Orders: Cervical Culture UA with Cult Rflx Disposition Plan Discharge Prescription List Prescriptions No active prescription medications Follow-up With When Contact Information Emigdio Hyde In 3 days 09/16/2024 EDT [address] [facility], [address] [place] [address] Business (1) Additional Instructions: Please follow-up with Dr. Hyde for further evaluation and management. Return to the ED for any new or worsening symptoms or if you have any concerns. XXXX NONE In 3 days [place] Additional Instructions: Patient Education Round Ligament Pain Pelvic Pain, Female, Ixos-qi-Khzr Problem List/Past Medical History Ongoing Atopic dermatitis Establishing care with new doctor, encounter for Fatigue Iron deficiency anemia Migraines Polyhydramnios Trigger thumb of left hand Wellness examination Historical Procedure/Surgical History None. Medications Inpatient No active inpatient medications Home ibuprofen 600 mg Tab, 600 mg= 1 tab(s), Oral, q6hr Imitrex 25 mg Tab, 50 mg= 2 tab(s), Oral, As Directed, PRN Plus Iron oral tablet, 1 tab(s), Oral, Daily, 1 refills triamcinolone Top 0.1% Crm 15 gram, 1 yvan, Topical, TID, 2 refills Allergies No Known Medication Allergies Social History Alcohol - Denies Alcohol Use, 09/13/2023 Substance Abuse - Denies Substance Abuse, 09/13/2023 Past, Marijuana, IV drug use: No. Drug use interferes with work/home: No. Ready to change: No. Household substance abuse concerns: No., 04/04/2024 Marijuana, 10/26/2022 Marijuana, 05/25/2022 Tobacco - Denies Tobacco Use, 09/13/2023 Never (less than 100 in lifetime) Tobacco Use:. Never Smokeless Tobacco Use:. Ready to change: No. Household tobacco concerns: No., 04/04/2024 5-9 cigarett (more content not included)... Normal [facility] [place] Comment on above: Result Comment: Elec tronically Signed By: Gabriella Velarde DO\.br\Date and Time Signed: 09/13/24 02:10 EDT ED Patient Summaryon 024 ED Patient Summary ED Patient Summary [place] [id number] Patient Discharge Instructions Person Information Name: CHRISTI HASTINGS Age: 24 Years Arrival Date: 09/13/2024 01:16:25 Discharge Diagnosis: Pelvic and perineal pain; Pelvic pain in Primary Care Physician: NONE, XXXX Provider Information Primary Provider: Gabriella Velarde DO Advanced Heel Sewer:None The exam and treatment you received in the Emergency Department were for an urgent problem and are not intended as complete care. It is important that you follow up with a doctor, nurse practitioner, or physician?s assistant teacher for ongoing care. If your symptoms become worse or you do not improve as expected and you are unable to reach your usual health care provider, you should return to the Emergency Department. We are available 24 hours a day. CHRISTI HASTINGS has been given the following list of patient education materials, prescriptions and follow-up instructions: Follow-up Instructions: With: Address: When: Emigdio Hyde [address], [facility] [place] [address] Business (1) In 3 days 09/16/2024 Comments: Please follow-up with Dr. Hyde for further evaluation and management. Return to the ED for any new or worsening symptoms or if you have any concerns. With: Address: When: XXXX NONE , [place] In 3 days In the event that this physician does not participate in your insurance network, please consult with your insurance company to find a nearby participating provider. Patient Education Materials: Round Ligament Pain; Pelvic Pain, Female, Yagz-dw-Xubl A MESSAGE TO ALL PATIENTS REGARDING OPIOIDS PRESCRIPTION OPIOIDS: WHAT YOU NEED TO KNOW Prescription opioids can be used to help relieve fhlqmsvh-ig-ojjsnb pain and are often prescribed following a [...] from the Food and Drug Administration (www.fda.gov/Drugs/Re sourcesForY (more content not included)... Normal [facility] [place] No Panel InformationOrdered By: Aracelis Jacobs on 09-13-2024 WP No Trichomonas vaginalis present No clue cells present No yeast seen [facility] UA with Cult Rflxon 09-13-20 24 Bilirubin Ql (U) Negative Normal Negative [facility] Comment on above: Performed By: #### 4 [id number] #### [facility] [place] [facility] [address] [place] [address] Clarity (U) Clear Normal Clear [facility] [place] Comment on above: Performed By: #### 4 [id number] #### [facility] [place] [facility] [address] [place] [address] Color (U) Light-Yellow Normal Yellow [facility] [place] Comment on above: Result Comment: Micr oscopic readings are only performed on those samples that meet specific criteria set forth by [facility] [place] [facility]. Performed By: #### 4 [id number] #### [facility] [place] [facility] [address] [place] [address] Glucose Ql (U) Negative Normal Negative [facility] Comment on above: Performed By: #### 4 [id number] #### [facility] [place] [facility] [address] [place] [address] Hemoglobin Auto test strip (U) [Mass/Vol] Negative Normal Negative [place] Comment on above: Performed By: #### 4 [id number] #### [facility] [place] [facility] [address] [place] [address] Ketones Auto test strip Ql (U) Negative Normal Negative [facility] [place] Comment on above: Performed By: #### 4 [id number] #### [facility] [place] [facility] [address] [place] [address] Leukocyte esterase Auto test strip Ql (U) Negative Normal Negative [facility] Comment on above: Performed By: #### 4 [id number] #### [facility] [place] [facility] [address] [place] [address] Nitrite Auto test strip Ql (U) Negative Normal Negative [facility] [place] Comment on above: Performed By: #### 4 [id number] #### [facility] [place] [facility] [address] [place] [address] pH (U) 6.5 [pH] Invalid Interpretation Code 5.0-9.0 [facility] [place] Comment on above: Performed By: #### 4 [id number] #### [facility] [place] [facility] [address] [place] [address] Protein Ql (U) Negative Normal Negative [facility] Comment on above: Performed By: #### 4 [id number] #### [facility] [place] [facility] [address] [place] [address] Specific gravity (U) [Rel density] 1.023 Invalid Interpretation Code 1.005-1.030 [facility] [place] Comment on above: Performed By: #### 4 [id number] #### [facility] [place] [facility] [address] [place] [address] Urobilinogen (U) [Mass/Vol] Negative Normal Negative [facility] [place] Comment on above: Performed By: #### 4 [id number] #### [facility] [place] [facility] [address] [place] [address] Type of Urine collection method Clean Catch Normal [facility] [place] Comment on above: Performed By: #### 4 [id number] #### [facility] [place] [facility] [address] [place] [address] URINALYSISOrdered By: SYSTEM SYSTEM on 09-13-2024 Bilirubin Ql (U) Negative Normal Negativemg/ d L [facility] UA Auto SS Clarity (U) Clear (09/13/24 1:47 AM) Normal Clear [facility] UA Auto SS Color (U) Light-Yellow 1 (09/13/24 1:47 AM) Normal Yellow [facility] UA Auto SS Comment on above: Interpretive Data: M icroscopic readings are only performed on those samples that meet specific criteria set forth by [facility]. Glucose Ql (U) Negative Normal Negativemg/d L [facility] UA Auto SS Hemoglobin Auto test strip (U) [Mass/Vol] Negative Normal Negativemg/d L [facility] UA Auto SS Ketones Auto test strip Ql (U) Negative Normal Negativemg/d L [facility] UA Auto SS Leukocyte esterase Auto test strip Ql (U) Negative Normal NegativeLeu/ uL [facility] UA Auto SS Nitrite Auto test strip Ql (U) Negative Normal Negativemg/d L [facility] UA Auto SS pH (U) 6.5 *NA* (09/13/24 1:47 AM) Invalid Interpretation Code 5.0 - 9.0 [facility] UA Auto SS Protein Ql (U) Negative Normal Negativemg/d L [facility] UA Auto SS Specific gravity (U) [Rel density] 1.023 *NA* (09/13/24 1:47 AM) Invalid Interpretation Code 1.005 - 1.030 [facility] UA Auto SS Urobilinogen (U) [Mass/Vol] Negative Normal Negativemg/d L [facility] UA Auto SS URINALYSISOrdered By: Meggan Velarde on 09-13-2024 UA Spec Desc Clean Catch (09/13/24 1:47 AM) Normal FT UA Auto SS Grp A Strp PCRon 08-21-2024 Group A Strep Negative Normal [place] Comment on above: Order Comment: Order Added on by Discern Rule. Result Comment: Test ing performed using DNA amplification. Performed By: #### 1 [id number] #### [facility] [address] [id number] Grp A Strp Intrl Ctrl Pass Normal [facility] Comment on above: Order Comment: Order Added on by Discern Rule. Performed By: #### 1 [id number] #### [facility] [address] [id number] ED Clinical Summaryon 2023 ED Clinical Summary ED Clinical Summary [address] [address] ED Clinical Summary Person Information Name: CHRISTI HASTINGS/[facility] Age: 24 Years : 2000 Sex: Female Language: Malawian PCP: NONE, XXXX Marital Status: Single Phone: [phone] MRN: [id number] Visit Id: Visit Reason: Throat pain - Adult; Nausea; SORE THROAT, NAUSEA Speciality: Acuity: 4 Enc Type: Emergency Med Service: Emergency Arrival: 08/20/2024 15:59:19 Discharge: 08/20/2024 17:43:10 LOS: 000 01:44 Checkin: 08/20/2024 15:59:19 Checkout: 08/20/2024 17:43:10 Dispo Type: Home (Routine DC) EVENTS: Event Name Event Status Request Date/Time Start Date/Time Complete Date/Time Arrive Complete 08/20/2024 15:59:19 08/20/2024 15:59:19 08/20/2024 15:59:19 Document Home Meds Request 08/20/2024 15:59:19 Triage Complete 08/20/2024 15:59:19 08/20/2024 16:06:44 08/20/2024 16:06:44 Patient Care Request 08/20/2024 16:06:45 Patient Isolation Request 08/20/2024 16:06:45 Registration Complete 08/20/2024 16:06:55 08/20/2024 16:06:55 08/20/2024 16:06:55 Reg Complete Request 08/20/2024 16:06:55 Reg Bed Request Complete 08/20/2024 16:06:55 08/20/2024 16:06:55 08/20/2024 16:06:55 Bed Assign Complete 08/20/2024 16:30:46 08/20/2024 16:30:46 08/20/2024 16:30:46 Dr Exam Complete 08/20/2024 16:30:46 08/20/2024 16:31:58 08/20/2024 16:31:58 RN Exam Complete 08/20/2024 16:30:46 08/20/2024 17:05:27 08/20/2024 17:05:27 Registration Request 08/20/2024 16:31:58 Dr Exam Complete 08/20/2024 16:33:24 08/20/2024 16:33:24 08/20/2024 16:33:24 Pending Labs Complete 08/20/2024 16:43:44 08/20/2024 17:26:43 Lab Complete 08/20/2024 16:43:44 08/20/2024 17:26:43 Swab Complete 08/20/2024 16:43:44 08/20/2024 17:26:43 Meds Admin Complete 08/20/2024 16:43:44 08/20/2024 16:54:07 Pending Labs Inlab 08/20/2024 17:20:41 08/20/2024 17:20:41 Discharge Complete 08/20/2024 17:38:13 08/20/2024 17:43:17 08/20/2024 17:43:17 Transfer Complete 08/20/2024 17:43:17 08/20/2024 17:43:17 08/20/2024 17:43:17 ADDRESS: [address] [place] [address] [address] [facility] [id number] PHYS DOC NOTES: MEDICAL INFORMATION: Prescriptions Given: PATIENT EDUCATION INFORMATION: Instructions: and COVID-19; COVID-19 Follow up: With: Address: When: Emigdio Paulson [address], [address], [place] [address] Business (1) In 3 days 08/23/2024 Comments: Return to the emergency room if your symptoms get worse, chest pain, shortness of breath or any new symptoms DIAGNOSIS: 1:COVID-19 virus infection Normal [facility] ED Note-Physicianon 08-20-20 ED Note-Physician ED Note-Physician Basic Information Time Seen: Rodolfosanford AhujaKarolina 08/20/2024 16:31 Chief Complaint pt c/o sore throat, nausea, pt states her sig other tested positive for covid yesterday. pt is 13 wks preg not c/o any pelvic pain or bleeding. History of Present Illness The patient is a 24-year-old female 13 weeks who presented to the emergency room with flulike symptoms. The patient states since Monday she has been having sore throat nausea. The patient states that she has been having bodyaches. She denies any shortness of breath. She reports some chest pain last night. The patient states her significant other tested positive for COVID. She states she wants to be tested for COVID?19 virus. The patient denies any abdominal pain. She denies any vaginal bleeding. The patient denies any other associated symptoms. Review of Systems Additional ROS info: Except as noted in the above Review of Systems and in the History of Present Illness all other systems have been reviewed and are negative or noncontributory. Physical Exam Vitals & Measurements T: 36.9 ?C(Tympanic) HR: 107(Peripheral) BP: 129/86 SpO2: 97% HT: 160 cm WT: 88.4 kg BMI: 34.53 General: alert, no acute distress Skin: warm, dry, Head: no trauma, normocephalic Neck: Trachea midline, no tenderness, supple Eye: normal conjunctiva, sclera clear, PERRL, EOMI, vision unchanged ENMT: Oral mucosa moist, no pharyngeal erythema or exudate Cardiovascular: regular rate and rhythm, Respiratory: Lungs CTA, respirations non labored, breath sounds equal, Gastrointestinal: soft, non distended, no tenderness Extremities: no deformity, no trauma Neurological: Alert and oriented, speech normal, no focal neuro deficits, Psychiatric: cooperative, affect appropriate for age, Medical Decision Making MEDICAL DECISION MAKING Number and Complexity of Problems Differential Diagnosis: [] [facility] Data External documents reviewed: [] My EKG interpretation: [] My CT interpretation: [] My X-ray interpretation: [] My Ultrasound interpretation: [] Decision rules/scores evaluated: [] Discussed with: [] Treatment and Disposition ED Course: The patient presented with flulike symptoms. She is positive for Alexia?19 virus infection. The patient does not appear to be toxic. She is not hypoxic. She is afebrile. The patient was given Tylenol. Will discharge patient home follow-up with her OB. She is instructed to return to the emergency room if her symptoms get worse, chest pain, shortness of breath or any new symptoms. Shared decision making: [] Code status: [] Assessment/Plan 1. COVID-19 virus infection (U07.1: COVID-19) Orders: acetaminophen, 650 mg = 2 tab(s), Tab, Oral, Once, Stop date 08/20/24 16:43:00 EDT, STAT, Start date 08/20/24 16:43:00 EDT, 08/20/24 16:43:00 EDT Group A Strep by PCR Influenza A&B Ag Rapid COVID Antigen ([facility]) Rapid Strep w/rfx Medications Administered Given Tylenol 325 mg Tab, 650 mg, Oral Disposition Plan Patient Discharge Condition Stable Discharge Disposition Discharge home Discharge Prescription List Prescriptions No active prescription medications Follow-up With When Contact Information Emigdio Hyde In 3 days 08/23/2024 EDT [address] [facility], [address] [place] [address] [facility] (1) Additional Instructions: Return to the emergency room if your symptoms get worse, chest pain, shortness of breath or any new symptoms Patient Education and COVID-19 COVID-19 Problem List/Past Medical History Ongoing Atopic dermatitis Establishing care with new doctor, encounter for Fatigue Iron deficiency anemia Migraines Polyhydramnios Trigger thumb of left hand Wellness examination Historical Procedure/Surgical History None. Medications Inpatient No active inpatient medications Home ibuprofen 600 mg Tab, 600 mg= 1 tab(s), Oral, q6hr Imitrex 25 mg Tab, 50 mg= 2 tab(s), Oral, As Directed, PRN Plus Iron oral tablet, 1 tab(s), Oral, Daily, 1 refills triamcinolone Top 0.1% Crm 15 gram, 1 yvan, Topical, TID, 2 refills Allergies No Known Medication Allergies Social History Alcohol - Denies Alcohol Use, 09/13/2023 Substance Abuse - Denies Substance Abuse, 09/13/2023 Past, Marijuana, IV drug use: No. Drug use interferes with work/home: No. Ready to change: No. Household substance abuse concerns: No., 04/04/2024 Marijuana, 10/26/2022 Marijuana, 05/25/2022 Tobacco - Denies Tobacco Use, 09/13/2023 Never (less than 100 in lifetime) Tobacco Use:. Never Smokeless Tobacco Use:. Ready to change: No. Household tobacco concerns: No., 04/04/2024 5-9 cigarettes (between 1/4 to 1/2 pack)/day in last 30 days Tobacco Use:., 10/26/2022 5-9 cigarettes (between 1/4 to 1/2 pack)/day in last 30 days Tobacco Use:., 05/25/2022 Family History Cancer: Grandparent. Hypertension: Mother. Thyroid: Sister. (more content not included)... Normal [facility] Comment on above: Result Comment: Elec tronically Signed By: Karolina Waddell M.D.\.br\Date and Time Signed: 08/20/24 17:40 EDT ED Patient Summaryon 024 ED Patient Summary ED Patient Summary [address] [id number] Patient Discharge Instructions Person Information Name: CHRISTI HASTINGS Age: 24 Years Arrival Date: 08/20/2024 15:59:19 Discharge Diagnosis: 1:COVID-19 virus infection Primary Care Physician: NONE, XXXX Provider Information Primary Provider: Karolina Waddell M.D. Advanced Heel Sewer:None The exam and treatment you received in the Emergency Department were for an urgent problem and are not intended as complete care. It is important that you follow up with a doctor, nurse practitioner, or physician?s assistant teacher for ongoing care. If your symptoms become worse or you do not improve as expected and you are unable to reach your usual health care provider, you should return to the Emergency Department. We are available 24 hours a day. CHRISTI HASTINGS has been given the following list of patient education materials, prescriptions and follow-up instructions: Follow-up Instructions: With: Address: When: Emigdio Hyde [address] [facility] [address] [facility] [address], [place] [address] Business (1) In 3 days 08/23/2024 Comments: Return to the emergency room if your symptoms get worse, chest pain, shortness of breath or any new symptoms In the event that this physician does not participate in your insurance network, please consult with your insurance company to find a nearby participating provider. Patient Education Materials: and COVID-19; COVID-19 A MESSAGE TO ALL PATIENTS REGARDING OPIOIDS PRESCRIPTION OPIOIDS: WHAT YOU NEED TO KNOW Prescription opioids can be used to help relieve xkpywkxc-iw-mqejyt pain and are often prescribed following a [...] If you believe you may be struggling wi (more content not included)... Normal [facility] Influenza A&B Agon 4 Influenzae A Ag Negative Normal Negative [facility] Comment on above: Performed By: #### 1 [id number] #### [facility] [address] [place] [address] Influenzae B Ag Negative Normal Negative [facility] Comment on above: Result Comment: Test sensitivity and specificity vary for age group, specimen type, antigen types, and prevalence of disease. Test results must be evaluated in conjunction with other clinical data available to the physician. Individuals who received nasally administered Influenza A vaccine may have positive test results up to 3 days after vaccination. Performed By: #### 1 [id number] #### [facility] [address] [place] [address] MICRO OTHER TESTSOrdered By: Tata Vasquez on 08-20-2024 Influenzae A Ag Negative (08/20/24 4:51 PM) Normal Negative [facility] Man Sero Influenzae B Ag Negative 1 (08/20/24 4:51 PM) Normal Negative [facility] Sero Comment on above: Interpretive Data: T est sensitivity and specificity vary for age group, specimen type, antigen types, and prevalence of disease. Test results must be evaluated in conjunction with other clinical data available to the physician. Individuals who received nasally administered Influenza A vaccine may have positive test results up to 3 days after vaccination. Rapid COV Int NEG Ctl Pass (08/20/24 4:51 PM) Normal [facility] Man Sero Rapid COV Int POS Ctl Pass (08/20/24 4:51 PM) Normal [facility] S. pyogenes Ag IA.rapid Ql (Throat) Negative (08/20/24 4:51 PM) Normal Negative [facility] SARS-CoV+SARS-CoV-2 (COVID-19) Ag IA.rapid Ql (Resp) Detected 2 *ABN* (08/20/24 4:51 PM) Invalid Interpretation Code Not Detected [facility] Comment on above: Interpretive Data: Cassandra he MEDOVENT Veritor System for Rapid Detection of SARS-CoV-2 is [...] be considered in the context of a patient s recent exposures, history and the presence of [...] laboratories certified under the CLIA, 42 U.S.C. 263a, that meet requirements to perform moderate, high, or waived complexity tests and at the Point of Care (POC), i.e., in patient care settings operating under a CLIA Certificate of Waiver, Certificate of Compliance, or Certificate of Accreditation. This test has been authorized only for the detection of proteins from SARS-CoV-2, not for any other viruses or pathogens; and, in the [facility], this test is only authorized for the duration of the declaration that circumstances exist justifying the authorization of emergency use of in vitro diagnostics for detection and/or diagnosis of the virus that causes COVID-19 under Section 564(b)(1) of the Act, 21 U.S.C. 360bbb-3(b)(1), unless the authorization is terminated or revoked sooner. Rapid COVID Antigen ([facility])on 08-20-2024 Rapid COV Int NEG Ctl Pass Normal [facility] Comment on above: Performed By: #### 2 [id number] #### [facility] [address] [place] [address] Rapid COV Int POS Ctl Pass Normal [facility] Comment on above: Performed By: #### 2 [id number] #### [facility] [address] [place] [address] SARS-CoV+SARS-CoV-2 (COVID-19) Ag IA.rapid Ql (Resp) Detected Abnormal Not Detected [facility] Comment on above: Result Comment: The MEDOVENT Veritor? System for Rapid Detection of SARS-CoV-2 is [...] For in vitro diagnostic use. In the [facility], only for use under an Emergency Use [...] or revoked sooner. Performed By: #### 2 [id number] #### [facility] [address] [place] [address] Rapid Strep w/rfxon 08-20-20 24 S. pyogenes Ag IA.rapid Ql (Throat) Negative Normal Negative [place] Comment on above: Performed By: #### 2 [id number] #### [facility] [address] [place] [address] C Urineon 06-30-2024 Bacteria identified Cx Nom (U) Microbiology PROCEDURE: Urine Culture [R1] SOURCE: U CleanCatch BODY SITE: COLLECTED DATE/TIME: 06/27/2024 12:00 EDT RECEIVED DATE/TIME: 06/28/2024 20:20 EDT START DATE/TIME: 06/28/2024 20:20 EDT FREE TEXT SOURCE: [address], Emigdio Hyde MD, Emigdio Foy FINAL REPORTS Final Report [] Verified Date/Time: 06/30/2024 10:21 EDT 3,000 cfu/ml Mixed skin contaminants Performing Locations R1: This test was performed at: [facility], [address] [place] [address], [address]- , [place], Normal [facility] Comment on above: Performed By: #### 2 [id number] #### [facility] [address] [place] [address] HIV Screen 4th Generation wR fxon 06-30-2024 HIV 1+2 Ab+HIV1 p24 Ag IA Ql Non-Reactive Invalid Interpretation Code Non Reactive [facility] Comment on above: Result Comment: HIV Negative HIV-1/HIV-2 antibodies and HIV-1 p24 antigen were NOT detected. There is no laboratory evidence of HIV infection. Performed at: [address] [id number] PhD Dilcia Nagy Performed By: #### 9 [id number] #### [facility] [address] [place] [address] Hep Bs Agon 06-30-2024 HBV surface Ag IA Ql Negative Invalid Interpretation Code Negative [facility] Comment on above: Result Comment: Perf ormed at: [address] [id number] PhD Dilcia Nagy Performed By: #### 2 [id number] #### [facility] [address] [place] [address] RPR with Conf Rfxon 06-30-20 24 Reagin Ab RPR Ql (S) Non-Reactive Invalid Interpretation Code Non Reactive [facility] Comment on above: Result Comment: Perf ormed at: [address] [id number] PhD Dilcia Nagy Performed By: #### 1 [id number] #### [facility] [address] [place] [address] Rubella IgGon 06-30-2024 Rubella virus IgG Qn (S) 1.87 [IU]/mL Invalid Interpretation Code Immune >0.99 [facility] Comment on above: Result Comment: Non- immune <0.90 Equivocal 0.90 - 0.99 Immune >0.99 Performed at: [address] [place] [id number] PhD Dilcia Nagy Performed By: #### 1 [id number] #### [facility] [address] [place] [address] ABO/Rhon 06-29-2024 ABO/Rh Positive Invalid Interpretation Code [facility] Comment on above: Performed By: #### 2 [id number] #### [facility] [address] [place] [address] ABSCon 06-29-2024 ABSC Gel Interp Negative Normal [facility] Comment on above: Performed By: #### 1 [id number] #### [facility] [address] [place] [address] CBC w/Indiceson 06-28-2024 Erythrocyte distribution width (RBC) [Ratio] 18.2 % High 10.9-14.2 [facility] Comment on above: Performed By: #### 2 [id number] #### [facility] [address] [place] [address] Hematocrit (Bld) [Volume fraction] 37.7 % Normal 34.0-46.0 [facility] Comment on above: Performed By: #### 2 [id number] #### [facility] [address] [place] [address] Hemoglobin (Bld) [Mass/Vol] 12.0 g/dL Normal 12.0-16.0 [facility] Comment on above: Performed By: #### 2 [id number] #### [facility] [place] [facility] [address] [place] [address] MCH (RBC) [Entitic mass] 25.8 pg Low 27.0-34.0 [facility] Comment on above: Performed By: #### 2 [id number] #### [facility] [address] [place] [address] MCHC (RBC) [Mass/Vol] 31.9 g/dL Normal 31.4-36.0 [facility] Comment on above: Performed By: #### 2 [id number] #### [facility] [address] [place] [address] MCV (RBC) [Entitic vol] 80.8 fL Normal 80.0-100.0 [facility] Comment on above: Performed By: #### 2 [id number] #### [facility] [address] [place] [address] Platelet 296.0 E9/L Normal 150.0-500.0 [facility] Comment on above: Performed By: #### 2 [id number] #### [facility] [address] [place] [address] Platelet mean volume (Bld) [Entitic vol] 9.4 fL Normal 6.4-10.8 [facility] Comment on above: Performed By: #### 2 [id number] #### [facility] [address] [place] [address] RBC (Bld) [#/Vol] 4.7 E12/L Normal 4.3-5.9 [facility] Comment on above: Performed By: #### 2 [id number] #### [facility] [address] [place] [address] RBC size Nom (Bld) NORMAL Invalid Interpretation Code [facility] Comment on above: Performed By: #### 2 [id number] #### [facility] [address] [place] [address] WBC corrected for nucl RBC Auto (Bld) [#/Vol] 7.1 E9/L Normal 4.0-11.0 [facility] Comment on above: Performed By: #### 2 [id number] #### [facility] [address] [place] [address] Patient Educationon 05-03-20 Patient Education Dermatology Eczema Eczema refers to a group of skin conditions that cause skin to become rough and inflamed. Each type of eczema has different triggers, symptoms, and treatments. Eczema of any type is usually itchy. Symptoms range from mild to severe. Eczema is not spread from person to person (is not contagious). It can appear on different parts of the body at different times. One person's eczema may look different from another person's eczema. What are the causes? The exact cause of this condition is not known. However, exposure to certain environmental factors, irritants, and allergens can make the condition worse. What are the signs or symptoms? Symptoms of this condition depend on the type of eczema you have. The types include: ? Contact dermatitis. There are two kinds: ? Irritant contact dermatitis. This happens when something irritates the skin and causes a rash. ? Allergic contact dermatitis. This happens when your skin comes in contact with something you are allergic to (allergens). This can include poison oswaldo, chemicals, or medicines that were applied to your skin. ? Atopic dermatitis. This is a long-term (chronic) skin disease that keeps coming back (recurring). It is the most common type of eczema. Usual symptoms are a red rash and itchy, dry, scaly skin. It usually starts showing signs in infancy and can last through adulthood. ? Dyshidrotic eczema. This is a form of eczema on the hands and feet. It shows up as very itchy, fluid-filled blisters. It can affect people of any age but is more common before age 40. ? Hand eczema. This causes very itchy areas of skin on the palms and sides of the hands and fingers. This type of eczema is common in industrial jobs where you may be exposed to different types of irritants. ? Lichen simplex chronicus. This type of eczema occurs when a person constantly scratches one area of the body. Repeated scratching of the area leads to thickened skin (lichenification). This condition can accompany other types of eczema. It is more common in adults but may also be seen in children. ? Nummular eczema. This is a common type of eczema that most often affects the lower legs and the backs of the hands. It typically causes an itchy, red, circular, crusty lesion (plaque). Scratching may become a habit and can cause bleeding. Nummular eczema occurs most often in middle-aged or older people. ? Seborrheic dermatitis. This is a common skin disease that mainly affects the scalp. It may also affect other oily areas of the body, such as the face, sides of the nose, eyebrows, ears, eyelids, and chest. It is marked by small scaling and redness of the skin (erythema). This can affect people of all ages. In infants, this condition is called cradle cap. ? Stasis dermatitis. This is a common skin disease that can cause itching, scaling, and hyperpigmentation, usually on the legs and feet. It occurs most often in people who have a condition that prevents blood from being pumped through the veins in the legs (chronic venous insufficiency). Stasis dermatitis is a chronic condition that needs long-term management. How is this diagnosed? This condition may be diagnosed based on: ? A physical exam of your skin. ? Your medical history. ? Skin patch tests. These tests involve using patches that contain possible allergens and placing them on your back. Your health care provider will check in a few days to see if an allergic reaction occurred. How is this treated? Treatment for eczema is based on the type of eczema you have. You may be given hydrocortisone steroid medicine or antihistamines. These can relieve itching quickly and help reduce inflammation. These may be prescribed or purchased over the counter, depending on the strength that is needed. Follow these instructions at home: ? Take or apply qssk-zyi-rpkdyar and prescription medicines only as told by your health care provider. ? Use creams or ointments to moisturize your skin. Do not use lotions. ? Learn what triggers or irritates your symptoms so you can avoid these things. ? Treat symptom flare-ups quickly. ? Do not scratch your skin. This can make your rash worse. ? Keep all follow-up visits. This is important. Where to find more information ? [place] [employer]: aad.org ? National Eczema Association: nationaleczema.org ? The Society for Pediatric Dermatology: [email or web address] Contact a health care provider if: ? You have severe itching, even with treatment. ? You scratch your skin regularly until it bleeds. ? Your rash looks different than usual. ? Your skin is painful, swollen, or more red than usual. ? You have a fever. Summary ? Eczema refers to a group of skin conditions that cause skin to become rough and inflamed. Each type has different triggers. ? Eczema of any type causes itching that may range from mild to severe. ? Treatment varies based on the type of eczema you have. Hydrocortisone stero (more content not included)... [facility] [place] PAP [id number] 04-25-2024 Cytology report Cyto stain Doc (Cvx/Vag) Note Invalid Interpretation Code [facility] Comment on above: Result Comment: TEST S RESULT FLAG UNITS REF RANGE LAB Clinician Provided Cytology Information Source.............Endocervix No. of containers..01 ThinPrep Vial DIAGNOSIS: 01 NEGATIVE FOR INTRAEPITHELIAL LESION OR MALIGNANCY. SPECIMEN REPROCESSED FOR INTERPRETATION USING GLACIAL ACETIC ACID (GAA). Specimen adequacy: 01 Satisfactory for evaluation. Endocervical and/or squamous metaplastic cells (endocervical component) are present. Areas of partially obscuring blood are present. Scant cellularity Performed by: Missy Santizo, Brake Specialist (ASC) QC reviewed by: Missy Turk, Supervisory Brake Specialist (ASC) . 01 Note: Note 01 The Pap smear is a screening test designed to aid in the detection of premalignant and malignant conditions of the uterine cervix. It is not a diagnostic procedure and should not be used as the sole means of detecting cervical cancer. Both false-positive and false-negative reports do occur. Test Methodology: Note 01 This liquid based ThinPrep(R) pap test was screened with the use of an image guided system. . 01 The HPV DNA reflex criteria were not met with this specimen result therefore, no HPV testing was performed. FLAG LEGEND: L-Low Normal,H-High Normal,LL-Alert Low,HH-Alert High <-Panic Low,>-Panic High,A-Abnormal,AA-Critical Abnormal Performed at: [address] [place] [address] Lavern Brink MD, Performed at: [facility] [address] [place], [place] [id number] MD Keena Puckett Performed By: #### 3 [id number] #### [facility] [place] [facility] [address] [place] [address] PAP [id number] 04-16-2024 Collection Technique BRUSH-SPATULA [facility] [place] [facility] Comment on above: Performed By: #### 3 [id number] #### [facility] [place] [facility] [address] [place] [address] Gynecological Body Site ENDOCERVIX [facility] [place] Comment on above: Performed By: #### 3 [id number] #### [facility] [place] [facility] [address] [place] [address] Physician Orderon 04-16-2024 Physician Order [id number] #1.00TIFF [facility] [place] Ambulatory Visit Summaryon 0 04-04-2024 Ambulatory Visit Summary CHRISTI HASTINGS :2000 Visit Date:04/04/2024 Ambulatory Visit Instructions Your Diagnosis Establishing care with new doctor, encounter for Wellness examination Smoker Atopic dermatitis Adult BMI 36.0-36.9 kg/sq m Other obesity Fatigue Iron deficiency anemia, Iron deficiency anemia Migraines Your Care Team Attending Physician - Kin MATTHEWS, Arlet Ferraro Primary Care Physician - NONE, XXXX This Is Your Medications List ibuprofen (ibuprofen 600 mg Tab) multivitamin, ( Plus Iron oral tablet) sumatriptan (Imitrex 25 mg Tab) triamcinolone topical (triamcinolone Top 0.1% Crm 15 gram) Procedures Performed None. Discharge Vitals Temperature (Temporal Artery) 36.5 ?C Heart Rate (Peripheral) 62 Respiratory Rate 18 Blood Pressure 112/68 Height 157.5 cm Height 62 in Weight 90.6 kg Weight 199.32 lb BMI 36.52 What to do next You Need to Complete the Following CBC w/ Auto Diff, Blood, Routine collect, 04/04/24, Order for future visit, Lab Collect, Iron deficiency anemia Invalid Interpretation Code Other obesity [facility] Medicine Office/Clini c Noteon 04-04-2024 Family Medicine Office/Clinic Note Chief Complaint Establish care-rash bilateral legs/arms and left thumb pain HPI Staff Reason For Visit: Establish Care History: Any previous diagnosis: migraines and Headaches History of seeing any specialist(s): yes [facility] (Dr. Hyde) Any recent labs: yes February 28, 2024 Smoker Status: Never Acute: Current issues/complaints: Rash on bilateral legs and arms. Left thumb pain/locking Health Maintenance: Adult Wellness: Due Cervical Cancer Screening:Due Mental Health PHQ9 Score: 0 ZOILA Score: 0 History of Present Illness Patient is new to [place] Patient is here today for evaluation and overall feeling- tired- KAMILLE IS 5 weeks old- first baby- breast at first- just stopped- doing well . HAS her first post appointment with [facility] in 2 weeks. resolved, no sex, wants more kids- but yet-maybe when child is 3- no plan for control. RASH start 38 weeks- was on arms and legs. now still on legs, a little arms She has tried Benadryl cream- helped a little, stretching and itchy. no fever, no redness, no drainage. improving but remains. - Hydrocot cream di not help Medical History: HEADACHEs- / migraines- Excedrin and ibuprofen used to help, last about 1/2 day- heavy head- right sided- denies vision change, no nausea. no vomiting. + light sensitive and sound sensitive. was on magnesium- she has this at home- 2-3 since baby born- classic - no red flags reported no changes in type- prior to hormone and menstraul related. Anemia- iron HEART BURN during - was works- [employer]- Past Surgical History: no sx hx wisdom teeth Past family History: Grandmother- breast cancer - 35-40 Sister - thyroid problems SPEAK- BULGARIAN- born in [place]- mom from [place] Social History: Occupation: Working at [employer]- no plans to return to work- Family life: SIG other ALEC- his health insurance - he works at [employer] also.- parents are here local. Diet: well balanced for the most part- chips- weakness Caffeine : iced coffee- DR pepper- 1-2 day Exercise: walks- stroller Alcohol use: NO Drug use: never Smoking status: never Health Maintenance: Routine labs: DUE FOR new- Anemia- Pap (21-64yo): UTD with [facility] Specialists: Corporate Associate: Sil Funez [facility]TDanii Dentist: KEM- no cavity Patient is recently nvjfgqghgp-1-3/2 to 8 pound baby was anticipated, she was discharged on March 01 With epidural without complications- induction DATE ADMITTED: 02/26/2024 INTERVAL NOTE The patient is a 23-year-old 1, para 0, AB0 white female at 40 weeks' gestation who presented to Labor and Delivery in labor. Her course had been complicated by need for transfer of care in her third trimester, polyhydramnios. She reached 40 weeks' gestation and brought in for labor. Anticipate an approximately 7-1/2 to 8-pound baby. Please see records for details. Emigdio Hyde M.D. yuni Dictated: 02/28/2024 [id number] Transcribed: 02/28/2024 Review of Systems PHQ Score Initial Depression Screen Score: 0 SCORE Physical Exam Vitals & Measurements T: 36.5 ?C(Temporal Artery) HR: 62(Peripheral) RR: 18 BP: 112/68 SpO2: 98% HT: 62 in HT: 157.5 cm WT: 90.6 kg WT: 199.32 lb BMI: 36.52 General: alert, no acute distress, well appearing, _pleasant, young female Skin: warm, dry, intact, fine midly erythematous papular rash thighs and upper arms. Head: no trauma, normocephalic Neck: Trachea midline, no adenopathy, no tenderness Eye: normal conjunctiva, sclera clear, _PERRLA ENMT: TM's clear, oral mucosa moist, no pharyngeal erythema or exudate, normal dentition Cardiovascular: regular rate and rhythm, normal peripheral perfusion, no edema Respiratory: Lungs CTA, respirations non labored Chest wall: no deformity, non tender Gastrointestinal: soft, non distended, no tenderness, no guarding., fundus normal below umbilical area, MIOLD RIGHT SIDED TENDERNESS to palpation Back: No tenderness, Normal ROM, Normal alignment. Extremities: no deformity, no trauma Neurological: oriented x 4, LOC appropriate for age, CN II-XII intact, motor strength equal & normal bilaterally, sensation equal & normal bilaterally, speech normal Psychiatric: cooperative? , affect appropriate for age? , normal? judgement, normal? psychiatric thoughts. Assessment/Plan 1. Establishing care with new doctor, encounter for (Z76.89: Persons encountering health services in other specified circumstances) - Discussed recommended screenings and testing for age and lifestyle risks: - Screening for hypertension with blood pressure checks - Screening for depression with PHQ tools - Vaccination recommendations reviewed - Screening for diabetes, vitamin deficiencies, thyroid disorders -Ordered labs today (CMP, CBC, TSH, lipids, PSA for males and other as needed testing) - Discuss Resources and Guidelines including proper diet and exercise. - Those with HTN, CAD, or PAD for example. rec (more content not included)... [facility] Comment on above: Result Comment: Elec tronically Signed By: Arlet Hager\.br\Date and Time Signed: 04/04/24 12:28 EDT Formson 04-04-2024 Forms [id number] .00TIFF [facility] Patient Educationon 04-04-20 Patient Education BMI for Adults What is BMI? Body mass index (BMI) is a number that is calculated from a person's weight and height. BMI can help estimate how much of a person's weight is composed of fat. BMI does not measure body fat directly. Rather, it is an alternative to procedures that directly measure body fat, which can be difficult and expensive. BMI can help identify people who may be at higher risk for certain medical problems. What are BMI measurements used for? BMI is used as a screening tool to identify possible weight problems. It helps determine whether a person is obese, overweight, a healthy weight, or underweight. BMI is useful for: ? Identifying a weight problem that may be related to a medical condition or may increase the risk for medical problems. ? Promoting changes, such as changes in diet and exercise, to help reach a healthy weight. BMI screening can be repeated to see if these changes are working. How is BMI calculated? BMI involves measuring your weight in relation to your height. Both height and weight are measured, and the BMI is calculated from those numbers. This can be done either in [place] (U[place] or metric measurements. Note that charts and online BMI calculators are available to help you find your BMI quickly and easily without having to do these calculations yourself. To calculate your BMI in [place] (U.[place] measurements: 1. Measure your weight in pounds (lb). 2. Multiply the number of pounds by 703. ? For example, for a person who weighs 180 lb, multiply that number by 703, which equals 126,540. 3. Measure your height in inches. Then multiply that number by itself to get a measurement called inches squared. ? For example, for a person who is 70 inches tall, the inches squared measurement is 70 inches x 70 inches, which equals 4,900 inches squared. 4. Divide the total from step 2 (number of lb x 703) by the total from step 3 (inches squared): 126,540 ? 4,900 = 25.8. This is your BMI. To calculate your BMI in metric measurements: 1. Measure your weight in kilograms (kg). 2. Measure your height in meters (m). Then multiply that number by itself to get a measurement called meters squared. ? For example, for a person who is 1.75 m tall, the meters squared measurement is 1.75 m x 1.75 m, which is equal to 3.1 meters squared. 3. Divide the number of kilograms (your weight) by the meters squared number. In this example: 70 ? 3.1 = 22.6. This is your BMI. What do the results mean? BMI charts are used to identify whether you are underweight, normal weight, overweight, or obese. The following guidelines will be used: ? Underweight: BMI less than 18.5. ? Normal weight: BMI between 18.5 and 24.9. ? Overweight: BMI between 25 and 29.9. ? Obese: BMI of 30 or above. Keep these notes in mind: ? Weight includes both fat and muscle, so someone with a muscular build, such as an athlete, may have a BMI that is higher than 24.9. In cases like these, BMI is not an accurate measure of body fat. ? To determine if excess body fat is the cause of a BMI of 25 or higher, further assessments may need to be done by a health care provider. ? BMI is usually interpreted in the same way for men and women. Where to find more information For more information about BMI, including tools to quickly calculate your BMI, go to these websites: ? Centers for Disease Control and Prevention: www.cdc.gov ? [place] Heart Association: www.heart.org ? National Heart, Lung, and Blood [place]: www.nhlbi.nih.gov Summary ? Body mass index (BMI) is a number that is calculated from a person's weight and height. ? BMI may help estimate how much of a person's weight is composed of fat. BMI can help identify those who may be at higher risk for certain medical problems. ? BMI can be measured using Mal[place]ian measurements or metric measurements. ? BMI charts are used to identify whether you are underweight, normal weight, overweight, or obese. This information is not intended to replace advice given to you by your health care provider. Make sure you discuss any questions you have with your health care provider. Document Revised: 08/05/2020 Document Reviewed: 06/12/2020 [employer] Patient Education ? 2022 [employer]. Dermatology Contact Dermatitis Dermatitis is redness, soreness, and swelling (inflammation) of the skin. Contact dermatitis is a reaction to certain substances that touch the skin. Many different substances can cause contact dermatitis. There are two types of contact dermatitis: ? Irritant contact dermatitis. This type is caused by something that irritates your skin, such as having dry hands from washing them too often with soap. This type does not require previous exposure to the substance for a reaction to occur. This is the most common type. ? Allergic contact dermatitis. This type is caused by a substance that you are allergic to, such as poison oswaldo. This type occurs when you have been expo (more content not included)... [facility] [place] Nursing Assessmenton 024 Nursing Assessment [id number]# 1.00TIFF [facility] [place] General Message Officeon General Message Office --- --- --- --- - -- --- --- --- --- From: Kyrie, DirectInbox To: CHRISTI HASTINGS Sent: 03/01/24 02:30:13 AM EDT Subject: Discharge Summary Ready to View A summary regarding your recent visit is available in the Documents section of your health record. [facility] [place] Insurance Correspondence Off iceon 03-01-2024 Insurance Correspondence Office [id number]# 1.00TIFF [facility] [place] Delivery Summaryon 4 Delivery Summary DATE OF DELIVERY: 02/27/2024 The patient is a 23-year-old 1, para 0, AB0 white female at 40 weeks' gestation who presented to Labor and Delivery for labor. Her course had been complicated by polyhydramnios, transfer of care in the third trimester, otherwise relatively uncomplicated. She had artificial rupture of membranes and gentle Pitocin augmentation which allowed her to make gradual progress through the latent phase of labor into the active phase of labor. As she progressed through the active phase of labor she developed a maternal temp despite Tylenol. She was given parenteral antibiotics prior to delivery. The infant remained reactive with a good reactive activity with head stimulation, although her baseline continued to increase with the maternal temp. She had a maternal temp for approximately 2-1/2 to 3 hours prior to delivery. She was able to push through the second stage of labor spontaneously delivering a 3478 gram male with Apgars of [address] Landry was in attendance for the delivery. Arterial cord pH was obtained. The placenta delivered spontaneously intact. The uterus contracted down well. A second-degree laceration was repaired with 3-0 Polysorb suture in anatomic fashion without difficulties or problems, and both mom and were doing well in the Room. Emigdio Hyde M.D. ca Dictated: 02/28/2024 [id number] Transcribed: 02/28/2024 [facility] Comment on above: Result Comment: Elec tronically Signed By: Doni STREET, Emigdio Foy\.br\Date and Time Signed: 02/29/24 07:26 EDT Discharge Instructionson Discharge Instructions [id number]# 1.00TIFF [facility] Inpatient Clinical Summaryon 02-29-2024 Inpatient Clinical Summary [place] [id number] Clinical Summary Person Information [facility] Age[facility] 23 Years : 2000 Sex: Female PCP: NONE, XXXX Marital Status: Single Race: Other Race Ethnicity: or Language: Malawian MRN: [id number] Visit Id: Visit Reason: Speciality: Acuity: 2 PP Enc Type: Inpatient Med Service: Obstetrics Arrival: 02/26/2024 12:02:59 Discharge: 02/29/2024 12:35:00 Dispo Type: Home (Routine DC) Address: [address] [place] [address] [address] [facility] [id number] Provider Notes: Diagnosis: Anemia; Polyhydramnios; (spontaneous vaginal delivery); Smoker Problems Active Polyhydramnios (08/27/2023) Smoker Smoking Status: Never Smoker Functional Status: Sensory Deficits: History of Falls: Mobility Assistance Prior to Admission: Independent ADLs: Independent Current Level of Assistance for Self-Care/Mobility: Cognitive Status: Allergies No Known Medication Allergies Laboratory or Other Results This Visit (last charted value for your 02/26/2024 visit) Hematology 02/28/2024 6:04 AM Hypochromasia: PRESENT RBC Morph: NORMAL Ovalocytes: PRESENT Anisocytosis: PRESENT Microcyte: PRESENT Hct: 25.2 % -- Normal range between ( 34.0 and 46.0 ) HGB: 7.9 gm/dL -- Normal range between ( 12.0 and 16.0 ) RBC: 3.5 E12/L -- Normal range between ( 4.3 and 5.9 ) RDW: 19.1 % -- Normal range between ( 10.9 and 14.2 ) MCH: 22.7 pg -- Normal range between ( 27.0 and 34.0 ) MCHC: 31.3 gm/dL -- Normal range between ( 31.4 and 36.0 ) MCV: 72.5 fL -- Normal range between ( 80.0 and 100.0 ) MPV: 9.5 fL -- Normal range between ( 6.4 and 10.8 ) Platelet: 230.0 E9/L -- Normal range between ( 150.0 and 500.0 ) WBC: 22.1 E9/L -- Normal range between ( 4.0 and 11.0 ) Urinalysis 02/26/2024 6:31 PM UA Bili: Negative mg/dL UA Color: Light-Yellow UA Glucose: Negative mg/dL UA Ketones: Negative mg/dL UA Leuk Est: Negative Luis/uL UA Nitrite: Negative mg/dL UA Protein: Trace mg/dL UA Urobilinogen: Negative mg/dL UA Spec Desc: [place] UA Blood: Negative mg/dL UA Clarity: Clear UA pH: 7.0 -- Normal range between ( 5.0 and 9.0 ) UA Spec Grav: 1.017 -- Normal range between ( 1.005 and 1.030 ) Chemistry 02/26/2024 6:31 PM U Benzodia Scr: NEGATIVE U Cocaine Scr: NEGATIVE U Opiate Scr: NEGATIVE U PCP Scr: NEGATIVE U Cannab Scr: NEGATIVE U Amph Scr: NEGATIVE U Roxy Scr: NEGATIVE U Fentanyl: NEGATIVE Blood Bank 02/28/2024 6:04 AM ABO/Rh Retype Interp: O POS 02/26/2024 1:13 PM ABO/Rh: O POS ABSC Gel Interp: Negative Measurements: Height: 157.48 cm Weight: 101.5 kg Blood Pressure: 139 mmHg / 88 mmHg BMI: 40.93 kg/m2 Procedures No Procedures Documented Immunizations measles/mumps/rubella virus vaccine (02/29/2024) Final Med List: docusate (Colace 100 mg Cap) 1 Capsules By Mouth 2 times a day as needed for constipation. Refills: 0. hydrocortisone topical (hydrocortisone Top 0.5% Crm) 1 Application Topical 2 times a day. Refills: 0. ibuprofen (ibuprofen 600 mg Tab) 1 Tablets By Mouth every 6 hours. Refills: 0. loratadine (loratadine 10 mg Tab) 1 Tablets By Mouth every day. Refills: 0. magnesium gluconate By Mouth every day. metoclopramide (metoclopramide 10 mg oral tablet, disintegrating) 1 Tablets By Mouth 3 times a day as needed Nausea/Vomiting. Refills: 0. multivitamin, ( Multivitamins) 1 Tablets By Mouth every day. naproxen (naproxen 500 mg Tab) 1 Tablets By Mouth 2 times a day. Take one tab by mouth two times a day. Refills: 0. Care Team Members: Attending Physician: Emigdio Hyde MD Consulting Physician: Referring Physician: Follow up: With: Address: When: Dr. Hyde [phone] Within 6 weeks Comments: Call for any problems. Call if fever>100.5 F, heavy bleeding Support Group first Monday of the One on visits available by appointment, call maternity to schedule Patient Education Information: [facility] [place] Inpatient Patient Summaryon 02-29-2024 Inpatient Patient Summary [place] [id number] Patient Discharge Instructions PERSON INFORMATION Name: CHRISTI HASTINGS Date of : 2000 Current Date: 02/29/2024 12:57:20 PHYSICIANS Admitting Physician: Emigdio Hyde MD Primary Care Physician: EMY, XXXX PCP Phone Number: Comment: Discharge Diagnosis: Anemia; Polyhydramnios; (spontaneous vaginal delivery); Smoker Condition at Discharge: Stable DARLING CHRISTI has been given the following list of follow-up instructions, prescriptions, and patient education materials: PATIENT FOLLOW-UP INFORMATION Diet: Regular Activity: Expect mild pain, Expect minimal amount of drainage and/or bleeding, Activity as tolerated Wound Care Instructions: Remove Your Dressing IN: Days Call Your Doctor For: Persistent or heavy bleeding, Temperature above 101.5 degrees, Persistent vomiting IF UNABLE TO CONTACT YOUR PHYSICIAN AND YOU FEEL IT IS AN EMERGENCY, GO TO THE NEAREST EMERGENCY ROOM OR CALL 911 Home Treatment: Devices/Equipment: Special Services: Additional Instructions: Physician to provide the following pending test results: Follow up: With: Address: When: Dr. Hyde [phone] Within 6 weeks Comments: Call for any problems. Call Dr if fever>100.5 F, heavy bleeding Support Group first Monday of the month One on visits available by appointment, call maternity to schedule In the event that this physician does not participate in your insurance network, please consult with your insurance company to find a nearby participating provider. Comment: DARLING Nelson JULISA, have received the attached patient education materials/instruction s and have verbalized understanding. Patient Signature Date Clinican/Nurse Signature Date MEDICATION LIST New Medications [facility]/pharmacy #[id number], [address], [place] [id number], [phone] docusate (Colace 100 mg Cap) 1 Capsules By Mouth 2 times a day as needed for constipation. Refills: 0. Last Dose: ____Next Dose: ____ ibuprofen (ibuprofen 600 mg Tab) 1 Tablets By Mouth every 6 hours. Refills: 0. Last Dose: ____Next Dose: ____ Medications to Continue with No Changes Other Medications hydrocortisone topical (hydrocortisone Top 0.5% Crm) 1 Application Topical 2 times a day. Refills: 0. Last Dose: ____Next Dose: ____ loratadine (loratadine 10 mg Tab) 1 Tablets By Mouth every day. Refills: 0. Last Dose: ____Next Dose: ____ magnesium gluconate By Mouth every day. Last Dose: ____Next Dose: ____ metoclopramide (metoclopramide 10 mg oral tablet, disintegrating) 1 Tablets By Mouth 3 times a day as needed Nausea/Vomiting. Refills: 0. Last Dose: ____Next Dose: ____ multivitamin, ( Multivitamins) 1 Tablets By Mouth every day. Last Dose: ____Next Dose: ____ naproxen (naproxen 500 mg Tab) 1 Tablets By Mouth 2 times a day. Take one tab by mouth two times a day. Refills: 0. Last Dose: ____Next Dose: ____ Pharmacy Information: [facility] PATIENT EDUCATION INFORMATION Instructions: Medication Leaflets: You may receive a survey from [employer] asking you to rate your care experience. Your feedback is important and will help us understand what we do well and how we can improve the quality of care we provide to you, your loved ones and our community. It?s an honor to serve you. Patient Portal You may access all of your results and other medical record information on our secure patient portal. If you are not signed up for this yet, please contact [employer] at [phone] to get signed up today. ADALGISA Award Nomination The ADALGISA (Diseases Attacking the Immune SYstem) Award is an international recognition program that honors and celebrates the skillful, compassionate care nurses provide every day. Anyone who experiences or observes amazing care being provided by a nurse is encouraged to submit a nomination. To nominate your nurse, use your smart phone to scan the QR code below. Thank you for choosing [facility] Normal [facility] ABO/Rh History Checkon 02-27 ABO/Rh History Check Type verified by second s Normal [facility] Comment on above: Performed By: #### 1 [id number], [id number], [id number], [id number] ####[facility] [id number] [place] [address] ABO/Rh Retypeon 02-28-2024 ABO/Rh Retype Interp Positive Invalid Interpretation Code [facility] Comment on above: Performed By: #### 1 [id number] ####[facility] [place] [id number] [place] [address] BLOOD BANKOrdered By: Francisco J Sanderson on 02-28-2024 ABO/Rh Retype Interp Positive Invalid Interpretation Code [facility] BB Subsection CBC w/Indiceson 02-28-2024 Anisocytosis Ql (Bld) PRESENT Invalid Interpretation Code [facility] [place] Comment on above: Performed By: #### 2 [id number] #### [facility] [place] [facility] [address] [place] [address] Erythrocyte distribution width (RBC) [Ratio] 19.1 % High 10.9-14.2 [facility] [place] Comment on above: Performed By: #### 2 [id number] #### [facility] [place] [facility] [address] [place] [address] Hematocrit (Bld) [Volume fraction] 25.2 % Low 34.0-46.0 [facility] [place] Comment on above: Performed By: #### 2 [id number] #### [facility] [place] [facility] [address] [place] [address] Hemoglobin (Bld) [Mass/Vol] 7.9 g/dL Low 12.0-16.0 [facility] [place] Comment on above: Performed By: #### 2 [id number] #### [facility] [place] [facility] [address] [place] [address] Hypochromia Auto Ql (Bld) PRESENT Invalid Interpretation Code [facility] [place] Comment on above: Performed By: #### 2 [id number] #### [facility] [place] [facility] [address] [place] [address] MCH (RBC) [Entitic mass] 22.7 pg Low 27.0-34.0 [facility] [place] Comment on above: Performed By: #### 2 [id number] #### [facility] [place] [facility] [address] [place] [address] MCHC (RBC) [Mass/Vol] 31.3 g/dL Low 31.4-36.0 [facility] Comment on above: Performed By: #### 2 [id number] #### [facility] [place] [facility] [address] [place] [address] MCV (RBC) [Entitic vol] 72.5 fL Low 80.0-100.0 [facility] [place] Comment on above: Performed By: #### 2 [id number] #### [facility] [place] [facility] [address] [place] [address] Microcytes Ql (Bld) PRESENT Invalid Interpretation Code [facility] [place] Comment on above: Performed By: #### 2 [id number] #### [facility] [place] [facility] [address] [place] [address] Ovalocytes LM Ql (Bld) PRESENT Invalid Interpretation Code [facility] [place] Comment on above: Performed By: #### 2 [id number] #### [facility] [place] [facility] [address] [place] [address] Platelet mean volume (Bld) [Entitic vol] 9.5 fL Normal 6.4-10.8 [facility] [place] Comment on above: Performed By: #### 2 [id number] #### [facility] [place] [facility] [address] [place] [address] Platelets (Bld) [#/Vol] 230.0 E9/L Normal 150.0-500.0 [facility] [place] Comment on above: Performed By: #### 2 [id number] #### [facility] [place] [facility] [address] [place] [address] RBC (Bld) [#/Vol] 3.5 E12/L Low 4.3-5.9 [facility] [place] Comment on above: Performed By: #### 2 [id number] #### [facility] [place] [facility] [address] [place] [address] RBC size Nom (Bld) NORMAL Invalid Interpretation Code [facility] [place] Comment on above: Performed By: #### 2 [id number] #### [facility] [address] [place] [address] WBC corrected for nucl RBC Auto (Bld) [#/Vol] 22.1 E9/L High 4.0-11.0 [facility] Comment on above: Performed By: #### 2 [id number] #### [facility] [place] [facility] [address] [place] [address] HEMATOLOGYOrdered By: SYSTEM SYSTEM on 02-28-2024 Anisocytosis Ql (Bld) PRESENT *NA* (02/28/24 6:04 AM) Invalid Interpretation Code [facility] Erythrocyte distribution width (RBC) [Ratio] 19.1 % High 10.9 - 14.2 % [facility] Hematocrit (Bld) [Volume fraction] 25.2 % Low 34.0 - 46.0 % [facility] Hemoglobin (Bld) [Mass/Vol] 7.9 g/dL Low 12.0 - 16.0 gm/dL [facility] Hypochromia Auto Ql (Bld) PRESENT *NA* (02/28/24 6:04 AM) Invalid Interpretation Code [facility] MCH (RBC) [Entitic mass] 22.7 pg Low 27.0 - 34.0 pg [facility] MCHC (RBC) [Mass/Vol] 31.3 g/dL Low 31.4 - 36.0 gm/dL [facility] MCV (RBC) [Entitic vol] 72.5 fL Low 80.0 - 100.0 fL [facility] Microcytes Ql (Bld) PRESENT *NA* (02/28/24 6:04 AM) Invalid Interpretation Code [facility] Ovalocytes LM Ql (Bld) PRESENT *NA* (02/28/24 6:04 AM) Invalid Interpretation Code [facility] Platelet mean volume (Bld) [Entitic vol] 9.5 fL Normal 6.4 - 10.8 fL [facility] Platelets (Bld) [#/Vol] 230.0 E9/L Normal 150.0 - 500.0 E9/L [facility] RBC (Bld) [#/Vol] 3.5 E12/L Low 4.3 - 5.9 E12/L [facility] RBC size Nom (Bld) NORMAL *NA* (02/28/24 6:04 AM) Invalid Interpretation Code [facility] WBC corrected for nucl RBC Auto (Bld) [#/Vol] 22.1 E9/L High 4.0 - 11.0 E9/L [facility] GetWell Education Videoon GetWell Education Video Yes Patient How to Swaddle Safely Normal [facility] [place] GetWell Education Video Yes Patient Dressing Your Baby Normal [facility] GetWell Education Video Understanding Depression Normal [facility] [place] GetWell Education Video Safe Sleep for Babies Yes Patient Normal [facility] GetWell Education Video Caring for Yourself After Vaginal Delivery Yes Patient Normal [facility] [place] GetWell Education Video Yes Patient What Is High Blood Pressure? Normal [facility] GetWell Education Video Yes Patient 6 Survival Tips for New Parents Normal [facility] GetWell Education Video Yes Patient : Getting Your Baby to Latch Normal [facility] GetWell Education Video Yes Patient Your Baby Normal [facility] GetWell Education Video Yes Patient 5 Things You Can Expect With a New Baby Normal [facility] GetWell Education Video Yes Patient How to Use a Breast Pump Normal [facility] GetWell Education Video Yes Patient Should My Son Be Circumcised? Normal [facility] GetWell Education Video Patient Jaundice in Newborns Yes Normal [facility] U Drug Screenon 02-27-2024 Amphetamines Screen method >1000 ng/mL Ql (U) Negative Normal NEGATIVE [facility] [place] Comment on above: Result Comment: Nega tive Cutoff: <1000 ng/mL Performed By: #### 2 [id number] #### [facility] [place] [facility] [address] [place] [address] Barbiturates Screen Ql (U) Negative Normal NEGATIVE [facility] [place] Comment on above: Result Comment: Nega tive Cutoff: <200 ng/mL Performed By: #### 2 [id number] #### [facility] [place] [facility] [address] [place] [address] Benzodiazepines Ql (U) Negative Normal NEGATIVE [facility] Comment on above: Result Comment: Nega tive Cutoff: <200 ng/mL Performed By: #### 2 [id number] #### [facility] [place] [facility] [address] [place] [address] Cannabinoids Screen Ql (U) Negative Normal NEGATIVE [facility] [place] Comment on above: Result Comment: Nega tive Cutoff: <50 ng/mL Performed By: #### 2 [id number] #### [facility] [place] [facility] [address] [facility] [place] [address] Cocaine Ql (U) Negative Normal NEGATIVE [facility] Comment on above: Result Comment: Nega tive Cutoff: <300 ng/mL Performed By: #### 2 [id number] #### [facility] [place] [facility] [address] [place] [address] Opiates Screen Ql (U) Negative Normal NEGATIVE [facility] Comment on above: Result Comment: Nega tive Cutoff: <300 ng/mL Performed By: #### 2 [id number] #### [facility] [place] [facility] [address] [facility] [place] [address] Phencyclidine Screen method >25 ng/mL Ql (U) Negative Normal NEGATIVE [facility] [place] Comment on above: Result Comment: Nega tive Cutoff: <25 ng/mL These drug screen results are to be used for medical (i.e., treatment) purposes only. Unconfirmed drug screening results must not be used for non-medical purposes (e.g., employment testing, legal testing). Performed By: #### 2 [id number] #### [facility] [place] [facility] [address] [place] [address] U Fentanyl Negative Normal NEGATIVE [facility] [place] Comment on above: Result Comment: Nega tive Cutoff: <5 ng/mL These drug screen results are to be used for medical (i.e., treatment) purposes only. Unconfirmed drug screening results must not be used for non-medical purposes (e.g., employment testing, legal testing). Performed By: #### 2 [id number] #### [facility] [place] [facility] [address] [place] [address] ABO/Rhon 02-26-2024 ABO/Rh Positive Invalid Interpretation Code [facility] [place] Comment on above: Performed By: #### 1 [id number], [id number], [id number], [id number] #### [facility] [place] [facility] [address] [place] [address] ABSCon 02-26-2024 ABSC Gel Interp Negative Normal [facility] Comment on above: Performed By: #### 1 [id number], [id number], [id number], [id number] #### [facility] [place] [facility] [address] [place] [address] BLOOD BANKOrdered By: Ashley hernandez on 02-26-2024 ABO/Rh Interp Positive Invalid Interpretation Code [facility] BB Subsection ABSC Gel Interp Negative (02/26/24 1:13 PM) Normal [facility] BB Subsection Blood Bank ID#on 02-26-2024 BBID# [id number] Invalid Interpretation Code [facility] [place] Comment on above: Performed By: #### 1 [id number], [id number], [id number], [id number] #### [facility] [place] [facility] [address] [place] [address] CBC w/Indiceson 02-26-2024 Anisocytosis Ql (Bld) PRESENT Invalid Interpretation Code [facility] [place] Comment on above: Performed By: #### 2 [id number] #### [facility] [place] [facility] [address] [place] [address] Erythrocyte distribution width (RBC) [Ratio] 18.5 % High 10.9-14.2 [facility] [place] Comment on above: Performed By: #### 2 [id number] #### [facility] [place] [facility] [address] [place] [address] Hematocrit (Bld) [Volume fraction] 29.4 % Low 34.0-46.0 [facility] [place] Comment on above: Performed By: #### 2 [id number] #### [facility] [place] [facility] [address] [place] [address] Hemoglobin (Bld) [Mass/Vol] 9.1 g/dL Low 12.0-16.0 [facility] [place] Comment on above: Performed By: #### 2 [id number] #### [facility] [place] [facility] [address] [place] [address] Hypochromia Auto Ql (Bld) PRESENT Invalid Interpretation Code [facility] [place] Comment on above: Performed By: #### 2 [id number] #### [facility] [place] [facility] [address] [place] [address] MCH (RBC) [Entitic mass] 22.7 pg Low 27.0-34.0 [facility] [place] Comment on above: Performed By: #### 2 [id number] #### [facility] [place] [facility] [address] [place] [address] MCHC (RBC) [Mass/Vol] 31.0 g/dL Low 31.4-36.0 [facility] Comment on above: Performed By: #### 2 [id number] #### [facility] [place] [facility] [address] [place] [address] MCV (RBC) [Entitic vol] 73.4 fL Low 80.0-100.0 [facility] [place] Comment on above: Performed By: #### 2 [id number] #### [facility] [place] [facility] [address] [place] [address] Microcytes Ql (Bld) PRESENT Invalid Interpretation Code [facility] [place] Comment on above: Performed By: #### 2 [id number] #### [facility] [place] [facility] [address] [place] [address] Platelet mean volume (Bld) [Entitic vol] 9.4 fL Normal 6.4-10.8 [facility] [place] Comment on above: Performed By: #### 2 [id number] #### [facility] [place] [facility] [address] [place] [address] Platelets (Bld) [#/Vol] 233.0 E9/L Normal 150.0-500.0 [facility] [place] Comment on above: Performed By: #### 2 [id number] #### [facility] [place] [facility] [address] [place] [address] RBC (Bld) [#/Vol] 4.0 E12/L Low 4.3-5.9 [facility] [place] Comment on above: Performed By: #### 2 [id number] #### [facility] [place] [facility] [address] [place] [address] RBC size Nom (Bld) NORMAL Invalid Interpretation Code [facility] [place] Comment on above: Performed By: #### 2 [id number] #### [facility] [place] [facility] [address] [place] [address] WBC corrected for nucl RBC Auto (Bld) [#/Vol] 8.1 E9/L Normal 4.0-11.0 [facility] Comment on above: Performed By: #### 2 [id number] #### [facility] [place] [facility] [address] [place] [id number] CHEMISTRYOrdered By: Shira hernadez on 02-26-2024 Amphetamines Screen method >1000 ng/mL Ql (U) NEGATIVE 7 (02/26/24 6:31 PM) Normal NEGATIVE [facility] Comment on above: Interpretive Data: N egative Cutoff: <1000 ng/mL Barbiturates Screen Ql (U) NEGATIVE 8 (02/26/24 6:31 PM) Normal NEGATIVE [facility] Comment on above: Interpretive Data: N egative Cutoff: <200 ng/mL Benzodiazepines Ql (U) NEGATIVE 1 (02/26/24 6:31 PM) Normal NEGATIVE [facility] Comment on above: Interpretive Data: N egative Cutoff: <200 ng/mL Cannabinoids Screen Ql (U) NEGATIVE 6 (02/26/24 6:31 PM) Normal NEGATIVE [facility] Comment on above: Interpretive Data: N egative Cutoff: <50 ng/mL Cocaine Ql (U) NEGATIVE 2 (02/26/24 6:31 PM) Normal NEGATIVE [facility] Comment on above: Interpretive Data: N egative Cutoff: <300 ng/mL Opiates Screen Ql (U) NEGATIVE 4 (02/26/24 6:31 PM) Normal NEGATIVE [facility] Comment on above: Interpretive Data: N egative Cutoff: <300 ng/mL Phencyclidine Screen method >25 ng/mL Ql (U) NEGATIVE 5 (02/26/24 6:31 PM) Normal NEGATIVE [facility] Comment on above: Interpretive Data: N egative Cutoff: <25 ng/mL These drug screen results are to be used for medical (i.e., treatment) purposes only. Unconfirmed drug screening results must not be used for non-medical purposes (e.g., employment testing, legal testing). U Fentanyl NEGATIVE 9 (02/26/24 6:31 PM) Normal NEGATIVE [facility] Comment on above: Interpretive Data: N egative Cutoff: <5 ng/mL These drug screen results are to be used for medical (i.e., treatment) purposes only. Unconfirmed drug screening results must not be used for non-medical purposes (e.g., employment testing, legal testing). Consent for Procedure/Surger yon 02-26-2024 Consent for Procedure/Surgery [id number]# 1.00TIFF [facility] Consent for Procedure/Surgery [id number]# 1.00TIFF [facility] Consent for Treatmenton Consent for Treatment [id number]# 1.00TIFF [facility] Consent for Treatment [id number]#1 .00TIFF [facility] Discharge Instructionson Discharge Instructions [id number]# 1.00TIFF [facility] GetWell Education Videoon GetWell Education Video Caring for Your [place]: Feeding Yes Patient Normal [facility] GetWell Education Video Yes Patient How to Hand Express Breast Milk Normal [facility] GetWell Education Video Yes Patient Caring for Your [place]: Sleeping Normal [facility] GetWell Education Video Yes Patient How to Calm a Crying Baby [facility] GetWell Education Video Patient Yes Car Seat Safety Normal [facility] GetWell Education Video Yes Patient Avoiding Infections in the Hospital Normal [facility] GetWell Education Video Yes Patient Caring for Your : Umbilical Cord Normal [facility] HEMATOLOGYOrdered By: SYSTEM SYSTEM on 02-26-2024 Anisocytosis Ql (Bld) PRESENT *NA* (02/26/24 1:13 PM) Invalid Interpretation Code [facility] Erythrocyte distribution width (RBC) [Ratio] 18.5 % High 10.9 - 14.2 % [facility] Hematocrit (Bld) [Volume fraction] 29.4 % Low 34.0 - 46.0 % [facility] Hemoglobin (Bld) [Mass/Vol] 9.1 g/dL Low 12.0 - 16.0 gm/dL [facility] Hypochromia Auto Ql (Bld) PRESENT *NA* (02/26/24 1:13 PM) Invalid Interpretation Code [facility] MCH (RBC) [Entitic mass] 22.7 pg Low 27.0 - 34.0 pg [facility] MCHC (RBC) [Mass/Vol] 31.0 g/dL Low 31.4 - 36.0 gm/dL [facility] MCV (RBC) [Entitic vol] 73.4 fL Low 80.0 - 100.0 fL [facility] Microcytes Ql (Bld) PRESENT *NA* (02/26/24 1:13 PM) Invalid Interpretation Code [facility] Platelet mean volume (Bld) [Entitic vol] 9.4 fL Normal 6.4 - 10.8 fL [facility] Platelets (Bld) [#/Vol] 233.0 E9/L Normal 150.0 - 500.0 E9/L [facility] RBC (Bld) [#/Vol] 4.0 E12/L Low 4.3 - 5.9 E12/L [facility] RBC size Nom (Bld) NORMAL *NA* (02/26/24 1:13 PM) Invalid Interpretation Code [facility] WBC corrected for nucl RBC Auto (Bld) [#/Vol] 8.1 E9/L Normal 4.0 - 11.0 E9/L [facility] Help Me Grow Referralon Help Me Grow Referral [id number]# 1.00TIFF Normal [facility] Recordson Records [id number]# 1.00TIFF [facility] Progress Note-Physicianon Progress Note-Physician Patient: CHRISTI HASTINGS Age: 23 years Sex: Female : 2000 Associated Diagnoses: None Author: Brent Petty Jr., DO Postoperative Information Postoperative disposition: Postoperative disposition: Day 2. Optimetrix number: Optimetrix number [id number]. Anesthetic utilized: Regional: Epidural. Physical Examination Hemodynamically stable. Pain Assessment: Controlled. General: Awake, Alert, Appropriate. Respiratory: Adequate air exchange. Cardiovascular: Stable. Neurological: Normal sensory function. Assessment Anesthetic outcome No post-epidural complications noted.. Review / Management Condition: Stable. Plan Transfer/Discharge: Stable for discharge from anesthetic standpoint.. [facility] Comment on above: Result Comment: Elec tronically Signed By: Brent Petty Jr., DO\.br\Date and Time Signed: 02/26/24 17:46 EDT Progress Note-Physician Patient: CHRISTI HASTINGS Age: 23 years Sex: Female : 2000 Associated Diagnoses: None Author: Brent Petty Jr., DO Chief Complaint Intrauterine Health Status Allergies: Allergic Reactions (All) No Known Medication Allergies Current medications.Problem list: All Problems Polyhydramnios / SNOMED CT 301916097 / Confirmed / SNOMED CT 372650711 / Confirmed Smoker / SNOMED CT 061096511 / Confirmed Added secondary to documentation in Social History. Review of Systems Respiratory: Negative. Cardiovascular: Negative. Hematology/Lymphatics : No bruising tendency, No bleeding tendency. Neurologic: Negative. Physical Examination Please refer to Labor floor nursing records for ongoing vital signs, and for intake and output totals while epidural was running. Review / Management Differential diagnosis: Active labor. OB Results Review Labor 02/26/2024 13:13 EDT WBC 8.1 E9/L RBC 4.0 E12/L LOW HGB 9.1 gm/dL LOW Hct 29.4 % LOW MCV 73.4 fL LOW MCH 22.7 pg LOW MCHC 31.0 gm/dL LOW RDW 18.5 % HI Platelet 233.0 E9/L MPV 9.4 fL RBC Morph NORMAL Anisocytosis PRESENT Microcyte PRESENT Hypochromasia PRESENT ABO/Rh O POS ABSC Gel Interp Negative Impression and Plan Plan Labor epidural at request of patient.. Procedure Epidural injection procedure Date/ Time: 02/26/2024 17:04:00. Confirmed: patient, procedure, site, safety procedures followed. Performed by: Brent Petty DO. Informed consent: signed by patient. Indication: Active labor.. Preparation and technique: informed consent obtained (from patient before the procedure), positioned (sitting), sterile preparation of site (patient's back was sterilly prepped and draped) (in usual fashion, with 10 % povidone iodine, draped to expose affected area), local anesthesia (1% lidocaine was applied to the patient's back before the epidural was attempted) (lidocaine without epinephrine, _1_ cc injected subcutaneously), approach (midline), needle (17 ga touhy) (placed via loss of resistance technique, At _L4-L5_ interspace.), aspiration (attempted for blood and CSF), injectant (test dose consisting of 3 ml of 1.5% lodocaine with 1:200,000 epi) (test dose given, Epidural catheter inserted and secured at a depth of _11_ cm at skin.). Procedure tolerated: well. Complications: Negative heme, negative CSF, and negative response to test dose.. [facility] Epidural Medications Administered: Bolus dose consisted of 6 ml of 0.2% Ropivacaine and 100 mcg of fentanyl (2 ml) at 1717. Then a premixed epidural bag of 0.2% Ropivacaine, and 2 mcg/ml of fentanyl was administered via PCEA with basal rate at 10 ml/hour and demand boluses of 5 ml with a lockout interval of _30_ minutes. The PCEA was started at 1720. Normal [facility] Comment on above: Result Comment: Elec tronically Signed By: Brent Petty Jr., DO\.james\Date and Time Signed: 02/26/24 17:45 EDT URINALYSISOrdered By: SYSTEM SYSTEM on 02-26-2024 Color (U) Light-Yellow 3 (02/26/24 6:31 PM) Normal Yellow [facility] UA Auto SS Comment on above: Interpretive Data: M icroscopic readings are only performed on those samples that meet specific criteria set forth by [facility]. Glucose (U) [Mass/Vol] Negative Normal Negat ivemg/d L [facility] UA Auto SS Ketones Ql (U) Negative Normal Negativemg/d L [facility] UA Auto SS UA Blood Negative Normal Negativemg/d L [facility] UA Auto SS UA Clarity Clear (02/26/24 6:31 PM) Normal Clear [facility] UA Auto SS UA Leuk Est Negative Normal NegativeLeu/ uL [facility] UA Auto SS UA Nitrite Negative Normal Negativemg/d L [facility] UA Auto SS UA pH 7.0 *NA* (02/26/24 6:31 PM) Invalid Interpretation Code 5.0 - 9.0 [facility] UA Auto SS UA Protein Trace mg/dL Invalid Interpretation Code Negativemg/d L [facility] UA Auto SS UA Spec Grav 1.017 *NA* (02/26/24 6:31 PM) Invalid Interpretation Code 1.005 - 1.030 [facility] UA Auto SS UA Urobilinogen Negative Normal Negativemg/d L [facility] UA Auto SS Urobilinogen (U) [Mass/Vol] Negative Normal Negativemg/d L [facility] UA Auto SS URINALYSISOrdered By: Kathrin Vang on 02-26-2024 UA Spec Desc [place] (02/26/24 6:31 PM) Normal [facility] UA Auto SS Vaccinationson 02-26-2024 Vaccinations [id number]# 1.00TIFF Normal [facility] Nursing Assessmenton 024 Nursing Assessment [id number]# 1.00TIFF Normal [facility] Consent for Treatmenton 01-26 Consent for Treatment [id number]#1 .00TIFF Normal [facility] Discharge Instructionson Discharge Instructions [id number]#1 .00TIFF Normal [facility] Inpatient Clinical Summaryon 02-20-2024 Inpatient Clinical Summary [address] [address] Clinical Summary Person Information Name: CHRISTI HASTINGS/[facility] Age: 23 Years : 2000 Sex: Female PCP: NONE, XXXX Marital Status: Single Race: Other Race Ethnicity: or Language: Malawian Visit Id: Visit Reason: CYTOTEC Speciality: Acuity: Obs Enc Type: OB Triage Med Service: Obstetrics Arrival: 02/20/2024 07:00:35 Discharge: 02/20/2024 15:51:00 Dispo Type: Home (Routine DC) Address: [address] [place] [address] [address] [facility] [id number] Provider Notes: Diagnosis: Problems Active Polyhydramnios (08/27/2023) Smoker Smoking Status: Never Smoker Functional Status: Sensory Deficits: History of Falls: Mobility Assistance Prior to Admission: ADLs: Current Level of Assistance for Self-Care/Mobility: Cognitive Status: Allergies No Known Medication Allergies Laboratory or Other Results This Visit (last charted value for your 02/20/2024 visit) No Laboratory or Other Results This Visit Measurements: Height: 160 cm Weight: 99.3 kg Blood Pressure: 129 mmHg / 59 mmHg BMI: 38.79 kg/m2 Procedures No Procedures Documented Immunizations No Immunizations Documented This Visit Final Med List: hydrocortisone topical (hydrocortisone Top 0.5% Crm) 1 Application Topical 2 times a day. Refills: 0. loratadine (loratadine 10 mg Tab) 1 Tablets By Mouth every day. Refills: 0. metoclopramide (metoclopramide 10 mg oral tablet, disintegrating) 1 Tablets By Mouth 3 times a day as needed Nausea/Vomiting. Refills: 0. multivitamin, ( Multivitamins) 1 Tablets By Mouth every day. naproxen (naproxen 500 mg Tab) 1 Tablets By Mouth 2 times a day. Take one tab by mouth two times a day. Refills: 0. Care Team Members: Attending Physician: Emigdio Hyde MD Consulting Physician: Referring Physician: Follow up: With: Address: When: Emigdio Hyde [address] [place], [place] [address]ma, [facility] [address], [place] [address] Business (1) 02/26/2024 10:00 AM Patient Education Information: Signs and Symptoms of Labor Normal [facility] Inpatient Patient Summaryon 02-20-2024 Inpatient Patient Summary [address] [address] Patient Discharge Instructions PERSON INFORMATION Name: CHRISTI HASTINGS Date of : 2000 Current Date: 02/20/2024 15:53:32 PHYSICIANS Admitting Physician: Emigdio Hyde MD Primary Care Physician: NONE, XXXX PCP Phone Number: Comment: Discharge Diagnosis: Condition at Discharge: CHRISTI HASTINGS has been given the following list of follow-up instructions, prescriptions, and patient education materials: PATIENT FOLLOW-UP INFORMATION Diet: Activity: Wound Care Instructions: Remove Your Dressing IN: Days Call Your Doctor For: IF UNABLE TO CONTACT YOUR PHYSICIAN AND YOU FEEL IT IS AN EMERGENCY, GO TO THE NEAREST EMERGENCY ROOM OR CALL 911 Home Treatment: Devices/Equipment: Special Services: Additional Instructions: Physician to provide the following pending test results: Follow up: With: Address: When: Emigdio Hyde [address] [place] [address] Business (1) 02/26/2024 10:00 AM In the event that this physician does not participate in your insurance network, please consult with your insurance company to find a nearby participating provider. Comment: Omar CHRISTI HASTINGS, have received the attached patient education materials/instruction s and have verbalized understanding. Patient Signature Date Clinican/Nurse Signature Date MEDICATION LIST Medications to Continue with No Changes Other Medications hydrocortisone topical (hydrocortisone Top 0.5% Crm) 1 Application Topical 2 times a day. Refills: 0. Last Dose: ____Next Dose: ____ loratadine (loratadine 10 mg Tab) 1 Tablets By Mouth every day. Refills: 0. Last Dose: ____Next Dose: ____ metoclopramide (metoclopramide 10 mg oral tablet, disintegrating) 1 Tablets By Mouth 3 times a day as needed Nausea/Vomiting. Refills: 0. Last Dose: ____Next Dose: ____ multivitamin, ( Multivitamins) 1 Tablets By Mouth every day. Last Dose: ____Next Dose: ____ naproxen (naproxen 500 mg Tab) 1 Tablets By Mouth 2 times a day. Take one tab by mouth two times a day. Refills: 0. Last Dose: ____Next Dose: ____ Pharmacy Information: [facility] PATIENT EDUCATION INFORMATION Instructions: Signs and Symptoms of Labor Labor is the body's natural process of moving the baby and the placenta out of the uterus. The process of labor usually starts when the baby is full-term, between 39 and 41 weeks of . Signs and symptoms that you are close to going into labor As your body prepares for labor and the of your baby, you may notice the following symptoms in the weeks and days before true labor starts: ? Passing a small amount of thick, bloody mucus from your vagina. This is called normal bloody show or losing your mucus plug. This may happen more than a week before labor begins, or right before labor begins, as the opening of the cervix starts to widen (dilate). For some women, the entire mucus plug passes at once. For others, pieces of the mucus plug may gradually pass over several days. ? Your baby moving (dropping) lower in your pelvis to get into position for (lightening). When this happens, you may feel more pressure on your bladder and pelvic bone and less pressure on your ribs. This may make it easier to breathe. It may also cause you to need to urinate more often and have problems with bowel movements. ? Having practice contractions, also called Issaquena Shah contractions or false labor. These occur at irregular (unevenly spaced) intervals that are more than 10 minutes apart. False labor contractions are common after exercise or sexual activity. They will stop if you change position, rest, or drink fluids. These contractions are usually mild and do not get stronger over time. They may feel like: ? A backache or back pain. ? Mild cramps, similar to menstrual cramps. ? Tightening or pressure in your abdomen. Other early symptoms include: ? Nausea or loss of appetite. ? Diarrhea. ? Having a sudden burst of energy, or feeling very tired. ? Mood changes. ? Having trouble sleeping. Signs and symptoms that labor has begun Signs that you are in labor may include: ? Having contractions that come at regular (evenly spaced) intervals and increase in intensity. This may feel like more intense tightening or pressure in your abdomen that moves to your back. ? Contractions may also feel like rhythmic pain in your upper thighs or back that comes and goes at regular intervals. ? If you are delivering for the first time, this change in intensity of contrac (more content not included)... Normal [facility] Insurance Correspondence Off ice02-20-2024 Insurance Correspondence Office [id number] .[id number] Normal [facility] Group B Strep by PCRon 01-31 Group B Strep colonization by PCR Negative Normal Negative [facility] Comment on above: Performed By: #### 2 [id number] #### [facility] [address] [place] [address] Physician Orderon 01-31-2024 Physician Order [id number]# [id number] Normal [facility] ED Note-Physicianon 01-15-20 ED Note-Physician Basic Information Time Seen: Brandin CARRASCO, Johnny Abdi 01/14/2024 19:23 Chief Complaint pt arrives for c/o of a rash around her stomach and on her arms and legs. states she first noticed them History of Present Illness 23-year-old female reports emerged department with chief complaint of a rash around her stomach and arms and legs. Reports that she first noticed this on . Reports he is extremely itchy. Reports that she is approximately 35 weeks . Reports that this is her first . Denies any belly pain or vaginal discharge. Denies any fevers or chills. Reports just the rash and itching. Denies having anything like this before. Denies any known allergies. States that she does follow-up with Dr. Hyde. Review of Systems A 10 point review of systems is negative except as noted above. Medical and Surgical History: Reviewed and noted Social history: Lives at home Family History: Reviewed. Tobacco: Denies Physical Exam Vitals & Measurements T: 37 ?C(Oral) HR: 106(Peripheral) RR: 16 BP: 125/82 SpO2: 100% HT: 157 cm WT: 96.2 kg BMI: 39.03 General: The patient appears well and in no apparent distress. Patient is resting comfortably in chair. Afebrile Skin: Warm, dry, no pallor noted. Areas of small papules with mild streaking with urticarial type rash located on the patient's lower abdomen bilaterally, as well as around the bilateral axilla, and upper thighs. Blanches when palpated. No warmth noted on palpation. No discharge noted. Head: Normocephalic, atraumatic Neck: No JVD Eye: PERRLA, EOMI ENT: Moist mucus membranes Cardiovascular: Regular rate normal peripheral perfusion. Respiratory: No respiratory distress no accessory muscle use no obvious audible wheezing Chest Wall: no deformity Musculoskeletal: normal ROM, no deformity, no swelling GI: No obvious distention soft nontender nondistended no guarding rebounding or rigidity Neurological: A&O moves all extremities equal strength and symmetry Psychiatric: Cooperative and appropriate Medical Decision Making MEDICAL DECISION MAKING Number and Complexity of Problems Differential Diagnosis: [] [facility] Data External documents reviewed: [] My EKG interpretation: [] My CT interpretation: [] My X-ray interpretation: [] My Ultrasound interpretation: [] Decision rules/scores evaluated: [] Discussed with: [] Treatment and Disposition ED Course: 23-year-old female reports emerged department chief complaint of a rash. Reports that this has been going on for the last 4 days. Reports that this slowly worsened. Reports extremely itchy. Has not take any medication for symptoms as she is 35 weeks . Denies any new soaps shampoos or conditioners. On physical exam, she does have small papules with urticaria noted on her stomach, arms, and legs. Blanches when palpated. Reports extremely itchy. On exam, this appears to be PUPP. Does not appear to be infectious. Patient denies any fevers or chills. Due to this, patient be started on hydrocortisone topical cream, as well as Claritin. Discussed follow-up with her POWDER CARRIER. Discussed return precautions. Follow-up with your primary care provider in 3 to 5 days. If symptoms worsen, do not improve, or new symptoms arise please report back to emergency department for further evaluation. The patient was understanding and agreeable to plan moving forward. Shared decision making: [] Code status: [] Assessment/Plan PUPP (pruritic urticarial papules and plaques of ) (O26.86: Pruritic urticarial papules and plaques of (PUPPP)) Orders: hydrocortisone topical, 1 yvan, Topical, BID, 30 gram, Refill(s) 0, [facility]/pharmacy #[id number], 157, cm, 01/14/24 19:22:00 EST, Height/Length Dosing, 96.2, kg, 01/14/24 19:22:00 EST, Weight Dosing loratadine, 10 mg = 1 tab(s), Tab, Oral, Once, Stop date 01/14/24 19:31:00 EST, STAT, Start date 01/14/24 19:31:00 EST, 01/14/24 19:31:00 EST loratadine, 10 mg = 1 tab(s), Oral, Daily, # 30 tab(s), Refills(s) 0, Pharmacy: [facility]/pharmacy #[id number], 157, cm, 01/14/24 19:22:00 EST, Height/Length Dosing, 96.2, kg, 01/14/24 19:22:00 EST, Weight Dosing Medications Administered Given loratadine 10 mg Tab, 10 mg, Oral Disposition Plan Patient Discharge Condition stable Discharge Disposition to home Discharge Prescription List Prescriptions hydrocortisone Top 0.5% Crm, 1 yvan, Topical, BID loratadine 10 mg Tab, 10 mg= 1 tab(s), Oral, Daily Follow-up With When Contact Information Emigdio Doni In 3 days 01/17/2024 EST [address], [facility] [address] [place] [address]- Business (1) Additional Instructions: Call Dr for diagnosis based follow up XXXX NONE In 3 days [place] Additional Instructions: Patient Education PUPPP Rash Attestation Patient seen and evaluated by the physician assistant teacher. Attending physician was present in the emergency department and supervised care. This visit was performed by both the (more content not included)... Normal [facility] Comment on above: Result Comment: Elec tronically Signed By: Johnny Ghotra PA-C\.br\Date and Time Signed: 01/14/24 20:02 EST\.br\Electronically Co-Signed By: Tha Tiwari DO\.br\Date and Time Co-Signed: 01/15/24 08:41 EST Consent for Treatmenton 12-28 Consent for Treatment [id number] .00TIFF [facility] Discharge Instructionson Discharge Instructions [id number] .00TIFF [facility] ED Clinical Summaryon 2023 ED Clinical Summary [facility] [address] [place], [place] [address] ED Clinical Summary Person Information Name: CHRISTI HASTINGS[place] Age: 23 Years : 2000 Sex: Female Language: Malawian PCP: NONE, XXXX Marital Status: Single Visit Id: Visit Reason: Rash; ABDOMINAL RASHES / 35 WEEKS Speciality: Acuity: 4 Enc Type: Emergency Med Service: Emergency Arrival: 01/14/2024 19:16:54 Discharge: 01/14/2024 19:44:58 LOS: 000 00:28 Checkin: 01/14/2024 19:16:54 Checkout: 01/14/2024 19:44:58 Dispo Type: Home (Routine DC) EVENTS: Event Name Event Status Request Date/Time Start Date/Time Complete Date/Time Arrive Complete 01/14/2024 19:16:54 01/14/2024 19:16:54 01/14/2024 19:16:54 Document Home Meds Request 01/14/2024 19:16:54 Triage Complete 01/14/2024 19:16:54 01/14/2024 19:22:31 01/14/2024 19:22:31 Registration Complete 01/14/2024 19:19:44 01/14/2024 19:19:44 01/14/2024 19:19:44 Reg Complete Request 01/14/2024 19:19:44 Reg Bed Request Complete 01/14/2024 19:19:44 01/14/2024 19:19:44 01/14/2024 19:19:44 Bed Assign Complete 01/14/2024 19:22:37 01/14/2024 19:22:37 01/14/2024 19:22:37 Dr Exam Complete 01/14/2024 19:22:37 01/14/2024 19:23:15 01/14/2024 19:23:15 RN Exam Complete 01/14/2024 19:22:37 01/14/2024 19:30:16 01/14/2024 19:30:16 Registration Request 01/14/2024 19:23:15 Dr Exam Complete 01/14/2024 19:24:16 01/14/2024 19:24:16 01/14/2024 19:24:16 Meds Admin Complete 01/14/2024 19:31:32 01/14/2024 19:41:14 Discharge Complete 01/14/2024 19:32:51 01/14/2024 19:45:02 01/14/2024 19:45:02 Transfer Complete 01/14/2024 19:45:02 01/14/2024 19:45:02 01/14/2024 19:45:02 ADDRESS: [address] [place] [address] [address] [facility] [id number] PHYS DOC NOTES: MEDICAL INFORMATION: Prescriptions Given: New Medications [id number], [address] [place], [place] [id number], [phone] hydrocortisone topical (hydrocortisone Top 0.5% Crm) 1 Application Topical 2 times a day. Refills: 0. loratadine (loratadine 10 mg Tab) 1 Tablets By Mouth every day. Refills: 0. Medications to Continue with No [...] day. Refills: 0. PATIENT EDUCATION INFORMATION: Instructions: PUPPP Rash Follow up: With: Address: When: Emigdio AWAD HALIE, [facility] [address], [place] [address] Business () In 3 days 01/17/2024 Comments: Call Dr for diagnosis based follow up With: Address: When: XXXX NONE , [place] In 3 days DIAGNOSIS: PUPP (pruritic urticarial papules and plaques of ) Normal [facility] ED Patient Education Noteon 01-14-2024 ED Patient Education Note Obstetrics and Gynecology PUPPP Rash Pruritic urticarial papules and plaques of (PUPPP) is a rash that develops during , or sometimes shortly after giving . The rash consists of small red bumps that sometimes form large, scaly, red patches of skin (plaques). The rash goes away soon after childbirth, and it does not leave scars or harm you or your baby. PUPPP usually appears during the last few weeks of . It usually does not return during later pregnancies. What are the causes? The cause of this condition is not known. However, it may be related to your skin stretching rapidly during the later stages of . What increases the risk? You are more likely to develop this condition if: ? You are for the first time. ? You are with more than one baby. What are the signs or symptoms? The main symptom of this condition is a very itchy rash on the abdomen. The rash often looks red and raised. Sometimes small blisters form in the center of the rash patches. The rash may spread to the legs or arms. The skin around the rash may turn pale. How is this diagnosed? This condition is diagnosed based on a physical exam. Your health care provider will examine your skin and ask questions about your symptoms. In some cases, your health care provider may take a sample of your skin for testing (biopsy) in order to rule out other causes of skin conditions. How is this treated? The goal of treatment is to stop the itching and keep the rash from spreading. Common treatments include medicines that relieve or lessen itching (corticosteroids or antihistamines). These medicines may be: ? Creams. ? Ointments. ? Pills to be taken by mouth. Follow these instructions at home: Skin care ? Apply any creams or ointments as directed by your health care provider. ? Wear loose clothing. ? Keep your skin clean and dry. ? Do not scratch the rash. ? Do not bathe in hot water. Take cool baths to soothe your skin. Try adding baking soda or oatmeal to the water to help reduce itching. ? Apply cool, wet cloths (cool compresses) to itchy areas as told by your health care provider. General instructions ? Take ffoc-myc-gkkgncb and prescription medicines only as told by your health care provider. ? Keep all follow-up visits. This is important. Contact a health care provider if: ? Your itchiness does not go away after treatment. ? Your rash continues to spread. ? The rash becomes painful. ? You are unable to sleep because of the rash. Summary ? Pruritic urticarial papules and plaques of (PUPPP) is a rash that develops during . ? The rash goes away soon after giving . It does not leave scars or harm you or your baby. ? You are more likely to develop this condition if this is your first or you are with more than one baby. ? The goal of treatment is to stop the itching and keep the rash from spreading. This information is not intended to replace advice given to you by your health care provider. Make sure you discuss any questions you have with your health care provider. Document Revised: 07/19/2021 Document Reviewed: 07/19/2021 Elsevier Patient Education ? 2022 [employer]. Normal [facility] ED Patient Summaryon 024 ED Patient Summary [address] [address] Patient Discharge Instructions Person Information Name: CHRISTI HASTINGS Age: 23 Years Arrival Date: 01/14/2024 19:16:54 Discharge Diagnosis: PUPP (pruritic urticarial papules and plaques of ) Primary Care Physician: NONE, XXXX Provider Information Primary Provider: Gabriella Velarde DO Advanced Heel Sewer:None The exam and treatment you received in the Emergency Department were for an urgent problem and are not intended as complete care. It is important that you follow up with a doctor, nurse practitioner, or physician?s assistant teacher for ongoing care. If your symptoms become worse or you do not improve as expected and you are unable to reach your usual health care provider, you should return to the Emergency Department. We are available 24 hours a day. CHRISTI HASTINGS has been given the following list of patient education materials, prescriptions and follow-up instructions: Follow-up Instructions: With: Address: When: Emigdio Hyde [address] [place] [address] [facility] (1) In 3 days 01/17/2024 Comments: Call Dr for diagnosis based follow up With: Address: When: XXXX [facility] , [place] In 3 days In the event that this physician does not participate in your insurance network, please consult with your insurance company to find a nearby participating provider. Patient Education Materials: PUPPP Rash A MESSAGE TO ALL PATIENTS REGARDING OPIOIDS PRESCRIPTION OPIOIDS: WHAT YOU NEED TO KNOW Prescription opioids can be used to help relieve svupahud-bc-yeedvp pain and are often prescribed following a [...] be struggling with addiction, tell your health ca (more content not included)... Normal [facility] CHEMISTRYOrdered By: SYSTEM SYSTEM on 01-10-2024 Glucose [Mass/Vol] 119 mg/dL Normal 55 - 140 mg/dL Remisol Chem Glucose [Mass/Vol] 148 mg/dL Normal 55 - 155 mg/dL Remisol Chem Glucose [Mass/Vol] 192 mg/dL High 55 - 180 mg/dL Remisol Chem Glucose [Mass/Vol] 87 mg/dL Normal 55 - 99 mg/dL Remisol Chem CHEMISTRYOrdered By: Lab ROP User on 01-10-2024 Glucose [Mass/Vol] 85 mg/dL Normal 55 - 99 mg/dL [facility] POC Subsection POC Device SN [id number] Invalid Interpretation Code [facility] POC Subsection POC User ID [id number] 1 Invalid Interpretation Code [facility] POC Subsection POC Username ROGELIO GOODWIN Invalid Interpretation Code [facility] POC Subsection Capillary Glucose POCon 12-28 Glucose [Mass/Vol] 85 mg/dL Normal 55-99 [facility] Comment on above: Performed By: #### 2 [id number] #### [facility] [address] [place] [address] Consent for Treatmenton 12-28 Consent for Treatment [id number] .00TIFF Normal [facility] Glu 1 Hron 01-10-2024 Glucose [Mass/Vol] 192 mg/dL High 55-180 [facility] Comment on above: Performed By: #### 2 [id number] #### [facility] [address] [place] [address] Glu 2 Hron 01-10-2024 Glucose [Mass/Vol] 148 mg/dL Normal 55-155 [facility] Comment on above: Performed By: #### 2 [id number] #### [facility] [address] [place] [address] Glu 3 Hron 01-10-2024 Glucose [Mass/Vol] 119 mg/dL Normal 55-140 [facility] Comment on above: Performed By: #### 2 [id number] #### [facility] [place] [facility] [address] [place] [address] Glu Fastingon 01-10-2024 Glucose [Mass/Vol] 87 mg/dL Normal 55-99 [facility] Comment on above: Performed By: #### 2 [id number] #### [facility] [address] [place] [address] Physician Orderon 01-10-2024 Physician Order [id number] .00TIFF Normal [facility] Auto Diffon 09-13-2023 Basophils/100 WBC (Bld) 0.4 % Normal 0.0-2.0 [facility] Comment on above: Order Comment: Order Added by Discern Expert. Performed By: #### 2 [id number] #### [facility] [address] [place] [address] Basophils/Leukocytes Auto (Bld) [Pure # fraction] 0.1 E9/L Normal 0.0-0.2 [facility] Comment on above: Order Comment: Order Added by Discern Expert. Performed By: #### 2 [id number] #### [facility] [place] [facility] [address] [place] [address] Eosinophils/100 WBC (Bld) 1.5 % Normal 0.0-8.0 [facility] Comment on above: Order Comment: Order Added by Discern Expert. Performed By: #### 2 [id number] #### [facility] [address] [place] [address] Eosinophils/Leukocytes Auto (Bld) [Pure # fraction] 0.2 E9/L Normal 0.0-0.5 [facility] Comment on above: Order Comment: Order Added by Discern Expert. Performed By: #### 2 [id number] #### [facility] [address] [place] [address] Lymphocytes/100 WBC (Bld) 10.6 % Low 14.0-50.0 [facility] Comment on above: Order Comment: Order Added by Discern Expert. Performed By: #### 2 [id number] #### [facility] [place] [facility] [address] [place] [address] Lymphocytes/Leukocytes Auto (Bld) [Pure # fraction] 1.3 E9/L Normal 1.0-4.0 [facility] Comment on above: Order Comment: Order Added by Discern Expert. Performed By: #### 2 [id number] #### [facility] [address] [place] [address] Monocytes/100 WBC (Bld) 7.8 % Normal 4.0-14.0 [facility] Comment on above: Order Comment: Order Added by Discern Expert. Performed By: #### 2 [id number] #### [facility] [place] [facility] [address] [place] [address] Monocytes/Leukocytes Auto (Bld) [Pure # fraction] 1.0 E9/L Normal 0.2-1.0 [facility] Comment on above: Order Comment: Order Added by Discern Expert. Performed By: #### 2 [id number] #### [facility] [place] [facility] [address] [place] [address] Neutrophils/100 WBC (Bld) 79.7 % High 36.0-75.0 [facility] Comment on above: Order Comment: Order Added by Discern Expert. Performed By: #### 2 [id number] #### [facility] [place] [facility] [address] [place] [address] Neutrophils/Leukocytes Auto (Bld) [Pure # fraction] 9.9 E9/L High 2.0-7.5 [facility] Comment on above: Order Comment: Order Added by Discern Expert. Performed By: #### 2 [id number] #### [facility] [place] [facility] [address] [place] [address] BMPon 09-13-2023 Creatinine [Mass/Vol] 0.5 mg/dL Normal 0.5-1.3 [facility] Comment on above: Performed By: #### 2 [id number] #### [facility] [place] [facility] [address] [place] [address] Urea nitrogen [Mass/Vol] 7 mg/dL Normal 5-21 [facility] [place] Comment on above: Performed By: #### 2 [id number] #### [facility] [place] [facility] [address] [place] [address] Urea nitrogen/Creatinine [Mass ratio] 14 No Units Normal 10-20 [facility] [place] Comment on above: Performed By: #### 2 [id number] #### [facility] [place] [facility] [address] [place] [address] Anion gap [Moles/Vol] 11 mmol/L Normal 6-16 [facility] Comment on above: Performed By: #### 2 [id number] #### [facility] [place] [facility] [address] [place] [address] Calcium [Mass/Vol] 8.7 mg/dL Low 8.9-11.1 [facility] [place] Comment on above: Performed By: #### 2 [id number] #### [facility] [place] [facility] [address] [place] [address] Chloride [Moles/Vol] 105 mmol/L Normal 101-111 [facility] Comment on above: Performed By: #### 2 [id number] #### [facility] [place] [facility] [address] [place] [address] CO2 [Moles/Vol] 23 mmol/L Normal 21-31 [facility] Comment on above: Performed By: #### 2 [id number] #### [facility] [place] [facility] [address] [place] [address] Glucose [Mass/Vol] 100 mg/dL Normal 55-199 [facility] [place] Comment on above: Result Comment: If t his glucose result represents a fasting glucose, interpretation should refer to the following reference range: 55-99 mg/dL Performed By: #### 2 [id number] #### [facility] [place] Laboratory [address] [place] [address] Potassium [Moles/Vol] 3.3 mmol/L Low 3.5-5.3 [facility] Comment on above: Performed By: #### 2 [id number] #### [facility] [place] [facility] [address] [place] [address] Sodium [Moles/Vol] 136 mmol/L Normal 135-145 [facility] [place] Comment on above: Performed By: #### 2 [id number] #### [facility] [place] [facility] [address] [place] [address] CBC w/ Auto Diffon Erythrocyte distribution width (RBC) [Ratio] 14.7 % High 10.9-14.2 [facility] [place] Comment on above: Performed By: #### 2 [id number] #### [facility] [place] [facility] [address] [place] [address] Hematocrit (Bld) [Volume fraction] 33.9 % Low 34.0-46.0 [facility] [place] Comment on above: Performed By: #### 2 [id number] #### [facility] [place] [facility] [address] [place] [address] Hemoglobin (Bld) [Mass/Vol] 11.2 g/dL Low 12.0-16.0 [facility] [place] Comment on above: Performed By: #### 2 [id number] #### [facility] [place] [facility] [address] [place] [address] MCH (RBC) [Entitic mass] 28.9 pg Normal 27.0-34.0 [facility] [place] Comment on above: Performed By: #### 2 [id number] #### [facility] [place] [facility] [address] [place] [address] MCHC (RBC) [Mass/Vol] 33.2 g/dL Normal 31.4-36.0 [facility] Comment on above: Performed By: #### 2 [id number] #### [facility] [place] [facility] [address] [place] [address] MCV (RBC) [Entitic vol] 86.9 fL Normal 80.0-100.0 [facility] [place] Comment on above: Performed By: #### 2 [id number] #### [facility] [place] [facility] [address] [place] [address] Platelet mean volume (Bld) [Entitic vol] 8.6 fL Normal 6.4-10.8 [facility] [place] Comment on above: Performed By: #### 2 [id number] #### [facility] [place] [facility] [address] [place] [address] Platelets (Bld) [#/Vol] 206.0 E9/L Normal 150.0-500.0 [facility] [place] Comment on above: Performed By: #### 2 [id number] #### [facility] [place] [facility] [address] [place] [address] RBC (Bld) [#/Vol] 3.9 E12/L Low 4.3-5.9 [facility] [place] Comment on above: Performed By: #### 2 [id number] #### [facility] [place] [facility] [address] [place] [address] WBC corrected for nucl RBC Auto (Bld) [#/Vol] 12.5 E9/L High 4.0-11.0 [facility] Comment on above: Performed By: #### 2 [id number] #### [facility] [place] [facility] [address] [place] [address] CHEMISTRYOrdered By: SYSTEM SYSTEM on 09-13-2023 Troponin I.cardiac [Mass/Vol] 3.20 pg/mL Low 10.10 - 27.10 pg/mL [facility] Comment on above: Interpretive Data: T he 95% CI (Confidence Interval) PPV (Positive Predictive Value) for myocardial infarction in females is 38 pg/mL, in males 51 pg/mL. The results should be used in conjunction with clinical conditions of myocardial infarction. ([facility] High Sensitivity Troponin I Instructions For Use, [employer] [place], June 2018) Albumin [Mass/Vol] 3.4 g/dL Normal [...] 136 mL/min/1.73 m2 Normal >=59mL/min/1 .73 m2 [facility] Chem S Comment on above: Interpretive Data: [...] 3.3 mmol/L Low 3.5 - 5.3 mmol/L [facility] Protein [Mass/Vol] 6.4 g/dL Normal 6.0 - 7.8 gm/dL [facility] Sodium [Moles/Vol] 136 mmol/L Normal 135 [...] Sensitivity Troponin I Instructions For Use, [employer] [place], June 2018) Urea nitrogen [Mass/Vol] 7 mg/dL Normal 5 - 21 mg/dL [facility] Urea nitrogen/Creatinine [Mass ratio] 14 mg/mg Normal 10 - 20 [facility] Remisol COAGULATIONOrdered By: Najma Vasquez on 09-13-2023 aPTT Coag (PPP) [Time] 29.9 s Normal 25.1 - 36.5 second(s) [facility] Auto Coag Comment on above: Interpretive Data: [...] the same coagulation reagent and instrumentation as [facility]. Currently there are no coagulation studies available worldwide for children to 14 days, and no normal ranges. Heparin therapeutic range (represented by Anti-Factor Xa activity of 0.2 - 0.4 U/mL) corresponds to PTT of 56.6 - 109.0 sec. Fibrin D-dimer FEU (PPP) [Mass/Vol] 754 ng/mL FEU Invalid Interpretation Code 215 - 500 ng/mL FEU [facility] Auto Coag Comment on above: Result Comment: [...] [Relative time] 0.9 {INR} Invalid Interpretation Code [facility] Auto Coag Comment on above: Interpretive Data: I NR results are specifically intended to assess patients stabilized on long-term Anticoagulation therapy suggested INR s Less Intensive Anticoagulation 2.0 3.0 Conventional Range 3.0 4.5 PT Coag (PPP) [Time] 10.1 s Normal 9.4 - 1 2.5 second(s) [facility] Auto Coag Comment on above: Interpretive Data: [...] the same coagulation reagent and instrumentation as [facility]. Currently there are no coagulation studies available [...] 370 Contrast amount in ml's: 68 Normal [facility] [place] Consent for Procedure/Surger yon 09-13-2023 Consent for Procedure/Surgery [id number]#1 .00TIFF Normal [facility] [place] Consent for Treatmenton 08-27 Consent for Treatment [id number]#1 .00TIFF [facility] D-Dimeron 09-13-2023 Fibrin D-dimer FEU (PPP) [Mass/Vol] 754 [id number] Abnormal 215-500 [facility] [place] Comment on above: Result Comment: Resu lts [...] skin infections Liver cirrhosis Performed By: #### 2 [id number] #### [facility] [place] Laboratory [address] [place] [address] Discharge Instructionson Discharge Instructions [id number]# 1.00TIFF Normal [facility] [place] ED Clinical Summaryon 2022 ED Clinical Summary [address] [address] ED Clinical Summary Person Information Name: CHRISTI HASTINGS[facility] Age: 23 Years : 2000 Sex: Female Language: Malawian PCP: NONE, XXXX Marital Status: Single MRN: [...] 09/13/2023 10:17:50 09/13/2023 10:17:50 09/13/2023 10:17:50 ADDRESS: [address] [place] [address] [phone] [id number] PHYS DOC NOTES: MEDICAL INFORMATION: Prescriptions Given: [...] Follow up: With: Address: When: Hang Jacobsen [address] [place] [address], [place] [address] Business (1) In 3 days 09/16/2023 Comments: [...] worsening symptoms. DIAGNOSIS: 1:Substernal chest pain Normal [facility] [place] ED Note-Physicianon 09-13-20 ED Note-Physician Basic Information [...] Hang Jacobsen In 3 days 09/16/[address] [place], [place] [id number] [facility] (1) Additional Instructions: Call (more content not included)... Normal [facility] [place] Comment on above: Result Comment: Elec tronically [...] these instructions at home: Medicines ? Take xens-zbf-husotvj and prescription medicines only as told by [...] by your (more content not included)... Normal [facility] [place] ED Patient Summaryon 023 ED Patient Summary [facility] [address] [place], [place] [address] Patient Discharge Instructions Person Information Name: CHRISTI HASTINGS Age: 23 Years Arrival Date: 09/13/2023 04:37:01 Discharge Diagnosis: 1:Substernal chest pain Primary Care Physician: NONE, XXXX Provider Information Primary Provider: Yvon Morales MD [facility]:None The exam and treatment you received in the Emergency Department were for an urgent problem and are not intended as complete care. It is important that you follow up with a doctor, nurse practitioner, or physician?s assistant teacher for ongoing care. If your symptoms become worse or you do not improve as expected and you are unable to reach your usual health care provider, you should return to the Emergency Department. We are available 24 hours a day. CHRISTI HASTINGS has been given the following list of patient education materials, prescriptions and follow-up instructions: Follow-up Instructions: With: Address: When: Hang Jacobsen [address] [place] [address] Business (1) In 3 days 09/16/2023 Comments: [...] opioids can be used to help relieve mvxruskh-df-izsdhq pain and are often prescribed following a [...] prescription op (more content not included)... Normal [facility] [place] HEMATOLOGYOrdered By: SYSTEM SYSTEM on 09-13-2023 Basophils/100 [...] 28.9 pg Normal 27.0 - 34.0 pg [facility] HemeAutoSS MCHC (RBC) [Mass/Vol] 33.2 g/dL Normal [...] E12/L Low 4.3 - 5.9 E12/L [facility] WBC corrected for nucl RBC Auto (Bld) [#/Vol] 12.5 E9/L High 4.0 - 11.0 E9/L [facility] Hep Func Panelon 09-13-2023 Bilirubin.indirect [Mass or moles/Vol] UTC Abnormal 0.1-0.9 [facility] [place] Comment on above: Result Comment: Resu lt verified by Discern Rule. Performed result UTC (Unable to Calculate) was sent as an Alpha code due the inability to calculate a valid numeric value. Performed By: #### 2 [id number] #### [facility] [place] [facility] [address] [place] [address] Albumin [Mass/Vol] 3.4 g/dL Normal 3.3-5.0 [facility] [place] Comment on above: Performed By: #### 2 [id number] #### [facility] [place] [facility] [address] [place] [address] Albumin/Globulin (S) [Mass conc ratio] 1.1 Normal 1.1-2.2 [facility] [place] Comment on above: Performed By: #### 2 [id number] #### [facility] [place] [facility] [address] [place] [address] ALP [Catalytic activity/Vol] 50 Int._Unit/L Normal 21-98 [facility] [place] Comment on above: Performed By: #### 2 [id number] #### [facility] [place] [facility] [address] [place] [address] ALT No additional P-5'-P [Catalytic activity/Vol] 12 Int._Unit/L Normal 6-46 [facility] [place] Comment on above: Performed By: #### 2 [id number] #### [facility] [place] [facility] [address] [place] [address] AST [Catalytic activity/Vol] 16 Int._Unit/L Normal 5-43 [facility] [place] Comment on above: Performed By: #### 2 [id number] #### [facility] [place] [facility] [address] [place] [address] Bilirubin [Mass/Vol] 0.3 mg/dL Normal 0.0-1.1 [facility] Comment on above: Performed By: #### 2 [id number] #### [facility] [place] [facility] [address] [place] [address] Globulin (S) [Mass/Vol] 3.0 g/dL Normal 1.4-4.0 [facility] [place] Comment on above: Performed By: #### 2 [id number] #### [facility] [place] [facility] [address] [place] [address] Protein [Mass/Vol] 6.4 g/dL Normal 6.0-7.8 [facility] [place] Comment on above: Performed By: #### 2 [id number] #### [facility] [place] [facility] [address] [place] [address] Bilirubin.direct [Mass/Vol] mg/dL Normal 0.1-0.4 [facility] [place] Comment on above: Performed By: #### 2 [id number] #### [facility] [place] [facility] [address] [place] [address] Monitor Recordon 09-13-2023 Monitor Record [id number]# 1.00TIFF Normal [facility] [place] PT & PTTon 09-13-2023 aPTT Coag (PPP) [Time] 29.9 second(s) Normal 25.1-36.5 [facility] [place] Comment on above: Result Comment: Para meter 15 days - 4 weeks 1 - 5 months 6 - 11 months 1 - 5 years 6 - 10 years 11 - 17 years PTT Mean: 35.4 (27.6-45.6) Mean: 33.5 (24.8-40.7) Mean: 32.4 (25.1-40.7) Mean: 31.6 (24.0-39.2) Mean: 31.6 (26.9-38.7) Mean: 31.0 (24.6-38.4) Pediatric Reference ranges were obtained from a study by danuta Lee prepared from 1437 samples obtained at 7 different centers using the same coagulation reagent and instrumentation as [facility]. Currently there are no coagulation studies available worldwide for children to 14 days, and no normal ranges. Heparin therapeutic range (represented by Anti-Factor Xa activity of 0.2 - 0.4 U/mL) corresponds to PTT of 56.6 - 109.0 sec. Performed By: #### 2 [id number] #### [facility] [place] [facility] [address] [place] [address] INR Coag (PPP) [Relative time] 0.9 {INR} Invalid Interpretation Code [facility] [place] Comment on above: Result Comment: INR results are specifically intended to assess patients stabilized on long-term Anticoagulation therapy suggested INR?s ?Less Intensive Anticoagulation? 2.0 ? 3.0 Conventional Range 3.0 ? 4.5 Performed By: #### 2 [id number] #### [facility] [place] [facility] [address] [place] [address] PT Coag (PPP) [Time] 10.1 second(s) Normal 9.4-12.5 [facility] [place] Comment on above: Result Comment: 15 d ays - 4 weeks 1 - 5 months 6 -11 months 1- 5 years 6-10 years 11 -17 years Mean: 11.2 (9.5-12.6) Mean: 11.0 (9.7-12.8) Mean: 11.0 (9.8-13.0) Mean: 11.3 (9.9-13.4) Mean: 11.7 (10.0-14.6) Mean: 11.8 (10.0 - 14.1) Pediatric Reference ranges were obtained from a study by danuta Lee prepared from 1437 samples obtained at 7 different centers using the same coagulation reagent and instrumentation as [facility]. Currently there are no coagulation studies available worldwide for children to 14 days, and no normal ranges. Performed By: #### 2 [id number] #### [facility] [place] [facility] [address] [place] [address] Troponin 0 Hr.on 09-13-2023 Troponin I.cardiac [Mass/Vol] 3.00 pg/mL Low 10.10-27.10 [facility] [place] Comment on above: Result Comment: The 95% CI (Confidence Interval) PPV (Positive Predictive Value) for myocardial infarction in females is 38 pg/mL, in males 51 pg/mL. The results should be used in conjunction with clinical conditions of myocardial infarction. ([employer] High Sensitivity Troponin I Instructions For Use, [email or web address], June 2018) Performed By: #### 2 [id number] #### [facility] [place] [facility] [address] [place] [address] Troponin 3 Hr.on 09-13-2023 Troponin I.cardiac [Mass/Vol] 3.20 pg/mL Low 10.10-27.10 [facility] [place] Comment on above: Order Comment: Pt wr istband would not scan. Confirmed Pt identification verbally and looking at the wristband, [id number] 09/13/2023 08:06:30 EDT Result Comment: The 95% CI (Confidence Interval) PPV (Positive Predictive Value) for myocardial infarction in females is 38 pg/mL, in males 51 pg/mL. The results should be used in conjunction with clinical conditions of myocardial infarction. ([employer] High Sensitivity Troponin I Instructions For Use, [email or web address], June 2018) Performed By: #### 1 [id number] ####[facility] [place] [address] [place] [address] XR Chest Single Viewon 09-13 XR Chest [...] mGy = n/a DAP = n/a Normal [facility] [place] eGFRon 09-13-2023 GFR/1.73 sq M.predicted among non-blacks MDRD (S/P/Bld) [Vol rate/Area] 136 mL/min/1.73 m2 Normal >=59 [facility] [place] Comment on above: Order Comment: Order added by Discern Expert. Result Comment: [employer] E[employer] Manager mohan kidney disease could be indicated at eGFR's of less than 60 mL/min/1.73m2. Kidney failure is indicated at less than 15 mL/min/1.73m2. Performed By: #### 2 [id number] #### [facility] [place] [facility] [address] [place] [address] CHEMISTRYOrdered By: SYSTEM SYSTEM on 10-31-2022 Albumin [Mass/Vol] 4.7 g/dL Normal 3.3 - 5.0 gm/dL [facility] Albumin/Globulin [Mass ratio] 1.7 {ratio} Normal [...] 0.4 mg/dL Normal 0.1 - 0.9 mg/dL [facility] Calcium [Mass/Vol] 9.5 mg/dL Normal 8.9 - 11. 1 mg/dL [facility] Chloride [Moles/Vol] 99 mmol/L Low 101 - 1 11 mmol/L [facility] CO2 [Moles/Vol] 27 mmol/L Normal 21 - 31 mmol/L [facility] Creatinine [Mass/Vol] 0.6 mg/dL Normal 0.5 - 1.3 mg/dL [facility] GFR/1.73 sq M.predicted among blacks MDRD (S/P/Bld) [Vol rate/Area] mL/min/1.73 m2 Normal >=59mL/min/1 .73 m2 [facility] Chem S GFR/1.73 sq M.predicted among non-blacks MDRD (S/P/Bld) [Vol rate/Area] mL/min/1.73 m2 Normal >=59mL/min/1 .73 m2 [facility] Chem S Globulin (S) [Mass/Vol] 2.7 g/dL Normal 1.4 - 4.0 gm/dL [facility] Glucose [Mass/Vol] 130 mg/dL Normal 55 - 199 mg/dL [facility] Lipase [Catalytic activity/Vol] 34 U/L Normal 13 - 58 unit/L [facility] Potassium [Moles/Vol] 3.7 mmol/L Normal 3.5 - 5.3 mmol/L [facility] Protein [Mass/Vol] 7.4 g/dL Normal 6.0 - 7.8 gm/dL [facility] Sodium [Moles/Vol] 139 mmol/L Normal 135 - 145 mmol/L [facility] Urea nitrogen [Mass/Vol] 6 mg/dL Normal 5 - 21 mg/dL [facility] Urea nitrogen/Creatinine [Mass ratio] 10 mg/mg Normal 10 - 20 [facility] HEMATOLOGYOrdered By: SYSTEM SYSTEM on 10-31-2022 Basophils/100 [...] 267.0 E9/L Normal 150.0 - 500.0 E9/L [facility]eAutoSS RBC (Bld) [#/Vol] 4.3 E12/L Normal 4.3 - 5.9 E12/L [facility] WBC corrected for nucl RBC Auto (Bld) [#/Vol] 8.3 E9/L Normal 4.0 - 11.0 E9/L [facility] SEROLOGYOrdered By: Aracelis Jacobs on 10-31-2022 HCG.beta subunit (U) [Moles/Vol] Negative Normal [facility] URINALYSISOrdered By: Tracy Jacobs on 10-31-2022 Bacteria LM Ql (Urine sed) Trace /HPF Normal Trace/HPF [facility] UA Auto SS Bilirubin Ql (U) Negative (10/31/22 12:31 AM) Normal Negative [facility] UA Auto SS Clarity (U) Clear (10/31/22 12:31 AM) Normal Clear [facility] UA Auto SS Color (U) Straw *ABN* [...] Interpretation Code Negative [facility] UA Auto SS [place].plasma/[place] .RBC (Bld) [Mass ratio] 0-3 /HPF Normal [...] [facility] UA Auto SS Urobilinogen Qn (U) [id number] {Christel'U}/dL Normal 0.0 - 1.0 EU/dL [facility]A Auto SS WBC Auto Ql (U) Negative (10/31/22 12:31 AM) Normal Negative [facility] UA Auto SS WBC LM.HPF (Urine sed) [#/Area] 0-5 /HPF Normal 0-5/HPF [facility]A Auto SS MICRO OTHER TESTSOrdered By: Tata Vasquez on 10-26-2022 Influenzae A Ag Negative (10/26/22 3:10 PM) Normal Negative [facility] Influenzae B Ag Negative (10/26/22 3:10 PM) Normal Negative [facility] Rapid COV Int NEG Ctl Pass (10/26/22 3:10 PM) Normal [facility] Rapid COV Int POS Ctl Pass (10/26/22 3:10 PM) Normal [facility] SARS-CoV+SARS-CoV-2 (COVID-19) Ag IA.rapid Ql (Resp) Not Detected (10/26/22 3:10 PM) Normal Not Detected [facility] SEROLOGYOrdered By: Tata Vasquez on 10-26-2022 HCG.beta subunit (U) [Moles/Vol] Negative Normal [facility] URINALYSISOrdered By: Shital Vasquez on 10-26-2022 Bacteria [...] PM) Normal Negative [facility] UA Auto SS [place].plasma/[place] .RBC (Bld) [Mass ratio] 4-20 /HPF Normal 0-3/HPF [facility] UA Auto SS Nitrite Ql (U) Negative (10/26/22 3:30 PM) Normal Negative [facility] UA Auto SS pH (U) 6.5 *NA* (10/26/22 3:30 PM) Invalid Interpretation Code 5.0 - 9.0 [facility] Auto SS Protein (U) [Mass/Vol] Negative (10/26/22 3:30 PM) Normal Negative [facility] UA Auto SS Specific gravity (U) [Rel density] 1.010 *NA* (10/26/22 3:30 PM) Invalid Interpretation Code 1.005 - 1.030 [facility] Auto SS UA Spec Desc Clean Catch (10/26/22 3:30 PM) Normal [facility] UA Auto SS Urobilinogen Qn (U) 0.8066033 {Christel'U}/dL Normal 0.0 - 1.0 EU/dL [facility] Auto SS WBC Auto Ql (U) Negative (10/26/22 3:30 PM) Normal Negative [facility] UA Auto SS WBC LM.HPF (Urine sed) [#/Area] 0-5 /HPF Normal 0-5/HPF [facility] UA Auto SS CHEMISTRYOrdered By: SYSTEM SYSTEM on 07-25-2022 Anion gap [Moles/Vol] 12 mmol/L Normal 6 - 16 mEq/L [facility] Calcium [Mass/Vol] 9.5 mg/dL Normal 8.9 - 11. 1 mg/dL [facility] Chloride [Moles/Vol] 105 mmol/L Normal 101 - 1 11 mmol/L [facility] CO2 [Moles/Vol] 27 mmol/L Normal 21 - 31 mmol/L [facility] Creatinine [Mass/Vol] 0.6 mg/dL Normal 0.5 - 1.3 mg/dL [facility] GFR/1.73 sq M.predicted among blacks MDRD (S/P/Bld) [Vol rate/Area] mL/min/1.73 m2 Normal >=59mL/min/1 .73 m2 [facility] Chem S GFR/1.73 sq M.predicted among non-blacks MDRD (S/P/Bld) [Vol rate/Area] mL/min/1.73 m2 Normal >=59mL/min/1 .73 m2 [facility] Chem S Glucose [Mass/Vol] 114 mg/dL Normal 55 - 199 mg/dL [facility] Potassium [Moles/Vol] 4.0 mmol/L Normal 3.5 - 5.3 mmol/L [facility] Sodium [Moles/Vol] 140 mmol/L Normal 135 - 145 mmol/L [facility] Troponin I.cardiac [Mass/Vol] pg/mL Low 10.10 - 27.10 pg/mL [facility] Urea nitrogen [Mass/Vol] 8 mg/dL Normal 5 - 21 mg/dL [facility] Urea nitrogen/Creatinine [Mass ratio] 13 mg/mg Normal 10 - 20 [facility] COAGULATIONOrdered By: Najma Vasquez on 07-25-2022 aPTT Coag (PPP) [Time] 34.7 s Normal 25.1 - 36.5 second(s) [facility] Auto Coag INR Coag (PPP) [Relative time] 1.1 {INR} Invalid Interpretation Code [facility] Auto Coag PT Coag (PPP) [Time] 12.0 s Normal 9.4 - 1 2.5 second(s) [facility] Auto Coag HEMATOLOGYOrdered By: SYSTEM SYSTEM on [...] 12.3 g/dL Normal 12.0 - 16.0 gm/dL [facility] HemeAutoSS MCH (RBC) [Entitic mass] 29.4 pg Normal 27.0 - 34.0 pg [facility]eAutoSS MCHC (RBC) [Mass/Vol] 34.2 g/dL Normal 31.4 - 36.0 gm/dL [facility]eAutoSS MCV (RBC) [Entitic vol] 85.9 [...] Date Time Vital Sign Value Performing Clinician Facility 11-27-2024 10:46-0500 Body temperature 98.06 [degF] Dmitriy Vargas [facility] 11-27-2024 10:46-0500 Diastolic blood pressure 74 mm[Hg] Dmitriy Vargas [facility] 11-27-2024 10:46-0500 Heart rate 66 /min Dmitriy Vargas [facility] 11-27-2024 10:46-0500 Respiratory rate 16 /min Dmitriy Vargas [facility] 11-27-2024 10:46-0500 SaO2% (BldA) [Mass fraction] 97 % Dmitriy Vargas [facility] 11-27-2024 10:46-0500 Systolic blood pressure 113 mm[Hg] Dmitriy Vargas [facility] 10-11-2024 00:26-0500 Body temperature 98.78 [degF] Tha Tiwari [facility] 10-11-2024 00:26-0500 Diastolic blood pressure 74 mm[Hg] Tha Te [facility] 10-11-2024 00:26-0500 Heart rate 95 /min Tha Te [facility] 10-11-2024 00:26-0500 Respiratory rate 16 /min Tha Te [facility] 10-11-2024 00:26-0500 SaO2% (BldA) [Mass fraction] 97 % Tha Te [facility] 10-11-2024 00:26-0500 Systolic blood pressure 113 mm[Hg] Tha Te [facility] 09-13-2024 02:14-0400 Diastolic blood pressure 73 mm[Hg] Kaylinn Dokken [facility] 09-13-2024 02:14-0400 Heart rate 95 /min Kaylinn Dokken [facility] 09-13-2024 02:14-0400 Respiratory rate 20 /min Kaylinn Dokken [facility] 09-13-2024 02:14-0400 SaO2% (BldA) [Mass fraction] 98 % Kaylinn Dokken [facility] 09-13-2024 02:14-0400 Systolic blood pressure 129 mm[Hg] Kaylinn Dokken [facility] 09-13-2024 01:21-0400 Body temperature 98.06 [degF] Kaylinn Dokken [facility] 09-13-2024 01:21-0400 Diastolic blood pressure 79 mm[Hg] Kaylinn Dokken [facility] 09-13-2024 01:21-0400 Heart rate 102 /min Jonathanylinn Dokken [facility] 09-13-2024 01:21-0400 Respiratory rate 20 /min Kaylinn Dokken [facility] 09-13-2024 01:21-0400 SaO2% (BldA) [Mass fraction] 98 % Kaylinn Dokken [facility] 09-13-2024 01:21-0400 Systolic blood pressure 121 mm[Hg] Kaylinn Dokken [facility] 08-20-2024 16:02-0400 Body temperature 98.42 [degF] [facility] 08-20-2024 16:02-0400 Diastolic blood pressure 86 mm[Hg] [facility] 08-20-2024 16:02-0400 Heart rate 107 /min [facility] 08-20-2024 16:02-0400 SaO2% (BldA) [Mass fraction] 97 % [facility] 08-20-2024 16:02-0400 Systolic blood pressure 129 mm[Hg] [facility] 04-04-2024 11:18-0400 Blood Pressure Location Arlet Sanderson [facility] 04-04-2024 11:18-0400 Body temperature 97.7 [degF] Arlet Sanderson [facility] 04-04-2024 11:18-0400 Diastolic blood pressure 68 mm[Hg] Arlet Sanderson [facility] 04-04-2024 11:18-0400 Heart rate 62 /min Arlet Sanderson [facility] 04-04-2024 11:18-0400 Respiratory rate 18 /min Arlet Sanderson [facility] 04-04-2024 11:18-0400 SaO2% (BldA) [Mass fraction] 98 % Arlet Sanderson [facility] 04-04-2024 11:18-0400 Systolic blood pressure 112 mm[Hg] Arlet Sanderson [facility] 02-29-2024 12:35-0400 Hourly Rounding Emigdio Hyde [facility] Comment on above: Result Comment: discharged via wheelchai r with infant in mom's lap in car seat accompanied by nursing staff to private car. 02-29-2024 11:30-0400 Hourly Rounding Emigdio Hyde [facility] 02-29-2024 10:36-0400 Hourly Rounding Emigdio Hyde [facility] Comment on above: Result Comment: discharge instructions jenaro noriega, questions answered and papers signed 02-29-2024 07:26-0400 Heart rate 88 /min Emigdio Hyde [facility] 02-29-2024 07:26-0400 SaO2% (BldA) [Mass fraction] 99 % Emigdio Hyde [facility] 02-29-2024 07:26-0400 Body temperature 99.14 [degF] Emigdio Hyde [facility] 02-29-2024 07:25-0400 Diastolic blood pressure 88 mm[Hg] Emigdio Hyde [facility] 02-29-2024 07:25-0400 Mean blood pressure 105 mm[Hg] Emigdio Hyde [facility] 02-29-2024 07:25-0400 Systolic blood pressure 139 mm[Hg] Emigdio [facility] [facility] 07:25-0400 Blood Pressure Location Emigdio Hyde [facility] 02-28-2024 20:12-0400 Blood Pressure Location Emigdio Hyde [facility] 02-28-2024 20:12-0400 Body temperature 98.24 [degF] Emigdio Hyde [facility] 02-28-2024 20:12-0400 Diastolic blood pressure 77 mm[Hg] Emigdio Hyed [facility] 02-28-2024 20:12-0400 Heart rate 100 /min Emigdio Hyde [facility] 02-28-2024 20:12-0400 Mean blood pressure 94 mm[Hg] Emigdio Hyde [facility] 02-28-2024 20:12-0400 Respiratory rate 18 /min Emigdio Hyde [facility] 02-28-2024 20:12-0400 Systolic blood pressure 127 mm[Hg] Emigdio Franceten [facility] 02-28-2024 09:21-0400 Promise to Return Emigdio Hyde [facility] 02-28-2024 08:05-0400 Diastolic blood pressure 84 mm[Hg] Emigdio Franceten [facility] 02-28-2024 08:05-0400 Heart rate 80 /min Emigdio Franceten [facility] 02-28-2024 08:05-0400 Mean blood pressure 97 mm[Hg] Emigdio Franceten [facility] 02-28-2024 08:05-0400 Systolic blood pressure 123 mm[Hg] Emigdio Franceten [facility] 02-28-2024 08:05-0400 Body temperature 98.42 [degF] Emigdio Hyde [facility] 02-28-2024 08:05-0400 Mean blood pressure 97 mm[Hg] Emigdio Franceten [facility] 02-28-2024 08:05-0400 Respiratory rate 18 /min Emigdio Franceten [facility] 02-27-2024 20:22-0400 Mean blood pressure 95 mm[Hg] Emigdio Franceten [facility] 02-27-2024 20:22-0400 Blood Pressure Location Emigdio Franceten [facility] 02-27-2024 20:22-0400 Mean blood pressure 96 mm[Hg] Emigdio Franceten [facility] 02-27-2024 20:22-0400 Respiratory rate 16 /min Emigdio Hyde [facility] 02-27-2024 04:10-0400 SaO2% (BldA) [Mass fraction] 100 % Emigdio Hyde [facility] 02-27-2024 03:55-0400 SaO2% (BldA) [Mass fraction] 99 % Emigdio Hyde [facility] 02-27-2024 03:55-0400 SaO2% (BldA) [Mass fraction] 100 % Emigdio Hyde [facility] 02-26-2024 12:30-0400 Heart rate 90 /min Emigdio Hyde [facility] 02-20-2024 15:51-0400 Hourly Rounding Emigdio Hyde [facility] Comment on above: Result Comment: discharged ambulatory to private car. 02-20-2024 15:39-0400 Hourly Rounding Emigdio Hyde [facility] Comment on above: Result Comment: discharge instructions jenaro noriega, questions answered and papers signed 02-20-2024 15:30-0400 Hourly Rounding Emigdio Hyde [facility] Comment on above: Result Comment: monitor off and pt up to dress 02-20-2024 13:30-0400 Blood Pressure Location Emigdio Hyde [facility] 02-20-2024 13:30-0400 Diastolic blood pressure 59 mm[Hg] Emigdio Hyde [facility] 02-20-2024 13:30-0400 Heart rate 79 /min Emigdio Hyde [facility] 02-20-2024 13:30-0400 Mean blood pressure 82 mm[Hg] Emigdio Hyde [facility] 02-20-2024 13:30-0400 Respiratory rate 16 /min Emigdio Hyde [facility] 02-20-2024 13:30-0400 Systolic blood pressure 129 mm[Hg] Emigdio Franceten [facility] 02-20-2024 07:30-0400 Body temperature 98.6 [degF] Emigdio Doni [facility] 02-20-2024 07:30-0400 Diastolic blood pressure 83 mm[Hg] Emigdio Doni [facility] 02-20-2024 07:30-0400 Heart rate 97 /min Emigdio Hyde [facility] 02-20-2024 07:30-0400 Mean blood pressure 97 mm[Hg] Emigdio Doni [facility] 02-20-2024 07:30-0400 Respiratory rate 16 /min Emigdio Hyde [facility] 02-20-2024 07:30-0400 Systolic blood pressure 125 mm[Hg] Emigdio Hyde [facility] 01-14-2024 19:19-0500 Body temperature 98.6 [degF] Kaylinn Dokken [facility] 01-14-2024 19:19-0500 Diastolic blood pressure 82 mm[Hg] Kaylinn Dokken [facility] 01-14-2024 19:19-0500 Heart rate 106 /min Kaylinn Dokken [facility] 01-14-2024 19:19-0500 Respiratory rate 16 /min Kaylinn Dokken [facility] 01-14-2024 19:19-0500 SaO2% (BldA) [Mass fraction] 100 % Gabriella Velarde [facility] 01-14-2024 19:19-0500 Systolic blood pressure 125 mm[Hg] Gabriella Velarde [facility] 09-13-2023 10:13-0400 Diastolic blood pressure 73 mm[Hg] Yvon Andrew [facility] 09-13-2023 10:13-0400 Heart rate 66 /min Yvon Andrew [facility] 09-13-2023 10:13-0400 Mean blood pressure 87 mm[Hg] Yvon Andrew [facility] 09-13-2023 10:13-0400 Respiratory rate 18 /min Yvon Andrew [facility] 09-13-2023 10:13-0400 SaO2% (BldA) [Mass fraction] 99 % Yvon Andrew [facility] 09-13-2023 10:13-0400 Systolic blood pressure 114 mm[Hg] Yvon Andrew [facility] 09-13-2023 09:30-0400 Diastolic blood pressure 67 mm[Hg] Yvon Andrew [facility] 09-13-2023 09:30-0400 Heart rate 98 /min Yvon Andrew [facility] 09-13-2023 09:30-0400 Mean blood pressure 82 mm[Hg] Yvon Andrew [facility] 09-13-2023 09:30-0400 Respiratory rate 17 /min Yvon Andrew [facility] 09-13-2023 09:30-0400 SaO2% (BldA) [Mass fraction] 98 % Yvon Andrew [facility] 09-13-2023 09:30-0400 Systolic blood pressure 111 mm[Hg] Yvon Morales [facility] 09-13-2023 08:20-0400 Diastolic blood pressure 61 mm[Hg] Yvon Andrew [facility] 09-13-2023 08:20-0400 Heart rate 105 /min Yvon Andrew [facility] 09-13-2023 08:20-0400 Mean blood pressure 78 mm[Hg] Yvon Andrew [facility] 09-13-2023 08:20-0400 Respiratory rate 16 /min Yvon Morales [facility] 09-13-2023 08:20-0400 SaO2% (BldA) [Mass fraction] 97 % Yvon Andrew [facility] 09-13-2023 08:20-0400 Systolic blood pressure 111 mm[Hg] Yvon Morales [facility] 09-13-2023 04:47-0400 Body temperature 98.24 [degF] Yvon Morales [facility] 09-13-2023 04:47-0400 Heart rate 95 /min Yvon Andrew [facility] 09-13-2023 04:47-0400 Respiratory rate 18 /min Yvon Andrew [facility] 10-31-2022 02:26-0500 Diastolic blood pressure 85 mm[Hg] Nagi Mirta [facility] 10-31-2022 02:26-0500 Mean blood pressure 96 mm[Hg] Nagi Mirta [facility] 10-31-2022 02:26-0500 Respiratory rate 20 /min Nagi Mirta [facility] 10-31-2022 02:26-0500 SaO2% (BldA) [Mass fraction] 99 % Nagi Mirta [facility] 10-31-2022 02:26-0500 Systolic blood pressure 117 mm[Hg] Nagi Mirta [facility] 10-31-2022 01:35-0500 Diastolic blood pressure 75 mm[Hg] Nagi Mirta [facility] 10-31-2022 01:35-0500 Mean blood pressure 88 mm[Hg] Nagi Mirta [facility] 10-31-2022 01:35-0500 Respiratory rate 23 /min Nagi Mirta [facility] 10-31-2022 01:35-0500 SaO2% (BldA) [Mass fraction] 97 % Nagi Mirta [facility] 10-31-2022 01:35-0500 Systolic blood pressure 115 mm[Hg] Nagi Mirta [facility] 10-31-2022 00:36-0500 Diastolic blood pressure 74 mm[Hg] Nagi Mirta [facility] 10-31-2022 00:36-0500 Heart rate 85 /min Nagi Mirta [facility] 10-31-2022 00:36-0500 Mean blood pressure 89 mm[Hg] Nagi Mirta [facility] 10-31-2022 00:36-0500 Respiratory rate 16 /min Nagi Mirta [facility] 10-31-2022 00:36-0500 SaO2% (BldA) [Mass fraction] 98 % Nagi Mirta [facility] 10-31-2022 00:36-0500 Systolic blood pressure 119 mm[Hg] Nagi Kirby [facility] 10-30-2022 23:38-0500 Body temperature 98.42 [degF] Nagi Kirby [facility] 10-30-2022 23:38-0500 Heart rate 93 /min Nagi Kirby [facility] 10-30-2022 23:38-0500 Respiratory rate 18 /min Nagi Kirby [facility] 10-26-2022 13:48-0500 Body temperature 98.42 [degF] Tha Tiwari [facility] 10-26-2022 13:48-0500 Diastolic blood pressure 77 mm[Hg] Tha Tiwari [facility] 10-26-2022 13:48-0500 Heart rate 106 /min Tha Tiwari [facility] 10-26-2022 13:48-0500 Respiratory rate 18 /min Tha Tiwari [facility] 10-26-2022 13:48-0500 SaO2% (BldA) [Mass fraction] 99 % Tha Tiwari [facility] 10-26-2022 13:48-0500 Systolic blood pressure 132 mm[Hg] Tha Te [facility] 07-25-2022 07:44-0400 Diastolic blood pressure 70 mm[Hg] Dmitriy Vargas [facility] 07-25-2022 07:44-0400 Heart rate 66 /min Dmitriy Vargas [facility] 07-25-2022 07:44-0400 Respiratory rate 15 /min Dmitriy Vargas [facility] 07-25-2022 07:44-0400 SaO2% (BldA) [Mass fraction] 99 % Dmitriy Vargas [facility] 07-25-2022 07:44-0400 Systolic blood pressure 115 mm[Hg] Dmitriy Vargas [facility] 07-25-2022 06:33-0400 Body temperature 98.6 [degF] Dmitriy Vargas [facility] 07-25-2022 06:33-0400 Diastolic blood pressure 72 mm[Hg] Dmitriy Vargas [facility] 07-25-2022 06:33-0400 Heart rate 64 /min Dmitriy Vargas [facility] 07-25-2022 06:33-0400 Respiratory rate 12 /min Dmitriy Vargas [facility] 07-25-2022 06:33-0400 SaO2% (BldA) [Mass fraction] 100 % Dmitriy Vargsa [facility] 07-25-2022 06:33-0400 Systolic blood pressure 118 mm[Hg] Dmitriy Vargas [facility] 05-25-2022 18:50-0400 Body temperature 98.24 [degF] Tha Te [facility] 05-25-2022 18:50-0400 Diastolic blood pressure 82 mm[Hg] Tha Te [facility] 05-25-2022 18:50-0400 Heart rate 58 /min Tha Tiwari [facility] 05-25-2022 18:50-0400 Respiratory rate 16 /min Tha Tiwari [facility] 05-25-2022 18:50-0400 SaO2% (BldA) [Mass fraction] 100 % Tha Tiwari [facility] 05-25-2022 18:50-0400 Systolic blood pressure 133 mm[Hg] Tha Tiwari [facility] 05-18-2022 19:30-0400 Body temperature 98.24 [degF] Dmitriy Vargas [facility] 05-18-2022 19:30-0400 Diastolic blood pressure 67 mm[Hg] Dmitriy Hubbarde [facility] 05-18-2022 19:30-0400 Heart rate 58 /min Dmitriy Hubbarde [facility] 05-18-2022 19:30-0400 Mean blood pressure 88 mm[Hg] Dmitriy Vargas [facility] 05-18-2022 19:30-0400 Respiratory rate 17 /min Dmitriy Hubbarde [facility] 05-18-2022 19:30-0400 SaO2% (BldA) [Mass fraction] 99 % Dmitriy Hubbarde [facility] 05-18-2022 19:30-0400 Systolic blood pressure 129 mm[Hg] Dmitriy Hubbarde [facility] 05-18-2022 19:00-0400 Body temperature 98.6 [degF] Dmitriy Alicia [facility] 05-18-2022 19:00-0400 Diastolic blood pressure 76 mm[Hg] Dmitriy Alicia [facility] 05-18-2022 19:00-0400 Mean blood pressure 93 mm[Hg] Dmitriy Alicia [facility] 05-18-2022 19:00-0400 Systolic blood pressure 128 mm[Hg] Dmitriy Vargas [facility] 05-18-2022 16:33-0400 Body temperature 97.7 [degF] Dmitriy Vargas [facility] 05-18-2022 16:33-0400 Diastolic blood pressure 85 mm[Hg] Dmitriy Vargas [facility] 05-18-2022 16:33-0400 Heart rate 69 /min Dmitriy Vargas [facility] 05-18-2022 16:33-0400 Respiratory rate 16 /min Dmitriy Vargas [facility] 05-18-2022 16:33-0400 SaO2% (BldA) [Mass fraction] 99 % Dmitriy Vargas [facility] 05-18-2022 16:33-0400 Systolic blood pressure 130 mm[Hg] Dmitriy Vargas [facility] Encounters Encounter Date Encounter Type Care Provider Facility Start: 12-03-2024 End: 12-03-2024 ambulatory Emigdio Hyde Facility:[facility] Start: 12-03-2024 End: 12-03-2024 Patient encounter procedure Emigdio Hyde [facility] Start: 11-27-2024 End: 11-27-2024 Emergency department patient visit Dmitriy Vargas [facility] Start: 11-15-2024 End: 11-15-2024 ambulatory Emigdio Hyde Facility:[facility] Start: 11-15-2024 End: 11-15-2024 Lab Drop off Emigdio Hyde [facility] Start: 10-11-2024 End: 10-11-2024 Emergency department patient visit Tha Tiwari [facility] Start: 09-13-2024 End: 09-13-2024 Emergency department patient visit Gabriella Nair Dogu[facility]erminalinda [facility] Start: 08-20-2024 End: 08-20-2024 Emergency department patient visit Karolina Waddell [facility] Start: 06-27-2024 End: 06-27-2024 ambulatory Emigdio Hyde Facility:[facility] Start: 05-09-2024 End: 05-09-2024 ambulatory Arlet Sanderson Facility:[facility] Start: 05-09-2024 End: 05-09-2024 Patient encounter procedure Arlet Sanderson [facility] Start: 04-16-2024 End: 04-16-2024 ambulatory Emigdio Hyde Facility:[facility] Start: 04-16-2024 End: 04-16-2024 Lab Drop off Emigdio Hyde [facility] Start: 04-04-2024 End: 04-04-2024 ambulatory Arlet Sanderson Facility:[facility] Start: 04-04-2024 End: 04-04-2024 Patient encounter procedure Arlet Sanderson [facility] Start: 04-04-2024 End: 04-04-2024 Well adult monitoring check done Arlet Sanderson [facility] Start: 02-26-2024 End: 02-29-2024 Evaluation and management of inpatient Emigdio Hyde [facility] Start: 02-20-2024 End: 02-20-2024 ambulatory Emigdio Hyde Facility:[facility] Start: 02-20-2024 End: 02-20-2024 OB Triage Emigdio Hyde [facility] Start: 01-31-2024 End: 01-31-2024 ambulatory Emigdio Hyde Facility:[facility] Start: 01-31-2024 End: 01-31-2024 Lab Drop off Emigdio Hyde [facility] Start: 01-14-2024 End: 01-14-2024 Emergency department patient visit Gabriella Velarde [facility] Start: 01-10-2024 End: 01-10-2024 ambulatory Emigdio Hyde Facility:[facility] Start: 01-10-2024 End: 01-10-2024 Patient encounter procedure Emigdio Hyde [facility] Start: 12-06-2023 End: 12-06-2023 ambulatory MATTHEW SKYZIO Not Available Start: 11-15-2023 End: 11-15-2023 ambulatory JAYDA CIELO Not Available Start: 09-13-2023 End: 09-13-2023 Emergency department patient visit Yvon Morales [facility] Start: 10-30-2022 End: 10-31-2022 Emergency department patient visit Nagi Kirby [facility] Start: 10-26-2022 End: 10-26-2022 Emergency department patient visit Tha Tiwari [facility] Start: 07-25-2022 End: 07-25-2022 Emergency department patient visit Dmitriy Vargas [facility] Start: 05-25-2022 End: 05-25-2022 Emergency department patient visit Tha MistryDaniel Tiwari [facility] Start: 05-18-2022 End: 05-18-2022 Emergency department patient visit Dmitriy Vargas [facility] Procedures Date Procedure Procedure Detail Performing Clinician None (qualifier value) Jennifer Sanderson Immunizations Immunization Date Immunization Notes Care Provider Fa [facility] 02-29-2024 measles, mumps and rubella virus vaccine; Translations: [M-M-R II] Emigdio Hyde [facility] Comment on above: Reason for Medicatio n: Other (see comment) 05-18-2022 tetanus toxoid, redu wenceslao diphtheria toxoid, and acellular pertussis vaccine, adsorbed Dmitriy Vargas [facility] Payers Date Payer Category Payer Medicaid [id number] 2001 Unknown [id number] 2.16.84 [id number] 2001 Unknown [id number] 2.16.840 .[id number] 2001 Unknown [id number] 2.16.8 [id number] 2001 Unknown [id number] 2.16.8 [id number] 2001 Unknown [id number] 2.16.8 [id number] 2001 Unknown [id number] 2.16.8 [id number] 2001 Unknown [id number] 2.16.8 40.1.223902.3.579.2. 2001 Unknown [id number] 2.16.8 40.1.763002.3.579.2. 2001 Unknown [id number] 2.16.8 40.1.017591.3.579.2. 2001 Unknown [id number] 2.16.8 40.1.450108.3.579.2. 2001 Unknown [id number] 2.16.8 40.1.355791.3.579.2. 2001 Unknown [id number] 2.16.8 40.1.641546.3.579.2. 2001 Unknown [id number] 2.16.8 40.1.282843.3.579.2. 2001 Unknown [id number] 2.16.8 40.1.209603.3.579.2.727 2001 Unknown [id number] 2.16.8 40.1.989001.3.579.2.7 2001 Unknown [id number] 2.16.8 40.1.448881.3.579.2.7 2001 Unknown [id number] 2.16.8 40.1.532190.3.579.2. 2001 Unknown [id number] 2.16.8 40.1.401043.3.579.2.727 2001 Unknown [id number] 2.16.8 40.1.405033.3.579.2. 2001 Unknown [id number] 2.16.8 [id number] Social History Date Type Detail Facility Start: 05-18-2022 End: 10-26-2022 Tobacco smoking status Light tobacco smoker (finding) [facility] Sex Assigned At Female [facility] Tobacco [facility] Comment on above: DENIES Tobacco smoking status No Smokin g Status Entered [facility] Start: 04-04-2024 Tobacco smoking status Never s moked tobacco (finding) [facility] Comment on above: Denies History of To bacco use Tobacco smoking status Never [facility] Comment on above: Denies History of To bacco use Functional Status Date Assessment Result Facility 11-27-2024 Functional Status N/A [facility] 10-11-2024 Functional Status N/A [facility] 09-13-2024 Functional Status N/A [facility] 08-20-2024 Functional Status N/A [facility] 04-04-2024 Functional Status N/A [facility] 02-26-2024 Functional Status N/A [facility] 02-20-2024 Functional Status N/A [facility] 01-14-2024 Functional Status N/A [facility] 09-13-2023 Functional Status N/A [facility] 10-30-2022 Functional Status N/A [facility] 10-26-2022 Functional Status N/A [facility] 07-25-2022 Functional Status N/A [facility] 05-25-2022 Functional Status N/A [facility] 05-18-2022 Functional Status N/A [facility] Clinical Notes 05-18-2022 to 12-03-2024 LaboratoryLaboratory Note Date & Type Note Facility 12-03-2024 Evaluation + Plan note Diagnostic Tests PendingRPR with Conf Rfx 12/03/24 Future Scheduled TestsTIBC Calculated 04/04/24TSH With T4fr Reflex 04/04/24Vitamin D 25 Hydroxy 04/04/24CBC w/ Auto Diff 04/04/24Comprehensive Metabolic Panel 04/04/24Ferritin 04/04/24Folate Level 04/04/24Iron Level 04/04/24Iron Percent Saturation 04/04/24Lipid Panel 04/04/24Magnesium Level 04/04/24Reticulocyte Count 04/04/24Vitamin B12 Level 04/04/24 [facility] 11-27-2024 Hospital Discharg e instructions Patient Education 11/27/2024 11:03:02 Otitis Media With Effusion, Adult Otitis Media With Effusion, Adult Otitis media with effusion (OME) is inflammation and fluid (effusion) in the middle ear without having an ear infection. The middle ear is the space behind the eardrum. The middle ear is connected to the back of the throat by a narrow tube (eustachian tube). Normally the eustachian tube drains fluid out of the middle ear. A swollen eustachian tube can become blocked and cause fluid to collect in the middle ear. OME often goes away without treatment. Sometimes OME can lead to hearing problems and recurrent acute ear infections (acute otitis media). These conditions may require treatment. What are the causes? OME is caused by a blocked eustachian tube. This can result from: Allergies. Upper respiratory infections. Enlarged adenoids. The adenoids are areas of soft tissue located high in the back of the throat, behind the nose and the roof of the mouth. They are part of the body's natural defense system (immune system). Rapid changes in pressure, like when an airplane is descending or during scuba diving. In some cases, the cause of this condition is not known. What are the signs or symptoms? Common symptoms of this condition include: A feeling of fullness in your ear. Decreased hearing in the affected ear. Fluid draining into the ear canal. Pain in the ear. In some cases, there are no symptoms. How is this diagnosed? A health care provider can diagnose OME based on signs and symptoms of the condition. Your provider will also do a physical exam to check for fluid behind the eardrum. During the exam, your health care provider will use an instrument called an otoscope to look in your ear. Your health care provider may do other tests, such as: A hearing test. A tympanogram. This is a test that shows how well the eardrum moves in response to air pressure in the ear canal. It provides a graph for your health care provider to review. A pneumatic otoscopy. This is a test to check how your eardrum moves in response to changes in pressure. It is done by squeezing a small amount of air into the ear. How is this treated? Treatment for OME depends on the cause of the condition and the severity of symptoms. The first step is often waiting to see if the fluid drains on its own in a few weeks. Home care treatment may include: Udrl-[id number] pain relievers. A warm, moist cloth placed over the ear. Severe cases may require a procedure to insert tubes in the ears (tympanostomy tubes) to drain the fluid. Follow these instructions at home: Take itdr-ecw-zaeahwp and prescription medicines only as told by your health care provider. Keep all follow-up visits. Contact a health care provider if: You have pain that gets worse. Hearing in your affected ear gets worse. You have fluid draining from your ear canal. You have dizziness. You develop a fever. Get help right away if: You develop a severe headache. You completely lose hearing in the affected ear. You have bleeding from your ear canal. You have sudden and severe pain in your ear. These symptoms may represent a serious problem that is an emergency. Do not wait to see if the symptoms will go away. Get medical help right away. Call your local emergency services (911 in the [place] Do not drive yourself to the hospital. Summary Otitis media with effusion (OME) is inflammation and fluid (effusion) in the middle ear without having an ear infection. A swollen eustachian tube can become blocked and cause fluid to collect in the middle ear. Treatment for OME depends on the cause of the condition and the severity of symptoms. Many times, treatment is not needed because the fluid drains on its own in a few weeks. Sometimes OME can lead to hearing problems and recurrent acute ear infections (acute otitis media), which may require treatment. This information is not intended to replace advice given to you by your health care provider. Make sure you discuss any questions you have with your health care provider. Document Revised: 03/10/2022 Document Reviewed: 03/10/2022 [employer] Patient Education 2023 [employer]. Follow Up Care 11/27/2024 10:44:58 With:Chester Link Address: [address] [place], [place] [id number]- Business (1) When:11/30/2024 10:59:01 [facility] 11-27-2024 Note ED Patient Education Note ENT Otitis Media With Effusion, Adult Otitis media with effusion (OME) is inflammation and fluid (effusion) in the middle ear without having an ear infection. The middle ear is the space behind the eardrum. The middle ear is connected to the back of the throat by a narrow tube (eustachian tube). Normally the eustachian tube drains fluid out of the middle ear. A swollen eustachian tube can become blocked and cause fluid to collect in the middle ear. OME often goes away without treatment. Sometimes OME can lead to hearing problems and recurrent acute ear infections (acute otitis media). These conditions may require treatment. What are the causes? OME is caused by a blocked eustachian tube. This can result from: ??? Allergies. ??? Upper respiratory infections. ??? Enlarged adenoids. The adenoids are areas of soft tissue located high in the back of the throat, behind the nose and the roof of the mouth. They are part of the body's natural defense system (immune system). ??? Rapid changes in pressure, like when an airplane is descending or during scuba diving. In some cases, the cause of this condition is not known. What are the signs or symptoms? Common symptoms of this condition include: ??? A feeling of fullness in your ear. ??? Decreased hearing in the affected ear. ??? Fluid draining into the ear canal. ??? Pain in the ear. In some cases, there are no symptoms. How is this diagnosed? A health care provider can diagnose OME based on signs and symptoms of the condition. Your provider will also do a physical exam to check for fluid behind the eardrum. During the exam, your health care provider will use an instrument called an otoscope to look in your ear. Your health care provider may do other tests, such as: ??? A hearing test. ??? A tympanogram. This is a test that shows how well the eardrum moves in response to air pressure in the ear canal. It provides a graph for your health care provider to review. ??? A pneumatic otoscopy. This is a test to check how your eardrum moves in response to changes in pressure. It is done by squeezing a small amount of air into the ear. How is this treated? Treatment for OME depends on the cause of the condition and the severity of symptoms. The first step is often waiting to see if the fluid drains on its own in a few weeks. Home care treatment may include: ??? Uiur-jba-cidqyla pain relievers. ??? A warm, moist cloth placed over the ear. Severe cases may require a procedure to insert tubes in the ears (tympanostomy tubes) to drain the fluid. Follow these instructions at home: ??? Take epps-hlc-lzhjlmh and prescription medicines only as told by your health care provider. ??? Keep all follow-up visits. Contact a health care provider if: ??? You have pain that gets worse. ??? Hearing in your affected ear gets worse. ??? You have fluid draining from your ear canal. ??? You have dizziness. ??? You develop a fever. Get help right away if: ??? You develop a severe headache. ??? You completely lose hearing in the affected ear. ??? You have bleeding from your ear canal. ??? You have sudden and severe pain in your ear. These symptoms may represent a serious problem that is an emergency. Do not wait to see if the symptoms will go away. Get medical help right away. Call your local emergency services (911 in the [place] Do not drive yourself to the hospital. Summary ??? Otitis media with effusion (OME) is inflammation and fluid (effusion) in the middle ear without having an ear infection. ??? A swollen eustachian tube can become blocked and cause fluid to collect in the middle ear. ??? Treatment for OME depends on the cause of the condition and the severity of symptoms. ??? Many times, treatment is not needed because the fluid drains on its own in a few weeks. ??? Sometimes OME can lead to hearing problems and recurrent acute ear infections (acute otitis media), which may require treatment. This information is not intended to replace advice given to you by your health care provider. Make sure you discuss any questions you have with your health care provider. Document Revised: 03/10/2022 Document Reviewed: 03/10/2022 [employer] Patient Education ? 2023 [employer]. [facility] 11-14-2024 Evaluation + Plan note Diagnostic Tests PendingHSV Cult & Typing 11/14/24 Future Scheduled TestsTIBC Calculated 04/04/24TSH With T4fr Reflex 04/04/24Vitamin D 25 Hydroxy 04/04/24CBC w/ Auto Diff 04/04/24Comprehensive Metabolic Panel 04/04/24Ferritin 04/04/24Folate Level 04/04/24Iron Level 04/04/24Iron Percent Saturation 04/04/24Lipid Panel 04/04/24Magnesium Level 04/04/24Reticulocyte Count 04/04/24Vitamin B12 Level 04/04/24 [facility] 10-11-2024 Evaluation + Plan note Extrac andreina from: Title:ED Note Author:Tha Tiwari DO Date:12/11/23 Sebaceous cyst of ear (L72.3 : Sebaceous cyst) Orders: cephalexin, 500 mg = 1 cap(s), Cap, Oral, Once, Stop date 10/11/24 0:43:00 EST, STAT, Start date 10/11/24 0:43:00 EST, 10/11/24 0:43:00 EST cephalexin, 500 mg = 1 cap(s), Oral, QID, X 7 day(s), # 28 cap(s), Refills(s) 0, Pharmacy: [facility]/pharmacy #[id number], 160, cm, 10/11/24 0:28:00 EST, Height/Length Dosing, 93.7, kg, 10/11/24 0:28:00 EST, Weight Dosing Future Scheduled Tests Laboratory* TIBC Calculated 04/04/24 * TSH With T4fr Reflex 04/04/24 * Vitamin D 25 Hydroxy 04/04/24 * CBC w/ Auto Diff 04/04/24 * Comprehensive Metabolic Panel 04/04/24 * Ferritin 04/04/24 * Folate Level 04/04/24 * Iron Level 04/04/24 * Iron Percent Saturation 04/04/24 * Lipid Panel 04/04/24 * Magnesium Level 04/04/24 * Reticulocyte Count 04/04/24 * Vitamin B12 Level 04/04/24 [facility] 11-15-2024 Hospital Discharge instructions Patient Education 10/11/2024 00:43:43 Epidermoid Cyst Epidermoid Cyst An epidermoid cyst, also known as epidermal cyst, is a sac made of skin tissue. The sac contains a substance called keratin. Keratin is a protein that is normally secreted through the hair follicles.When keratin becomes trapped in the top layer of skin (epidermis), it can form an epidermoid cyst. Epidermoid cysts can be found anywhere on your body. These cysts are usually harmless (benign), andthey may not cause symptoms unless they become inflamed or infected. What are the causes? This condition may be caused by: A blocked hair follicle. A hair that curls and re-enters the skin instead of growing straight out of the skin (ingrown hair). A blocked pore. Irritated skin. An injury to the skin. Certain conditions that are passed along from parent to child (inherited). Human papillomavirus (HPV). This happens rarely when cysts occur on the bottom of the feet. Long-term (chronic) sun damage to the skin. What increases the risk? The following factors may make you more likely to develop an epidermoid cyst: Having acne. Being male. Having an injury to the skin. Being past puberty. Having certain rare genetic disorders. What are the signs or symptoms? The only symptom of this condition may be a small, painless lump underneath the skin. When an epidermal cyst ruptures, it may become inflamed. True infection in cysts is rare. Symptoms may include: Redness. Inflammation. Tenderness. Warmth. Keratin draining from the cyst. Keratin is grayish-white, bad-smelling substance. Pus draining from the cyst. How is this diagnosed? This condition is diagnosed with a physical exam. In some cases, you may have a sample of tissue (biopsy) taken from your cyst to be examined under amicroscope or tested for bacteria. You may be referred to a health care provider who specializes in skin care (usability architect). How is this treated? If a cyst becomes inflamed, treatment may include: Opening and draining the cyst, done by a health care provider. After draining, minor surgery to remove the rest of the cyst may be done. Taking antibiotic medicine. Having injections of medicines (steroids) that help to reduce inflammation. Having surgery to remove the cyst. Surgery may be done if the cyst: ?Becomes large. ?Bothers you. ?Has a chance of turning into cancer. Do not try to open a cyst yourself. Follow these instructions at home: Medicines If you were prescribed an antibiotic medicine, take it it as told by your health care provider. Do not stop using the antibiotic even if you start to feel better. Take ppsq-azr-sgsotcu and prescription medicines only as told by your health care provider. General instructions Keep the area around your cyst clean and dry. Wear loose, dry clothing. Avoid touching your cyst. Check your cyst every day for signs of infection. Check for: ?Redness, swelling, or pain. ?Fluid or blood. ?Warmth. ?Pus or a bad smell. Keep all follow-up visits. This is important. How is this prevented? Wear clean, dry, clothing. Avoid wearing tight clothing. Keep your skin clean and dry. Take showers or baths every day. Contact a health care provider if: Your cyst develops symptoms of infection. Your condition is not improving or is getting worse. You develop a cyst that looks different from other cysts you have had. You have a fever. Get help right away if: Redness spreads from the cyst into the surrounding area. Summary An epidermoid cyst is a sac made of skin tissue. These cysts are usually harmless (benign), and they may not cause symptoms unless they become inflamed. If a cyst becomes inflamed, treatment may include surgery to open and drain the cyst, or to remove it. Treatment may also include medicines by mouth or through an injection. Take qzlz-byn-nnipyjm and prescription medicines only as told by your health care provider. If you were prescribed an antibiotic medicine, take it as told by your health care provider. Do not stop using the antibiotic even if you start to feel better. Contact a health care provider if your condition is not improving or is getting worse. Keep all follow-up visits as told by your health care provider. This is important. This information is not intended to replace advice given to you by your health care provider. Make sure you discuss any questions you have with your health care provider. Document Revised: 02/17/2021 Document Reviewed: 02/17/2021 [employer] Patient Education 2023 [employer]. Follow Up Care 10/11/2024 00:21:28 With:Emigdio Hyde Address: [address], [address] [address] Business (1) When:10/14/2024 Comments:Call the office of your primary care [...] you develop any new or worsening symptoms. [facility] 11-15-2024 NoteED Patient Education Note Dermatology Epidermoid Cyst An epidermoid cyst, also known as epidermal cyst, is a sac made of skin tissue. The sac contains a substance called keratin. Keratin is a protein that is normally secreted through the hair follicles.When keratin becomes trapped in the top layer of skin (epidermis), it can form an epidermoid cyst. Epidermoid cysts can be found anywhere on your body. These cysts are usually harmless (benign), andthey may not cause symptoms unless they become inflamed or infected. What are the causes? This condition may be caused by: ??? A blocked hair follicle. ??? A hair that curls and re-enters the skin instead of growing straight out of the skin (ingrown hair). ??? A blocked pore. ??? Irritated skin. ??? An injury to the skin. ??? Certain conditions that are passed along from parent to child (inherited). ??? Human papillomavirus (HPV). This happens rarely when cysts occur on the bottom of the feet. ??? Long-term (chronic) sun damage to the skin. What increases the risk? The following factors may make you more likely to develop an epidermoid cyst: ??? Having acne. ??? Being male. ??? Having an injury to the skin. ??? Being past puberty. ??? Having certain rare genetic disorders. What are the signs or symptoms? The only symptom of this condition may be a small, painless lump underneath the skin. When an epidermal cyst ruptures, it may become inflamed. True infection in cysts is rare. Symptoms may include: ??? Redness. ??? Inflammation. ??? Tenderness. ??? Warmth. ??? Keratin draining from the cyst. Keratin is grayish-white, bad-smelling substance. ??? Pus draining from the cyst. How is this diagnosed? This condition is diagnosed with a physical exam. ??? In some cases, you may have a sample of tissue (biopsy) taken from your cyst to be examined under a microscope or tested for bacteria. ??? You may be referred to a health care provider who specializes in skin care (usability architect). How is this treated? If a cyst becomes inflamed, treatment may include: ??? Opening and draining the cyst, done by a health care provider. After draining, minor surgery toremove the rest of the cyst may be done. ??? Taking antibiotic medicine. ??? Having injections of medicines (steroids) that help to reduce inflammation. ??? Having surgery to remove the cyst. Surgery may be done if the cyst: ? Becomes large. ? Bothers you. ? Has a chance of turning into cancer. ??? Do not try to open a cyst yourself. Follow these instructions at home: Medicines ??? If you were prescribed an antibiotic medicine, take it it as told by your health care provider.Do not stop using the antibiotic even if you start to feel better. ??? Take gkfh-jwd-gueejvx and prescription medicines only as told by your health care provider. General instructions ??? Keep the area around your cyst clean and dry. ??? Wear loose, dry clothing. ??? Avoid touching your cyst. ??? Check your cyst every day for signs of infection. Check for: ? Redness, swelling, or pain. ? Fluid or blood. ? Warmth. ? Pus or a bad smell. ??? Keep all follow-up visits. This is important. How is this prevented? Wear clean, dry, clothing. ??? Avoid wearing tight clothing. ??? Keep your skin clean and dry. Take showers or baths every day. Contact a health care provider if: ??? Your cyst develops symptoms of infection. ??? Your condition is not improving or is getting worse. ??? You develop a cyst that looks different from other cysts you have had. ??? You have a fever. Get help right away if: ??? Redness spreads from the cyst into the surrounding area. Summary ??? An epidermoid cyst is a sac made of skin tissue. These cysts are usually harmless (benign), andthey may not cause symptoms unless they become inflamed. ??? If a cyst becomes inflamed, treatment may include surgery to open and drain the cyst, or to remove it. Treatment may also include medicines by mouth or through an injection. ??? Take rntw-czk-oduqrtd and prescription medicines only as told by your health care provider. If you were prescribed an antibiotic medicine, take it as told by your health care provider. Do not stop using the antibiotic even if you start to feel better. ??? Contact a health care provider if your condition is not improving or is getting worse. ??? Keep all follow-up visits as told by your health care provider. This is important. This information is not intended to replace advice given to you by your health care provider. Make sure you discuss any questions you have with your health care provider. Document Revised: 02/17/2021 Document Reviewed: 02/17/2021 [employer] Patient Education ? 2023 [employer].[facility] 09-15-2024 NoteMicrobiology PROCEDURE: Cervical Culture [R1] SOURCE: Cerv BODY SITE: COLLECTED DATE/TIME: 09/13/2024 01:53 EDT RECEIVED DATE/TIME: 09/13/2024 01:59 EDT START DATE/TIME: 09/13/2024 01:59 EDT FREE TEXT SOURCE: Gabriella Velarde DO, DO, Kaylinn A FINAL REPORTS Final Report [] Verified Date/Time: 09/15/2024 11:42 EDT Scant growth of Marlee albicans Presumptive isolated. 2+ Normal vaginal julio isolated STAINS Wet Prep Report [] Verified Date/Time: 09/13/2024 02:40 EDT No Trichomonas vaginalis present No clue cells present No yeast seen Performing Locations R1: [facility] at: [facility], [address] [place] [address], [id number] , , [facility] on [facility]:Performed By: #### [id number] #### [facility] [address] [place], [place] [id number] Evaluation + Plan noteExtracted from: Title:ED Note Author:Gabriella Velarde DO Date :09/13/24 Pelvic and perineal pain (R1 0.2: Pelvic and perineal pain) Pelvic pain in (O26.899: Other specified related conditions, unspecified trimester) Orders: Cervical Culture UA with Cult Rflx Future Scheduled Tests Laboratory* TIBC Calculated 04/04/24 * TSH With T4fr Reflex 04/04/24 * Vitamin D 25 Hydroxy 04/04/24 * CBC w/ Auto Diff 04/04/24 * Comprehensive Metabolic Panel 04/04/24 * Ferritin 04/04/24 * Folate Level 04/04/24 * Iron Level 04/04/24 * Iron Percent Saturation 04/04/24 * Lipid Panel 04/04/24 * Magnesium Level 04/04/24 * Reticulocyte Count 04/04/24 * Vitamin B12 Level 04/04/24 [facility] 10-18-2024 Hospital Discharge instructions Patient Education 09/13/2024 02:16:24 Round Ligament Pain Round Ligament Pain The round ligaments are a pair of cord-like tissues that help support the uterus. They can become asource of pain during as the ligaments soften and stretch as the baby grows. The pain usually begins in the second trimester (13 28 weeks) of , and should only last for a few seconds when it occurs. However, the pain can come and go until the baby is delivered. The pain does not cause harm to the baby. Round ligament pain is usually a short, sharp, and pinching pain, but it can also be a dull, lingering, and aching pain. The pain is felt in the lower side of the abdomen or in the groin. It usually starts deep in the groin and moves up to the outside of the hip area. The pain may happen when you: Suddenly change position, such as quickly going from a sitting to standing position. Do physical activity. Cough or sneeze. Follow these instructions at home: Managing pain When the pain starts, relax. Then, try any of these methods to help with the pain: ?Sit down. ?Flex your knees up to your abdomen. ?Lie on your side with one pillow under your abdomen and another pillow between your legs. ?Sit in a warm bath for 15 20 minutes or until the pain goes away. General instructions Watch your condition for any changes. Move slowly when you sit down or stand up. Stop or reduce your physical activities if they cause pain. Avoid long walks if they cause pain. Take ntic-kxa-hneluov and prescription medicines only as told by your health care provider. Keep all follow-up visits. This is important. Contact a health care provider if: Your pain does not go away with treatment. You feel pain in your back that you did not have before. Your medicine is not helping. You have a fever or chills. You have nausea or vomiting. You have diarrhea. You have pain when you urinate. Get help right away if: You have pain that is a rhythmic, cramping pain similar to labor pains. Labor pains are usually 2 minutes apart, last for about 1 minute, and involve a bearing down feeling or pressure in your pelvis. You have vaginal bleeding. These symptoms may represent a serious problem that is an emergency. Do not wait to see if the symptoms will go away. Get medical help right away. Call your local emergency services (911 in the [place] Do not drive yourself to the hospital. Summary Round ligament pain is felt in the lower abdomen or groin. This pain usually begins in the second trimester (13 28 weeks) and should only last for a few seconds when it occurs. You may notice the pain when you suddenly change position, when you cough or sneeze, or during physical activity. Relaxing, flexing your knees to your abdomen, lying on one side, or taking a warm bath may help to get rid of the pain. Contact your health care provider if the pain does not go away. This information is not intended to replace advice given to you by your health care provider. Make sure you discuss any questions you have with your health care provider. Document Revised: 01/26/2022 Document Reviewed: 01/26/2022 [employer] Patient Education 2023 [employer]. 09/13/2024 02:16:24 Pelvic Pain, Female, Jtod-uv-Ivmm Pelvic Pain, Female Pelvic pain is pain in your lower belly (abdomen), below your belly button and between your hips. The pain may: Start all of a sudden (be acute). Keep coming back (be recurring). Last a long time (become chronic). Pelvic pain that lasts longer than 6 months is called chronic pelvic pain. There are many causes of pelvic pain. Sometimes the cause of pelvic pain is not known. Follow these instructions at home: Take hsby-wew-qoicypp and prescription medicines only as told by your doctor. Rest as told by your doctor. Do not have sex if it hurts. Keep a journal of your pelvic pain. Write down: ?When the pain started. ?Where the pain is located. ?What seems to make the pain better or worse, such as food or your monthly period (menstrual cycle). ?Any symptoms you have along with the pain. Keep all follow-up visits. Contact a doctor if: Medicine does not help your pain, or your pain comes back. You have new symptoms. You have unusual discharge or bleeding from your vagina. You have a fever or chills. You are having trouble pooping (constipation). You have blood in your pee (urine) or poop (stool). Your pee smells bad. You feel weak or light-headed. Get help right away if: You have sudden pain that is very bad. You have very bad pain and also have any of these symptoms: ?A fever. ?Feeling like you may vomit (nauseous). ?Vomiting. ?Being very sweaty. You faint. These symptoms may be an emergency. Get help right away. Call your local emergency services (911 int [place] Do not wait to see if the symptoms will go away. Do not drive yourself to the hospital. Summary Pelvic pain is pain in your lower belly (abdomen), below your belly button and between your hips. There are many causes of pelvic pain. Keep a journal of your pelvic pain. This information is not intended to replace advice given to you by your health care provider. Make sure you discuss any questions you have with your health care provider. Document Revised: 03/22/2022 Document Reviewed: 03/22/2022 [employer] Patient Education 2023 [employer]. Follow Up Care 09/13/2024 01:18:15 With:Emigdio Hyde Address: [facility] [address], [address] [place] [address]- Business (1) When:09/16/2024 Comments:Please follow-up with Dr. Hyde for further evaluation and management. Return to the ED for any new or worsening symptoms or if you have any concerns. With:XXXX NONE Address: [place] When:Within 3 Day(s) [facility] 10-18-2024 NoteED Patient Education Note Obstetrics and Gynecology Round Ligament Pain The round ligaments are a pair of cord-like tissues that help support the uterus. They can become asource of pain during as the ligaments soften and stretch as the baby grows. The pain usually begins in the second trimester (13?28 weeks) of , and should only last for a few seconds when it occurs. However, the pain can come and go until the baby is delivered. The pain does not cause harm to the baby. Round ligament pain is usually a short, sharp, and pinching pain, but it can also be a dull, lingering, and aching pain. The pain is felt in the lower side of the abdomen or in the groin. It usually starts deep in the groin and moves up to the outside of the hip area. The pain may happen when you: ? Suddenly change position, such as quickly going from a sitting to standing position. ? Do physical activity. ? Cough or sneeze. Follow these instructions at home: Managing pain ? When the pain starts, relax. Then, try any of these methods to help with the pain: ? Sit down. ? Flex your knees up to your abdomen. ? Lie on your side with one pillow under your abdomen and another pillow between your legs. ? Sit in a warm bath for 15?20 minutes or until the pain goes away. General instructions ? Watch your condition for any changes. ? Move slowly when you sit down or stand up. ? Stop or reduce your physical activities if they cause pain. ? Avoid long walks if they cause pain. ? Take oosz-oez-pnkuxlu and prescription medicines only as told by your health care provider. ? Keep all follow-up visits. This is important. Contact a health care provider if: ? Your pain does not go away with treatment. ? You feel pain in your back that you did not have before. ? Your medicine is not helping. ? You have a fever or chills. ? You have nausea or vomiting. ? You have diarrhea. ? You have pain when you urinate. Get help right away if: ? You have pain that is a rhythmic, cramping pain similar to labor pains. Labor pains are usually 2minutes apart, last for about 1 minute, and involve a bearing down feeling or pressure in your pelvis. ? You have vaginal bleeding. These symptoms may represent a serious problem that is an emergency. Do not wait to see if the symptoms will go away. Get medical help right away. Call your local emergency services (911 in the [place] Do not drive yourself to the hospital. Summary ? Round ligament pain is felt in the lower abdomen or groin. ? This pain usually begins in the second trimester (13?28 weeks) and should only last for a few seconds when it occurs. ? You may notice the pain when you suddenly change position, when you cough or sneeze, or during physical activity. ? Relaxing, flexing your knees to your abdomen, lying on one side, or taking a warm bath may help to get rid of the pain. ? Contact your health care provider if the pain does not go away. This information is not intended to replace advice given to you by your health care provider. Make sure you discuss any questions you have with your health care provider. Document Revised: 01/26/2022 Document Reviewed: 01/26/2022 [employer] Patient Education ? 2023 [employer]. Pelvic Pain, Female Pelvic pain is pain in your lower belly (abdomen), below your belly button and between your hips. The pain may: ? Start all of a sudden (be acute). ? Keep coming back (be recurring). ? Last a long time (become chronic). Pelvic pain that lasts longer than 6 months is called chronic pelvic pain. There are many causes of pelvic pain. Sometimes the cause of pelvic pain is not known. Follow these instructions at home: ? Take gofz-htu-ugztzyr and prescription medicines only as told by your doctor. ? Rest as told by your doctor. ? Do not have sex if it hurts. ? Keep a journal of your pelvic pain. Write down: ? When the pain started. ? Where the pain is located. ? What seems to make the pain better or worse, such as food or your monthly period (menstrual cycle). ? Any symptoms you have along with the pain. ? Keep all follow-up visits. Contact a doctor if: ? Medicine does not help your pain, or your pain comes back. ? You have new symptoms. ? You have unusual discharge or bleeding from your vagina. ? You have a fever or chills. ? You are having trouble pooping (constipation). ? You have blood in your pee (urine) or poop (stool). ? Your pee smells bad. ? You feel weak or light-headed. Get help right away if: ? You have sudden pain that is very bad. ? You have very bad pain and also have any of these symptoms: ? A fever. ? Feeling like you may vomit (nauseous). ? Vomiting. ? Being very sweaty. ? You faint. These symptoms may be an emergency. Get help right away. Call your local emergency services (911 int [place] ? Do not wait (more content not included)...[facility] 08-20-2024 Hospital Discharge instructions Patient Education 08/20/2024 17:43:17 and COVID-19 and COVID-19 A person who is or was recently is at a greater risk for severe sickness from COVID-19 than someone who is not . The risk is even higher if: You are at an older age. You have other medical conditions, such as diabetes or obesity. This risk can last for at least 6 weeks (42 days) after a ends. Work with your health care team to protect yourself and your baby against COVID-19. Know your specific risk factors. How does COVID-19 affect me? Getting COVID-19 during or shortly after may put you more at risk for: Respiratory sickness that can lead to pneumonia or other severe illnesses. Having the baby before 37 weeks of . Having problems that affect your , such as loss or stillbirth. How does COVID-19 affect my care? Safety measures will be taken if you are and have COVID-19. These may include: Being seen for appointments in a specific room for people who have COVID-19. Having tests and scans done differently before delivery. Updating your plan. This may include what room you will be in and who may be with you during labor and delivery. Having a longer hospital stay after delivery. Having your baby stay in a different room. Ask about the risks and benefits of staying in the same room with your baby. Feeding your baby differently. Limiting visitors after your baby is born. Can I pass COVID-19 to my baby? It is very rare for a mother with COVID-19 to pass the virus to their unborn baby. However, a mother can pass the virus to the baby after . Ask your health care provider about ways to protect your baby, such as using a physical barrier like an incubator. What can I do to lower my risk? Vaccines and boosters To lower your risk of severe sickness: Get a COVID-19 vaccine if you are , recently , or lactating. Get other recommended vaccines, including the flu vaccine and whooping cough (Tdap) vaccine. You may get these vaccines at the same time you get the COVID-19 vaccine. Get a booster dose to improve, or boost, your body's ability to protect you from sickness. You can get the COVID-19 vaccine and boosters in any trimester. However, it is better to get these as soon as possible to better protect yourself and your baby. The booster dose depends on which COVID-19 vaccine you got and your risk of getting very sick from the virus. The usual booster vaccines are the mRNA vaccines. mRNA vaccines can be used as a booster when a person is unvaccinated or has only had the monovalentvaccine doses. V-safe program If you have gotten a COVID-19 vaccine, think about joining the V-safe program from the Centers for Disease Control and Prevention (CDC). This program uses an yvan on your smartphone that offers healthcheck-ins and gets information on your health after you get the vaccine. There is a separate registry for people. For more information, visit: V-safe tool: cdc.gov V-safe registry: cdc.gov Mask use Wear a mask in public or at work. Avoid people who are not wearing a mask. Follow official guidelines about when to wear a mask. The CDC says that all fully vaccinated peopleshould still wear masks in some cases, including: ?Places such as health care settings, schools, airports, and on public transit. ?When required by law or by guidelines from businesses or workplaces. Social distancing Stay more than 6 feet (1.8 m) away from others as much as possible. Avoid crowds. Limit contact with other people as much as possible. Prevent infection Wash your hands with soap and water for at least 20 seconds. If soap and water are not available, use hand reservations sales agent. Avoid touching your mouth, face, eyes, or nose before washing your hands. Clean and disinfect objects and surfaces that are touched a lot. Other things to do Avoid people, even those you live with, who: ?Have COVID-19. ?Have been around someone who has COVID-19. Avoid places where there is poor airflow. Follow these instructions at home: Find ways to relax, such as through meditation or deep breathing. Get regular exercise. Ask your provider what kinds of exercises are safe for you. Do things that you enjoy, such as listening to music or reading a book. Get support from family, friends, or spiritual resources. If you cannot be together in person, you can still connect by phone calls, texts, video calls, or online messaging. Questions to ask your health care team What should I do if I have COVID-19 symptoms? What are the side effects of COVID-19 vaccines? How will COVID-19 affect my care before , during labor and delivery, and after delivery? What are the risks of COVID-19 to me and to my child before and after ? How do vaccines pass antibodies to my unborn baby? Should I plan to breastfeed my baby? Where to find more information Centers for Disease Control and Prevention (CDC): cdc.gov World Health Organization (WHO): who.int [employer] (ACOG): acog.org Contact a health care provider if: You think you may have a COVID-19 infection. You have symptoms of infection, including a fever or cough. You feel very sad, worried, or nervous. You are bleeding or have bloody or watery discharge from your vagina. Get help right away if: You have signs of labor before 37 weeks of . These include: ?Contractions that are 5 minutes or less apart, or that become longer, more frequent, or more intense. ?Sudden, sharp pain in the abdomen or lower back. ?A gush or trickle of fluid from your vagina. You have signs of a more serious problem, such as: ?Trouble breathing. ?Chest pain. ?A fever of 102.2 F (39 C) or higher that does not go away. ?You vomit every time you eat or drink. ?Feeling very weak. ?Fainting. These symptoms may be an emergency. Get help right away. Call 911. Do not wait to see if the symptoms will go away. Do not drive yourself to the hospital. This information is not intended to replace advice given to you by your health care provider. Make sure you discuss any questions you have with your health care provider. Document Revised: 09/13/2023 Document Reviewed: 09/13/2023 [employer] Patient Education 2023 [employer]. 08/20/2024 17:43:17 COVID-19 COVID-19 COVID-19 is an infection caused by a virus called SARS-CoV-2. This type of virus is called a coronavirus. People with COVID-19 may: Have little to no symptoms. Have mild to moderate symptoms that affect their lungs and breathing. Get very sick. What are the causes? COVID-19 is caused by a virus. This virus may be in the air as droplets or on surfaces. It can spread from an infected person when they cough, sneeze, speak, sing, or breathe. You may become infectedif: You breathe in the infected droplets in the air. You touch an object that has the virus on it. What increases the risk? You are at risk of getting COVID-19 if you have been around someone with the infection. You may be more likely to get very sick if: You are 65 years old or older. You have certain medical conditions, such as: ?Heart disease. ?Diabetes. ?Chronic respiratory disease. ?Cancer. ?. You are immunocompromised. This means your body cannot fight infections easily. You have a disability or trouble moving, meaning you're immobile. What are the signs or symptoms? People may have different symptoms from COVID-19. The symptoms can also be mild to severe. They often show up in 5 6 days after being infected. But they can take up to 14 days to appear. Common symptoms are: Cough. Feeling tired. New loss of taste or smell. Fever. Less common symptoms are: Sore throat. Headache. Body or muscle aches. Diarrhea. A skin rash or odd-colored fingers or toes. Red or irritated eyes. Sometimes, COVID-19 does not cause symptoms. How is this diagnosed? COVID-19 can be diagnosed with tests done in the lab or at home. Fluid from your nose, mouth, or lungs will be used to check for the virus. How is this treated? Treatment for COVID-19 depends on how sick you are. Mild symptoms can be treated at home with rest, fluids, and cynr-rrx-xdhxlwh medicines. Severe symptoms may be treated in a hospital intensive care unit (ICU). If you have symptoms and are at risk of getting very sick, you may be given a medicine that fights viruses. This medicine is called an antiviral. How is this prevented? To protect yourself from COVID-19: 1.Know your risk factors. 2.Get vaccinated. 3.If your body cannot fight infections easily, talk to your provider about treatment to help prevent COVID-19. 4.Stay at least 1 meter away from others. 5.Wear a well-fitted mask when: You can't stay at a distance from people. You're in a place with poor air flow. 6.Try to be in open spaces with good air flow when in public. 7.Wash your hands often or use an alcohol-based hand reservations sales agent. 8.Cover your nose and mouth when coughing and sneezing. If you think you have COVID-19 or have been around someone who has it, stay home and be by yourselffor 5 10 days. Where to find more information Centers for Disease Control and Prevention (CDC): cdc.gov World Health Organization (WHO): who.int Get help right away if: You have trouble breathing or get short of breath. You have pain or pressure in your chest. You cannot speak or move any part of your body. You are confused. Your symptoms get worse. These symptoms may be an emergency. Get help right away. Call 911. Do not wait to see if the symptoms will go away. Do not drive yourself to the hospital. This information is not intended to replace advice given to you by your health care provider. Make sure you discuss any questions you have with your health care provider. Document Revised: 11/21/2023 Document Reviewed: 07/28/2023 [employer] Patient Education 2024 [employer]. Follow Up Care 08/20/2024 16:00:34 With:Emigdio Hyde Address: [address], [facility] [address]- Business (1) When:08/23/2024 17:37:59 Comments:Return to the emergency room if your symptoms get worse, chest pain, shortness of breath or any newsymptoms [facility] 09-24-2024 NoteED Patient Education Note Infectious Disease COVID-19 COVID-19 is an infection caused by a virus called SARS-CoV-2. This type of virus is called a coronavirus. People with COVID-19 may: ? Have little to no symptoms. ? Have mild to moderate symptoms that affect their lungs and breathing. ? Get very sick. What are the causes? COVID-19 is caused by a virus. This virus may be in the air as droplets or on surfaces. It can spread from an infected person when they cough, sneeze, speak, sing, or breathe. You may become infectedif: ? You breathe in the infected droplets in the air. ? You touch an object that has the virus on it. What increases the risk? You are at risk of getting COVID-19 if you have been around someone with the infection. You may be more likely to get very sick if: ? You are 65 years old or older. ? You have certain medical conditions, such as: ? Heart disease. ? Diabetes. ? Chronic respiratory disease. ? Cancer. ? . ? You are immunocompromised. This means your body cannot fight infections easily. ? You have a disability or trouble moving, meaning you're immobile. What are the signs or symptoms? People may have different symptoms from COVID-19. The symptoms can also be mild to severe. They often show up in 5?6 days after being infected. But they can take up to 14 days to appear. Common symptoms are: ? Cough. ? Feeling tired. ? New loss of taste or smell. ? Fever. Less common symptoms are: ? Sore throat. ? Headache. ? Body or muscle aches. ? Diarrhea. ? A skin rash or odd-colored fingers or toes. ? Red or irritated eyes. Sometimes, COVID-19 does not cause symptoms. How is this diagnosed? COVID-19 can be diagnosed with tests done in the lab or at home. Fluid from your nose, mouth, or lungs will be used to check for the virus. How is this treated? Treatment for COVID-19 depends on how sick you are. ? Mild symptoms can be treated at home with rest, fluids, and zthu-icp-pruogtp medicines. ? Severe symptoms may be treated in a hospital intensive care unit (ICU). If you have symptoms and are at risk of getting very sick, you may be given a medicine that fights viruses. This medicine is called an antiviral. How is this prevented? To protect yourself from COVID-19: 1. Know your risk factors. 2. Get vaccinated. 3. If your body cannot fight infections easily, talk to your provider about treatment to help prevent COVID-19. 4. Stay at least 1 meter away from others. 5. Wear a well-fitted mask when: ? You can't stay at a distance from people. ? You're in a place with poor air flow. 6. Try to be in open spaces with good air flow when in public. 7. Wash your hands often or use an alcohol-based hand reservations sales agent. 8. Cover your nose and mouth when coughing and sneezing. If you think you have COVID-19 or have been around someone who has it, stay home and be by yourselffor 5?10 days. Where to find more information ? Centers for Disease Control and Prevention (CDC): cdc.gov ? World Health Organization (WHO): who.int Get help right away if: ? You have trouble breathing or get short of breath. ? You have pain or pressure in your chest. ? You cannot speak or move any part of your body. ? You are confused. ? Your symptoms get worse. These symptoms may be an emergency. Get help right away. Call 911. ? Do not wait to see if the symptoms will go away. ? Do not drive yourself to the hospital. This information is not intended to replace advice given to you by your health care provider. Make sure you discuss any questions you have with your health care provider. Document Revised: 11/21/2023 Document Reviewed: 07/28/2023 [employer] Patient Education ? 2023 [employer]. Obstetrics and Gynecology and COVID-19 A person who is or was recently is at a greater risk for severe sickness from COVID-19 than someone who is not . The risk is even higher if: ? You are at an older age. ? You have other medical conditions, such as diabetes or obesity. This risk can last for at least 6 weeks (42 days) after a ends. Work with your health care team to protect yourself and your baby against COVID-19. Know your specific risk factors. How does COVID-19 affect me? Getting COVID-19 during or shortly after may put you more at risk for: ? Respiratory sickness that can lead to pneumonia or other severe illnesses. ? Having the baby before 37 weeks of . ? Having problems that affect your , such as loss or stillbirth. How does COVID-19 affect my care? Safety measures will be taken if you are and have COVID-19. These may include: ? Being seen for appointments in a specific room for people who have COVID-19. ? Having tests and scans done differently before delivery. ? Updating your plan. This may include what room you will be in and who may be with you (morecontent not included)...[facility] 08-20-2024 Evaluation + Plan noteExtracted from: Title:ED Note Author:Bairon Ahuja, Karolina Eaton te:08/20/24 1. COVID-19 virus infection (U07.1: COVID-19) Orders: acetaminophen, 650 mg = 2 tab(s), Tab, Oral, Once, Stop date 08/20/24 16:43:00 EDT, STAT, Start date 08/20/24 16:43:00 EDT, 08/20/24 16:43:00 EDT Group A Strep by PCR Influenza A&B Ag Rapid COVID Antigen ([facility]) Rapid Strep w/rfx Diagnostic Tests Pending * Group A Strep by PCR 08/20/24 Future Scheduled Tests Laboratory* TIBC Calculated 04/04/24 * TSH With T4fr Reflex 04/04/24 * Vitamin D 25 Hydroxy 04/04/24 * CBC w/ Auto Diff 04/04/24 * Comprehensive Metabolic Panel 04/04/24 * Ferritin 04/04/24 * Folate Level 04/04/24 * Iron Level 04/04/24 * Iron Percent Saturation 04/04/24 * Lipid Panel 04/04/24 * Magnesium Level 04/04/24 * Reticulocyte Count 04/04/24 * Vitamin B12 Level 04/04/24 [facility] 06-07-2024 Hospital Discharge instructions Patient Education 05/03/2024 05:41:55 PUPPP Rash PUPPP Rash Pruritic urticarial papules and plaques of (PUPPP) is a rash that develops during , or sometimes shortly after giving . The rash consists of small red bumps that sometimes form large, scaly, red patches of skin (plaques). The rash goes away soon after childbirth, and it doesnot leave scars or harm you or your baby. PUPPP usually appears during the last few weeks of . It usually does not return during later pregnancies. What are the causes? The cause of this condition is not known. However, it may be related to your skin stretching rapidly during the later stages of . What increases the risk? You are more likely to develop this condition if: You are for the first time. You are with more than one baby. What are the signs or symptoms? The main symptom of this condition is a very itchy rash on the abdomen. The rash often looks red and raised. Sometimes small blisters form in the center of the rash patches. The rash may spread to the legs or arms. The skin around the rash may turn pale. How is this diagnosed? This condition is diagnosed based on a physical exam. Your health care provider will examine your skin and ask questions about your symptoms. In some cases, your health care provider may take a sample of your skin for testing (biopsy) in order to rule out other causes of skin conditions. How is this treated? The goal of treatment is to stop the itching and keep the rash from spreading. Common treatments include medicines that relieve or lessen itching (corticosteroids or antihistamines). These medicines may be: Creams. Ointments. Pills to be taken by mouth. Follow these instructions at home: Skin care Apply any creams or ointments as directed by your health care provider. Wear loose clothing. Keep your skin clean and dry. Do not scratch the rash. Do not bathe in hot water. Take cool baths to soothe your skin. Try adding baking soda or oatmeal to the water to help reduce itching. Apply cool, wet cloths (cool compresses) to itchy areas as told by your health care provider. General instructions Take tjxg-pml-trfldzv and prescription medicines only as told by your health care provider. Keep all follow-up visits. This is important. Contact a health care provider if: Your itchiness does not go away after treatment. Your rash continues to spread. The rash becomes painful. You are unable to sleep because of the rash. Summary Pruritic urticarial papules and plaques of (PUPPP) is a rash that develops during . The rash goes away soon after giving . It does not leave scars or harm you or your baby. You are more likely to develop this condition if this is your first or you are with more than one baby. The goal of treatment is to stop the itching and keep the rash from spreading. This information is not intended to replace advice given to you by your health care provider. Make sure you discuss any questions you have with your health care provider. Document Revised: 07/19/2021 Document Reviewed: 07/19/2021 [employer] Patient Education 2022 [employer]. 05/03/2024 05:41:01 Migraine Headache Migraine Headache A migraine headache is an intense, throbbing pain on one side or both sides of the head. Migraine headaches may also cause other symptoms, such as nausea, vomiting, and sensitivity to light and noise. A migraine headache can last from 4 hours to 3 days. Talk with your doctor about what things may bring on (trigger) your migraine headaches. What are the causes? The exact cause of this condition is not known. However, a migraine may be caused when nerves in the brain become irritated and release chemicals that cause inflammation of blood vessels. This inflammation causes pain. This condition may be triggered or caused by: Drinking alcohol. Smoking. Taking medicines, such as: ?Medicine used to treat chest pain (nitroglycerin). ? control pills. ?Estrogen. ?Certain blood pressure medicines. Eating or drinking products that contain nitrates, glutamate, aspartame, or tyramine. Aged cheeses,chocolate, or caffeine may also be triggers. Doing physical activity. Other things that may trigger a migraine headache include: Menstruation. . Hunger. Stress. Lack of sleep or too much sleep. Weather changes. Fatigue. What increases the risk? The following factors may make you more likely to experience migraine headaches: Being a certain age. This condition is more common in people who are 25 55 years old. Being female. Having a family history of migraine headaches. Being . Having a mental health condition, such as depression or anxiety. Being obese. What are the signs or symptoms? The main symptom of this condition is pulsating or throbbing pain. This pain may: Happen in any area of the head, such as on one side or both sides. Interfere with daily activities. Get worse with physical activity. Get worse with exposure to bright lights or loud noises. Other symptoms may include: Nausea. Vomiting. Dizziness. General sensitivity to bright lights, loud noises, or smells. Before you get a migraine headache, you may get warning signs (an aura). An aura may include: Seeing flashing lights or having blind spots. Seeing bright spots, halos, or zigzag lines. Having tunnel vision or blurred vision. Having numbness or a tingling feeling. Having trouble talking. Having muscle weakness. Some people have symptoms after a migraine headache (postdromal phase), such as: Feeling tired. Difficulty concentrating. How is this diagnosed? A migraine headache can be diagnosed based on: Your symptoms. A physical exam. Tests, such as: ?CT scan or an MRI of the head. These imaging tests can help rule out other causes of headaches. ?Taking fluid from the spine (lumbar puncture) and analyzing it (cerebrospinal fluid analysis, or CSF analysis). How is this treated? This condition may be treated with medicines that: Relieve pain. Relieve nausea. Prevent migraine headaches. Treatment for this condition may also include: Acupuncture. Lifestyle changes like avoiding foods that trigger migraine headaches. Biofeedback. Cognitive behavioral therapy. Follow these instructions at home: Medicines Take xejt-kze-ievecgw and prescription medicines only as told by your health care provider. Ask your health care provider if the medicine prescribed to you: ?Requires you to avoid driving or using heavy machinery. ?Can cause constipation. You may need to take these actions to prevent or treat constipation: ?Drink enough fluid to keep your urine pale yellow. ?Take qgqf-ipr-yqmaqfo or prescription medicines. ?Eat foods that are high in fiber, such as beans, whole grains, and fresh fruits and vegetables. ?Limit foods that are high in fat and processed sugars, such as fried or sweet foods. Lifestyle Do not drink alcohol. Do not use any products that contain nicotine or tobacco, such as cigarettes, e- cigarettes, and chewing tobacco. If you need help quitting, ask your health care provider. Get at least 8 hours of sleep every night. Find ways to manage stress, such as meditation, deep breathing, or yoga. General instructions Keep a journal to find out what may trigger your migraine headaches. For example, write down: ?What you eat and drink. ?How much sleep you get. ?Any change to your diet or medicines. If you have a migraine headache: ?Avoid things that make your symptoms worse, such as bright lights. ?It may help to lie down in a dark, quiet room. ?Do not drive or use heavy machinery. ?Ask your health care provider what activities are safe for you while you are experiencing symptoms. Keep all follow-up visits as told by your health care provider. This is important. Contact a health care provider if: You develop symptoms that are different or more severe than your usual migraine headache symptoms. You have more than 15 headache days in one month. Get help right away if: Your migraine headache becomes severe. Your migraine headache lasts longer than 72 hours. You have a fever. You have a stiff neck. You have vision loss. Your muscles feel weak or like you cannot control them. You start to lose your balance often. You have trouble walking. You faint. You have a seizure. Summary A migraine headache is an intense, throbbing pain on one side or both sides of the head. Migraines may also cause other symptoms, such as nausea, vomiting, and sensitivity to light and noise. This condition may be treated with medicines and lifestyle changes. You may also need to avoid certain things that trigger a migraine headache. Keep a journal to find out what may trigger your migraine headaches. Contact your health care provider if you have more than 15 headache days in a month or you develop symptoms that are different or more severe than your usual migraine headache symptoms. This information is not intended to replace advice given to you by your health care provider. Make sure you discuss any questions you have with your health care provider. Document Revised: 03/06/2020 Document Reviewed: 12/26/2019 [employer] Patient Education 2022 [employer] 05/03/2024 05:40:59 Trigger Finger Trigger Finger Trigger finger, also called stenosing tenosynovitis, is a condition that causes a finger to get stuck in a bent position. Each finger has a tendon, which is a tough, cord-like tissue that connects muscle to bone, and each tendon passes through a tunnel of tissue called a tendon sheath. To move your finger, your tendon needs to glide freely through the sheath. Trigger finger happens when the tendon or the sheath thickens, making it difficult to move your finger. Trigger finger can affect any finger or a thumb. It may affect more than one finger. Mild cases may clear up with rest and medicine. Severe cases require more treatment. What are the causes? Trigger finger is caused by a thickened finger tendon or tendon sheath. The cause of this thickening is not known. What increases the risk? The following factors may make you more likely to develop this condition: Doing activities that require a strong sewer pipe layer helper. Having rheumatoid arthritis, gout, or diabetes. Being 40 60 years old. Being female. What are the signs or symptoms? Symptoms of this condition include: Pain when bending or straightening your finger. Tenderness or swelling where your finger attaches to the palm of your hand. A lump in the palm of your hand or on the inside of your finger. Hearing a noise like a pop or a snap when you try to straighten your finger. Feeling a catching or locking sensation when you try to straighten your finger. Being unable to straighten your finger. How is this diagnosed? This condition is diagnosed based on your symptoms and a physical exam. How is this treated? This condition may be treated by: Resting your finger and avoiding activities that make symptoms worse. Wearing a finger splint to keep your finger extended. Taking NSAIDs, such as ibuprofen, to relieve pain and swelling. Doing gentle exercises to stretch the finger as told by your health care provider. Having medicine that reduces swelling and inflammation (steroids) injected into the tendon sheath. Injections may need to be repeated. Having surgery to open the tendon sheath. This may be done if other treatments do not work and you cannot straighten your finger. You may need physical therapy after surgery. Follow these instructions at home: If you have a splint: Wear the splint as told by your health care provider. Remove it only as told by your health care provider. Loosen it if your fingers tingle, become numb, or turn cold and blue. Keep it clean. If the splint is not waterproof: ?Do not let it get wet. ?Cover it with a watertight covering when you take a bath or shower. Managing pain, stiffness, and swelling If directed, apply heat to the affected area as often as told by your health care provider. Use theheat source that your health care provider recommends, such as a moist heat pack or a heating pad. Place a towel between your skin and the heat source. Leave the heat on for 20 30 minutes. Remove the heat if your skin turns bright red. This is especially important if you are unable to feel pain, heat, or cold. You may have a greater risk of getting burned. If directed, put ice on the painful area. To do this: If you have a removable splint, remove it as told by your health care provider. Put ice in a plastic bag. Place a towel between your skin and the bag or between your splint and the bag. Leave the ice on for 20 minutes, 2 3 times a day. Activity Rest your finger as told by your health care provider. Avoid activities that make the pain worse. Return to your normal activities as told by your health care provider. Ask your health care provider what activities are safe for you. Do exercises as told by your health care provider. Ask your health care provider when it is safe to drive if you have a splint on your hand. General instructions Take fyrv-oft-nsmosgh and prescription medicines only as told by your health care provider. Keep all follow-up visits as told by your health care provider. This is important. Contact a health care provider if: Your symptoms are not improving with home care. Summary Trigger finger, also called stenosing tenosynovitis, causes your finger to get stuck in a bent position. This can make it difficult and painful to straighten your finger. This condition develops when a finger tendon or tendon sheath thickens. Treatment may include resting your finger, wearing a splint, and taking medicines. In severe cases, surgery to open the tendon sheath may be needed. This information is not intended to replace advice given to you by your health care provider. Make sure you discuss any questions you have with your health care provider. Document Revised: 03/30/2020 Document Reviewed: 03/30/2020 [employer] Patient Education 2022 [employer]. 05/03/2024 05:40:56 Iron Deficiency Anemia, Adult Iron Deficiency Anemia, Adult Iron deficiency anemia is a condition in which the concentration of red blood cells or hemoglobin in the blood is below normal because of too little iron. Hemoglobin is a substance in red blood cellsthat carries oxygen to the body's tissues. When the concentration of red blood cells or hemoglobin is too low, not enough oxygen reaches these tissues. Iron deficiency anemia is usually long-lasting, and it develops over time. It may or may not cause symptoms. It is a common type of anemia. What are the causes? This condition may be caused by: Not enough iron in the diet. Abnormal absorption in the gut. Blood loss. What increases the risk? You are more likely to develop this condition if you get menstrual periods (menstruate) or are . What are the signs or symptoms? Symptoms of this condition may include: Pale skin, lips, and nail beds. Weakness, dizziness, and getting tired easily. Shortness of breath when moving or exercising. Cold hands or feet. Mild anemia may not cause any symptoms. How is this diagnosed? This condition is diagnosed based on: Your medical history. A physical exam. Blood tests. How is this treated? This condition is treated by correcting the cause of your iron deficiency. Treatment may involve: Adding iron-rich foods to your diet. Taking iron supplements. If you are or , you may need to take extra iron because your normal diet usually does not provide the amount of iron that you need. Increasing vitamin C intake. Vitamin C helps your body absorb iron. Your health care provider may recommend that you take iron supplements along with a glass of orange juice or a vitamin C supplement. Medicines to make heavy menstrual flow slurry tank tender. Surgery or additional testing procedures to determine the cause of your anemia. You may need repeat blood tests to determine whether treatment is working. If the treatment does not seem to be working, you may need more tests. Follow these instructions at home: Medicines Take pfgu-vzo-isjbfic and prescription medicines only as told by your health care provider. This includes iron supplements and vitamins. This is important because too much iron can be harmful. ?For the best iron absorption, you should take iron supplements when your stomach is empty. If you cannot tolerate them on an empty stomach, you may need to take them with food. ?Do not drink milk or take antacids at the same time as your iron supplements. Milk and antacids may interfere with how your body absorbs iron. ?Iron supplements may turn stool (feces) a darker color and it may appear black. If you cannot tolerate taking iron supplements by mouth, talk with your health care provider about taking them through an IV or through an injection into a muscle. Eating and drinking Talk with your health care provider before changing your diet. Your provider may recommend that youeat foods that contain a lot of iron, such as: ?Liver. ?Low-fat (lean) beef. ?Breads and cereals that have iron added to them (are fortified). ?Eggs. ?Dried fruit. ?Dark green, leafy vegetables. To help your body use the iron from iron-rich foods, eat those foods at the same time as fresh fruits and vegetables that are high in vitamin C. Foods that are high in vitamin C include: ?Oranges. ?Peppers. ?Tomatoes. ?Mangoes. Managing constipation If you are taking an iron supplement, it may cause constipation. To prevent or treat constipation, you may need to: Drink enough fluid to keep your urine pale yellow. Take thuf-aeq-oitblqu or prescription medicines. Eat foods that are high in fiber, such as beans, whole grains, and fresh fruits and vegetables. Limit foods that are high in fat and processed sugars, such as fried or sweet foods. General instructions Return to your normal activities as told by your health care provider. Ask your health care provider what activities are safe for you. Keep all follow-up visits. Contact a health care provider if: You feel nauseous or you vomit. You feel weak. You become light-headed when getting up from a sitting or lying down position. You have unexplained sweating. You develop symptoms of constipation. You have a heaviness in your chest. You have trouble breathing with physical activity. Get help right away if: You faint. If this happens, do not drive yourself to the hospital. You have an irregular or rapid heartbeat. Summary Iron deficiency anemia is a condition in which the concentration of red blood cells or hemoglobin in the blood is below normal because of too little iron. This condition is treated by correcting the cause of your iron deficiency. Take vkxh-tmf-weonlvt and prescription medicines only as told by your health care provider. This includes iron supplements and vitamins. To help your body use the iron from iron-rich foods, eat those foods at the same time as fresh fruits and vegetables that are high in vitamin C. Seek medical help if you have signs or symptoms of worsening anemia. This information is not intended to replace advice given to you by your health care provider. Make sure you discuss any questions you have with your health care provider. Document Revised: 12/21/2022 Document Reviewed: 12/21/2022 [employer] Patient Education 2022 [employer]. 05/03/2024 05:40:48 Eczema Eczema Eczema refers to a group of skin conditions that cause skin to become rough and inflamed. Each typeof eczema has different triggers, symptoms, and treatments. Eczema of any type is usually itchy. Symptoms range from mild to severe. Eczema is not spread from person to person (is not contagious). It can appear on different parts ofthe body at different times. One person's eczema may look different from another person's eczema. What are the causes? The exact cause of this condition is not known. However, exposure to certain environmental factors,irritants, and allergens can make the condition worse. What are the signs or symptoms? Symptoms of this condition depend on the type of eczema you have. The types include: Contact dermatitis. There are two kinds: ?Irritant contact dermatitis. This happens when something irritates the skin and causes a rash. ?Allergic contact dermatitis. This happens when your skin comes in contact with something you are allergic to (allergens). This can include poison oswaldo, chemicals, or medicines that were applied to your skin. Atopic dermatitis. This is a long-term (chronic) skin disease that keeps coming back (recurring). It is the most common type of eczema. Usual symptoms are a red rash and itchy, dry, scaly skin. It usually starts showing signs in infancy and can last through adulthood. Dyshidrotic eczema. This is a form of eczema on the hands and feet. It shows up as very itchy, fluid-filled blisters. It can affect people of any age but is more common before age 40. Hand eczema. This causes very itchy areas of skin on the palms and sides of the hands and fingers. This type of eczema is common in industrial jobs where you may be exposed to different types of irritants. Lichen simplex chronicus. This type of eczema occurs when a person constantly scratches one area ofthe body. Repeated scratching of the area leads to thickened skin (lichenification). This conditioncan accompany other types of eczema. It is more common in adults but may also be seen in children. Nummular eczema. This is a common type of eczema that most often affects the lower legs and the backs of the hands. It typically causes an itchy, red, circular, crusty lesion (plaque). Scratching maybecome a habit and can cause bleeding. Nummular eczema occurs most often in middle-aged or older people. Seborrheic dermatitis. This is a common skin disease that mainly affects the scalp. It may also affect other oily areas of the body, such as the face, sides of the nose, eyebrows, ears, eyelids, and chest. It is marked by small scaling and redness of the skin (erythema). This can affect people of all ages. In infants, this condition is called cradle cap. Stasis dermatitis. This is a common skin disease that can cause itching, scaling, and hyperpigmentation, usually on the legs and feet. It occurs most often in people who have a condition that prevents blood from being pumped through the veins in the legs (chronic venous insufficiency). Stasis dermatitis is a chronic condition that needs long-term management. How is this diagnosed? This condition may be diagnosed based on: A physical exam of your skin. Your medical history. Skin patch tests. These tests involve using patches that contain possible allergens and placing them on your back. Your health care provider will check in a few days to see if an allergic reaction occurred. How is this treated? Treatment for eczema is based on the type of eczema you have. You may be given hydrocortisone steroid medicine or antihistamines. These can relieve itching quickly and help reduce inflammation. Thesemay be prescribed or purchased over the counter, depending on the strength that is needed. Follow these instructions at home: Take or apply ibnp-mgl-eaxfolm and prescription medicines only as told by your health care provider. Use creams or ointments to moisturize your skin. Do not use lotions. Learn what triggers or irritates your symptoms so you can avoid these things. Treat symptom flare-ups quickly. Do not scratch your skin. This can make your rash worse. Keep all follow-up visits. This is important. Where to find more information [place] [employer]: aad.org National Eczema Association: nationaleczema.org The Society for Pediatric Dermatology: pedsderm.net Contact a health care provider if: You have severe itching, even with treatment. You scratch your skin regularly until it bleeds. Your rash looks different than usual. Your skin is painful, swollen, or more red than usual. You have a fever. Summary Eczema refers to a group of skin conditions that cause skin to become rough and inflamed. Each typehas different triggers. Eczema of any type causes itching that may range from mild to severe. Treatment varies based on the type of eczema you have. Hydrocortisone steroid medicine or antihistamines can help with itching and inflammation. Protecting your skin is the best way to prevent eczema. Use creams or ointments to moisturize your skin. Avoid triggers and irritants. Treat flare-ups quickly. This information is not intended to replace advice given to you by your health care provider. Make sure you discuss any questions you have with your health care provider. Document Revised: 08/23/2021 Document Reviewed: 08/23/2021 [employer] Patient Education 2022 [employer]. Follow Up Care 04/04/2024 12:19:47 With:Arlet Hager [facility], [facility] Address: [address] [place] [address] [place], [facility] [place] [address]- When:Within 6 Week(s) Comments:f/u labs, rash, anemia, migraines [facility] 05-09-2024 Hospital Discharge instructions Patient Education 04/04/2024 12:26:39 Migraine Headache Migraine Headache A migraine headache is an intense, throbbing pain on one side or both sides of the head. Migraine headaches may also cause other symptoms, such as nausea, vomiting, and sensitivity to light and noise. A migraine headache can last from 4 hours to 3 days. Talk with your doctor about what things may bring on (trigger) your migraine headaches. What are the causes? The exact cause of this condition is not known. However, a migraine may be caused when nerves in the brain become irritated and release chemicals that cause inflammation of blood vessels. This inflammation causes pain. This condition may be triggered or caused by: Drinking alcohol. Smoking. Taking medicines, such as: ?Medicine used to treat chest pain (nitroglycerin). ? control pills. ?Estrogen. ?Certain blood pressure medicines. Eating or drinking products that contain nitrates, glutamate, aspartame, or tyramine. Aged cheeses,chocolate, or caffeine may also be triggers. Doing physical activity. Other things that may trigger a migraine headache include: Menstruation. . Hunger. Stress. Lack of sleep or too much sleep. Weather changes. Fatigue. What increases the risk? The following factors may make you more likely to experience migraine headaches: Being a certain age. This condition is more common in people who are 25 55 years old. Being female. Having a family history of migraine headaches. Being . Having a mental health condition, such as depression or anxiety. Being obese. What are the signs or symptoms? The main symptom of this condition is pulsating or throbbing pain. This pain may: Happen in any area of the head, such as on one side or both sides. Interfere with daily activities. Get worse with physical activity. Get worse with exposure to bright lights or loud noises. Other symptoms may include: Nausea. Vomiting. Dizziness. General sensitivity to bright lights, loud noises, or smells. Before you get a migraine headache, you may get warning signs (an aura). An aura may include: Seeing flashing lights or having blind spots. Seeing bright spots, halos, or zigzag lines. Having tunnel vision or blurred vision. Having numbness or a tingling feeling. Having trouble talking. Having muscle weakness. Some people have symptoms after a migraine headache (postdromal phase), such as: Feeling tired. Difficulty concentrating. How is this diagnosed? A migraine headache can be diagnosed based on: Your symptoms. A physical exam. Tests, such as: ?CT scan or an MRI of the head. These imaging tests can help rule out other causes of headaches. ?Taking fluid from the spine (lumbar puncture) and analyzing it (cerebrospinal fluid analysis, or CSF analysis). How is this treated? This condition may be treated with medicines that: Relieve pain. Relieve nausea. Prevent migraine headaches. Treatment for this condition may also include: Acupuncture. Lifestyle changes like avoiding foods that trigger migraine headaches. Biofeedback. Cognitive behavioral therapy. Follow these instructions at home: Medicines Take wneq-sru-uxkstpq and prescription medicines only as told by your health care provider. Ask your health care provider if the medicine prescribed to you: ?Requires you to avoid driving or using heavy machinery. ?Can cause constipation. You may need to take these actions to prevent or treat constipation: ?Drink enough fluid to keep your urine pale yellow. ?Take gvmi-hxt-saqpoty or prescription medicines. ?Eat foods that are high in fiber, such as beans, whole grains, and fresh fruits and vegetables. ?Limit foods that are high in fat and processed sugars, such as fried or sweet foods. Lifestyle Do not drink alcohol. Do not use any products that contain nicotine or tobacco, such as cigarettes, e- cigarettes, and chewing tobacco. If you need help quitting, ask your health care provider. Get at least 8 hours of sleep every night. Find ways to manage stress, such as meditation, deep breathing, or yoga. General instructions Keep a journal to find out what may trigger your migraine headaches. For example, write down: ?What you eat and drink. ?How much sleep you get. ?Any change to your diet or medicines. If you have a migraine headache: ?Avoid things that make your symptoms worse, such as bright lights. ?It may help to lie down in a dark, quiet room. ?Do not drive or use heavy machinery. ?Ask your health care provider what activities are safe for you while you are experiencing symptoms. Keep all follow-up visits as told by your health care provider. This is important. Contact a health care provider if: You develop symptoms that are different or more severe than your usual migraine headache symptoms. You have more than 15 headache days in one month. Get help right away if: Your migraine headache becomes severe. Your migraine headache lasts longer than 72 hours. You have a fever. You have a stiff neck. You have vision loss. Your muscles feel weak or like you cannot control them. You start to lose your balance often. You have trouble walking. You faint. You have a seizure. Summary A migraine headache is an intense, throbbing pain on one side or both sides of the head. Migraines may also cause other symptoms, such as nausea, vomiting, and sensitivity to light and noise. This condition may be treated with medicines and lifestyle changes. You may also need to avoid certain things that trigger a migraine headache. Keep a journal to find out what may trigger your migraine headaches. Contact your health care provider if you have more than 15 headache days in a month or you develop symptoms that are different or more severe than your usual migraine headache symptoms. This information is not intended to replace advice given to you by your health care provider. Make sure you discuss any questions you have with your health care provider. Document Revised: 03/06/2020 Document Reviewed: 12/26/2019 [employer] Patient Education 2022 [employer]. 04/04/2024 12:26:36 Iron Deficiency Anemia, Adult Iron Deficiency Anemia, Adult Iron deficiency anemia is a condition in which the concentration of red blood cells or hemoglobin in the blood is below normal because of too little iron. Hemoglobin is a substance in red blood cellsthat carries oxygen to the body's tissues. When the concentration of red blood cells or hemoglobin is too low, not enough oxygen reaches these tissues. Iron deficiency anemia is usually long-lasting, and it develops over time. It may or may not cause symptoms. It is a common type of anemia. What are the causes? This condition may be caused by: Not enough iron in the diet. Abnormal absorption in the gut. Blood loss. What increases the risk? You are more likely to develop this condition if you get menstrual periods (menstruate) or are . What are the signs or symptoms? Symptoms of this condition may include: Pale skin, lips, and nail beds. Weakness, dizziness, and getting tired easily. Shortness of breath when moving or exercising. Cold hands or feet. Mild anemia may not cause any symptoms. How is this diagnosed? This condition is diagnosed based on: Your medical history. A physical exam. Blood tests. How is this treated? This condition is treated by correcting the cause of your iron deficiency. Treatment may involve: Adding iron-rich foods to your diet. Taking iron supplements. If you are or , you may need to take extra iron because your normal diet usually does not provide the amount of iron that you need. Increasing vitamin C intake. Vitamin C helps your body absorb iron. Your health care provider may recommend that you take iron supplements along with a glass of orange juice or a vitamin C supplement. Medicines to make heavy menstrual flow slurry tank tender. Surgery or additional testing procedures to determine the cause of your anemia. You may need repeat blood tests to determine whether treatment is working. If the treatment does not seem to be working, you may need more tests. Follow these instructions at home: Medicines Take aous-idx-qysbsrs and prescription medicines only as told by your health care provider. This includes iron supplements and vitamins. This is important because too much iron can be harmful. ?For the best iron absorption, you should take iron supplements when your stomach is empty. If you cannot tolerate them on an empty stomach, you may need to take them with food. ?Do not drink milk or take antacids at the same time as your iron supplements. Milk and antacids may interfere with how your body absorbs iron. ?Iron supplements may turn stool (feces) a darker color and it may appear black. If you cannot tolerate taking iron supplements by mouth, talk with your health care provider about taking them through an IV or through an injection into a muscle. Eating and drinking Talk with your health care provider before changing your diet. Your provider may recommend that youeat foods that contain a lot of iron, such as: ?Liver. ?Low-fat (lean) beef. ?Breads and cereals that have iron added to them (are fortified). ?Eggs. ?Dried fruit. ?Dark green, leafy vegetables. To help your body use the iron from iron-rich foods, eat those foods at the same time as fresh fruits and vegetables that are high in vitamin C. Foods that are high in vitamin C include: ?Oranges. ?Peppers. ?Tomatoes. ?Mangoes. Managing constipation If you are taking an iron supplement, it may cause constipation. To prevent or treat constipation, you may need to: Drink enough fluid to keep your urine pale yellow. Take rsct-bwy-ikwncaw or prescription medicines. Eat foods that are high in fiber, such as beans, whole grains, and fresh fruits and vegetables. Limit foods that are high in fat and processed sugars, such as fried or sweet foods. General instructions Return to your normal activities as told by your health care provider. Ask your health care provider what activities are safe for you. Keep all follow-up visits. Contact a health care provider if: You feel nauseous or you vomit. You feel weak. You become light-headed when getting up from a sitting or lying down position. You have unexplained sweating. You develop symptoms of constipation. You have a heaviness in your chest. You have trouble breathing with physical activity. Get help right away if: You faint. If this happens, do not drive yourself to the hospital. You have an irregular or rapid heartbeat. Summary Iron deficiency anemia is a condition in which the concentration of red blood cells or hemoglobin in the blood is below normal because of too little iron. This condition is treated by correcting the cause of your iron deficiency. Take gqhv-uty-hiiqjss and prescription medicines only as told by your health care provider. This includes iron supplements and vitamins. To help your body use the iron from iron-rich foods, eat those foods at the same time as fresh fruits and vegetables that are high in vitamin C. Seek medical help if you have signs or symptoms of worsening anemia. This information is not intended to replace advice given to you by your health care provider. Make sure you discuss any questions you have with your health care provider. Document Revised: 12/21/2022 Document Reviewed: 12/21/2022 [employer] Patient Education 2022 [employer]. 04/04/2024 12:26:35 Anemia Anemia Anemia is a condition in which there are not enough red blood cells or hemoglobin in the blood. Hemoglobin is a substance in red blood cells that carries oxygen. When you do not have enough red blood cells or hemoglobin (are anemic), your body cannot get enoughoxygen, and your organs may not work properly. As a result, you may feel very tired or have other problems. What are the causes? Common causes of anemia include: Excessive bleeding. Anemia can be caused by excessive bleeding inside or outside the body, including bleeding from the intestines or from heavy menstrual periods in females. Poor nutrition. Long-lasting (chronic) kidney, thyroid, and liver disease. Bone marrow disorders, spleen problems, and blood disorders. Cancer and treatments for cancer. Human immunodeficiency virus (HIV) and acquired immunodeficiency syndrome (AIDS). Infections, medicines, and autoimmune disorders that destroy red blood cells. What are the signs or symptoms? Symptoms of this condition include: Minor weakness. Dizziness. Headache, or difficulties concentrating and sleeping. Heartbeats that feel irregular or faster than normal (palpitations). Shortness of breath, especially with exercise. Pale skin, lips, and nails, or cold hands and feet. Upset stomach (indigestion) and nausea. Symptoms may occur suddenly or develop slowly. If your anemia is mild, you may not have symptoms. How is this diagnosed? This condition is diagnosed based on blood tests, your medical history, and a physical exam. In some cases, a test may be needed in which cells are removed from the soft tissue inside of a bone and looked at under a microscope (bone marrow biopsy). Your health care provider may also check your stool (feces) for blood and may do more testing to look for the cause of your bleeding. Other tests may include: Imaging tests, such as a CT scan or MRI. A procedure to see inside your esophagus and stomach (endoscopy). The esophagus is the part of the body that moves food from your mouth to your stomach. A procedure to see inside your colon and rectum (colonoscopy). How is this treated? Treatment for this condition depends on the cause. If you continue to lose a lot of blood, you may need to be treated at a hospital. Treatment may include: Taking supplements of iron, vitamin B12, or folic acid. Taking a hormone medicine (erythropoietin) that can help to stimulate red blood cell growth. Receiving donated blood through an IV (blood transfusion). This may be needed if you lose a lot of blood. Making changes to your diet. Having surgery to remove your spleen. Follow these instructions at home: Take nwhv-hbj-ckeabki and prescription medicines only as told by your health care provider. Take supplements only as told by your health care provider. Follow any diet instructions that you were given by your health care provider. Keep all follow-up visits. Your health care provider will want to recheck your blood tests. Contact a health care provider if: You develop new bleeding anywhere in the body. You are very weak. Get help right away if: You are short of breath. You have pain in your abdomen or chest. You are dizzy or feel faint. You have trouble concentrating. You have bloody stools, black stools, or tarry stools. You vomit repeatedly or you vomit up blood. These symptoms may be an emergency. Get help right away. Call 911. Do not wait to see if the symptoms will go away. Do not drive yourself to the hospital. Summary Anemia is a condition in which you do not have enough red blood cells or enough of a substance in your red blood cells that carries oxygen. Symptoms may occur suddenly or develop slowly. If your anemia is mild, you may not have symptoms. This condition is diagnosed with blood tests, a medical history, and a physical exam. Other tests may be needed. Treatment for this condition depends on the cause of the anemia. This information is not intended to replace advice given to you by your health care provider. Make sure you discuss any questions you have with your health care provider. Document Revised: 02/06/2023 Document Reviewed: 02/06/2023 [employer] Patient Education 2022 [employer]. 04/04/2024 12:26:33 Trigger Finger Trigger Finger Trigger finger, also called stenosing tenosynovitis, is a condition that causes a finger to get stuck in a bent position. Each finger has a tendon, which is a tough, cord-like tissue that connects muscle to bone, and each tendon passes through a tunnel of tissue called a tendon sheath. To move your finger, your tendon needs to glide freely through the sheath. Trigger finger happens when the tendon or the sheath thickens, making it difficult to move your finger. Trigger finger can affect any finger or a thumb. It may affect more than one finger. Mild cases may clear up with rest and medicine. Severe cases require more treatment. What are the causes? Trigger finger is caused by a thickened finger tendon or tendon sheath. The cause of this thickening is not known. What increases the risk? The following factors may make you more likely to develop this condition: Doing activities that require a strong sewer pipe layer helper. Having rheumatoid arthritis, gout, or diabetes. Being 41 60 years old. Being female. What are the signs or symptoms? Symptoms of this condition include: Pain when bending or straightening your finger. Tenderness or swelling where your finger attaches to the palm of your hand. A lump in the palm of your hand or on the inside of your finger. Hearing a noise like a pop or a snap when you try to straighten your finger. Feeling a catching or locking sensation when you try to straighten your finger. Being unable to straighten your finger. How is this diagnosed? This condition is diagnosed based on your symptoms and a physical exam. How is this treated? This condition may be treated by: Resting your finger and avoiding activities that make symptoms worse. Wearing a finger splint to keep your finger extended. Taking NSAIDs, such as ibuprofen, to relieve pain and swelling. Doing gentle exercises to stretch the finger as told by your health care provider. Having medicine that reduces swelling and inflammation (steroids) injected into the tendon sheath. Injections may need to be repeated. Having surgery to open the tendon sheath. This may be done if other treatments do not work and you cannot straighten your finger. You may need physical therapy after surgery. Follow these instructions at home: If you have a splint: Wear the splint as told by your health care provider. Remove it only as told by your health care provider. Loosen it if your fingers tingle, become numb, or turn cold and blue. Keep it clean. If the splint is not waterproof: ?Do not let it get wet. ?Cover it with a watertight covering when you take a bath or shower. Managing pain, stiffness, and swelling If directed, apply heat to the affected area as often as told by your health care provider. Use theheat source that your health care provider recommends, such as a moist heat pack or a heating pad. Place a towel between your skin and the heat source. Leave the heat on for 20 30 minutes. Remove the heat if your skin turns bright red. This is especially important if you are unable to feel pain, heat, or cold. You may have a greater risk of getting burned. If directed, put ice on the painful area. To do this: If you have a removable splint, remove it as told by your health care provider. Put ice in a plastic bag. Place a towel between your skin and the bag or between your splint and the bag. Leave the ice on for 20 minutes, 2 3 times a day. Activity Rest your finger as told by your health care provider. Avoid activities that make the pain worse. Return to your normal activities as told by your health care provider. Ask your health care provider what activities are safe for you. Do exercises as told by your health care provider. Ask your health care provider when it is safe to drive if you have a splint on your hand. General instructions Take ruhq-lnl-rxlwivl and prescription medicines only as told by your health care provider. Keep all follow-up visits as told by your health care provider. This is important. Contact a health care provider if: Your symptoms are not improving with home care. Summary Trigger finger, also called stenosing tenosynovitis, causes your finger to get stuck in a bent position. This can make it difficult and painful to straighten your finger. This condition develops when a finger tendon or tendon sheath thickens. Treatment may include resting your finger, wearing a splint, and taking medicines. In severe cases, surgery to open the tendon sheath may be needed. This information is not intended to replace advice given to you by your health care provider. Make sure you discuss any questions you have with your health care provider. Document Revised: 03/30/2020 Document Reviewed: 03/30/2020 [employer] Patient Education 2022 [employer]. 04/04/2024 12:26:27 Exercising to Lose Weight Exercising to Lose Weight Getting regular exercise is important for everyone. It is especially important if you are overweight. Being overweight increases your risk of heart disease, stroke, diabetes, high blood pressure, andseveral types of cancer. Exercising, and reducing the calories you consume, can help you lose weight and improve fitness and health. Exercise can be moderate or vigorous intensity. To lose weight, most people need to do a certain amount of moderate or vigorous-intensity exercise each week. How can exercise affect me? You lose weight when you exercise enough to burn more calories than you eat. Exercise also reduces body fat and builds muscle. The more muscle you have, the more calories you burn. Exercise also: Improves mood. Reduces stress and tension. Improves your overall fitness, flexibility, and endurance. Increases bone strength. Moderate-intensity exercise Moderate-intensity exercise is any activity that gets you moving enough to burn at least three times more energy (calories) than if you were sitting. Examples of moderate exercise include: Walking a mile in 15 minutes. Doing light yard work. Biking at an easy pace. Most people should get at least 150 minutes of moderate-intensity exercise a week to maintain theirbody weight. Vigorous-intensity exercise Vigorous-intensity exercise is any activity that gets you moving enough to burn at least six times more calories than if you were sitting. When you exercise at this intensity, you should be working hard enough that you are not able to carry on a conversation. Examples of vigorous exercise include: Running. Playing a team sport, such as football, basketball, and soccer. Jumping rope. Most people should get at least 75 minutes a week of vigorous exercise to maintain their body weight. What actions can I take to lose weight? The amount of exercise you need to lose weight depends on: Your age. The type of exercise. Any health conditions you have. Your overall physical ability. Talk to your health care provider about how much exercise you need and what types of activities aresafe for you. Nutrition Make changes to your diet as told by your health care provider or diet and nutrition worker (dietitian). This may include: ?Eating fewer calories. ?Eating more protein. ?Eating less unhealthy fats. ?Eating a diet that includes fresh fruits and vegetables, whole grains, low-fat dairy products, andlean protein. ?Avoiding foods with added fat, salt, and sugar. Drink plenty of water while you exercise to prevent dehydration or heat stroke. Activity Choose an activity that you enjoy and set realistic goals. Your health care provider can help you make an exercise plan that works for you. Exercise at a moderate or vigorous intensity most days of the week. ?The intensity of exercise may vary from person to person. You can tell how intense a workout is for you by paying attention to your breathing and heartbeat. Most people will notice their breathing and heartbeat get faster with more intense exercise. Do resistance training twice each week, such as: ?Push-ups. ?Sit-ups. ?Lifting weights. ?Using resistance bands. Getting short amounts of exercise can be just as helpful as long, structured periods of exercise. If you have trouble finding time to exercise, try doing these things as part of your daily routine: ?Get up, stretch, and walk around every 30 minutes throughout the day. ?Go for a walk during your lunch break. ?Park your car farther away from your destination. ?If you take public transportation, get off one stop early and walk the rest of the way. ?Make phone calls while standing up and walking around. ?Take the stairs instead of elevators or escalators. Wear comfortable clothes and shoes with good support. Do not exercise so much that you hurt yourself, feel dizzy, or get very short of breath. Where to find more information [place] Department of Health and Human Services: www.hhs.gov Centers for Disease Control and Prevention: www.cdc.gov Contact a health care provider: Before starting a new exercise program. If you have questions or concerns about your weight. If you have a medical problem that keeps you from exercising. Get help right away if: You have any of the following while exercising: ?Injury. ?Dizziness. ?Difficulty breathing or shortness of breath that does not go away when you stop exercising. ?Chest pain. ?Rapid heartbeat. These symptoms may represent a serious problem that is an emergency. Do not wait to see if the symptoms will go away. Get medical help right away. Call your local emergency services (911 in the [place] Do not drive yourself to the hospital. Summary Getting regular exercise is especially important if you are overweight. Being overweight increases your risk of heart disease, stroke, diabetes, high blood pressure, and several types of cancer. Losing weight happens when you burn more calories than you eat. Reducing the amount of calories you eat, and getting regular moderate or vigorous exercise each week, helps you lose weight. This information is not intended to replace advice given to you by your health care provider. Make sure you discuss any questions you have with your health care provider. Document Revised: 01/09/2022 Document Reviewed: 01/09/2022 [employer] Patient Education 2022 [employer]. 04/04/2024 12:26:26 BMI for Adults BMI for Adults What is BMI? Body mass index (BMI) is a number that is calculated from a person's weight and height. BMI can help estimate how much of a person's weight is composed of fat. BMI does not measure body fat directly.Rather, it is an alternative to procedures that directly measure body fat, which can be difficult and expensive. BMI can help identify people who may be at higher risk for certain medical problems. What are BMI measurements used for? BMI is used as a screening tool to identify possible weight problems. It helps determine whether a person is obese, overweight, a healthy weight, or underweight. BMI is useful for: Identifying a weight problem that may be related to a medical condition or may increase the risk for medical problems. Promoting changes, such as changes in diet and exercise, to help reach a healthy weight. BMI screening can be repeated to see if these changes are working. How is BMI calculated? BMI involves measuring your weight in relation to your height. Both height and weight are measured,and the BMI is calculated from those numbers. This can be done either in [place] ([place] or metric measurements. Note that charts and online BMI calculators are available to help you find your BMI quickly and easily without having to do these calculations yourself. To calculate your BMI in [place] measurements: 1.Measure your weight in pounds (lb). 2.Multiply the number of pounds by 703. For example, for a person who weighs 180 lb, multiply that number by 703, which equals [phone]. 3.Measure your height in inches. Then multiply that number by itself to get a measurement called inches squared. For example, for a person who is 70 inches tall, the inches squared measurement is 70 inches x 70inches, which equals 4,900 inches squared. 4.Divide the total from step 2 (number of lb x 703) by the total from step 3 (inches squared): 126,540 4,900 = 25.8. This is your BMI. To calculate your BMI in metric measurements: 1.Measure your weight in kilograms (kg). 2.Measure your height in meters (m). Then multiply that number by itself to get a measurement called meters squared. For example, for a person who is 1.75 m tall, the meters squared measurement is 1.75 m x 1.75 m, which is equal to 3.1 meters squared. 3.Divide the number of kilograms (your weight) by the meters squared number. In this example: 70 3.1 = 22.6. This is your BMI. What do the results mean? BMI charts are used to identify whether you are underweight, normal weight, overweight, or obese. The following guidelines will be used: Underweight: BMI less than 18.5. Normal weight: BMI between 18.5 and 24.9. Overweight: BMI between 25 and 29.9. Obese: BMI of 30 or above. Keep these notes in mind: Weight includes both fat and muscle, so someone with a muscular build, such as an athlete, may havea BMI that is higher than 24.9. In cases like these, BMI is not an accurate measure of body fat. To determine if excess body fat is the cause of a BMI of 25 or higher, further assessments may needto be done by a health care provider. BMI is usually interpreted in the same way for men and women. Where to find more information For more information about BMI, including tools to quickly calculate your BMI, go to these websites: Centers for Disease Control and Prevention: www.cdc.gov [place] Heart Association: www.heart.org National Heart, Lung, and Blood [place]: www.nhlbi.nih.gov Summary Body mass index (BMI) is a number that is calculated from a person's weight and height. BMI may help estimate how much of a person's weight is composed of fat. BMI can help identify thosewho may be at higher risk for certain medical problems. BMI can be measured using [place] measurements or metric measurements. BMI charts are used to identify whether you are underweight, normal weight, overweight, or obese. This information is not intended to replace advice given to you by your health care provider. Make sure you discuss any questions you have with your health care provider. Document Revised: 08/05/2020 Document Reviewed: 06/12/2020 [employer] Patient Education 2022 [employer]. 04/04/2024 12:26:24 BMI for Adults BMI for Adults What is BMI? Body mass index (BMI) is a number that is calculated from a person's weight and height. BMI can help estimate how much of a person's weight is composed of fat. BMI does not measure body fat directly.Rather, it is an alternative to procedures that directly measure body fat, which can be difficult and expensive. BMI can help identify people who may be at higher risk for certain medical problems. What are BMI measurements used for? BMI is used as a screening tool to identify possible weight problems. It helps determine whether a person is obese, overweight, a healthy weight, or underweight. BMI is useful for: Identifying a weight problem that may be related to a medical condition or may increase the risk for medical problems. Promoting changes, such as changes in diet and exercise, to help reach a healthy weight. BMI screening can be repeated to see if these changes are working. How is BMI calculated? BMI involves measuring your weight in relation to your height. Both height and weight are measured,and the BMI is calculated from those numbers. This can be done either in [place] ([place] or metric measurements. Note that charts and online BMI calculators are available to help you find your BMI quickly and easily without having to do these calculations yourself. To calculate your BMI in [place] ([place] measurements: 1.Measure your weight in pounds (lb). 2.Multiply the number of pounds by 703. For example, for a person who weighs 180 lb, multiply that number by 703, which equals 126,540. 3.Measure your height in inches. Then multiply that number by itself to get a measurement called inches squared. For example, for a person who is 70 inches tall, the inches squared measurement is 70 inches x 70inches, which equals 4,900 inches squared. 4.Divide the total from step 2 (number of lb x 703) by the total from step 3 (inches squared): 126,540 4,900 = 25.8. This is your BMI. To calculate your BMI in metric measurements: 1.Measure your weight in kilograms (kg). 2.Measure your height in meters (m). Then multiply that number by itself to get a measurement called meters squared. For example, for a person who is 1.75 m tall, the meters squared measurement is 1.75 m x 1.75 m, which is equal to 3.1 meters squared. 3.Divide the number of kilograms (your weight) by the meters squared number. In this example: 70 3.1 = 22.6. This is your BMI. What do the results mean? BMI charts are used to identify whether you are underweight, normal weight, overweight, or obese. The following guidelines will be used: Underweight: BMI less than 18.5. Normal weight: BMI between 18.5 and 24.9. Overweight: BMI between 25 and 29.9. Obese: BMI of 30 or above. Keep these notes in mind: Weight includes both fat and muscle, so someone with a muscular build, such as an athlete, may havea BMI that is higher than 24.9. In cases like these, BMI is not an accurate measure of body fat. To determine if excess body fat is the cause of a BMI of 25 or higher, further assessments may needto be done by a health care provider. BMI is usually interpreted in the same way for men and women. Where to find more information For more information about BMI, including tools to quickly calculate your BMI, go to these websites: Centers for Disease Control and Prevention: www.cdc.gov [place] [employer]: www.heart.org National Heart, Lung, and Blood [place]: www.nhlbi.nih.gov Summary Body mass index (BMI) is a number that is calculated from a person's weight and height. BMI may help estimate how much of a person's weight is composed of fat. BMI can help identify thosewho may be at higher risk for certain medical problems. BMI can be measured using [place]ian measurements or metric measurements. BMI charts are used to identify whether you are underweight, normal weight, overweight, or obese. This information is not intended to replace advice given to you by your health care provider. Make sure you discuss any questions you have with your health care provider. Document Revised: 08/05/2020 Document Reviewed: 06/12/2020 [employer] Patient Education 2022 [employer]. 04/04/2024 12:26:22 Contact Dermatitis Contact Dermatitis Dermatitis is redness, soreness, and swelling (inflammation) of the skin. Contact dermatitis is a reaction to certain substances that touch the skin. Many different substances can cause contact dermatitis. There are two types of contact dermatitis: Irritant contact dermatitis. This type is caused by something that irritates your skin, such as having dry hands from washing them too often with soap. This type does not require previous exposure tothe substance for a reaction to occur. This is the most common type. Allergic contact dermatitis. This type is caused by a substance that you are allergic to, such as poison oswaldo. This type occurs when you have been exposed to the substance (allergen) and develop a sensitivity to it. Dermatitis may develop soon after your first exposure to the allergen, or it may notdevelop until the next time you are exposed and every time thereafter. What are the causes? Irritant contact dermatitis is most commonly caused by exposure to: Makeup. Soaps. Detergents. Bleaches. Acids. Metal salts, such as nickel. Allergic contact dermatitis is most commonly caused by exposure to: Poisonous plants. Chemicals. Jewelry. Latex. Medicines. Preservatives in products, such as clothing. What increases the risk? You are more likely to develop this condition if you have: A job that exposes you to irritants or allergens. Certain medical conditions, such as asthma or eczema. What are the signs or symptoms? Symptoms of this condition may occur on your body anywhere the irritant has touched you or is touched by you. Symptoms include: ?Dryness or flaking. ?Redness. ?Cracks. ?Itching. ?Pain or a burning feeling. ?Blisters. ?Drainage of small amounts of blood or clear fluid from skin cracks. With allergic contact dermatitis, there may also be swelling in areas such as the eyelids, mouth, or genitals. How is this diagnosed? This condition is diagnosed with a medical history and physical exam. A patch skin test may be performed to help determine the cause. If the condition is related to your job, you may need to see an occupational health physician. How is this treated? This condition is treated by checking for the cause of the reaction and protecting your skin from further contact. Treatment may also include: Steroid creams or ointments. Oral steroid medicines may be needed in more severe cases. Antibiotic medicines or antibacterial ointments, if a skin infection is present. Antihistamine lotion or an antihistamine taken by mouth to ease itching. A bandage (dressing). Follow these instructions at home: Skin care Moisturize your skin as needed. Apply cool compresses to the affected areas. Try applying baking soda paste to your skin. Stir water into baking soda until it reaches a paste-like consistency. Do not scratch your skin, and avoid friction to the affected area. Avoid the use of soaps, perfumes, and dyes. Medicines Take or apply mehc-vba-guzfuwj and prescription medicines only as told by your health care provider. If you were prescribed an antibiotic medicine, take or apply the antibiotic as told by your health care provider. Do not stop using the antibiotic even if your condition improves. Bathing Try taking a bath with: ?Epsom salts. Follow the instructions on the packaging. You can get these at your local pharmacy [employer] store. ?Baking soda. Pour a small amount into the bath as directed by your health care provider. ?Colloidal oatmeal. Follow the instructions on the packaging. You can get this at your local pharmacy or grocery store. Bathe less frequently, such as every other day. Bathe in lukewarm water. Avoid using hot water. Bandage care If you were given a bandage (dressing), change it as told by your health care provider. Wash your hands with soap and water before and after you change your dressing. If soap and water are not available, use hand reservations sales agent. General instructions Avoid the substance that caused your reaction. If you do not know what caused it, keep a journal totry to track what caused it. Write down: ?What you eat. ?What cosmetic products you use. ?What you drink. ?What you wear in the affected area. This includes jewelry. Check the affected areas every day for signs of infection. Check for: ?More redness, swelling, or pain. ?More fluid or blood. ?Warmth. ?Pus or a bad smell. Keep all follow-up visits as told by your health care provider. This is important. Contact a health care provider if: Your condition does not improve with treatment. Your condition gets worse. You have signs of infection such as swelling, tenderness, redness, soreness, or warmth in the affected area. You have a fever. You have new symptoms. Get help right away if: You have a severe headache, neck pain, or neck stiffness. You vomit. You feel very sleepy. You notice red streaks coming from the affected area. Your bone or joint underneath the affected area becomes painful after the skin has healed. The affected area turns darker. You have difficulty breathing. Summary Dermatitis is redness, soreness, and swelling (inflammation) of the skin. Contact dermatitis is a reaction to certain substances that touch the skin. Symptoms of this condition may occur on your body anywhere the irritant has touched you or is touched by you. This condition is treated by figuring out what caused the reaction and protecting your skin from further contact. Treatment may also include medicines and skin care. Avoid the substance that caused your reaction. If you do not know what caused it, keep a journal totry to track what caused it. Contact a health care provider if your condition gets worse or you have signs of infection such as swelling, tenderness, redness, soreness, or warmth in the affected area. This information is not intended to replace advice given to you by your health care provider. Make sure you discuss any questions you have with your health care provider. Document Revised: 08/29/2022 Document Reviewed: 08/29/2022 [employer] Patient Education 2022 [employer] 04/04/2024 12:26:21 Eczema Eczema Eczema refers to a group of skin conditions that cause skin to become rough and inflamed. Each typeof eczema has different triggers, symptoms, and treatments. Eczema of any type is usually itchy. Symptoms range from mild to severe. Eczema is not spread from person to person (is not contagious). It can appear on different parts ofthe body at different times. One person's eczema may look different from another person's eczema. What are the causes? The exact cause of this condition is not known. However, exposure to certain environmental factors,irritants, and allergens can make the condition worse. What are the signs or symptoms? Symptoms of this condition depend on the type of eczema you have. The types include: Contact dermatitis. There are two kinds: ?Irritant contact dermatitis. This happens when something irritates the skin and causes a rash. ?Allergic contact dermatitis. This happens when your skin comes in contact with something you are allergic to (allergens). This can include poison oswaldo, chemicals, or medicines that were applied to your skin. Atopic dermatitis. This is a long-term (chronic) skin disease that keeps coming back (recurring). It is the most common type of eczema. Usual symptoms are a red rash and itchy, dry, scaly skin. It usually starts showing signs in infancy and can last through adulthood. Dyshidrotic eczema. This is a form of eczema on the hands and feet. It shows up as very itchy, fluid-filled blisters. It can affect people of any age but is more common before age 40. Hand eczema. This causes very itchy areas of skin on the palms and sides of the hands and fingers. This type of eczema is common in industrial jobs where you may be exposed to different types of irritants. Lichen simplex chronicus. This type of eczema occurs when a person constantly scratches one area ofthe body. Repeated scratching of the area leads to thickened skin (lichenification). This conditioncan accompany other types of eczema. It is more common in adults but may also be seen in children. Nummular eczema. This is a common type of eczema that most often affects the lower legs and the backs of the hands. It typically causes an itchy, red, circular, crusty lesion (plaque). Scratching maybecome a habit and can cause bleeding. Nummular eczema occurs most often in middle-aged or older people. Seborrheic dermatitis. This is a common skin disease that mainly affects the scalp. It may also affect other oily areas of the body, such as the face, sides of the nose, eyebrows, ears, eyelids, and chest. It is marked by small scaling and redness of the skin (erythema). This can affect people of all ages. In infants, this condition is called cradle cap. Stasis dermatitis. This is a common skin disease that can cause itching, scaling, and hyperpigmentation, usually on the legs and feet. It occurs most often in people who have a condition that prevents blood from being pumped through the veins in the legs (chronic venous insufficiency). Stasis dermatitis is a chronic condition that needs long-term management. How is this diagnosed? This condition may be diagnosed based on: A physical exam of your skin. Your medical history. Skin patch tests. These tests involve using patches that contain possible allergens and placing them on your back. Your health care provider will check in a few days to see if an allergic reaction occurred. How is this treated? Treatment for eczema is based on the type of eczema you have. You may be given hydrocortisone steroid medicine or antihistamines. These can relieve itching quickly and help reduce inflammation. Thesemay be prescribed or purchased over the counter, depending on the strength that is needed. Follow these instructions at home: Take or apply qkdv-alm-aylvzsa and prescription medicines only as told by your health care provider. Use creams or ointments to moisturize your skin. Do not use lotions. Learn what triggers or irritates your symptoms so you can avoid these things. Treat symptom flare-ups quickly. Do not scratch your skin. This can make your rash worse. Keep all follow-up visits. This is important. Where to find more information [place] [employer] Dermatology: aad.org National Eczema Association: nationaleczema.org The Society for Pediatric Dermatology: pedsderm.net Contact a health care provider if: You have severe itching, even with treatment. You scratch your skin regularly until it bleeds. Your rash looks different than usual. Your skin is painful, swollen, or more red than usual. You have a fever. Summary Eczema refers to a group of skin conditions that cause skin to become rough and inflamed. Each typehas different triggers. Eczema of any type causes itching that may range from mild to severe. Treatment varies based on the type of eczema you have. Hydrocortisone steroid medicine or antihistamines can help with itching and inflammation. Protecting your skin is the best way to prevent eczema. Use creams or ointments to moisturize your skin. Avoid triggers and irritants. Treat flare-ups quickly. This information is not intended to replace advice given to you by your health care provider. Make sure you discuss any questions you have with your health care provider. Document Revised: 08/23/2021 Document Reviewed: 08/23/2021 [employer] Patient Education 2022 [employer]. Follow Up Care 03/21/2024 15:52:32 With:Arlet Hager FAM, [facility] Address: [address] [place] [address] [place], [facility] A [address] [address]- When:Within 1 Month(s) Comments:labs, rash, hand, migraines [facility] 05-09-2024 Evaluation + Plan note Future Scheduled Tests Laboratory* TIBC Calculated 04/04/24 * TSH With T4fr Reflex 04/04/24 * Vitamin D 25 Hydroxy 04/04/24 * CBC w/ Auto Diff 04/04/24 * Comprehensive Metabolic Panel 04/04/24 * Ferritin 04/04/24 * Folate Level 04/04/24 * Iron Level 04/04/24 * Iron Percent Saturation 04/04/24 * Lipid Panel 04/04/24 * Magnesium Level 04/04/24 * Reticulocyte Count 04/04/24 * Vitamin B12 Level 04/04/24 [facility] 04-07-2024 NoteDATE OF DISCHARGE: 02/29/2024 The patient is without complaints. Positive flatus. Positive void. Vital signs are stable, afebrile. Breasts ? non-tender, non-pathologic. Abdomen ? fundus firm and below the umbilicus. She has scantlochia. The perineum is intact. The patient is ready for release. Good instructions are given. The patient is to return to my office in six weeks. She is given the following prescriptions for her home use: Motrin, vitamins, Colace. DISCHARGE DIAGNOSIS: Vaginal delivery. Course: Complicated by polyhydramnios, transfer in the third trimester, otherwise withoutcomplication. Intrapartum Course: Maternal temperature during labor, Tylenol and parenteral antibiotics predelivery with a spontaneous vaginal delivery of a 3478 gram male infant with Apgars of 8 and 9, Pediatricsin attendance, without complication. Course: Without complication. Emigdio Hyde M.D. ca Dictated: 02/29/2024 [id number] Transcribed: 03/02/2024[facility] [place]Comment on above:Result Comment: Electronically Signed By: Doni STREET, Emigdio Foy\.br\Date and Time Signed: 03/03/24 08:27 [id number] NoteThe following Patient Education Materials have been given to the patient: EducationM[facility]Ohio [facility]04-[facility]2024 NoteHOSPITAL REGULATIONS: All Positive and Important Negative Findings Shall Be Recorded DATE ADMITTED: 02/26/2024 INTERVAL NOTE The patient is a 23-year-old 1, para 0, AB0 white female at 40 weeks' gestation who presented to Labor and Delivery in labor. Her course had been complicated by need for transfer of care in her third trimester, polyhydramnios. She reached 40 weeks' gestation and brought in for labor. Anticipate an approximately 7-1/2 to 8-pound baby. Please see records for details. Emigdio Hyde M.D. ca Dictated: 02/28/2024 [id number] Transcribed: 02/28/2024[facility] [place]Comment on above:Result Comment: Electronically Signed By: Doni STREET, Emigdio Foy\.br\Date and Time Signed: 02/29/24 07:26 [id number] Evaluation + Plan noteExtracted from: Title:ANES Post-Labor Epidural Author:Brent Ritter Jr, DO Date:02/28/24 Plan Transfer/Discharge: Stable for discharge from anesthetic standpoint.. Extracted from: Title:L&D Epidural note Author:Gonzalo Petty Jr., DO Date:02/26/24 Impression and Plan Plan Labor epidural at request of patient.. [facility]03-26-2024 Hospital Discharge instructions Patient Education 02/20/2024 14:55:04 Signs and Symptoms of Labor Signs and Symptoms of Labor Labor is the body's natural process of moving the baby and the placenta out of the uterus. The process of labor usually starts when the baby is full-term, between 39 and 41 weeks of . Signs and symptoms that you are close to going into labor As your body prepares for labor and the of your baby, you may notice the following symptoms in the weeks and days before true labor starts: Passing a small amount of thick, bloody mucus from your vagina. This is called normal bloody show or losing your mucus plug. This may happen more than a week before labor begins, or right before labor begins, as the opening of the cervix starts to widen (dilate). For some women, the entire mucus plug passes at once. For others, pieces of the mucus plug may gradually pass over several days. Your baby moving (dropping) lower in your pelvis to get into position for (lightening). When this happens, you may feel more pressure on your bladder and pelvic bone and less pressure on your ribs. This may make it easier to breathe. It may also cause you to need to urinate more often and have problems with bowel movements. Having practice contractions, also called Issaquena Shah contractions or false labor. These occur at irregular (unevenly spaced) intervals that are more than 10 minutes apart. False labor contractions are common after exercise or sexual activity. They will stop if you change position, rest, or drink fluids. These contractions are usually mild and do not get stronger over time. They may feel like: ?A backache or back pain. ?Mild cramps, similar to menstrual cramps. ?Tightening or pressure in your abdomen. Other early symptoms include: Nausea or loss of appetite. Diarrhea. Having a sudden burst of energy, or feeling very tired. Mood changes. Having trouble sleeping. Signs and symptoms that labor has begun Signs that you are in labor may include: Having contractions that come at regular (evenly spaced) intervals and increase in intensity. This may feel like more intense tightening or pressure in your abdomen that moves to your back. ?Contractions may also feel like rhythmic pain in your upper thighs or back that comes and goes at regular intervals. ?If you are delivering for the first time, this change in intensity of contractions often occurs komal more gradual pace. ?If you have given before, you may notice a more rapid progression of contraction changes. Feeling pressure in the vaginal area. Your water breaking (rupture of membranes). This is when the sac of fluid that surrounds your baby breaks. Fluid leaking from your vagina may be clear or blood-tinged. Labor usually starts within 24 hours of your water breaking, but it may take longer to begin. ?Some people may feel a sudden gush of fluid; others may notice repeatedly damp underwear. Follow these instructions at home: When labor starts, or if your water breaks, call your health care provider or nurse care line. Based on your situation, they will determine when you should go in for an exam. During early labor, you may be able to rest and manage symptoms at home. Some strategies to try at home include: ?Breathing and relaxation techniques. ?Taking a warm bath or shower. ?Listening to music. ?Using a heating pad on the lower back for pain. If directed, apply heat to the area as often as told by your health care provider. Use the heat source that your health care provider recommends, suchas a moist heat pack or a heating pad. ?Place a towel between your skin and the heat source. ?Leave the heat on for 20 30 minutes. ?Remove the heat if your skin turns bright red. This is especially important if you are unable to feel pain, heat, or cold. You have a greater risk of getting burned. Contact a health care provider if: Your labor has started. Your water breaks. You have nausea, vomiting, or diarrhea. Get help right away if: You have painful, regular contractions that are 5 minutes apart or less. Labor starts before you are 37 weeks along in your . You have a fever. You have bright red blood coming from your vagina. You do not feel your baby moving. You have a severe headache with or without vision problems. You have chest pain or shortness of breath. These symptoms may represent a serious problem that is an emergency. Do not wait to see if the symptoms will go away. Get medical help right away. Call your local emergency services (911 in the [place] Do not drive yourself to the hospital. Summary Labor is your body's natural process of moving your baby and the placenta out of your uterus. The process of labor usually starts when your baby is full-term, between 39 and 40 weeks of . When labor starts, or if your water breaks, call your health care provider or nurse care line. Based on your situation, they will determine when you should go in for an exam. This information is not intended to replace advice given to you by your health care provider. Make sure you discuss any questions you have with your health care provider. Document Revised: 03/29/2022 Document Reviewed: 03/29/2022 Elsevier Patient Education 2022 [employer]. Follow Up Care 02/20/2024 07:02:09 With:Emigdio Hyde Address: [facility] [place], [address] [address]- Business (1) When:02/26/2024 10:00:00 [facility]03-26-2024 NoteThe following Patient Education Materials have been given to the patient: [facility] Discharge instructions Follow Up Care 02/19/2024 11:52:57 With:Dr. Hyde [phone] Address:Unknown When:6 weeks Comments:Call for any problems.Call if fever>100.5 F, heavy bleedingLactation Support Group first Monday of the One on visits available by appointment, call maternity to schedule [facility]03-06-2024 Evaluation + Plan note Diagnostic Tests Pending * Group B Streptococcus colonization by PCR 01/31/24 [facility]02-18-2024 Hospital Discharge instructions Patient Education 01/14/2024 19:45:02 PUPPP Rash PUPPP Rash Pruritic urticarial papules and plaques of (PUPPP) is a rash that develops during , or sometimes shortly after giving . The rash consists of small red bumps that sometimes form large, scaly, red patches of skin (plaques). The rash goes away soon after childbirth, and it doesnot leave scars or harm you or your baby. PUPPP usually appears during the last few weeks of . It usually does not return during later pregnancies. What are the causes? The cause of this condition is not known. However, it may be related to your skin stretching rapidly during the later stages of . What increases the risk? You are more likely to develop this condition if: You are for the first time. You are with more than one baby. What are the signs or symptoms? The main symptom of this condition is a very itchy rash on the abdomen. The rash often looks red and raised. Sometimes small blisters form in the center of the rash patches. The rash may spread to the legs or arms. The skin around the rash may turn pale. How is this diagnosed? This condition is diagnosed based on a physical exam. Your health care provider will examine your skin and ask questions about your symptoms. In some cases, your health care provider may take a sample of your skin for testing (biopsy) in order to rule out other causes of skin conditions. How is this treated? The goal of treatment is to stop the itching and keep the rash from spreading. Common treatments include medicines that relieve or lessen itching (corticosteroids or antihistamines). These medicines may be: Creams. Ointments. Pills to be taken by mouth. Follow these instructions at home: Skin care Apply any creams or ointments as directed by your health care provider. Wear loose clothing. Keep your skin clean and dry. Do not scratch the rash. Do not bathe in hot water. Take cool baths to soothe your skin. Try adding baking soda or oatmeal to the water to help reduce itching. Apply cool, wet cloths (cool compresses) to itchy areas as told by your health care provider. General instructions Take oxre-mrx-ytaevnx and prescription medicines only as told by your health care provider. Keep all follow-up visits. This is important. Contact a health care provider if: Your itchiness does not go away after treatment. Your rash continues to spread. The rash becomes painful. You are unable to sleep because of the rash. Summary Pruritic urticarial papules and plaques of (PUPPP) is a rash that develops during . The rash goes away soon after giving . It does not leave scars or harm you or your baby. You are more likely to develop this condition if this is your first or you are with more than one baby. The goal of treatment is to stop the itching and keep the rash from spreading. This information is not intended to replace advice given to you by your health care provider. Make sure you discuss any questions you have with your health care provider. Document Revised: 07/19/2021 Document Reviewed: 07/19/2021 [employer] Patient Education 2022 [employer]. Follow Up Care 01/14/2024 19:18:26 With:Emigdio Hyde Address: [address] [address]- [facility] (1) When:01/17/2024 19:32:46 Comments:Call Dr for diagnosis based follow up With:XXXX NONE Address: [place] When:Within 3 Day(s) [facility]10-18-2023 Evaluation + Plan noteExtracted from: Title:ED Note Author:Yvon Morales MD Date:09/13 [...] Troponin 9 Hr. XR Chest Single View [facility]10-18-2023 Hospital Discharge instructions Patient Education 09/13/2023 [...] Follow these instructions at home: Medicines Take uwyc-vgu-ccdjpqh and prescription medicines only as told by [...] provider. Document Revised: 01/27/2022 Document Reviewed: 01/27/2022 [employer] Patient Education 2022 [employer]. Follow Up Care 09/13/2023 04:38:19 With:Hang Jacobsen Address: [address] [place] [address] [address] [place] [address]- [facility] (1) When:09/16/2023 09:30:26 Comments:Call the office of [...] legs, or any new or worsening symptoms. [facility]12-05-2022 Evaluation + Plan noteExtracted from: Title:ED Note Author:Nagi Kirby DO Date :10/31/22 AP (abdominal pain) (R10.9: Unspecified abdominal pain) N&V (nausea and vomiting) (R11.2: Nausea with vomiting, unspecified) Orders: dicyclomine, 10 mg = 1 cap(s), Oral, QID, X 7 day(s), # 28 cap(s), Refills(s) 0, Pharmacy: [facility]/pharmacy #[id number], 157.5, cm, 10/30/22 23:48:00 EST, Height/Length Dosing, [...] Nausea/Vomiting, # 28 tab(s), Refills(s) 0, Pharmacy: [facility]/pharmacy #[id number], 157.5, cm, 10/30/22 23:48:00 EST, [...] Beta Hcg Qual UA With Cult Reflex [facility]12-05-2022 Hospital Discharge instructions Patient Education 10/31/2022 [...] Follow these instructions at home: Medicines Take gatu-bfg-jytstkt and prescription medicines only as told by [...] Watch your condition for any changes. Take bfvf-ofy-kcrqhij and prescription medicines only as told by [...] 08/23/2006 Document Revised: 03/23/2020 Document Reviewed: 03/23/2020 [employer] Patient Education 2019 [employer]. Follow Up Care 10/30/2022 23:38:50 With:Jose WHITE Address: [address] [place], [place] [id number] Business (1) When:11/03/2022 [facility]11-30-2022 Hospital Discharge instructions Patient Education 10/26/2022 16:18:56 Viral Gastroenteritis, Adult, Lacc-eu-Fnqq Viral Gastroenteritis, Adult Viral gastroenteritis is also [...] than 2 years old. Living in a mcfp. Going on cruise ships. What are the [...] cannot use soap and water, use hand reservations sales agent. Make sure that all people in your home wash their hands well and often. Take kelj-kbz-tycpkvi and prescription medicines only as told by [...] 05/01/2009 Document Revised: 09/18/2019 Document Reviewed: 09/18/2019 Elsevier Patient Education 2020 [employer]. 10/26/2022 16:18:56 Viral Illness, Adult Viral Illness, [...] Medicines to relieve symptoms. These can include bjxn-utz-llopzcg medicine for pain and fever, medicines for [...] Follow these instructions at home: Medicines Take ueiy-cix-qhjjzas and prescription medicines only as told by [...] and water are not available, use hand reservations sales agent. Avoid close contact with friends and family [...] 03/24/2017 Document Revised: 10/26/2018 Document Reviewed: 03/24/2017 [employer] Patient Education 2020 [employer]. Follow Up Care 10/26/2022 13:31:03 With:Hang Jacobsen Address: [address] [place] [address] [place] [address] [facility] (1) When:10/29/2022 16:02:45 Comments:Follow-up with your primary care provider. He did not have any follow- up with Dr. Jacobsen. Follow-upwith your primary care provider in 3 to 5 days. If symptoms worsen, do not improve, or new symptomsarise please report back to emergency department for further evaluation. With:XXXX NONE Address: [place] When:10/29/2022 16:02:35 [facility]11-30-2022 Evaluation + Plan noteExtracted from: Title:ED Note Author:Brandin CARRASCO, Johnny Eaton te:10/26/22 Viral illness (B34.9: Viral infection, unspecified) Orders: ondansetron, 4 mg = 1 tab(s), Tab-Dis, Oral, Once, Stop date 10/26/22 14:56:00 EST, STAT, Start date 10/26/22 14:56:00 EST, 10/26/22 14:56:00 EST Influenza A&B Ag Rapid COVID Antigen ([facility]) U Beta Hcg Qual UA With Cult Reflex [facility]08-29-2022 Evaluation + Plan noteExtracted from: Title:ED [...] change or worsen or become more concerning. [facility]08-29-2022 Hospital Discharge instructions Patient Education 07/25/2022 [...] home: Managing pain, stiffness, and swelling Take mbyw-jaa-ucguswu and prescription medicines only as told by [...] as fried and sweet foods. ?Take an kzko-fja-ztheqgn or prescription medicine for constipation. Contact a [...] 08/08/2002 Document Revised: 01/09/2020 Document Reviewed: 12/03/2018 [employer] Patient Education 2020 [employer]. 07/25/2022 07:45:47 Nonspecific Chest Pain, Adult Nonspecific [...] Follow these instructions at home: Medicines Take tnze-fyy-wdwtzjj and prescription medicines only as told by [...] 08/23/2006 Document Revised: 05/16/2019 Document Reviewed: 05/16/2019 [employer] Patient Education 2020 [employer] Follow Up Care 07/25/2022 06:22:17 With:Jacinta Núñez Address: [address] [place] [address]- Business (1) When:Within 3 Day(s) [facility]06-29-2022 Hospital Discharge instructions Patient Education 05/25/2022 [...] and water are not available, use hand reservations sales agent. Change your dressing as told by your [...] can decrease scar thickness. General instructions Take dpgc-swn-wnqmtei and prescription medicines only as told by [...] 10/26/2009 Document Revised: 10/26/2018 Document Reviewed: 09/03/2018 [employer] Patient Education 2020 [employer] 05/25/2022 19:22:16 Suture Removal, Care After [...] and water are not available, use hand reservations sales agent. Change your dressing as told by your [...] can make scarring worse. General instructions Take ljth-tpc-hujlddg and prescription medicines only as told by [...] 08/08/2002 Document Revised: 10/26/2018 Document Reviewed: 12/19/2017 [employer] Patient Education 2020 [employer]. 05/25/2022 19:22:16 Incision Care, Adult, Yrgm-bl-Alrz Incision Care, Adult An incision is a [...] cannot use soap and water, use hand reservations sales agent. ?Change your bandage as told by your [...] even if your condition gets better. Take rsnd-asb-wmdmqmj and prescription medicines only as told by [...] 02/04/2013 Document Revised: 04/02/2018 Document Reviewed: 07/21/2017 [employer] Patient Education 2020 [employer]. Follow Up Care 05/25/2022 18:46:48 With:Heydi STORY Address: [address] [place] [address] [address] [place] [address]- Business (1) When:05/28/2022 19:20:04 Comments:Follow-up with your primary care provider in 3 to 5 days. If symptoms worsen, do not improve, or new symptoms arise please report back to emergency department for further evaluation. [facility]06-22-2022 Hospital Discharge instructions Patient Education 05/18/2022 [...] ?Warmth. ?Pus or a bad smell. Take irua-ffv-aalcymk and prescription medicines only as told by [...] 12/21/2005 Document Revised: 03/05/2020 Document Reviewed: 12/14/2017 [employer] Patient Education 2020 [employer]. 05/18/2022 19:48:17 Head Injury, Adult Head Injury, [...] Ask your health care provider for a bmaw-mw-vyzp plan for gradually returning to activities. Ask [...] your friends, family, a trusted colleague, and ammonia refrigeration worker about your injury, symptoms, and restrictions. Have them watch for any new or worsening problems. General instructions Take dnxw-myx-jilxeti and prescription medicines only as told by [...] Document Reviewed: 12/06/2019 Elsevier Patient Education 2020 [employer] Follow Up Care 05/18/2022 16:31:36 With:Alexis Jacobs Address: [address] [place] [address]- When:Within 3 Day(s) [facility]06-22-2022 Evaluation + Plan noteExtracted from: Title:ED Note Author:Johnny Ghotra PA-C te:05/18/22 CHI (closed head injury) (S0 9.90XA: Unspecified injury of head, initial encounter) Closed nondisplaced fracture of nasal bone (S02.2XXA: Fracture of nasal bones, initial encounter for closed fracture) Facial laceration (S01.81XA: Laceration without foreign body of other part of head, initial encounter) [facility] Future Appointments Appointment Date:05/09/2024 09:00:00 AM Scheduled Provider:Arlet Hager Location:[facility] Appointment Type:FM Open Future Scheduled Tests Laboratory* TIBC Calculated 04/04/24 * TSH With T4fr Reflex 04/04/24 * Vitamin D 25 Hydroxy 04/04/24 * CBC w/ Auto Diff 04/04/24 * Comprehensive Metabolic Panel 04/04/24 * Ferritin 04/04/24 * Folate Level 04/04/24 * Iron Level 04/04/24 * Iron Percent Saturation 04/04/24 * Lipid Panel 04/04/24 * Magnesium Level 04/04/24 * Reticulocyte Count 04/04/24 * Vitamin B12 Level 04/04/24 [facility] Evaluation + Plan note Future Appointments Appointment Date:05/09/2024 09:00:00 AM Scheduled Provider:Arlet Hager Location:[facility] Appointment Type: Open Diagnostic Tests Pending * PAP [phone] 04/16/24 Future Scheduled Tests Laboratory* TIBC Calculated 04/04/24 * TSH With T4fr Reflex 04/04/24 * Vitamin D 25 Hydroxy 04/04/24 * CBC w/ Auto Diff 04/04/24 * Comprehensive Metabolic Panel 04/04/24 * Ferritin 04/04/24 * Folate Level 04/04/24 * Iron Level 04/04/24 * Iron Percent Saturation 04/04/24 * Lipid Panel 04/04/24 * Magnesium Level 04/04/24 * Reticulocyte Count 04/04/24 * Vitamin B12 Level 04/04/24 [facility] N[facility]ative No data available for this section [facility] No data available for this section [facility] No data available for this section [facility] Summary Purpose Family History No Family History Records Found Advance Directives No Advanced Directives Records FoundNo Advanced Directives Records FoundNo Advanced Directives Records FoundNo Advanced Directives Records FoundNo Advanced Directives Records FoundNo Advanced Directives Records FoundNo Advanced Directives Records FoundNo Advanced Directives Records FoundNo Advanced Directives Records FoundNo Advanced Directives Records FoundNo Advanced Directives Records FoundNo Advanced Directives Records FoundNo Advanced Directives Records FoundNo Advanced Directives Records FoundNo Advanced Directives Records FoundNo Advanced Directives Records FoundNo Advanced Directives Records FoundNo Advanced Directives Records FoundNo Advanced Directives Records FoundNo Advanced Directives Records FoundNo Advanced Directives Records Found Additional Source Comments Care Team (unrecognized sect ion and content) Personnel Name: Alexis Jacobs DO Address: [address] [place] [address] Personnel Name: Heydi STORY MD Address: [address] [place], [place] [address] Personnel Name: Jacinta Núñez MD Address: [address] [place] [address] Personnel Name: NONE, XXXX Address: Address: [facility] Personnel Name: NONE, XXXX Address: Address: [facility] Personnel Name: NONE, XXXX Address: Address: [facility] Personnel Name: NONE, XXXX Address: Address: [facility] Personnel Name: NONE, XXXX Address: Address: [facility] Personnel Name: NONE, XXXX Address: Address: [facility] Personnel Name: NONE, XXXX Address: Address: [facility] Personnel Name: NONE, XXXX Address: Address: [facility] Personnel Name: NONE, XXXX Address: Address: [facility] Personnel Name: NONE, XXXX Address: Address: [facility] Personnel Name: NONE, XXXX Address: Address: [facility] Personnel Name: NONE, XXXX Address: Address: [facility] Personnel Name: NONE, XXXX Address: Address: [facility] Personnel Name: NONE, XXXX Address: Address: [facility] Personnel Name: NONE, XXXX Address: Address: [facility] Personnel Name: NONE, XXXX Address: Address: [facility] Personnel Name: NONE, XXXX Address: Address: [place] INFORMATION SOURCE (unrecogn ized section and content) DATE CREATED AUTHOR 12/07/2023 [facility] DATE CREATED AUTHOR AUTHOR'S ORGANIZ ATION 05/24/2024 [facility] DATE CREATED AUTHOR AUTHOR'S ORGANIZ ATION 07/01/2024 [facility] DATE CREATED AUTHOR AUTHOR'S ORGANIZ ATION 07/02/2024 [facility] DATE CREATED AUTHOR AUTHOR'S ORGANIZ ATION 08/23/2024 [facility] DATE CREATED AUTHOR AUTHOR'S ORGANIZ ATION 09/15/2024 [facility] DATE CREATED AUTHOR AUTHOR'S ORGANIZ ATION 11/19/2024 [facility] DATE CREATED AUTHOR AUTHOR'S ORGANIZ ATION 12/06/2024 [facility] DATE CREATED AUTHOR AUTHOR'S ORGANIZ ATION 12/09/2024 [facility] FOR RECORDS PERTAINING TO PATIENTS WHO ARE [...] BE BASED ON THE PRIMARY CLINICAL RECORDS. [employer] [facility]. provides no warranty or guarantee of the accuracy or completeness of information in this document.
--- NOTE | 2024-12-10 02:28 | ED.URI1 ---
HPI - URI/Sore Throat General Chief Complaint: Upper Respiratory Infection Stated Complaint: COUGH Time Seen by Provider: 12/10/24 02:12 Source: patient Limitations: no limitations History of Present Illness HPI Narrative: This 24-year-old female who is 30 weeks presents for evaluation of a cough that has been present since . She has been seen at [facility] and diagnosed with an ear infection and is on amoxicillin. She states that she has a son at home with similar symptoms. She is not having any abdominal pain but when she coughs she is urinating. She states she is urinating quite a bit when she coughs. She has not had any vaginal bleeding and can feel movements. Dr. Lozano is her [employer]. She has not seen him regarding this. She states that she is having pain in her ribs when she coughs. Her cough is dry. She does not smoke or have a history of asthma. She has no lower extremity pain or swelling. She has been using cough drops and lemon tea for the cough with minimal relief. Related Data Home Medications ?Medication ?Instructions ?Recorded ?Confirmed [id number] PO 08/14/23 Allergies Allergy/AdvReac Type Severity Reaction Status Date / Time No Known Drug Allergies Allergy Verified 12/10/24 02:15 Review of Systems ROS Status of ROS 10 or more systems reviewed and unremarkable except as noted in history and below PFSH PFS Social History Smoking status: Former smoker Little interest or pleasure in doing things: not at all Feeling down, depressed, or hopeless: not at all Exam Narrative Exam Narrative: Vital signs and Nursing Notes reviewed: Is afebrile, she is tachycardic at triage with a pulse of 115 her blood pressure is elevated at 151/85, she is not hypoxic with pulse ox of 97% on room air General: Awake, alert, oriented, no acute distress, lying comfortably on the stretcher HEENT: Normocephalic atraumatic, mucous membranes are moist and pink, audible nasal congestion, eyes are clear, normal conjunctiva, vision is grossly intact, posterior pharynx is normal in appearance. Right tympanic membrane is mildly erythematous without any effusion. Left tympanic membrane is normal. There is no posterior pharyngeal erythema or exudate noted. Neck: Supple, no meningeal signs, no anterior or posterior cervical lymphadenopathy Chest: Lungs are clear to auscultation with good air entry, there is no wheezing rhonchi or rales appreciated no accessory muscle use, patient is speaking in complete sentences-no chest wall tenderness to palpation CVS: Regular rate and rhythm S1-S2, tachycardic at triage at 115, pulse is 96 on exam with no murmurs rubs or gallops, pulses are brisk and equal bilaterally ABD: Gravid uterus Extremities: Moving all extremities, no lower extremity tenderness or swelling noted, negative Homans' sign, pulses are brisk and equal bilaterally Skin: Normal in appearance without rash,pallor, petechiae or purpura Neuro: No focal deficits Constitutional Vital Signs, click to edit/add: Last Vital Signs Temp 98.2 F 12/10/24 02:09 Pulse 108 H 12/10/24 03:22 Resp 18 12/10/24 03:22 BP 151/85 H 12/10/24 02:09 Pulse Ox 97 12/10/24 03:22 O2 Del Method Room Air 12/10/24 03:22 Course Vital Signs Vital signs: Vital Signs Temperature 98.2 F 12/10/24 02:09 Pulse Rate 115 H 12/10/24 02:09 Respiratory Rate 18 12/10/24 02:09 Blood Pressure 151/85 H 12/10/24 02:09 Pulse Oximetry 97 12/10/24 02:09 Oxygen Delivery Method Room Air 12/10/24 02:09 Temperature 98.2 F 12/10/24 02:09 Pulse Rate 108 H 12/10/24 03:22 Respiratory Rate 18 12/10/24 03:22 Blood Pressure 151/85 H 12/10/24 02:09 Pulse Oximetry 97 12/10/24 03:22 Oxygen Delivery Method Room Air 12/10/24 03:22 MDM - URI/Sore Throat MDM Narrative Medical decision making narrative: This 24-year-old female presents for evaluation of a cough since [place]. She is currently on amoxicillin after being seen at [facility] and diagnosed with a right sided ear infection and upper respiratory tract infection. Her son is home with similar symptoms. She has audible nasal congestion and feels like her cough is getting worse. Her lungs are clear, she was mildly tachycardic upon arrival but she is not hypoxic. She is 30 weeks . She states that every time she coughs she is leaking urine. She has pain in her ribs with coughing. She does not have any lower extremity pain or swelling and she does not have a fever. She has not seen Dr. Lozano regarding this. She has been taking cough medicine and drinking lemon tea for the cough without significant results. I explained to her that basically all cough medications are category C in with uncertain safety. She is negative for RSV, influenza and COVID-19. This was explained to her. We discussed different options for her cough. She will be given an albuterol inhaler from the emergency department and I told her she could try Benadryl which may help dry up some of her nasal secretions. Otherwise she should continue with cough drops, drink plenty of fluids and follow-up closely with her [employer] for further evaluation and treatment. Lab Data Labs: Lab Results 12/10/24 Range/Units 02:18 Influenza Type A Ag Negative Influenza Type B Ag Negative RSV Antigen Not detected (NOT DETECTE) SARS-CoV-2 Ag (CV2AG) Negative (NEGATIVE) Discharge Plan Discharge Chief Complaint: Upper Respiratory Infection Clinical Impression: Viral upper respiratory tract infection with cough Patient Disposition: Home, Self-Care Time of Disposition Decision: 03:09 Condition: Good Prescriptions / Home Meds: No Action [id number] [ Multi] PO Print Language: Irish Instructions: Upper Respiratory Infection (ED) Referrals: Physician,Non-Staff, MD [Primary Care Provider] - 1 week Discharge Date/Time: 12/10/24 03:22
[2024-12-10 02:29] VITALS: O2SAT 98
[2024-12-10] MEDS: ACETAMINOPHEN 325 MG TABLET 650 MG PO (02:49)
[2024-12-10 03:01] LABS: Influenza Virus A Antigen Negative; Influenza Virus B Antigen Negative; Internal Control Within Normal Limits; Respiratory Syncytial Virus Not Detected (NOT DETECTE); SARS-CoV-2 Ag NEGATIVE (NEGATIVE)
[2024-12-10] MEDS: ALBUTEROL SULFATE 200 PUFF/6.7 GM INHALER IH (03:19)
[2024-12-10 03:22] VITALS: PULSE 108; O2SAT 97
== END 2024-12-10 03:22 | disposition home or self-care (01) ==
PROVIDERS: Emergency Provider Emergency Medicine
DX: O99.513 Diseases of the respiratory system complicating pregnancy, third trimester (principal); J06.9 Acute upper respiratory infection, unspecified; Z3A.30 30 weeks gestation of pregnancy; Z87.891 Personal history of nicotine dependence; O99.891 Other specified diseases and conditions complicating pregnancy; R05.9 Cough, unspecified
CPT/HCPCS: 87420; 87804; 87811; 94640; 99283